=== PATIENT | female | born 1970 | race Caucasian/White ===

== ENCOUNTER → 2021-03-25 07:07 | Outpatient (CLI) | payer OTHER, SELFPAY ==
--- NOTE | ~2021-03-25 | MM_ITS ---
EXAMINATION: MM screening anabel BI w richard HISTORY: Screening mammogram TECHNIQUE: Craniocaudal and mediolateral oblique 3-D tomosynthesis images were obtained and synthetic 2-D images were generated. CAD analysis was submitted and interpreted. COMPARISON: 12/24/2018, 09/13/2017, 05/20/2016 bilateral digital screening mammogram examinations BREAST PARENCHYMAL COMPOSITION: The breasts are heterogeneously dense, which may obscure small masses . FINDINGS: There is stable asymmetry in the upper outer right breast secondary to partial mastectomy f or breast cancer. There is no evidence of interval suspicious mass, calcification, or architectural d istortion to suggest malignancy in either breast. There has been no suspicious interval change. IMPRESSION: 1. No mammographic evidence of malignancy. 2. Recommend routine screening mammography in one year. BI-RADS Category 2: Benign finding(s). Reviewed, dictated and finalized at location A.
== END ==
PROVIDERS: PCP Family Medicine; Visit Provider Student in an Organized Health Care Education/Training Program
DX: Z12.31 Encounter for screening mammogram for malignant neoplasm of breast (principal)
CPT/HCPCS: 77063; 77067

== ENCOUNTER → 2022-06-11 10:02 | Outpatient (CLI) | payer OTHER, SELFPAY ==
--- NOTE | ~2022-06-11 | MM_ITS ---
EXAMINATION: MM screening anabel BI w richard HISTORY: Screening mammogram TECHNIQUE: Craniocaudal and mediolateral oblique 3-D tomosynthesis images were obtained and synthetic 2-D images were generated. CAD analysis was submitted and interpreted. COMPARISON: 03/21/2021, 12/24/2018, 09/13/2017 bilateral screening mammogram examinations BREAST PARENCHYMAL COMPOSITION: The breasts are heterogeneously dense, which may obscure small masses . FINDINGS: Status post right partial mastectomy for breast cancer. There is no evidence of suspicious mass, calcification, or architectural distortion to suggest malignancy in either breast. There has be en no suspicious interval change. IMPRESSION: 1. No mammographic evidence of malignancy. 2. Recommend routine screening mammography in one year. BI-RADS Category 2: Benign finding(s). Reviewed, dictated and finalized at location A.
== END ==
PROVIDERS: PCP Family Medicine; Visit Provider Student in an Organized Health Care Education/Training Program
DX: Z12.31 Encounter for screening mammogram for malignant neoplasm of breast (principal)
CPT/HCPCS: 77063; 77067

== ENCOUNTER 2022-12-01 08:35 | Outpatient (CLI) | payer OTHER, SELFPAY ==
[2022-12-01 10:42] LABS: Free T4 Free Thyroxine 1.21 ng/mL (0.78-2.19)
== END 2022-12-01 08:36 | disposition home or self-care (01) ==
PROVIDERS: PCP Family Medicine; Visit Provider Family Medicine
DX: E03.9 Hypothyroidism, unspecified (principal)
CPT/HCPCS: 36415; 84439; 84443

== ENCOUNTER → 2023-08-01 15:22 | Outpatient (CLI) | payer OTHER, SELFPAY ==
--- NOTE | ~2023-08-01 | MM_ITS ---
EXAMINATION: MM screening anabel BI w richard HISTORY: Screening mammogram, history of right breast TECHNIQUE: Craniocaudal and mediolateral oblique 3-D tomosynthesis images were obtained and synthetic 2-D images were generated. CAD analysis was submitted and interpreted. COMPARISON: 06/11/2022, 03/25/2021, 12/24/2018 BREAST PARENCHYMAL COMPOSITION: The breasts are heterogeneously dense, which may obscure small masses . FINDINGS: Lumpectomy changes are noted in the upper right breast. No suspicious mass, calcification, or architectural distortion are identified in either breast to suggest malignancy. There has been no suspicious interval change. IMPRESSION: 1. No mammographic evidence of malignancy. 2. Recommend routine screening mammography in one year. BI-RADS Category 2: Benign finding(s). Reviewed, dictated and finalized at location A.
== END ==
PROVIDERS: PCP Family Medicine; Visit Provider Family Medicine
DX: Z12.31 Encounter for screening mammogram for malignant neoplasm of breast (principal)
CPT/HCPCS: 77063; 77067

== ENCOUNTER 2024-06-10 07:52 | Outpatient (CLI) | payer OTHER, SELFPAY ==
--- NOTE | ~2024-06-10 | MMUS_ITS ---
EXAMINATION: MM diagnostic anabel LT w richard, US breast LT limited HISTORY: Left breast mass, pain, swelling TECHNIQUE: 3-D tomosynthesis images of the left breast were performed and synthetic 2-D images were g enerated. CAD analysis was submitted and interpreted. High resolution limited left breast ultrasound was performed. COMPARISON: 08/01/2023, 06/11/2022, 03/25/2021 BREAST PARENCHYMAL COMPOSITION:Dense: The breasts are heterogeneously dense, which may obscure small masses. FINDINGS: MAMMOGRAPHIC FINDINGS: There is diffuse skin thickening of the left breast, which is new from prior exam. There is relative diffuse increased density of the left breast parenchyma is compared to prior exam, especially at the upper outer quadrant and lower left breast on MLO view. There is also left axillary lymphadenopathy p resent on MLO view, new from prior exam. No suspicious microcalcifications. ULTRASOUND: At the 1:00-2:00 left breast, an area of palpable concern, there is a 4.3 x 2.5 x 5.0 cm irregular hy poechoic mass versus possibly fluid collection. There are enlarged markedly hypoechoic lymph nodes in the left axilla, largest measuring 2.1 x 1.9 x 2.2 cm. Additional lymph node measures 2.1 x 1.5 x 1. 6 cm. There is an additional probable markedly hypoechoic mass at the 2:00 left breast 13 cm from the nipple, measuring 1.6 cm in diameter. There is extensive subcutaneous edema of the left breast in th e regions scanned. 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 Stable 5 cm mass in the upper, outer left breast with additional smaller left breast m asses as well as left axillary lymphadenopathy. Severe mastitis and possible abscess would be a poten tial alternative consideration, though inflammatory breast cancer is the favored diagnosis. Breast nieves rgical/oncologic consultation is advised. Ultrasound guided biopsy recommended at this time to establ anca a histologic diagnosis. Case discussed with Dr. Zavala at the time of this reading. BI-RADS category 5, highly suggestive of malignancy. Reviewed, dictated and finalized at location M. IMPRESSION: Findings as detailed above are highly suspicious for inflammatory breast cance r extensively involving left breast. Stable 5 cm mass in the upper, outer left breast with additional smaller left breast masses as well as left axillary lymp hadenopathy. Severe mastitis and possible abscess would be a potential alternat cira consideration, though inflammatory breast cancer is the favored diagnosis. Breast surgical/oncologic consultation is advised. Ultrasound guided biopsy rec ommended at this time to establish a histologic diagnosis. Case discussed with Dr. Zavala at the time of this reading. BI-RADS category 5, highly suggestive of malignancy.
== END 2024-06-10 07:53 | disposition home or self-care (01) ==
PROVIDERS: PCP Family Medicine; Visit Provider Obstetrics & Gynecology
DX: N63.21 Unspecified lump in the left breast, upper outer quadrant (principal); R59.0 Localized enlarged lymph nodes; N61.0 Mastitis without abscess
CPT/HCPCS: 76642; 77061; 77065; G0279

== ENCOUNTER 2024-06-13 07:45 | Outpatient (NON) | payer OTHER, SELFPAY | END 2024-06-13 07:46 | disposition home or self-care (01) | LOC: ANHLAB 07:51 | PROVIDERS: PCP Family Medicine; Visit Provider Surgery | DX: R59.0 Localized enlarged lymph nodes (principal); N63.20 Unspecified lump in the left breast, unspecified quadrant; Z85.3 Personal history of malignant neoplasm of breast | CPT/HCPCS: 88305; 88342 ==

== ENCOUNTER 2024-06-13 09:33 | Outpatient (CLI) | payer OTHER, SELFPAY ==
--- NOTE | ~2024-06-13 | US_ITS ---
EXAMINATION: US_BXSTAXLIMG_US DATE: 06/13/2024 10:41 INDICATION: Left axillary lymphadenopathy. TECHNIQUE: The procedure including the risks, benefits, and alternatives was discussed with the patie nt. Risks discussed included bleeding and infection. The patient understood the risks and agreed to p roceed. The skin overlying the left axilla was prepped and draped in usual sterile fashion. Anesthet ic was administered with 1% lidocaine subcutaneously. An 18 gauge core biopsy needle was then used t o obtain 3 core biopsy specimens under continuous sonographic guidance. The entry site was cleaned an d dressed. There were no immediate complications. FINDINGS: Ultrasound images demonstrate the needle in an enlarged left axillary lymph node. IMPRESSION: 1. Ultrasound-guided core needle biopsy of an enlarged left axillary lymph node. Reviewed, dictated and finalized at location A. IMPRESSION: 1. Ultrasound-guided core needle biopsy of an enlarged left axillary lymph node .
== END 2024-06-13 09:34 | disposition home or self-care (01) ==
PROVIDERS: PCP Family Medicine; Visit Provider Surgery
DX: R59.0 Localized enlarged lymph nodes (principal); N63.20 Unspecified lump in the left breast, unspecified quadrant; Z85.3 Personal history of malignant neoplasm of breast
CPT/HCPCS: 20999; 76942; 88305; 88342; 88360

== ENCOUNTER 2024-06-20 07:34 | Outpatient (CLI) | payer OTHER, SELFPAY ==
--- NOTE | 2024-06-20 | ECHO_ITS ---
Patient Info Name: Janae Solis Age: 54 years : 1970 Gender: Female Ht: 70 in Wt: 214 lbs BSA: 2.22 m2 HR: 72 bpm BP: 148 / 88 mmHg Heart Rhythm: Sinus Rhythm Technical Quality: Good Exam Date: 06/20/2024 1:16 PM Exam Location: Echo Lab Patient Status: Outpatient Admit Date: 06/20/2024 Staff Ordering Physician: Trisha Richard MD Payroll Administrative Assistant: Vaibhav Larose RDCS Attending Provider: Trisha Richard MD Referring Physician: Jose Manuel ROOT; Exam Type: CA echo doppler color flow Study Info Indications C50.912 - Malignant neoplasm of unspecified site of left female breast Complete two-dimensional, color flow and Doppler transthoracic echocardiogram is performed. Strain analysis performed. Summary 1. Left ventricular chamber dimension is normal. 2. Left ventricular systolic function is normal, estimated at 55-60%. 3. The left ventricular diastolic function is grade I diastolic dysfunction. 4. Global longitudinal strain is abnormal at -16 %. 5. Right ventricular systolic function is normal. 6. Left atrial chamber dimension is mildly enlarged. 7. There is mild mitral valve regurgitation. 8. There is mild tricuspid valve regurgitation. Left Ventricle Left ventricular chamber dimension is normal. Left ventricular systolic function is normal, estimated at 55-60%. There is no increased left ventricular wall thickness. The left ventricular diastolic function is grade I diastolic dysfunction. Global longitudinal strain is abnormal at -16 %. Right Ventricle Right ventricular chamber dimension is normal. Right ventricular systolic function is normal. Left Atria Left atrial chamber dimension is mildly enlarged. Right Atria Right atrial chamber dimension is normal. Atrial Septum Intact interatrial septum visualized by color flow imaging. Aortic Valve The aortic valve is trileaflet. There is mild aortic valve sclerosis. There is no aortic valve stenosis. Pulmonic Valve The pulmonic valve is not well visualized. There is trace pulmonic regurgitation. Mitral Valve There is mild mitral valve regurgitation. Tricuspid Valve There is mild tricuspid valve regurgitation. Pericardium/Pleural The pericardium appears epicardial fat pad. There is no pericardial effusion. Inferior Vena Cava Normal inferior vena cava with >50% collapse upon inspiration consistent with normal right atrial pressure, 3 mmHg. Aorta The aortic root size at the sinus of Valsalva is normal. Left Ventricular Outflow Tract Name Value Normal LVOT 2D LVOT Diameter 2.0 cm LVOT Doppler LVOT Peak Gradient 6 mmHg LVOT Mean Gradient 3 mmHg LVOT VTI 22 cm LVOT VTI/AV VTI Ratio 0.7 LVOT Stroke Volume 68 ml LVOT CO 5.2 l/min LVOT CI 2.4 l/min/m2 Pulmonic Valve Name Value Normal PV Doppler
--- NOTE | ~2024-06-20 | MM_ITS ---
MM post biopsy diagnostic LT 06/20/2024 08:59 INDICATION: Status post recent ultrasound-guided left breast biopsy. TECHNIQUE: Digital diagnostic left breast mammogram. COMPARISON: 06/10/2024 BREAST PARENCHYMAL COMPOSITION: The breasts are heterogeneously dense, which may obscure small masses . FINDINGS: Postbiopsy changes are noted in the [ breast, consistent with recent ultrasound guided biop sy. Interval placement of tissue marker in the upper, outer quadrant of the left breast. Biopsy marke r appears somewhat posterior to the areas of most increased density on the MLO view, but does overlie the area of density on the cc view. Please refer to Dr. Trisha Ashley's procedural report for deta ils.] IMPRESSION: 1: Status post recent ultrasound-guided left breast biopsy with post procedure mammogram for marker p lacement. Please see details above. Reviewed, dictated and finalized at [facility]. IMPRESSION: 1: Status post recent ultrasound-guided left breast biopsy with post procedure mammogram for marker placement. Please see details above.
--- NOTE | 2024-06-20 08:57 | WPDBIOPSY ---
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 Benefits and alternatives to procedure were discussed as well. Consent was obtained and a time out was performed. The large left breast mass was identified using the US in the upper outer quadrant area, and lidocaine with epinephrine was used to anesthetize the skin and tissue surrounding the mass under US guidance. A 10g vacuum assisted device was used to obtain 4 core biopsy specimens under US guidance. An Inrad tissue marker clip was then placed at the biopsy site under US guidance. Pressure was held over the area for 10 minutes with excellent hemostasis. Core needle specimens were sent to pathology in formalin. Patient tolerated the procedure well with no immediate complications. A post-procedure left mammogram was obtained to confirm the tissue marker clip placement.
== END 2024-06-20 07:35 | disposition home or self-care (01) ==
PROVIDERS: Visit Provider Surgery
DX: C50.412 Malignant neoplasm of upper-outer quadrant of left female breast (principal); R59.0 Localized enlarged lymph nodes; I50.30 Unspecified diastolic (congestive) heart failure; I08.1 Rheumatic disorders of both mitral and tricuspid valves; Z85.3 Personal history of malignant neoplasm of breast; N63.21 Unspecified lump in the left breast, upper outer quadrant
CPT/HCPCS: 19083; 77065; 88305; 88360; 93306; A4648

== ENCOUNTER 2024-06-21 12:54 | Outpatient (CLI) | payer OTHER, SELFPAY ==
[2024-06-21 13:47] LABS: Prothrombin Time 13.5 Seconds (11.1-14.7)
[2024-06-21 13:48] LABS: Partial Thromboplastin Time 30.3 Seconds (22.3-36.8)
== END 2024-06-21 12:55 | disposition home or self-care (01) ==
LOC: ANHSURGERY 13:03
PROVIDERS: PCP Family Medicine; Visit Provider Surgery
DX: C50.919 Malignant neoplasm of unspecified site of unspecified female breast (principal); Z01.818 Encounter for other preprocedural examination
CPT/HCPCS: 36415; 85610; 85730

== ENCOUNTER 2024-06-24 01:31 | Day surgery (SDC) | payer OTHER, SELFPAY ==
[2024-06-21 08:16] VITALS: BMI 31.1
--- NOTE | 2024-06-21 08:17 | PC.NURSE ---
Report to the Outpatient Waiting Room, entrance under the green pavilion located off [facility], at time _1115_ on date _[id number]_. Planned Procedure Time: _115pm_.? Time changes happen often and if your time is changed the preop area will call you the afternoon before. - You and your visitor will be asked to self-screen and do not enter if you have any COVID symptoms. Please call surgeon if you need to reschedule. - A mask is optional within the hospital at this time. Patients may have clear liquids (water, carbonated beverages, clear teas, apple juice) until 3 hours prior to surgery with a maximum of 20 ounces. - No food from midnight until time of surgery and no smoking Take only the following medications with a SIP of water on the morning of surgery: ___Tylenol if needed for pain. DO NOT STOP ANY OF YOUR OTHER PRESCRIPTION MEDICATIONS PRIOR TO SURGERY EXCEPT THE FOLLOWING Medications to discontinue per physician All vitamins Date to take last dose____Stop now. Gail says she will take Tylenol instead of Ibuprofen until after surgery. Please no make-up, nail japanese, hairspray, perfume, deodorant, or body powder the day of surgery.? No jewelry (including any body piercings) or valuables the day of surgery, leave them at home.? Please take a shower or bath the night before, or the morning of, surgery with an antibacterial soap.? Wear comfortable, loose fitting clothing.? - Jewelry must be removed prior to entering the operating room.? Rings and piercings that are not removed may be cut off. - The hospital will not accept responsibility for valuables.? - Please leave all valuables, including medications, at home the day of surgery. If you are going home after surgery, a licensed school boat driver must drive you home.? - NO public transportation without another adult if you receive anesthesia. - We recommend that an adult stay with you for 24 hours following discharge. - We also recommend that you do not drive, make important decision, drink alcoholic beverages, or take any drugs that were not prescribed by your health care provider for at least 24 hours after your discharge time. Follow any additional instructions given to you from your surgeon. Telephone instructions given to __Stacey__and asked if any additional questions and then verbalized understanding. Patient advised to call surgeon office or pre surgery nurse liaison [phone] if any additional questions.
--- NOTE | ~2024-06-24 | XR_ITS ---
EXAMINATION: XR fl guide central line place DATE: 06/24/2024 14:31 INDICATION: Port placement. TECHNIQUE: A single intraoperative fluoroscopic view of the chest was obtained. I was not present. Th e fluoroscopy exposure time was 53 seconds. COMPARISON: Chest single view 02/22/2024 FINDINGS: There is a right internal jugular port with tip at superior cavoatrial junction. IMPRESSION: 1. Poor tip at superior cavoatrial junction. Reviewed, dictated and finalized at location A.
--- NOTE | ~2024-06-24 | XR_ITS ---
XR chest port-a-cath/central Ordering provider: Doris Miranda MD History: 54 years Female with . POST-OP, INSERTION JOSE CATH . Comparison: July 05, 2010 FINDINGS: MEDIASTINUM: The cardiac silhouette is not enlarged. Right Port-A-Cath with the tip overlying superio r vena cava. LUNGS: No infiltrates, effusions or pneumothorax. OTHER: No free air under the diaphragm. IMPRESSION: No acute cardiopulmonary pathology. Reviewed, dictated and finalized at location A.
[2024-06-24] MEDS: KETOROLAC 15 MG/ML VIAL (*BKC) IV PUSH (11:30)
[2024-06-24] MEDS: LACTATED RINGERS 1,000 ML 30 ML IV CONT (11:30)
--- NOTE | 2024-06-24 11:48 | PM.IMHP ---
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 The patient is going to undergo neoadjuvant treatment. Of note, the patient previously had right breast cancer in 2009. The patient reports she had a Port-A-Cath placed at that time that was subsequently removed after completion of chemotherapy. The patient reports in the interim she has not had any further central venous catheterization. Review of Systems Review of Systems: All systems reviewed & are unremarkable except as noted in HPI and below PMFSH Past Medical History Medical History Abnormal uterine bleeding Acute bronchitis due to other specified organisms Anemia Breast cancer Breast cancer screening Bronchospasm Cervical polyp Dysfunctional uterine bleeding Endometrial polyp MIRIAM (generalized anxiety disorder) History of vaginal delivery Influenza and pneumonia Lipid screening Nicotine dependence, unspecified, uncomplicated Psychophysiological insomnia Vitamin B12 deficiency Vitamin D deficiency Weight gain finding Surgical History Surgical History History of lumpectomy History of lymph node dissection of axilla Hx of LASIK [place] teeth removed Social History Social History Social History: Smoking packs per day: 1 Smoking cigarettes per day: 20.0 Years smoked: 20 Smoking pack-years: 20.00 Smoking status: Former smoker Tobacco type: cigarettes Second hand tobacco smoke exposure: No Smoking end date: 06/21/18 Alcohol intake: current Drinks per week: 1 Alcohol use details: daily Substance use: never Substance use type: does not use Do You Feel Safe in your Home?: Yes Lack of Transportation: No Lack of Food: Never True Current Housing: I Have Housing Concerned About Future Housing: No Difficulty Paying Gas/Electric Bills: No Difficulty Paying for Meds: No Currently Unemployed: No Difficulty w/ Childcare or Family Care: No Living arrangements: with family Occupation/Education: occupation Gender identity (if verbalized by the patient): Female Sexual Orientation (if Verbalized by the Patient): Straight or Heterosexual Spiritual care concerns: No Agree to blood products: Yes Meds Home Medications and Allergies Home Medications Medication Instructions Recorded Confirmed Type ascorbic acid (vitamin C) 500 mg 250 mg PO DAILY 06/21/24 06/21/24 History tablet (Vitamin C) ferrous sulfate 325 mg (65 mg 325 mg PO DAILY 06/21/24 06/21/24 History iron) tablet,delayed release ibuprofen 200 mg tablet 400 mg PO Q6H PRN Pain 06/21/24 06/21/24 History multivitamin 1 tablet PO DAILY 06/21/24 06/21/24 History pyridoxine (vitamin B6) 500 mg 500 mg PO DAILY 06/21/24 06/21/24 History tablet Allergies Allergy/AdvReac Type Severity Reaction Status Date / Time No Known Allergies Allergy Verified 06/21/24 08:06 Exam Const: General: cooperative, comfortable and no acute distress HENMT: Head: normal to inspection and normocephalic Eyes: General: appearance normal, both eyes and all related structures Neck: Neck: normal visual inspection, full ROM and no lymphadenopathy Chest: Other: L breast inflammatory breast cancer L chest healed incision from previous port Resp: Auscultation: clear to auscultation bilaterally Cardio: Rate: regular rate Rhythm: regular rhythm GI: Inspection: normal to inspection and non-distended GI Palp: No abdominal tenderness and Yes Soft to palpation Skin: General skin exam: normal color and no rashes or lesions noted Neuro: General: patient oriented x3 and C
--- NOTE | 2024-06-24 11:54 | WPDHPUPDATE1 ---
History and Physical Update Update Date/Time: 06/24/24 11:54 History and Physical has been reviewed, including an updated exam of the patient. There are NO changes in the patient's condition. Risks, benefits, and alternatives have been discussed and questions answered. Patient agrees to proceed with procedure.
[2024-06-24 12:00] VITALS: BP 144/76; PULSE 85; RESP 16; TEMP 36.9; O2SAT 98
--- NOTE | 2024-06-24 12:22 | WPDANESEPPF ---
Anes - Initial Pre Proc Eval Procedure: Operation Date: 06/24/24 13:15 Proposed Procedures p Insertion Tigre Cath - Doris Miranda MD Date/Time: 06/24/24 12:22 Surgeon: Doris Miranda MD Pre Op Diagnosis: inflammatory CA left breast Patient Data Age: 54 Gender: F Height: 1.78 m Weight: 98.6 kg Allergies Allergy/AdvReac Type Severity Reaction Status Date / Time No Known Allergies Allergy Verified 06/21/24 08:06 Home Medications Medication Instructions Recorded Confirmed Type ascorbic acid (vitamin C) 500 mg 250 mg PO DAILY 06/21/24 06/21/24 History tablet (Vitamin C) ferrous sulfate 325 mg (65 mg 325 mg PO DAILY 06/21/24 06/21/24 History iron) tablet,delayed release ibuprofen 200 mg tablet 400 mg PO Q6H PRN Pain 06/21/24 06/21/24 History multivitamin 1 tablet PO DAILY 06/21/24 06/21/24 History pyridoxine (vitamin B6) 500 mg 500 mg PO DAILY 06/21/24 06/21/24 History tablet Patient hx anesthesia problems: none Family hx anesthesia problems: none Results Review: All pre-operative results and documents have been reviewed as part of the pre-operative evaluation. [facility] Past Medical History Medical History Abnormal uterine bleeding Acute bronchitis due to other specified organisms Anemia Breast cancer Breast cancer screening Bronchospasm Cervical polyp Dysfunctional uterine bleeding Endometrial polyp MIRIAM (generalized anxiety disorder) History of vaginal delivery Influenza and pneumonia Lipid screening Nicotine dependence, unspecified, uncomplicated Psychophysiological insomnia Vitamin B12 deficiency Vitamin D deficiency Weight gain finding Surgical History Surgical History History of lumpectomy History of lymph node dissection of axilla Hx of LASIK [place] teeth removed Social History Social History Social History: Smoking packs per day: 1 Smoking cigarettes per day: 20.0 Years smoked: 20 Smoking pack-years: 20.00 Smoking status: Former smoker Tobacco type: cigarettes Second hand tobacco smoke exposure: No Smoking end date: 06/21/18 Alcohol intake: current Drinks per week: 1 Alcohol use details: daily Substance use: never Substance use type: does not use Do You Feel Safe in your Home?: Yes Lack of Transportation: No Lack of Food: Never True Current Housing: I Have Housing Concerned About Future Housing: No Difficulty Paying Gas/Electric Bills: No Difficulty Paying for Meds: No Currently Unemployed: No Difficulty w/ Childcare or Family Care: No Living arrangements: with family Occupation/Education: occupation Gender identity (if verbalized by the patient): Female Sexual Orientation (if Verbalized by the Patient): Straight or Heterosexual Spiritual care concerns: No Agree to blood products: Yes Anes - Eval Final PreProcedure Day of Procedure 06/24/24 12:22 Patient weight: overweight Heart: regular rate and rhythm Lungs: clear to auscultation Airway: Mallampati scale class II Neurological: alert and oriented Last oral intake: >/= 8 hours ASA classification: III Emergent: no Anesthetic plan: proceed Anesthesia type and monitoring: general GIVS and standard monitoring Results Review: All pre-operative results and documents have been reviewed as part of the pre-operative evaluation. Informed Consent: The patient's anesthetic plan and its attendant risks and benefits were discussed with the patient/family/POA. Questions were solicited and answers provided to the satisfaction of the patient/family/POA.
[2024-06-24] MEDS: ceFAZolin 2 GM/D5W 50 ML 2 GM/50 ML BAG IVPB (13:26)
[2024-06-24] MEDS: BUPIVACAINE/EPINEPHRINE 0.5% 10 ML VIAL 30 ML INFILTRATE (13:28)
[2024-06-24] MEDS: HEPARIN SODIUM, PORCINE 10,000 UNITS/10 ML VIAL 3000 UNITS IRRIGATION (13:30)
[2024-06-24] MEDS: HEPARIN SODIUM 5,000 UNITS/ML VIAL 5000 UNITS IRRIGATION (13:35)
--- NOTE | 2024-06-24 14:25 | W.PM.PROC2 ---
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 After adequate induction of mac anesthesia, the patient was prepped and draped in normal sterile fashion. Time-out was then done to verify the patient's identity, as well as the procedure being performed. I used the ultrasound to gain access into the right internal jugular vein. Once access was gained, I placed the guidewire in the vein and confirmed proper positioning using fluoroscopy. At this point, the wire was noted to go lateral. I then removed the wire and regained access once again using the ultrasound device. Again fluoroscopy showed the wire going laterally. Under fluoroscopic guidance, I was able to slowly redirect the wire into the vena cava. I then locally anesthetized an area in the right chest. I then made an incision including making a subcutaneous pocket inferiorly to allow placement of the port itself. I proceeded to tunnel the catheter from the chest to the right neck insertion site. This was difficult given the patient's body habitus. I then placed a dilating sheath over the guidewire into the right internal jugular vein via sterile Seldinger technique. This was once again done and confirmed via fluoroscopic guidance. I then removed the dilator and the guidewire, now just leaving the sheath in the vein. I then fed the previously flushed catheter into the right internal jugular vein under fluoroscopic guidance. At approximately 26 cm, the catheter was noted to be near the atrial caval junction. I then peeled away the sheath, now just leaving the catheter in the vein. I then was able to easily draw and flush from the catheter. Unfortunately, there was noted to be a small hole in the catheter near the neck insertion site. Given these findings, the catheter was cut and the wire was placed through the catheter into the right IJ. This was again confirmed by fluoroscopy. The catheter was then removed. A new catheter was tunneled from the right chest to the lower right neck insertion site. Again the dilating sheath placed over the guidewire into the right internal jugular vein via fluoroscopic guidance. Once in good position the dilator and the guidewire removed. The catheter was then placed into the sheath and subsequently the right IJ. Once properly positioned, the sheath was peeled away. I was able to easily drawn flush from the catheter. The catheter was cut to fit and attached to the port itself. The port was placed into the previously made subcutaneous pocket and sutured in with 0 Ethibond suture. Final fluoroscopic view showed the termination of the catheter at the atrial caval junction with a nice smooth curvature back to the port itself. I was able to gain access to the port with a Guzman needle and was able to easily draw and flush from the port. I then flushed 4 cc of a final heparin flush into the port. The incision was closed with 3 0 Vicryl suture in the subcutaneous tissue and the skin was closed with 4 O Monocryl subcuticular suture. Dermabond was then placed on wound. The patient tolerated the procedure well and will be sent to the recovery room in stable condition. Implants RIJ VAD Estimated Blood Loss 20 Pathology None sent Complications No immediate complications Condition Stable Disposition PACU [facility] Billing Surgery - Charge Forward: Surgery Billing
[2024-06-24 14:31] VITALS: BP 125/75; PULSE 84; RESP 14; O2SAT 100
[2024-06-24 15:00] VITALS: BP 137/86; PULSE 82; RESP 20
[2024-06-24 15:30] VITALS: BP 166/90; PULSE 75; RESP 20
[2024-06-24 15:45] VITALS: BP 164/91; PULSE 75; RESP 20
== END 2024-06-24 16:00 | disposition home or self-care (01) ==
PROVIDERS: PCP Family Medicine; Visit Provider Surgery
PROC: (CPT 36561; principal; 2024-06-24 13:15)
DX: C50.912 Malignant neoplasm of unspecified site of left female breast (principal); D64.9 Anemia, unspecified; F41.9 Anxiety disorder, unspecified; E53.8 Deficiency of other specified B group vitamins; E55.9 Vitamin D deficiency, unspecified; Z79.1 Long term (current) use of non-steroidal anti-inflammatories (NSAID); Z98.890 Other specified postprocedural states; Z87.891 Personal history of nicotine dependence; Z85.3 Personal history of malignant neoplasm of breast
CPT/HCPCS: 36561; 36415; 77001; 85610; 85730; C1788; J0690; J1644; J1885; J2704; J3010; J7030; J7120

== ENCOUNTER 2024-06-25 14:17 | Outpatient (CLI) | payer OTHER, SELFPAY ==
--- NOTE | ~2024-06-25 | MR_ITS ---
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 TECHNIQUE: MRI of the breasts perform using standard protocol pre-and post IV contrast with the follo wing sequences: Axial T2 STIR, axial T1, axial vibrant T1 with fat suppression precontrast and multip hasic postcontrast. 20 cc MultiHance administered intravenously. COMPARISON: Comparison to multiple prior studies sequentially, with oldest reviewed study dated 03/25. FINDINGS: There are no abnormalities on the precontrast sequences. There is mild background parenchym al enhancement. No enhancing lesions following contrast administration. No areas of enhancement cortez ting threshold criteria on CAD analysis. No evidence of signal abnormalities in the axillary or inte rnal mammary node distributions. LEFT BREAST: There is moderate background parenchymal enhancement. There is diffuse asymmetric enlar gement of the left breast with abnormal skin thickening. There is a conglomerate infiltrative mass ce ntered in the upper outer quadrant primarily involving the mid and posterior third measuring up to 10 .8 x 6.4 x 9.2 cm. There is an infiltrative nodular enhancing parenchyma in the remainder of the yamil st. There is abnormal lymphadenopathy of the axillary and internal mammary lymph nodes. There is asym metric enlargement of the pectoralis muscle with heterogeneous enhancement. There is significant skin thickening in the periareolar location with intense enhancement. These findings are suspicious for a n inflammatory breast cancer. IMPRESSION: 1: Right breast: Negative. No evidence of malignancy. BI-RADS category 1. Recommend annual mammo graphy follow-up. 2: Left breast: Large infiltrative left breast mass measuring up to 10.8 cm centered in the upper ou ter quadrant with rapid washout kinetics, compatible with known malignancy. There is abnormal skin th ickening, diffuse the increased trabeculation, axillary and internal mammary lymphadenopathy and abno rmal thickened appearance to the associated pectoralis muscle, all compatible with metastatic disease . BI-RADS category 6- Known biopsy proven malignancy: Appropriate action should be taken. Reviewed, dictated and finalized at location B. IMPRESSION: 1: Right breast: Negative. No evidence of malignancy. BI-RADS category 1. Recommend annual mammography follow-up. 2: Left breast: Large infiltrative left breast mass measuring up to 10.8 cm ce ntered in the upper outer quadrant with rapid washout kinetics, compatible with known malignancy. There is abnormal skin thickening, diffuse the increased tra beculation, axillary and internal mammary lymphadenopathy and abnormal thickene d appearance to the associated pectoralis muscle, all compatible with metastati c disease. BI-RADS category 6- Known biopsy proven malignancy: Appropriate acti on should be taken.
== END 2024-06-25 14:18 | disposition home or self-care (01) ==
PROVIDERS: PCP Family Medicine; Visit Provider Surgery
DX: N63.21 Unspecified lump in the left breast, upper outer quadrant (principal); R59.0 Localized enlarged lymph nodes
CPT/HCPCS: 77049; A9577; C8908

== ENCOUNTER 2024-11-08 09:19 | Outpatient (CLI) | payer OTHER, SELFPAY ==
--- NOTE | ~2024-11-08 | MR_ITS ---
MR breast BI wo/w con 11/11/2024 16:39 SITE SAFETY COORDINATOR INDICATION: Malignant neoplasm of the left breast. Postchemotherapy. TECHNIQUE: MRI of the breasts perform using standard protocol pre-and post IV contrast with the follo wing sequences: Axial T2 STIR, axial T1, axial vibrant T1 with fat suppression precontrast and multip hasic postcontrast. 20 cc MultiHance administered intravenously. COMPARISON: Comparison to multiple prior studies sequentially, with oldest reviewed study dated 12/24. FINDINGS: Right breast: There is heterogeneous fibroglandular tissue. There are no abnormalities on the precont rast sequences. There is mild background parenchymal enhancement. No enhancing lesions following con trast administration. No areas of enhancement meeting threshold criteria on CAD analysis. No eviden ce of signal abnormalities in the axillary or internal mammary node distributions.. LEFT BREAST: No signal abnormalities on precontrast sequences. There is marked background parenchyma l enhancement. There is diffusely heterogeneous dense fibroglandular tissue throughout the left breas t. There is diffuse skin thickening. There is significantly decreased bulk of penetrated of left yamil st mass centered in the upper outer quadrant of the breast, although the abnormal enhancing soft tiss ue extends to other quadrants throughout the breast. The dominant area of abnormal enhancement measur es approximately 6.1 x 5.8 x 3.7 cm with rapid washout enhancement which is diffusely heterogeneous. This soft tissue extends posteriorly to involve the pectoralis muscle. The left pectoralis muscle kayla ears enlarged and heterogeneous compared with the right, consistent with tumor invasion, although imp roved compared with prior study. There are persistent abnormal appearing lymph nodes in the left axil la. There is a mass in the upper outer quadrants of the left breast at approximately 12:00, middle th ird measuring 1.3 x 0.9 x 1.3 cm with rapid washout enhancement, likely local extension of tumor. The overall appearance of the left breast has a less masslike and more infiltrative appearance with sign ificantly decreased size of conglomerate mass and enhancement compared with prior MRI dated 06/25/2024 . IMPRESSION: 1: Right breast: Negative. No evidence of malignancy. BI-RADS category 1. Recommend annual mammo graphy follow-up. 2: Left breast: Decreased bulky masslike appearance to the left breast compared with prior MRI exami nation with more infiltrative appearance on the current study. There is significantly decreased enhan cement compared with prior examination. Skin thickening and enhancement are also improved. Decreased bulkiness and enhancement of the pectoralis muscle. Significantly improved left axillary lymph nodes compared with prior study. These findings are all compatible with interval response to therapy. Consi rhys correlation with diagnostic bilateral mammogram and possible additional ultrasound. BI-RADS category 6- Known biopsy proven malignancy: Appropriate action should be taken. Reviewed, dictated and finalized at location B. SAFETY COORDINATOR IMPRESSION: 1: Right breast: Negative. No evidence of malignancy. BI-RADS category 1. Recommend annual mammography follow-up. 2: Left breast: Decreased bulky masslike appearance to the left breast compare d with prior MRI examination with more infiltrative appearance on the current s tudy. There is significantly decreased enhancement compared with prior examinat ion. Skin thickening and enhancement are also improved. Decreased bulkiness and enhancement of the pectoralis muscle. Significantly improved left axillary lym ph nodes compared with prior study. These findings are all compatible with inte rval response to therapy. Consider correlation with diagnostic bilateral mammog rox and possible additional ultrasound. BI-RADS category 6- Known biopsy proven malignancy: Appropriate action should b e taken.
--- OUTSIDE RECORDS SUMMARY | 2024-11-08 09:48 | XMS_ITS | Encounter Summary ---
Author Organization [facility] [employer] [facility] Address [address] [place] [address] Phone Care Team Providers Care Recharger Name Role Phone Evi Avila MD Primary Care Provider Randall Pierce MD Unavailable Encounter Details Date Type Department Care Team (Latest Contact Info) Description 06/09/2010 Orders Only [facility] Scanning, Provider Social History Tobacco Use Types Packs/Day Years Used Date Smoking Tobacco: Never Assessed Comments Unknown Sex and Gender Information Value Date Recorded Sex Assigned at Not on file Legal Sex Female 2:38 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 Gender Identity Not on file Sexual Orientation Not on file documented as of this encounter Plan of Treatment Not on file documented as of this encounter Procedures Procedure Name Priority Date/Time Associated Diagnosis Comments SCAN - RADIOLOGY/IMAGING 06/09/2010 documented in this encounter Results * SCAN - RADIOLOGY/IMAGING (06/09/2010) Anatomical Region Laterality Modality Other us Provider Scanning Final Result documented in this encounter Visit Diagnoses Not on filedocumented in this encounter Care Teams Recharger Relationship Specialty Start Date End Date Evi Avila MD [address] [facility] [address] [place] [address] PCP - General Family Medicine 06/15/24 Randall Pierce MD [address] [facility] [address] [place] [address] Consulting Physician Medical Oncology 06/18/24 documented as of this encounter
--- OUTSIDE RECORDS SUMMARY | 2024-11-08 09:48 | XMS_ITS | Encounter Summary ---
Author Organization [facility] [employer] [facility] Address [address] [place] [address] Phone Care Team Providers Care Panelboard Assembler Name Role Phone Evi Avila MD Primary Care Provider Randall Pierce MD Unavailable Encounter Details Date Type Department Care Team (Latest Contact Info) Description 06/03/2011 Orders Only [facility] Scanning, Provider Social History Tobacco Use Types Packs/Day Years Used Date Smoking Tobacco: Never Assessed Comments Unknown Sex and Gender Information Value Date Recorded Sex Assigned at Not on file Legal Sex Female 2:38 PM GLOBAL RECRUITER Gender Identity Not on file Sexual Orientation Not on file documented as of this encounter Plan of Treatment Not on file documented as of this encounter Procedures Procedure Name Priority Date/Time Associated Diagnosis Comments SCAN - RADIOLOGY/IMAGING 06/03/2011 documented in this encounter Results * SCAN - RADIOLOGY/IMAGING (06/03/2011) Anatomical Region Laterality Modality Other us Provider Scanning Edited Result - Final documented in this encounter Visit Diagnoses Not on filedocumented in this encounter Care Teams Panelboard Assembler Relationship Specialty Start Date End Date Evi Avila MD [address] [place] [address] PCP - General Family Medicine 06/15/24 Randall Pierce MD [address] [facility] [address] [place] [address] Consulting Physician Medical Oncology 06/18/24 documented as of this encounter
--- OUTSIDE RECORDS SUMMARY | 2024-11-08 09:48 | XMS_ITS | Encounter Summary ---
Author Organization [facility] [employer] [facility] Address [address] [place] [address] Phone Care Team Providers Care Global Climate Change Researcher Name Role Phone Evi Avila MD Primary Care Provider Randall Pierce MD Unavailable Encounter Details Date Type Department Care Team (Latest Contact Info) Description 07/05/2010 Orders Only [facility] Scanning, Provider Social History Tobacco Use Types Packs/Day Years Used Date Smoking Tobacco: Never Assessed Comments Unknown Sex and Gender Information Value Date Recorded Sex Assigned at Not on file Legal 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 Female 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 Gender Identity Not on file Sexual Orientation Not on file documented as of this encounter Plan of Treatment Not on file documented as of this encounter Procedures Procedure Name Priority Date/Time Associated Diagnosis Comments SCAN - RADIOLOGY/IMAGING 07/05/2010 documented in this encounter Results * SCAN - RADIOLOGY/IMAGING (07/05/2010) Anatomical Region Laterality Modality Other us Provider Scanning Final Result documented in this encounter Visit Diagnoses Not on filedocumented in this encounter Care Teams Global Climate Change Researcher Relationship Specialty Start Date End Date Evi Avila MD [address] [place] [address] PCP - General Family Medicine 06/15/24 Randall Pierce MD [address] [facility] [address] [place] [address] Consulting Physician Medical Oncology 06/18/24 documented as of this encounter
--- OUTSIDE RECORDS SUMMARY | 2024-11-08 09:48 | XMS_ITS | Encounter Summary ---
Author Organization [facility] [employer] [facility] Address [address] [place] [address] Phone Care Team Providers Care Security Engineer Name Role Phone Evi Avila MD Primary Care Provider Randall Pierce MD Unavailable Encounter Details Date Type Department Care Team (Latest Contact Info) Description 06/28/2010 Orders Only [facility] Scanning, Provider Social History Tobacco Use Types Packs/Day Years Used Date Smoking Tobacco: Never Assessed Comments Unknown Sex and Gender Information Value Date Recorded Sex Assigned at Not on file Legal Sex Female 2:38 PM COTTON 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 Gender Identity Not on file Sexual Orientation Not on file documented as of this encounter Plan of Treatment Not on file documented as of this encounter Procedures Procedure Name Priority Date/Time Associated Diagnosis Comments SCAN - LABS 06/28/2010 documented in this encounter Results * SCAN - LABS (06/28/2010) Provider Scanning Final Result documented in this encounter Visit Diagnoses Not on filedocumented in this encounter Care Teams Security Engineer Relationship Specialty Start Date End Date Evi Avila MD [address] [place] [address] PCP - General Family Medicine 06/15/24 Randall Pierce MD [address] [facility] [address] [place] [address] Consulting Physician Medical Oncology 06/18/24 documented as of this encounter
--- OUTSIDE RECORDS SUMMARY | 2024-11-08 09:48 | XMS_ITS | Encounter Summary ---
Author Organization [facility] [employer] [facility] Address [address] [place] [address] Phone Care Team Providers Care Glass Etcher Helper Name Role Phone Evi Avila MD Primary Care Provider Randall Pierce MD Unavailable Encounter Details Date Type Department Care Team (Latest Contact Info) Description 05/20/2016 Orders Only [facility] Scanning, Provider Social History Tobacco Use Types Packs/Day Years Used Date Smoking Tobacco: Never Assessed Comments Unknown Sex and Gender Information Value Date Recorded Sex Assigned at Not on file Legal Sex Female 2:38 PM ALARM SIGNAL OPERATOR Gender Identity Not on file Sexual Orientation Not on file documented as of this encounter Plan of Treatment Not on file documented as of this encounter Procedures Procedure Name Priority Date/Time Associated Diagnosis Comments SCAN - RADIOLOGY/IMAGING 05/20/2016 documented in this encounter Results * SCAN - RADIOLOGY/IMAGING (05/20/2016) Anatomical Region Laterality Modality Other us Provider Scanning Edited Result - Final documented in this encounter Visit Diagnoses Not on filedocumented in this encounter Care Teams Glass Etcher Helper Relationship Specialty Start Date End Date Evi Avila MD [address] [place] [address] PCP - General Family Medicine 06/15/24 Randall Pierce MD [address] [facility] [address] [place] [address] Consulting Physician Medical Oncology 06/18/24 documented as of this encounter
--- OUTSIDE RECORDS SUMMARY | 2024-11-08 09:48 | XMS_ITS | Encounter Summary ---
Author Organization [facility] [employer] [facility] Address [address] [place] [address] Phone Care Team Providers Care Top Cutter Name Role Phone Evi Avila MD Primary Care Provider Randall Pierce MD Unavailable Encounter Details Date Type Department Care Team (Latest Contact Info) Description 12/02/2010 Orders Only [facility] Scanning, Provider Social History Tobacco Use Types Packs/Day Years Used Date Smoking Tobacco: Never Assessed Comments Unknown Sex and Gender Information Value Date Recorded Sex Assigned at Not on file Legal Sex Female 2:38 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 SOFTWARE 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 Gender Identity Not on file Sexual Orientation Not on file documented as of this encounter Plan of Treatment Not on file documented as of this encounter Procedures Procedure Name Priority Date/Time Associated Diagnosis Comments SCAN - RADIOLOGY/IMAGING 12/02/2010 documented in this encounter Results * SCAN - RADIOLOGY/IMAGING (12/02/2010) Anatomical Region Laterality Modality Other us Provider Scanning Final Result documented in this encounter Visit Diagnoses Not on filedocumented in this encounter Care Teams Top Cutter Relationship Specialty Start Date End Date Evi Avila MD [address] [place] [address] PCP - General Family Medicine 06/15/24 Randall Pierce MD [address] [facility] [address] [place] [address] Consulting Physician Medical Oncology 06/18/24 documented as of this encounter
--- OUTSIDE RECORDS SUMMARY | 2024-11-08 09:48 | XMS_ITS | Encounter Summary ---
Author Organization [facility] [employer] [facility] Address [address] [place] [address] Phone Care Team Providers Care Licensed Club Manager Name Role Phone Evi Avila MD Primary Care Provider Randall Pierce MD Unavailable Encounter Details Date Type Department Care Team (Latest Contact Info) Description 07/01/2010 Orders Only [facility] Scanning, Provider Social History Tobacco Use Types Packs/Day Years Used Date Smoking Tobacco: Never Assessed Comments Unknown Sex and Gender Information Value Date Recorded Sex Assigned at Not on file Legal Sex Female 2:38 PM WAX MACHINE OPERATOR Gender Identity Not on file Sexual Orientation Not on file documented as of this encounter Plan of Treatment Not on file documented as of this encounter Procedures Procedure Name Priority Date/Time Associated Diagnosis Comments SCAN - RADIOLOGY/IMAGING 07/01/2010 documented in this encounter Results * SCAN - RADIOLOGY/IMAGING (07/01/2010) Anatomical Region Laterality Modality Other us Provider Scanning Final Result documented in this encounter Visit Diagnoses Not on filedocumented in this encounter Care Teams Licensed Club Manager Relationship Specialty Start Date End Date Evi Avila MD [address] [facility] [address] [place] [address] PCP - General Family Medicine 06/15/24 Randall Pierce MD [address] [facility] [address] DIV [place] [address] Consulting Physician Medical Oncology 06/18/24 documented as of this encounter
--- OUTSIDE RECORDS SUMMARY | 2024-11-08 09:48 | XMS_ITS | Encounter Summary ---
Author Organization [facility] [employer] [facility] Address [address] [place] [address] Care Team Providers Care Race Relations Professor Name Role Phone Paul Delarosa MD Primary Care Provider [phone] Encounter Details Date Type Department Care Team (Late st Contact Info) Description 11/04/[address] [facility] Oncology and Hematology [facility] [address] [place] [address] Chalino Kraus MD [address] [place] [address] Inflammatory carcinoma of left breast (CMS/HCC) Social History Tobacco Use Types Packs/Day Years Used Date Smoking Tobacco: Former Cigarettes 1 20 Q uit: 06/17/2018 Alcohol Use Standard Drinks/Week Comments Yes 4 (1 standard drink = 0.6 oz pur e alcohol) Comments Unknown Sex and Gender Information Value Date Recorded Sex Assigned at Not on file Legal Sex Female 10:17 AM CDT Gender Identity Not on file Sexual Orientation Not on file documented as of this encounter Plan of Treatment Upcoming Encounters Date Type Department Care Team (Late st Contact Info) Description 11/08/2024 12:15 PM LOAD TALLIER Office Visit [facility] Oncology and Hematology [facility] [address] [place] [address] Chalino Kraus MD [address] [place] [address] documented as of this encounter Visit Diagnoses Diagnosis Inflammatory carcinoma of left breast (CMS/HCC) documented in this encounter Care Teams Race Relations Professor Relationship Specialty Start Date End Date Paul Delarosa MD [address] [facility] [address] [facility] [address] [place] [address] PCP - General Family Practice 10/16/24 documented as of this encounter
--- OUTSIDE RECORDS SUMMARY | 2024-11-08 09:48 | XMS_ITS | Encounter Summary ---
Author Organization [facility] [employer] [facility] Address [address] [place] [address] Phone Care Team Providers Care Education Program Specialist Name Role Phone Evi Avila MD Primary Care Provider Randall Pierce MD Unavailable Encounter Details Date Type Department Care Team (Latest Contact Info) Description 05/14/2018 Orders Only [facility] Scanning, Provider Social History Tobacco Use Types Packs/Day Years Used Date Smoking Tobacco: Never Assessed Comments Unknown Sex and Gender Information Value Date Recorded Sex Assigned at Not on file Legal Sex Female 2:38 PM MANAGER EQUIPMENT Gender Identity Not on file Sexual Orientation Not on file documented as of this encounter Plan of Treatment Not on file documented as of this encounter Procedures Procedure Name Priority Date/Time Associated Diagnosis Comments CARDIOLOGY DOCUMENT SCAN 05/14/2018 documented in this encounter Results * Cardiology Document Scan (05/14/2018) Anatomical Region Laterality Modality Other us Provider Scanning CV CARDIAC SERVICES PROCEDURES Final Result documented in this encounter Visit Diagnoses Not on filedocumented in this encounter Care Teams Education Program Specialist Relationship Specialty Start Date End Date Evi Avila MD [address] [facility] [address] [place] [address] PCP - General Family Medicine 06/15/24 Randall Pierce MD [address] [facility] [address] [place] [address] Consulting Physician Medical Oncology 06/18/24 documented as of this encounter
--- OUTSIDE RECORDS SUMMARY | 2024-11-08 09:48 | XMS_ITS | Clinical Summary ---
Author Organization [facility] Kaylee Vinson Address [address] [place] [address] Care Team Providers Care Office Machine Installer Name Role Phone Paul Delarosa MD Primary Care Provider [phone] Allergies No known active allergies Medications lidocaine-prilo cornel (EMLA) 2.5-2.5 % Cream Apply a quarter size amount to port site 30 minutes before access. 30 Gram 1 4 Active ondansetron (ZOFRAN ODT) 8 mg Tablet, Rapid Dissolve Dissolve 1 tablet on top of tongue then swallow with saliva every 8 hours as needed for nausea or vomiting 30 Tablet 1 4 Active multivitamin,tx -iron-ca-min (THERA-M) 27-0.4 mg Tablet Take 1 Tablet by mouth daily. Iron 65mg Vitamin C 100mg Active dexAMETHasone (DECADRON) 4 mg tablet Take 1 tablet by mouth BID day before treatment, day of treatment, and day after treatment with each cycle. 6 Tablet 3 4 Active TRYPTOPHAN ORAL Take 500 mg by mouth one time as needed for Other (See Comment) (Sleep). Active melatonin 1 mg Tablet Take 10 mg by mouth nightly as needed (Sleep). Active Active Problems No known active problems Encounters Date Type Department Care Team Description 11/04/2024 Orders Only [facility] Oncology and Hematology - Edu [address] [place] [address] Chalino Kraus MD Inflammatory carcinoma of left breast (CMS/HCC) 10/24/2024 External Device Data STL ABSTRACTION Provider, Abstract 10/21/2024 Orders Only [facility] Oncology and Hematology - Edu [address] [place] [address] Chalino Kraus MD Inflammatory carcinoma of left breast (CMS/HCC) 10/16/2024 8:30 AM HELICOPTER ENGINEER Office Visit [facility] Oncology and Hematology - [facility] [address] [place] [address] Chalino Kraus MD 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) 10/16/2024 Orders Only [facility] Oncology and Hematology - Edu [address] [place] [id number] Chalino Kraus MD 10/14/2024 Orders Only [facility] Oncology and Hematology - Edu [address] [place] [address] Chalino Kraus MD 10/11/2024 Orders Only [facility] Oncology and Hematology - Edu [address] [place] [address] Chalino Kraus MD 10/10/2024 Telephone [facility] Oncology and Hematology - Edu [address] [place] [id number] Chalino Kraus MD Imaging Results 10/09/2024 Orders Only [facility] Oncology and Hematology - Edu [address] [place] [address] Chalino Kraus MD 10/07/2024 Orders Only [facility] Oncology and Hematology - [facility] [address] [place] [address] Chalino Kraus MD Inflammatory carcinoma of left breast (CMS/HCC) 10/03/2024 8:30 AM HELICOPTER ENGINEER Office Visit [facility] Oncology and Hematology - [address] [place] [phone] Justen Amor MD 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) 09/27/2024 Orders Only [facility] Oncology and Hematology - Edu [address] Chalino Kraus MD 09/23/2024 Orders Only [facility] Oncology and Hematology - Edu [address] [place] [phone] Chalino Kraus MD Inflammatory carcinoma of left breast (CMS/HCC) 09/12/2024 Orders Only [facility] Oncology and Hematology - Edu [address] [place] [phone] Chalino Kraus MD 09/09/2024 Orders Only [facility] and [facility]ology - [facility] [address] Chalino Kraus MD Inflammatory carcinoma of left breast (CMS/HCC) 09/06/2024 Orders Only [facility] On[facility] and Hematology - Edu [address] [place] [phone] Chalino Kraus MD 09/05/2024 Orders Only [facility] On[facility] - Edu [address] [place] [address] Chalino Kraus MD 08/26/2024 Orders Only [facility] Oncology and Hematology - [address] [place] [address] Chalino Kraus MD Inflammatory carcinoma of left breast (CMS/HCC) 08/23/2024 Orders Only [facility] Oncology and Hematology - Edu [address] [place] [address] Chalino Kraus MD 08/22/2024 Refill [facility] Oncology [facility]ematology - Edu [address] [place] [address] Chalino Kraus MD 08/19/2024 Orders Only [facility] Oncology and Hematology - Edu [address] [place] [address] Chalino Kraus MD 08/12/2024 Orders Only [facility] Oncology and Hematology [facility] [address] [place] [address] Chalino Kraus MD Inflammatory carcinoma of left breast (CMS/HCC) from Last 3 Months Family History * Patient is adopted Medical History Relation Name Comments No Known Problems Son Relation Name Status Comments Brother Unknown Father Unknown Mother Unknown Sister Unknown Son Alive Social History Tobacco Use Types Packs/Day Years Used Date Smoking Tobacco: Former Cigarettes 1 20 Q uit: 06/17/2018 Tobacco Cessation:Counseling Given: Not Answered Alcohol Use Standard Drinks/Week Comments Yes 4 (1 standard drink = 0.6 oz pur e alcohol) Comments Unknown Sex and Gender Information Value Date Recorded Sex Assigned at Not on file Legal Sex Female 10:17 AM CDT Gender Identity Not on file Sexual Orientation Not on file Last Filed Vital Signs Vital Sign Reading Time Taken Comments Blood Pressure 161/104 10/16/2024 8:48 AM HELICOPTER ENGINEER Pulse 96 10/16/2024 8:40 AM HELICOPTER ENGINEER Temperature 36.9 C (98.4 F) 10/16/2024 8:40 AM HELICOPTER ENGINEER Respiratory Rate 14 10/16/2024 8:40 AM HELICOPTER ENGINEER Oxygen Saturation 98% 10/16/2024 8:40 AM HELICOPTER ENGINEER Inhaled Oxygen Concentration - - Weight 98.4 kg (217 lb) 10/16/2024 8:40 AM HELICOPTER ENGINEER Height 177.8 cm (5' 10 ) 06/17/2024 11:58 AM CDT Body Mass Index 31.14 06/17/2024 11:58 AM CDT Plan of Treatment Upcoming Encounters Date Type Department Care Team (Late st Contact Info) Description 11/08/2024 12:15 PM HELICOPTER ENGINEER Office Visit [facility] Oncology and Hematology [facility] [address] [place] [address] Chalino Kraus MD [address] [facility] [address] [place] [address] Health Maintenance Due Date Last Done Comments Pre-Diabetes and Diabetes Screening 1972 DTAP/TDAP/TD VACCINES (1 - Tdap) 1991 HEPATITIS B VACCINES (1 of 3 - 19+ 3-dose series) 05/1991 CERVICAL CANCER SCREENING 04/21/2007 04/21/2004 BREAST CANCER SCREENING 2012 COLORECTAL SCREENING 2017 Colorectal Cancer Screening 2017 FIT-DNA Q 3 years 2017 FIT/FOBT Q 1 year 2017 Flex Sig/CT Colonography Q 5 years 2017 ZOSTER VACCINE (1 of 2) 2022 INFLUENZA VACCINE (#1) 2024 Preventative Visit- Commercial 10/02/2024 Procedures Procedure Name Priority Date/Time Associated Diagnosis Comments COMPREHENSIVE METABOLIC PANEL Routine 10/16/2024 12:52 PM HELICOPTER ENGINEER CBC WITH DIFFERENTIAL Routine 10/11/2024 1:10 PM HELICOPTER ENGINEER CBC WITH AUTODIFFERENTIAL Routine 2024 12:42 PM HELICOPTER ENGINEER CBC WITH DIFFERENTIAL Routine 10/07/2024 12:25 PM HELICOPTER ENGINEER BASIC METABOLIC PANEL Routine 10/03/2024 4:37 PM HELICOPTER ENGINEER COMPREHENSIVE METABOLIC PANEL Routine 10/03/2024 4:26 PM HELICOPTER ENGINEER CBC WITH DIFFERENTIAL Routine 09/23/2024 11:21 AM HELICOPTER ENGINEER BASIC METABOLIC PANEL Routine 09/20/2024 12:26 PM HELICOPTER ENGINEER COMPREHENSIVE METABOLIC PANEL Routine 09/20/2024 12:24 PM HELICOPTER ENGINEER CBC WITH DIFFERENTIAL Routine 09/09/2024 1:14 PM HELICOPTER ENGINEER COMPREHENSIVE METABOLIC PANEL Routine 09/04/2024 12:40 PM HELICOPTER ENGINEER BASIC METABOLIC PANEL Routine 09/04/2024 10:01 AM HELICOPTER ENGINEER CBC WITH DIFFERENTIAL Routine 09/04/2024 9:38 AM HELICOPTER ENGINEER COMPREHENSIVE METABOLIC PANEL Routine 08/21/2024 2:00 PM HELICOPTER ENGINEER BASIC METABOLIC PANEL Routine 08/21/2024 1:02 PM HELICOPTER ENGINEER CBC WITH DIFFERENTIAL Routine 08/21/2024 12:59 PM HELICOPTER ENGINEER CBC WITH DIFFERENTIAL Routine 08/16/2024 10:57 AM HELICOPTER ENGINEER from Last 3 Months Results * COMPREHENSIVE METABOLIC PANEL (10/16/2024 12:52 PM HELICOPTER ENGINEER) Only the most recent of5 resultswithin the time period is included. Blood us Chalino M Efra MD CHEMISTRY ORDERABLES Final Resu lt * CBC WITH DIFFERENTIAL (10/11/2024 1:10 PM HELICOPTER ENGINEER) Only the most recent of7 resultswithin the time period is included. Blood Chalino Kraus MD HEMATOLOGY ORDERABLES Final Res ult * CBC WITH AUTODIFFERENTIAL (10/09/2024 12:42 PM HELICOPTER ENGINEER) Blood Chalino Kraus MD HEMATOLOGY ORDERABLES Final Res ult * BASIC METABOLIC PANEL (10/03/2024 4:37 PM HELICOPTER ENGINEER) Only the most recent of4 resultswithin the time period is included. Blood Result [facility] Chalino Kraus MD CHEMISTRY ORDERABLES Final Resu lt from Last 3 Months Insurance [facility] Address: [facility] [id number] [place] [address] Care Teams Office Machine Installer Relationship Specialty Start Date End Date Paul Delarosa MD [address] [facility] [address] [place] [address] PCP - General Family Practice 10/16/24
--- OUTSIDE RECORDS SUMMARY | 2024-11-08 09:48 | XMS_ITS | Encounter Summary ---
Author Organization [facility] Address [address] [place] [address] Phone Care Team Providers Care Floor Sweeper Name Role Phone Evi Avila MD Primary Care Provider Randall Pierce MD Unavailable Encounter Details Date Type Department Care Team (Latest Contact Info) Description 06/13/2024 Orders Only [facility] Scanning, Provider Social History Tobacco Use Types Packs/Day Years Used Date Smoking Tobacco: Never Assessed Personal Safety Answer Date Recorded Have you ever been in or are you currently in a harmful physical or emotional relationship or is someone making you feel afraid or unsafe? Denies 06/15/2024 Comments Unknown Sex and Gender Information Value Date Recorded Sex Assigned at Not on file Legal Sex Female 2:38 PM AIR FORCE PILOT Gender Identity Not on file Sexual Orientation Not on file documented as of this encounter Plan of Treatment Not on file documented as of this encounter Procedures Procedure Name Priority Date/Time Associated Diagnosis Comments SCAN - RADIOLOGY/IMAGING 06/13/2024 SCAN - PATHOLOGY 06/13/2024 documented in this encounter Results * SCAN - PATHOLOGY (06/13/2024) us Provider Scanning Final Result * SCAN - RADIOLOGY/IMAGING (06/13/2024) Anatomical Region Laterality Modality Other us Provider Scanning Final Result documented in this encounter Visit Diagnoses Not on filedocumented in this encounter Care Teams Floor Sweeper Relationship Specialty Start Date End Date Evi Avila MD [address] [place] [address] PCP - General Family Medicine 06/15/24 FaRandall valerio MD [address] [facility] [address] [place] [address] Consulting Physician Medical Oncology 06/18/24 documented as of this encounter
--- OUTSIDE RECORDS SUMMARY | 2024-11-08 09:48 | XMS_ITS | Referral Summary ---
Author Organization [facility] Address [address] [place] [address] Care Team Providers Care Bilingual Sales Consultant Name Role Phone Evi Avila MD Primary Care Provider Randall Pierce MD Unavailable Allergies No known active allergies Social History Tobacco Use Types Packs/Day Years Used Date Smoking Tobacco: Never Assessed Personal Safety Answer Date Recorded Have you ever been in or are you currently in a harmful physical or emotional relationship or is someone making you feel afraid or unsafe? Denies 06/15/2024 Comments No Sex and Gender Information Value Date Recorded Sex Assigned at Not on file Legal Sex Female 2:38 PM LABORER TREE TAPPING Gender Identity Not on file Sexual Orientation Not on file Last Filed Vital Signs Vital Sign Reading Time Taken Comments Blood Pressure 140/78 06/16/2024 1:30 AM CDT Pulse 80 06/16/2024 1:30 AM CDT Temperature 36.9 C (98.4 F) 06/15/2024 6:13 PM CDT Respiratory Rate 16 06/16/2024 1:30 AM CDT Oxygen Saturation 99% 06/16/2024 1:30 AM CDT Inhaled Oxygen Concentration - - Weight 98.4 kg (217 lb) 06/15/2024 6:13 PM CDT Height 177.8 cm (5' 10 ) 06/15/2024 6:13 PM CDT Body Mass Index 31.14 06/15/2024 6:13 PM CDT Plan of Treatment Not on file Insurance [facility] H[facility] Address: [address] [address] [place] [address] [facility]/PPO Address: [address] [address] [place] [address] Care Teams Bilingual Sales Consultant Relationship Specialty Start Date End Date Evi Avila MD [address] [facility] [address] [place] [address] PCP - General Family Medicine 06/15/24 Randall Pierce MD [address] [facility] [address] DIV [place] [address] Consulting Physician Medical Oncology 06/18/24
--- OUTSIDE RECORDS SUMMARY | 2024-11-08 09:48 | XMS_ITS | Encounter Summary ---
Author Organization [facility] [place] [facility] Address [address] [place] [address] Phone Care Team Providers Care Systems Project Manager Name Role Phone Evi Avila MD Primary Care Provider Randall Pierce MD Unavailable Encounter Details Date Type Department Care Team (Latest Contact Info) Description 02/23/2011 Orders Only [facility] Scanning, Provider Social History Tobacco Use Types Packs/Day Years Used Date Smoking Tobacco: Never Assessed Comments Unknown Sex and Gender Information Value Date Recorded Sex Assigned at Not on file Legal Sex Female 2:38 PM INDUSTRIAL RELATIONS OFFICER Gender Identity Not on file Sexual Orientation Not on file documented as of this encounter Plan of Treatment Not on file documented as of this encounter Procedures Procedure Name Priority Date/Time Associated Diagnosis Comments SCAN - LABS 02/23/2011 documented in this encounter Results * SCAN - LABS (02/23/2011) us Provider Scanning Edited Result - Final documented in this encounter Visit Diagnoses Not on filedocumented in this encounter Care Teams Systems Project Manager Relationship Specialty Start Date End Date Evi Avila MD [address] [place] [address] PCP - General Family Medicine 06/15/24 Randall Pierce MD [address] [facility] [address] [place] [address] Consulting Physician Medical Oncology 06/18/24 documented as of this encounter
--- OUTSIDE RECORDS SUMMARY | 2024-11-08 09:48 | XMS_ITS | Encounter Summary ---
Author Organization [facility] [email or web address] [facility] Address [address] [place] [address] Phone Care Team Providers Care C.O.D. Biller Name Role Phone Evi Avila MD Primary Care Provider Randall Pierce MD Unavailable Encounter Details Date Type Department Care Team (Latest Contact Info) Description 05/14/2010 Orders Only [facility] Scanning, Provider Social History Tobacco Use Types Packs/Day Years Used Date Smoking Tobacco: Never Assessed Comments Unknown Sex and Gender Information Value Date Recorded Sex Assigned at Not on file Legal Sex Female 2:38 PM GLUING MACHINE OPERATOR AUTOMATIC Gender Identity Not on file Sexual Orientation Not on file documented as of this encounter Plan of Treatment Not on file documented as of this encounter Procedures Procedure Name Priority Date/Time Associated Diagnosis Comments SCAN - LABS 05/14/2010 documented in this encounter Results * SCAN - LABS (05/14/2010) Provider Scanning Final Result documented in this encounter Visit Diagnoses Not on filedocumented in this encounter Care Teams C.O.D. Biller Relationship Specialty Start Date End Date Evi Avila MD [address] [place] [address] PCP - General Family Medicine 06/15/24 Randall Pierce MD [address] [facility] [address] [place] [address] Consulting Physician Medical Oncology 06/18/24 documented as of this encounter
--- OUTSIDE RECORDS SUMMARY | 2024-11-08 09:48 | XMS_ITS | Encounter Summary ---
Author Organization [facility] [employer] [facility] Address [address] [place] [address] Phone Care Team Providers Care Sewer Pipe Press Operator Name Role Phone Evi Avila MD Primary Care Provider Randall Pierce MD Unavailable Encounter Details Date Type Department Care Team (Latest Contact Info) Description 12/01/2022 Orders Only [facility] Scanning, Provider Social History Tobacco Use Types Packs/Day Years Used Date Smoking Tobacco: Never Assessed Comments Unknown Sex and Gender Information Value Date Recorded Sex Assigned at Not on file Legal Sex Female 2:38 PM MONITOR TECH Gender Identity Not on file Sexual Orientation Not on file documented as of this encounter Plan of Treatment Not on file documented as of this encounter Procedures Procedure Name Priority Date/Time Associated Diagnosis Comments SCAN - LABS 12/01/2022 documented in this encounter Results * SCAN - LABS (12/01/2022) us Provider Scanning Final Result documented in this encounter Visit Diagnoses Not on filedocumented in this encounter Care Teams Sewer Pipe Press Operator Relationship Specialty Start Date End Date Evi Avila MD [address] [place] [address] PCP - General Family Medicine 06/15/24 Randall Pierce MD [address] [facility] [address] DIV [place] [address] Consulting Physician Medical Oncology 06/18/24 documented as of this encounter
--- OUTSIDE RECORDS SUMMARY | 2024-11-08 09:48 | XMS_ITS | Encounter Summary ---
Author Organization [facility] [place] of [facility] Address [address] [place] [address] Phone Care Team Providers Care Coater Smoking Pipe Name Role Phone Evi Avila MD Primary Care Provider Randall Pierce MD Unavailable Encounter Details Date Type Department Care Team (Latest Contact Info) Description 06/18/2024 Orders Only [facility] Scanning, Provider [...] on file Legal Sex Female 2:38 PM HEALTH SAFETY AND ENVIRONMENT MANAGER Gender Identity Not on file Sexual Orientation Not on file documented as of this encounter Plan of Treatment Not on file documented as of this encounter Procedures Procedure Name Priority Date/Time Associated Diagnosis Comments SCAN - LABS 06/18/2024 documented in this encounter Results * SCAN - LABS (06/18/2024) us Provider Scanning Final Result documented in this encounter Visit Diagnoses Not on filedocumented in this encounter Care Teams Coater Smoking Pipe Relationship Specialty Start Date End Date Evi Avila MD [address] [place] [address] PCP - General Family Medicine 06/15/24 Fa'Randall walters MD [address] [facility] [address] [place] [address] Consulting Physician Medical Oncology 06/18/24 documented as of this encounter
--- OUTSIDE RECORDS SUMMARY | 2024-11-08 09:48 | XMS_ITS | Clinical Summary ---
Author Organization [facility] Address [address] [place] [address] Care Team Providers Care Substation Design Draftsperson Name Role Phone Evi Avila MD Primary [...] on file Legal Sex Female 2:38 PM SEAT MAKER Gender Identity Not on file Sexual Orientation Not on file Obstetrics History Last Filed Vital Signs Vital Sign Reading [...] 06/15/2024 6:13 PM CDT Plan of Treatment Health Maintenance Due Date Last Done Comments Breast Cancer Screening-Mammogram 1972 Cervical Cancer Screening 1972 Colon Cancer Screening-Colonoscopy 1972 Depression Screening 1972 Hepatitis C Screening 1972 Hepatitis B Screening 1990 Regular Well Visit/Exam 18-64 1990 Zoster Vaccine (1 of 2) 2022 Influenza Vaccine (#1) 2024 DTaP/Tdap/Td Vaccine (2 - Td or Tdap) 02/18/2031 02/18/2021 Pneumococcal vaccine <65 Aged Out No longer eligible based on patient's age to complete this topic Insurance [facility] CHOICE PLUS [place] [id number] Care Teams Substation Design Draftsperson Relationship Specialty Start Date End Date Evi Avila MD [address] [facility] [address] [place] [address] PCP - General Family Medicine 06/15/24 Fa'Randall walters MD [address] [facility] [address] [place] [address] Consulting Physician Medical Oncology 06/18/24
--- OUTSIDE RECORDS SUMMARY | 2024-11-08 09:48 | XMS_ITS | Encounter Summary ---
Author Organization [facility] [place] [facility] Address [address] [place] [address] Phone Care Team Providers Care Curriculum Development Specialist Name Role Phone Evi Avila MD Primary Care Provider Randall Pierce MD Unavailable Encounter Details Date Type Department Care Team (Latest Contact Info) Description 11/17/2010 Orders Only [facility] Scanning, Provider Social History Tobacco Use Types Packs/Day Years Used Date Smoking Tobacco: Never Assessed Comments Unknown Sex and Gender Information Value Date Recorded Sex Assigned at Not on file Legal Sex Female 2:38 PM DAY GUARD Gender Identity Not on file Sexual Orientation Not on file documented as of this encounter Plan of Treatment Not on file documented as of this encounter Procedures Procedure Name Priority Date/Time Associated Diagnosis Comments SCAN - RADIOLOGY/IMAGING 11/17/2010 documented in this encounter Results * SCAN - RADIOLOGY/IMAGING (11/17/2010) Anatomical Region Laterality Modality Other us Provider Scanning Final Result documented in this encounter Visit Diagnoses Not on filedocumented in this encounter Care Teams Curriculum Development Specialist Relationship Specialty Start Date End Date Evi Avila MD [address] [facility] [address] [place] [address] PCP - General Family Medicine 06/15/24 Randall Pierce MD [address] [facility] [address] [place] [address] Consulting Physician Medical Oncology 06/18/24 documented as of this encounter
--- OUTSIDE RECORDS SUMMARY | 2024-11-08 09:48 | XMS_ITS | Encounter Summary ---
Author Organization [facility] [employer] of [facility] Address [address] [place] [address] Phone Care Team Providers Care Agriculture Professor Name Role Phone Evi Avila MD Primary Care Provider Randall Pierce MD Unavailable Encounter Details Date Type Department Care Team (Latest Contact Info) Description 04/30/2010 Orders Only [facility] Scanning, Provider Social History Tobacco Use Types Packs/Day Years Used Date Smoking Tobacco: Never Assessed Comments Unknown Sex and Gender Information Value Date Recorded Sex Assigned at Not on file Legal Sex Female 2:38 PM HAND TAPPER Gender Identity Not on file Sexual Orientation Not on file documented as of this encounter Plan of Treatment Not on file documented as of this encounter Procedures Procedure Name Priority Date/Time Associated Diagnosis Comments SCAN - RADIOLOGY/IMAGING 04/30/2010 documented in this encounter Results * SCAN - RADIOLOGY/IMAGING (04/30/2010) Anatomical Region Laterality Modality Other us Provider Scanning Edited Result - Final documented in this encounter Visit Diagnoses Not on filedocumented in this encounter Care Teams Agriculture Professor Relationship Specialty Start Date End Date Evi Avila MD [address] [place] [address] PCP - General Family Medicine 06/15/24 Randall Pierce MD [address] [facility] [address] [place] [address] Consulting Physician Medical Oncology 06/18/24 documented as of this encounter
== END 2024-11-08 09:20 | disposition home or self-care (01) ==
PROVIDERS: PCP Family Medicine; Visit Provider Surgery
DX: C50.412 Malignant neoplasm of upper-outer quadrant of left female breast (principal); Z17.421 Hormone receptor negative with human epidermal growth factor receptor 2 negative status
CPT/HCPCS: 77049; A9577; C8908

== ENCOUNTER 2024-12-31 07:02 | Outpatient (CLI) | payer OTHER, SELFPAY ==
--- NOTE | ~2024-12-31 | MR_ITS ---
EXAMINATION: MR brain/brain stem wo/w con DATE: 12/31/2024 08:35 INDICATION: Recent diagnosis of breast cancer TECHNIQUE: Magnetic resonance imaging (MRI) of the brain and brainstem was performed without and with 20 mL ProHance intravenous contrast. Sequences included sagittal and axial T1-weighted SE, axial dif fusion-weighted FS SE, axial 3D SWAN, axial T2-weighted FLAIR, and axial T2-weighted FSE. Postcontras t axial and coronal T1-weighted SE was obtained. Apparent diffusion coefficient (ADC) maps were creat ed. COMPARISON: None. FINDINGS: There are no areas of restricted diffusion to suggest acute infarction. No intracranial hemorrhage or abnormal intracranial mass lesion. There are no intraparenchymal signal abnormalities seen on the ot her pulse sequences. The ventricles are symmetric and normal in size. There are no abnormal extra-axi al fluid collections. Flow voids are seen in the cerebral arteries on the T2-weighted sequences consi stent with their expected patency. Mild mucosal thickening in the left maxillary and bilateral ethmoi d sinuses. Visualized orbits and soft tissues are unremarkable. There are no areas of abnormal enhanc ement on the post contrast images. IMPRESSION: 1. Normal brain. No enhancing lesions suspicious for metastatic disease. Reviewed, dictated and finalized at location A.
--- OUTSIDE RECORDS SUMMARY | 2024-12-31 07:05 | XMS_ITS | Encounter Summary ---
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
--- OUTSIDE RECORDS SUMMARY | 2024-12-31 07:05 | XMS_ITS | Encounter Summary ---
Author Organization [facility] Address [address] [place] [address] Care Team Providers Care Grades 1 Thru 6 Visiting Teacher Name Role Phone Paul Delarosa MD Primary Care Provider [phone] Reason for Referral * PET Scan (Routine) - Authorized Specialty Diagnoses / Procedures Referred By Contac t Referred To Contact Radiology Diagnoses Inflammatory breast cancer, left (CMS/HCC) Procedures PET TUMOR OR INFECTION IMG W CT SKB Domonique Lucas MD [address] [facility] [address] [address] Phone: tel: fax: [facility] Services [facility] [address] [place] [address] Phone: tel: Referral ID Status Reason Start Date Expiration Date V isits Requested Visits Authorized [id number] Authorized 12/27/2024 02/10/2025 1 1 Encounter Details Date Type Department Care Team (Late st Contact Info) Description 12/25/2024 Orders Only [facility] Radiation Therapy [address] [place] [address] Mukesh Leon MD [address] [facility] Mehul [address] [address] Inflammatory breast cancer, left (CMS/HCC) (Primary Dx) Social History Tobacco Use Types Packs/Day Years Used Date Smoking Tobacco: Former Cigarettes 1 20 Q uit: 06/17/2018 Alcohol Use Standard Drinks/Week Comments Yes 4 (1 standard drink = 0.6 oz pur e alcohol) Feeling Safe Answer Date Recorded Do you worry about feeling s afe and happy with the people in your life? No 12/18/2024 Feeling Safe Answer Date Recorded Are you in a relationship wi th someone who hurts you emotionally and/or physically? No 12/30/2024 Food Insecurity Answer Date Recorded Social/Environmental Concerns No concerns Transportation Needs Answer Date Record ed Social/Environmental Concerns No concerns Housing Stability Answer Date Recorded Social/Environmental Concerns No concerns Utility Needs Answer Date Recorded Social/Environmental Concerns No concerns Comments No Sex and Gender Information Value Date Recorded Sex Assigned at Not on file Legal Sex Female 10:17 AM CDT Gender Identity Not on file Sexual Orientation Not on file documented as of this encounter Plan of Treatment Upcoming Encounters Date Type Department Care Team (Late st Contact Info) Description 12/31/2024 1:30 PM CDT Hospital Encounter [facility] [address] [place] [address] Domonique Banks MD [address] [facility] [address] [address] 01/08/2025 8:30 AM CDT Office Visit [facility] Oncology and Hematology - Edu [address] [address] Chalino Kraus MD [address] [facility] [address] [place] [address] 01/13/2025 8:30 AM CDT Appointment [facility] Radiation Therapy [address] [place] [address] Domonique Banks MD [address] [facility] [address] [address] 01/14/2025 8:30 AM CDT Appointment [facility] Radiation Therapy [address] [place] [phone] Domonique Banks MD [address] [facility] [address] [phone] 01/15/2025 8:30 AM CDT Appointment [facility] Radiation Therapy [address] [place] [phone] Domonique Banks MD [address] [facility] [address] [address] 01/16/2025 8:30 AM CDT Appointment [facility] Radiation Therapy [address] [place] [address] Domonique Banks MD [address] [facility] [address] [address] 01/20/2025 8:30 AM CDT Appointment [facility] Radiation Therapy [address] [place] [address] Domonique Banks MD [address] [facility] [address] [address] 01/21/2025 8:30 AM CDT Appointment [facility] Radiation Therapy [address] [place] [address] Domonique Banks MD [address] [facility] [address] [address] 01/22/2025 8:30 AM CDT Appointment [facility] Radiation Therapy [address] [place] [address] Domonique Banks MD [address] [facility] [address] [place] [phone] 01/23/2025 8:30 AM CDT Appointment [facility] Radiation Therapy [address] [place] [address] Domonique Banks MD [address] [facility] [address] [phone] 01/24/2025 8:30 AM CDT Appointment [facility] Radiation Therapy [address] [place] [address] Domonique Banks MD [address] [facility] [address] [phone] 01/27/2025 8:30 AM CDT Appointment [facility] Radiation Therapy [address] [place] [address] Domonique Banks MD [address] [facility] [address] [phone] 01/28/2025 8:30 AM CDT Appointment [facility] Radiation Therapy [address] [place] [address] Domonique Banks MD [address] [facility] [address] [phone] 01/29/2025 8:30 AM CDT Appointment [facility] Radiation Therapy [address] [place] [address] Domonique Banks MD [address] [facility] [address] [phone] 01/30/2025 8:30 AM CDT Appointment [facility] Radiation Therapy [address] [place] [address] Domonique Banks MD [address] [address] 01/31/2025 8:30 AM CDT Appointment [facility] Radiation Therapy [address] [place] [address] Domonique Banks MD [address] [address] 02/03/2025 8:30 AM CDT Appointment [facility] Radiation Therapy [address] [place] [address] Domonique Banks MD [address] [address] Scheduled Orders Name Type Priority Associated Diagnoses Orde r Schedule PET TUMOR OR INFECTION IMG W CT SKB [facility] Imaging Routine Inflammatory breast cancer, left (CMS/HCC) Expected: 01/01/2025, Expires: 12/25/2025 documented as of this encounter Visit Diagnoses Diagnosis Inflammatory breast cancer, left (CMS/HCC)- Primary documented in this encounter Care Teams Grades 1 Thru 6 Visiting Teacher Relationship Specialty Start Date End Date Paul Delarosa MD [address] [facility] [address] [address] PCP - General Family Practice 10/16/24 documented as of this encounter
--- OUTSIDE RECORDS SUMMARY | 2024-12-31 07:05 | XMS_ITS | Encounter Summary ---
Author Organization [facility] Address [address] [place] [address] Care Team Providers Care Cement Sack Breaker Name Role Phone Paul Delarosa MD Primary Care Provider [phone] Encounter Details Date Type Department Care Team (Latest Contact Info) Description 12/30/2024 7:54 AM CDT - 12/30/2024 11:59 PM CDT Hospital Encounter [facility] Radiation Therapy [address] [place] [address] Discharge Disposition: Home or Self Care Social History Tobacco Use Types Packs/Day Years [...] on file documented as of this encounter Medications at Time of Discharge capecitabine (Xeloda) 500 mg tablet Take 5 Tablets (2,500 mg) by mouth 2 times daily with meals for 14 days on, 7 days off. Repeat every 21 days. 140 Tablet 6 12/24/2024 ascorbic acid, vitamin C, (VITAMIN C) 500 mg tablet Take 1,000 mg by mouth daily. lidocaine-priloca ine (EMLA) 2.5-2.5 % CreamIndications: Inflammatory carcinoma of left breast (CMS/HCC) Apply a quarter size amount to port site 30 minutes prior to access. 30 Gram 1 12/13/2024 ferrous sulfate 325 mg (65 mg iron) tablet Take 325 mg by mouth daily. cyanocobalamin 1,000 mcg Tablet Take 1,000 mcg by mouth daily. pyridoxine (VITAMIN B6) 100 mg Tablet Take 50 mg by mouth daily. ascorbic acid, vitamin C, (VITAMIN C) 500 mg tablet Take 500 mg by mouth daily. pyridoxine HCl, vitamin B6, (PYRIDOXINE, VITAMIN B6, ORAL) Take by mouth. multivitamin,tx-i hossein-ca-min (THERA-M) 27-0.4 mg Tablet Take 1 Tablet by mouth daily. Iron 65mg Vitamin C 100mg documented as of this encounter Procedure Notes * Domonique Banks MD - 12/30/2024 8:00 AM CDT CLINICAL TREATMENT PLANNING NOTE/ (77048) MEDICAL NECESSITY FORM DIAGNOSIS: Inflammatory breast cancerTriple negative T4 N3 MX inflammatory breast cancer stage IIICstatus post left x-ray lymph node biopsy showed metastatic poorly differentiated adenocarcinoma consistent with breast primary. ER/PA negative HER2/mook negative with Ki-67 of more than 90%. TREATMENT SITE: Left chest wall, supraclavicular nodes, axillary boost, internal mammary nodes INTENT: [x] Curative [] Palliative CHEMOTHERAPY: [x] Yes [x] No Comment: SURGERY: Planned prescription: 5100cGy in 34 fractions BID to the chest wall and regional nodes ( Axilla, Supraclavicular nodes, axillary boost and internal mammary chain 1500 cGy in 10 fractions twice daily sequential boost to the chest wall flaps and unrestricted clinically inguinal lymph nodes The following items are requested by the signing Physician. They will be performed by the appropriate Radiation Oncology staff, Tests and supporting medical records are reviewed in EHR and recorded in H& P note. Further imaging/ planning is a medical necessity in evaluation and management of patient's clinical condition based on location, stage and her intent to treat. The final prescription reflecting the treatment parameters, i.e. fractionation, energy, beam arrangement and total dose will be provided on the electronic prescription within [facility] upon completion and my evaluation of the requested dosimetry. PHYSICIAN ORDERS : SIMULATION In order to accomplish this plan, I am ordering/prescribing the following services/procedures: [x] Simulation(s)(70662/75934) will be necessary to accomplish a reproducible treatment position, to determine optimal treatment portals/beam arrangements, to design beam modifying devices and to verify treatment portals on patient prior to commencement of XRT. Patient Position: []Supine []Prone [] Obliqued Left [] Obliqued Right [] Other Clinical Set-up 70935 [x] CT images necessary for field placement. . [] Boost [] Contrast Requested: [] IV [] Oral Scan parameters: Site Marked: Upper Border : Lower Border : Request for Markers: Special Request: IMMOBILIZATION NECESSARY/ (94644) [x] VAC-LOC / ALPHA CRADLE [] BREAST BOARD (WITH WINGBOARD) [] BREAST BOARD (WITH ARM/WRIST REST) [] WINGBOARD [] CLOSED FACEMASK [] OPEN FACEMASK [] HEAD AND SHOULDER MASK [x] KNEESPONGE [] ANGLE SPONGE Other (specify): WIRE AROUND THE SCAR ADDITIONAL DEVICES (necessary to shape field or protect critical structures) [] Custom Bolus/Wax [] Bite Block [] Eye Shield [] Testicular Shield [] Zepeda Catheter and Viscus Lidocaine DOSIMETRY: INITIAL COURSE: [x] IMRT/VMAT MLC/10815/77814( left breast) [] 2D on Machine 22684/70575 [x] 3D Conformal/24075 [x] MLC/91142 [] Multiple Sites Quantity: <Select> [] Mixed Beam, Photons/Electrons [] Electrons Only Clinical or [] SIM -12819 [] Electron Beam Plan 97656 [] SRS 1 FX. 37858 26260-80 [] Cone (3D planning) [] SBRT 2-5 FX 25420/63569-82 [] Other: BOOST: RE - CT Simulation : [] IMRT/VMAT MLC/11806/25451 [] 2D on Machine 68572/11291 [] 3D Conformal/98966 [] MLC/83594 [] Multiple Sites Quantity: <Select> [] Mixed Beam, Photons/Electrons [x] Electrons Only Clinical or []SIM -12891 [x] Electron Beam Plan 64058 [] SRS 1 FX. 53723 63445-59 [] Cone (3D planning) [] SBRT 2-5 FX 57856/93604-50 [] Other: Imaging will be necessary during the course of therapy to monitor accuracy of treatments and patient set up. For the proposed treatment plan, the following is requested [x] Verification Simulation Requested for All Ports or Port Changes/26638 [x] Port Film (frequency)03690: Weekly [] KV or MV Match daily (TC:74543),(PA:G6002) FILL OUT CRITICAL STRUCTURES IN NOTE BELOW [] KV or MV Match weekly [] KV or MV Match as needed [] CBCT Daily (TC:11329),(PA:G6002) FILL OUT CRITICAL STRUCTURES IN NOTE BELOW [] CBCT Weekly [] CBCT as needed [] SBRT imaging as needed [x] IGRT MEDICAL NECESSITY NOTE FOR PLANNED COURSE:#41843/40622 [] For Target volume localization and treatment including intra fraction delivery# 70551 [x] CT for treatment field placement. To keep the doses of critical structures within tolerance doses and minimize toxicity as per RTOG and LINH guidelines. Goals and Dose constraint to the target and critical structures are discussed during planning and established in ARIA/ PLANNING documents. Techniques used for tracking intrafractional motion: [] Respiratory Gating (91032) [] Optical 3D Surface Monitoring [x] Deep Inspiration Breath Hold (99211) PHYSICS [] Please coordinate additional ordered imaging. (01743) [] PET CT [] MRI [] Angiogram [] Bone Scan [] Other [] Please use the [] MRI [] PET CT [] CT with Contrast , specified for fusion and treatment planning. [x] Special Physics Consult (22816) [] SPECIAL DOSIMETRY:TLD/ DIODES (please refer to report in ARIA) (43197) [x] TLD placement and recording [x] Electron Output Measurement [x] Map check to verify dose fluency [] Previous treatment filed overlap []Pacemaker/ defibrillator [x]Calculations [x] Weekly Physics [x] DVH(Critical Structures) BREAST IMRT DOSIMETRY CONSTRAINTS Target(s) Dose Constraints Target Description __% Vol > Rx (__Gy) __% Vol > 95% Rx (__Gy) < 1% Vol = 107% Rx (__Gy) PTV chest wall Left Chest wall, SCF, Axilla, and IM nodes 95% > 95 Organs at Risk Dose Constraints OAR Description Dose Constraint Vol > Dose Ipsilateral Lung V20 <33% Gy V10 <68% 50% V5 5 Gy 75% Mean Lung Dose <20Gy Contralateral Lung V20 <8%Gy/<15% 5% Heart V20 Gy/10Gy <4%/<15% 10% Ventricle 5Gy < 25% 0.1 cc Mean 5 Gy Spinal Cord + 5mm Dmax <20 0.1 cc Brachial Plexus Dmax 58 Gy 0.1 cc Thyroid Dmax 50 Gy 0.1 cc Contralateral Breast Dmax 5 Gy Thyroid Mean <20Gy Esophagus max <30Gy Acc<45Gy Brachial plexus Max< 52Gy [x] SPECIAL TREATMENT PROCEDURE IS A MEDICAL NECESSITY (56768) (specify rationale): Other: [x] Special Treatment Procedure applicable to this patient due to prior or concurrent chemo therapyduring external beam radiation. [] Patient has completed chemotherapy [] Patient is planned to receive chemotherapy every week during treatment with curative intent. [] Prior Radiation (78976) [x] More than 2 sites [] Overlapping sites This patient is at increased risk of acute toxicities and fdc side effects secondary to the combined modality approach. This patient will require additional monitoring during their planned course of treatment. Therefore, a special treatment procedure charge is warranted based on the added complexity of the patient's planning and delivery. * Domonique aBnks MD - 12/30/2024 8:00 AM CDT Procedure Date: 12/30/2024 DATE OF SERVICE: 12/30/2024 PATIENT NAME: Janae Solis DATE OF : 1970 DIAGNOSIS: Breast cancer of the left breast status post neoadjuvant chemotherapy followed by mastectomy PLAN: Concurrent chemo with Xeloda INITIAL CT SIMULATION PROCEDURE PURPOSE: The patient is undergoing a virtual CT simulation for external beam radiation treatment planning. TREATMENT SITE(S):left chest wall and regional nodes NUMBER OF AREAS OR ROSENBERG: One treatment area was simulated today NUMBER OF PORTS: TBD during planning process EQUIPMENT USED: Simulation was performed on the department???s dedicated CT simulator. IMMOBILIZATION: An alpha cradle device was fabricated to immobilize the patient???s body in treatment position. CONTRAST MEDIA: The use of contrast was not required for this simulation. EXTERNAL MARKERS: No external markers were used. TATTOOS: Positioning tattoos were applied to the patient???s skin. BLOCKING: Custom blocks of complex design will be drawn to cover the target volume within the treatment field(s). FIELD MODIFIERS: A wedge, compensating filter, multiple MLC control points, and/or DMLC may be required to improve dose homogeneity. The decision whether to use these devices will occur during the treatment planning process. ISODOSE PLAN: A IMRT treatment plan will be performed SCHEDULING Prior to delivering the first radiation fraction, a simulation will be performed to verify the isocenter location and block design. IMAGING QA: Weekly electronic portal images will be obtained. Domonique Banks MD documented in this encounter Miscellaneous Notes * Care Plan - Estrella Stevenson RN - 12/30/2024 8:00 AM CDT Janae is Here today for external treatment planning to the breast Oral instructions was provided on what to expect today during treatments and medications that will be prescribed. Patient were given permit for review and once all questions were addressed by Dr. Banks consent was signed and Patient proceeded with simulation Pain 0/10 Fatigue 0/10 documented in this encounter Plan of Treatment Upcoming Encounters Date Type Department Care Team (Late st Contact Info) Description 12/31/2024 1:30 PM CDT Hospital Encounter [facility] Imaging Services [facility] [address] [place] [address] Domonique Banks MD 607 [facility] [address] [place] [address] 01/08/2025 8:30 AM CDT Office Visit [facility] Oncology and Hematology [facility] 2[address] [facility] [address] [address] Chalion Kraus MD 2[address] [facility] [address] [place] [address] 01/13/2025 8:30 AM CDT [facility]ointment [facility] Radiation Therapy [address] [place] [address] Domonique Banks MD 607 [facility] [address] [address] 01/14/2025 8:30 AM CDT Appointment [facility] Radiation Therapy [address] [place] [address] Domonique Banks MD 607 [facility] [address] [address] 01/15/2025 8:30 AM CDT App[facility]ment [facility] Radiation Therapy [address] [place] [address] Domonique Banks MD 607 [facility] [address] [address] 01/16/2025 8:30 AM CDT App[facility]ment [facility] Radiation Therapy [address] [place] [address] Domonique Banks MD [address] [address] 01/20/2025 8:30 AM CDT Appointment [facility] Rad[facility] Therapy [address] [place] [address] Domonique Banks MD 607 [facility] [address] [address] 01/21/2025 8:30 AM CDT Appointment [facility] Radiation Therapy [address] [place] [address] Domonique Banks MD 607 [facility] [address] [address] 01/22/2025 8:30 AM CDT App[facility]ment [facility] Radiation Therapy [address] [place] [address] Domonique Banks MD 607 [facility] [address] [address] 01/23/2025 8:30 AM CDT App[facility]ment [facility] Radiation Therapy [address] [place] [address] Domonique Banks MD 607 [facility] [address] [address] 01/24/2025 8:30 AM CDT App[facility]ment [facility] Radiation Therapy [address] [place] [address] Domonique Banks MD 607 [facility] [address] [address] 01/27/2025 8:30 AM CDT App[facility]ment [facility] Radiation Therapy [address] [place] [address] Domonique Banks MD 607 [facility] [address] [address] 01/28/2025 8:30 AM CDT Appointment [facility] Radiation Therapy [address] [place] [address] Domonique Banks MD 607 [facility] [address] [address] 01/29/2025 8:30 AM CDT App[facility]ment [facility] Radiation Therapy [address] [place] [address] Domonique Banks MD 607 [facility] [address] [address] 01/30/2025 8:30 AM CDT Appointment [facility] Radiation Therapy [address] [place] [address] Domonique Banks MD 607 [facility] [address] [address] 01/31/2025 8:30 AM CDT App[facility]ment [facility] Radiation Therapy [address] [place] [address] Domonique Banks MD 607 [facility] [address] [address] 02/03/2025 8:30 AM CDT App[facility]ment [facility] Radiation Therapy [address] [place] [address] Domonique Banks MD 607 [facility] [address] [address] documented as of this encounter Visit Diagnoses Not on filedocumented in this encounter Care Teams Cement Sack Breaker Relationship Specialty Start Date End Date Paul Delarosa MD [address] [place] [address] [address] [address] PCP - General Family Practice 10/16/24 documented as of this encounter
--- OUTSIDE RECORDS SUMMARY | 2024-12-31 07:05 | XMS_ITS | Encounter Summary ---
Author Organization [facility] Address [address] [place] [address] Phone Care Team Providers Care Combination Machine Tool Operator Name Role Phone Evi Avila MD [...] on file Legal Sex Female 2:38 PM DIRECTOR OF ADMISSIONS Gender Identity Not on file Sexual Orientation [...] on filedocumented in this encounter Care Teams Combination Machine Tool Operator Relationship Specialty Start Date End Date Evi Avila MD [address] [place] [address] PCP - General Family Medicine 06/15/24 Randall Pierce MD [address] [facility] [address] [place] [address] Consulting Physician Medical Oncology 06/18/24 documented as of this encounter
--- OUTSIDE RECORDS SUMMARY | 2024-12-31 07:05 | XMS_ITS | Encounter Summary ---
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
--- OUTSIDE RECORDS SUMMARY | 2024-12-31 07:05 | XMS_ITS | Encounter Summary ---
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
--- OUTSIDE RECORDS SUMMARY | 2024-12-31 07:05 | XMS_ITS | Encounter Summary ---
Author Organization [facility] [employer] [facility] Address [address] [place] [address] Care Team Providers Care Hospital Receptionist Name Role Phone Paul Delarosa MD Primary Care Provider [phone] Encounter Details Date Type Department Care Team (Late st Contact Info) Description 12/30/2024 Orders Only [facility] Oncology and Hematology - [place] [address] [facility] [address] [place] [address] Chalino Kraus MD 2[address] [facility] [address] [place] [address] Inflammatory carcinoma of left breast (CMS/HCC) [...] Description 12/31/2024 1:30 PM CDT Hospital Encounter [facility] Imaging Services [facility] [address] [place] [address] Domonique Banks MD 607 [facility] [address] [address] 01/08/2025 8:30 AM CDT Office Visit [facility] Oncology and Hematology - [place] [address] [facility] [address] [place] [address] Chalino Kraus MD [address] [facility] [address] [place] [address] 01/13/2025 8:30 AM CDT Appointment [facility] Radiation Therapy [address] [place] [address] Domonique Banks MD 607 [facility] [address] [address] 01/14/2025 8:30 AM CDT Appointment [facility] Radiation Therapy [address] [place] [address] Domonique Banks MD 607 [facility] [address] [address] 01/15/2025 8:30 AM CDT Appointment [facility] Radiation Therapy [address] [place] [address] Domonique Banks MD 607 [facility] [address] [address] 01/16/2025 8:30 AM CDT App[facility]ment [facility] [address] [place] [address] Domonique Banks MD 607 [facility] [address] [address] 01/20/2025 8:30 AM CDT Appointment [facility] Radiation Therapy [address] [place] [address] Domonique Banks MD 607 [facility] [address] [address] 01/21/2025 8:30 AM CDT Appointment [facility] Radiation Therapy [address] [place] [address] Domonique Banks MD 607 [facility] [address] [address] 01/22/2025 8:30 AM CDT Appointment [facility] Radiation Therapy [address] [place] [address] Domonique Banks MD 607 [facility] [address] [address] 01/23/2025 8:30 AM CDT Appointment [facility] Radiation Therapy [address] [place] [address] Domonique Banks MD 607 [facility] [address] [address] 01/24/2025 8:30 AM CDT Appointment [facility] Radiation Therapy [address] [place] [address] Domonique Banks MD 607 [facility] [address] [address] 01/27/2025 8:30 AM CDT Appointment [facility] Radiation Therapy [address] [place] [address] Domonique Banks MD 607 [facility] [address] [address] 01/28/2025 8:30 AM CDT Appointment [facility] Radiation Therapy [address] [place] [address] Domonique Banks MD 607 [facility] [address] [address] 01/29/2025 8:30 AM CDT Appointment [facility] Radiation Therapy [address] [place] [address] Domonique Banks MD 607 [facility] [address] [address] 01/30/2025 8:30 AM CDT Appointment [facility] Radiation Therapy [address] [place] [address] Domonique Banks MD 607 [facility] [address] [address] 01/31/2025 8:30 AM CDT Appointment [facility] Radiation Therapy [address] [place] [address] Domonique Banks MD 607 [facility] [address] [address] 02/03/2025 8:30 AM CDT Appointment [facility] Rad[facility] Therapy [address] [place] [address] Domonique Banks MD 607 [facility] [address] [place] [address] documented as of this encounter Visit Diagnoses Diagnosis Inflammatory carcinoma of left breast (CMS/HCC) documented in this encounter Care Teams Hospital Receptionist Relationship Specialty Start Date End Date Paul Delarosa MD [address] [facility] [address] [place] [address] PCP - General Family Practice 10/16/24 documented as of this encounter
--- OUTSIDE RECORDS SUMMARY | 2024-12-31 07:05 | XMS_ITS | Encounter Summary ---
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
--- OUTSIDE RECORDS SUMMARY | 2024-12-31 07:05 | XMS_ITS | Encounter Summary ---
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
--- OUTSIDE RECORDS SUMMARY | 2024-12-31 07:05 | XMS_ITS | Encounter Summary ---
Author Organization [facility] [employer] [facility] Address [address] [place] [address] Care Team Providers Care Care Manager Name Role Phone Paul Delarosa MD Primary Care Provider [phone] Encounter Details Date Type Department Care Team (Late st Contact Info) Description 12/30/2024 Abstract [facility] Oncology and Hematology - [place] [address] [facility] [address] [place] [address] Chalino Kraus MD [address] [facility] [address] [place] [address] Social History Tobacco Use Types Packs/Day Years [...] Description 12/31/2024 1:30 PM CDT Hospital Encounter [facility] [address] [place] [address] Domonique Banks MD 607 [facility] [address] [address] 01/08/2025 8:30 AM CDT Office Visit [facility] Oncology and Hematology - [place] [address] [address] Chalino Kraus MD [address] [facility] [address] [place] [address] 01/13/2025 8:30 AM CDT Appointment [facility] Radiation Therapy [address] [place] [address] Domonique Banks MD 607 [facility] [address] [address] 01/14/2025 8:30 AM CDT Appointment [facility] Radiation Therapy [address] [place] [address] Domonique Banks MD 607 [facility] [address] [address] 01/15/2025 8:30 AM CDT Appointment [facility] Radiation Therapy [address] [place] [address] Domonique Banks MD 607 [facility] [address] [address] 01/16/2025 8:30 AM CDT Appointment [facility] [address] [place] [address] Domonique Banks MD 607 [facility] [address] [address] 01/20/2025 8:30 AM CDT Appointment [facility] Radiation Therapy [address] [place] [address] Domonique Banks MD 607 [facility] [address] [address] 01/21/2025 8:30 AM CDT Appointment Stephen [facility] Radiation Therapy [address] [place] [address] Domonique Banks MD 607 [facility] [address] [address] 01/22/2025 8:30 AM CDT Appointment [facility] Radiation Therapy [address] [place] [address] Domonique Banks MD 607 [facility] [address] [address] 01/23/2025 8:30 AM CDT Appointment Stephen Maynard [facility] Radiation Therapy [address] [place] [address] Domonique Banks MD 607 [facility] [address] [address] 01/24/2025 8:30 AM CDT Appointment Stephen Maynard [facility] Radiation Therapy [address] [place] [address] Domonique Banks MD 607 [facility] [address] [address] 01/27/2025 8:30 AM CDT Appointment [facility] [address] [place] [address] Domonique Banks MD 607 [facility] [address] [address] 01/28/2025 8:30 AM CDT Appointment [facility] [address] [place] [address] Domonique Banks MD [address] [address] 01/29/2025 8:30 AM CDT Appointment [facility] [address] [place] [address] Domonique Banks MD [address] [address] 01/30/2025 8:30 AM CDT Appointment [facility] [address] [place] [address] Domonique Banks MD 607 [facility] [address] [address] 01/31/2025 8:30 AM CDT Appointment [facility] [address] [place] [address] Domonique Banks MD [address] [address] 02/03/2025 8:30 AM CDT Appointment [facility] [address] [place] [address] Domonique Banks MD [address] [facility] [address] [place] [address] documented as of this encounter Visit Diagnoses Not on filedocumented in this encounter Care Teams Care Manager Relationship Specialty Start Date End Date Paul Delarosa MD [address] [facility] [address] [place] [address] PCP - General Family Practice 10/16/24 documented as of this encounter
--- OUTSIDE RECORDS SUMMARY | 2024-12-31 07:05 | XMS_ITS | Encounter Summary ---
Author Organization [facility] Address [address] [place] [address] Care Team Providers Care Rehabilitation Technician Name Role Phone Paul Delarosa MD Primary Care Provider [phone] Reason for Visit * Reason Onset Date Comments Results 12/03/2024 Encounter Details Date Type Department Care Team (Late st Contact Info) Description 12/03/2024 Results Follow-Up [facility] Breast Surgery Yeison Dailey [address] [facility] [address] [place] [address] [place] [address] [facility] [address] [place] [address] PATHOLOGY Social History Tobacco Use Types Packs/Day Years Used Date Smoking Tobacco: Former Cigarettes 1 20 Q uit: 06/17/2018 Alcohol Use Standard Drinks/Week Comments Yes 4 (1 standard drink = 0.6 oz pur e alcohol) Feeling Safe Answer Date Recorded Are you in a relationship wi th someone who hurts you emotionally and/or physically? No 11/27/2024 Food Insecurity Answer Date Recorded Social/Environmental Concerns [...] on file documented as of this encounter Miscellaneous Notes * Result Encounter Note - Anjali Hsu RN - 12/03/2024 4:10 PM VETERINARY TECHNOLOGIST Pathology results faxed to Dr. Kraus's office at [phone]. RINARY TECHNOLOGIST * Telephone Encounter - Migdalia Solorzano MD - 12/03/2024 3:54 PM VETERINARY TECHNOLOGIST Called to discuss pathology results RINARY TECHNOLOGIST documented in this encounter Plan of Treatment Upcoming Encounters Date Type Department Care Team (Late st Contact Info) Description 12/31/2024 1:30 PM CDT Hospital Encounter [facility] Imaging Services [facility] [address] [place] [address] Domonique Banks MD 607 [facility] [address] [address] 01/08/2025 8:30 AM CDT Office Visit [facility] Oncology and Hematology [address] [address] Chalino Kraus MD 2[address] [facility] [address] [place] [address] 01/13/2025 8:30 AM CDT Appointment [facility] Radiation Therapy [address] [place] [address] Domonique Banks MD 607 [facility] [address] [address] 01/14/2025 8:30 AM CDT Appointment Stephen Maynard [facility] Radiation Therapy [address] [place] [address] Domonique Banks MD 607 [facility] [address] [place] [phone] 01/15/2025 8:30 AM CDT Appointment Stephen [facility]nard [facility] Radiation Therapy [address] [place] [address] Domonique Banks MD 607 [facility] [address] [phone] 01/16/2025 8:30 AM CDT Appointment Stephen [facility]nard [facility] Radiation Therapy [address] [place] [address] Domonique Banks MD 607 [facility] [address] [phone] 01/20/2025 8:30 AM CDT Appointment [facility] Radiation Therapy [address] [place] [address] Domonique Banks MD 607 [facility] [address] [address] 01/21/2025 8:30 AM CDT Appointment Stephen Maynard [facility] Radiation Therapy [address] [place] [address] Domonique Banks MD 607 [facility] [address] [address] 01/22/2025 8:30 AM CDT Appointment Stephen Mayn[facility] Radiation Therapy [address] [place] [address] Domonique Banks MD 607 [facility] [address] [phone] 01/23/2025 8:30 AM CDT Appointment [facility] [address] [place] [address] Domonique Banks MD 607 [facility] [address] [address] 01/24/2025 8:30 AM CDT Appointment [facility] [address] [place] [address] Domonique Banks MD 607 [facility] [address] [address] 01/27/2025 8:30 AM CDT Appointment [facility] [address] [place] [address] Domonique Banks MD 607 [facility] [address] [phone] 01/28/2025 8:30 AM CDT Appointment [facility] [address] [place] [address] Domonique Banks MD 607 [facility] [address] [address] 01/29/2025 8:30 AM CDT Appointment [facility] [address] [place] [address] Domonique Banks MD 607 [facility] [address] [address] 01/30/2025 8:30 AM CDT Appointment [facility] [address] [place] [address] Domonique Banks MD 607 [facility] [address] [place] [address] 01/31/2025 8:30 AM CDT Appointment Stephen Maynard [facility] Radiation Therapy [address] [place] [address] Domonique Banks MD [address] [address] 02/03/2025 8:30 AM CDT Appointment Stephen Maynard [facility] Radiation Therapy [address] [place] [address] Domonique Banks MD [address] [address] documented as of this encounter Visit Diagnoses Not on filedocumented in this encounter Care Teams Rehabilitation Technician Relationship Specialty Start Date End Date Paul Delarosa MD [address] [address] PCP - General Family Practice 10/16/24 documented as of this encounter
--- OUTSIDE RECORDS SUMMARY | 2024-12-31 07:05 | XMS_ITS | Clinical Summary ---
Author Organization [facility] Kaylee Vinson Address [address] [place] [address] Care Team Providers Care Consulting Business Developer Name Role Phone Paul Delarosa MD Primary Care Provider [phone] Allergies No known active allergies Medications multivitamin,t g-mvpj-gj-min (THERA-M) 27-0.4 mg Tablet Take 1 Tablet by mouth daily. Iron 65mg Vitamin C 100mg Active pyridoxine HCl, vitamin B6, (PYRIDOXINE, VITAMIN B6, ORAL) Take by mouth. Active ascorbic acid, vitamin C, (VITAMIN C) 500 mg tablet Take 1,000 mg by mouth daily. Active lidocaine-pril ocaine (EMLA) 2.5-2.5 % CreamIndicatio ns:Inflammator y carcinoma of left breast (CMS/HCC) Apply a quarter size amount to port site 30 minutes prior to access. 30 Gram 1 12/14/19 25 Active ferrous sulfate 325 mg (65 mg iron) tablet Take 325 mg by mouth daily. Active cyanocobalamin 1,000 mcg Tablet Take 1,000 mcg by mouth daily. Active pyridoxine (VITAMIN B6) 100 mg Tablet Take 50 mg by mouth daily. Active ascorbic acid, vitamin C, (VITAMIN C) 500 mg tablet Take 500 mg by mouth daily. Active capecitabine (Xeloda) 500 mg tablet Take 5 Tablets (2,500 mg) by mouth 2 times daily with meals for 14 days on, 7 days off. Repeat every 21 days. 140 Tablet 6 12/25/19 25 Active HYDROcodone-ac etaminophen (NORCO) 5-325 mg tabletIndicati ons:Inflammato ry carcinoma of left breast (CMS/HCC) Take 1 Tablet by mouth every 4 hours as needed for Pain, Severe. Max Daily Amount: 6 Tablets 20 Tablet 11/28/19 25 025 Discontinued naproxen (NAPROSYN) 500 mg tablet Take 1 Tablet (500 mg) by mouth 2 times daily as needed for Pain, Moderate. 20 Tablet 1 11/28/19 25 025 Discontinued capecitabine (Xeloda) 500 mg tablet Take 5 Tablets (2,500 mg) by mouth 2 times daily with meals for 14 days on, 7 days off. Repeat every 21 days. 140 Tablet 6 12/24/19 25 025 Discontinued(Re order) Active Problems No known active problems Encounters Date Type Department Care Team Description 12/31/2024 1:30 PM CDT Hospital Encounter [facility] Imaging Services [facility] [address] [place] [address] Domonique Banks MD 12/30/2024 7:54 AM CDT - 12/30/2024 11:59 PM CDT Hospital Encounter [facility] Rad[facility] [address] [place] [address] Discharge Disposition: Home or Self Care 12/30/2024 Abstract [facility] Oncology and Hematology - [facility] [address] [place] [address] Chalino Kraus MD 12/30/2024 Orders Only [facility] Oncology and Hematology - [facility] [address] [place] [address] Chalino Kraus MD Inflammatory carcinoma of left breast (CMS/HCC) 12/27/2024 Orders Only [facility] Oncology and Hematology - [facility] [address] [place] [address] Chalino Kraus MD 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) 12/26/2024 Specialty Pharmacy [facility] [address] [place] [phone] Charmaine Ignacio, PHARMACIST Specialty Pharmacy Refill Coordination 12/25/2024 Chart Note [facility] Breast Surgery [place] [address] [facility] [address] [place] [address] Isabella Avila RN 12/25/2024 Orders Only [facility] Rad[facility] [address] [place] [address] Domonique Banks MD 12/25/2024 Orders Only [facility] Radiation Therapy [address] [place] [address] Mukesh Leon MD Inflammatory breast cancer, left (CMS/HCC) (Primary Dx) 12/24/2024 Refill [facility] Oncology and Hematology [facility] [address] [place] [address] Chalino Kraus MD 12/24/2024 Specialty Pharmacy [facility] [facility] [place] [address] Charmaine Ignacio, PHARMACIST Specialty Pharmacy Prior Auth Coordination 12/23/2024 3:45 PM CDT Telephone Check Up [facility] Oncology [facility] [address] [place] [address] Chalino Kraus MD 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) 12/19/2024 Telephone [facility] Plastic Surgery at the [facility] [address] [facility] [address] [place] [address] Provider, Abstract Referral 12/18/2024 1:00 PM CDT Office Visit [facility] Breast Surgery Yesica Dailey [address] [facility] [address] [place] [address] Migdalia Solorzano MD 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); Breast cancer metastasized to axillary lymph node, left (CMS/HCC); S/P mastectomy, bilateral; History of lymph node dissection of left axilla 12/18/2024 External Device Data [facility] ABSTRACTION Provider, Abstract 12/17/2024 Orders Only [facility] Oncology and Hematology - [facility] [address] [place] [address] Chalino Kraus MD 12/17/2024 Chart Note [facility] Breast Surgery [place] [address] [place] [address] Isabella Avila RN 12/16/2024 Chart Note [facility] Breast Surgery [address] [address] [address] [address] [facility] [address] [place] [address] Isabella Avila RN 12/16/2024 Orders Only [facility] Breast Surgery [address] [address] [address] [facility] [address] [place] [address] Migdalia Solorzano MD Breast cancer metastasized to axillary lymph node, left (CMS/HCC) (Primary Dx); S/P mastectomy, bilateral 12/16/2024 Results Follow-Up [facility] Breast Surgery [address] [address] [address] [address] [facility] [address] [facility] [address] Migdalia Solorzano MD PATHOLOGY 12/16/2024 Orders Only [facility] Oncology [facility] Hematology [facility] [address] [place] [address] Chalino Kraus MD Inflammatory carcinoma of left breast (CMS/HCC) 12/13/2024 8:45 AM CDT Office Visit [facility] Oncology and Hematology [facility] [address] [place] [address] Chalino Kraus MD 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) 12/13/2024 Refill [facility] Oncology and Hematology [facility] [address] [place] [address] Chalino Kraus MD 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) 12/11/2024 External Device Data [employer] ABSTRACTION Provider, Abstract 12/10/2024 1:45 PM CDT Anesthesia Event [facility] [address] [place] [address] Ayana Mata MD 12/10/2024 1:16 PM CDT - 12/10/2024 2:40 PM CDT Surgery [facility] [place] [place] [place] [address] Migdalia Solorzano MD BREAST REEXCISION MASTECTOMY 12/10/2024 12:39 PM CDT - 12/10/2024 4:00 PM CDT Hospital Encounter [facility] [address] [place] [place] [address] Migdalia Solorzano MD Inflammatory carcinoma of left breast (CMS/HCC) Discharge Disposition: Home or Self Care 12/10/2024 External Device Data [employer] ABSTRACTION Provider, Abstract 12/09/2024 Chart Note [facility] Breast [facility] [place] Dailey [address] [place] [address] Isabella Avila RN 12/07/2024 External Device Data [facility]STRACTION Provider, Abstract 12/07/2024 External Device Data [employer]STRACTION Provider, Abstract 12/06/2024 Chart Note [facility] Breast 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 [place] Da[place] [address] [place] [address] Isabella Avila RN 12/04/2024 External Device Data [employer]STRACTION Provider, Abstract 12/04/2024 Chart Note [facility] Breast Surgery [place] [address] [address] Anjali Hsu, RN 12/04/2024 Orders Only [facility] Breast Surgery [place] [address] Migdalia Solorzano MD Breast cancer metastasized to axillary lymph node, left (CMS/HCC) (Primary Dx); Inflammatory carcinoma of left breast (CMS/HCC); S/P mastectomy, bilateral; History of lymph node dissection of left axilla 12/03/2024 Results Follow-Up [facility] Breast Surgery [place] [address] [address] Migdalia Solorzano MD PATHOLOGY 12/03/2024 Telephone [facility] Breast Surgery [place] Da[place] [address] [address] Giselle Mendoza RN Question 12/02/2024 Orders Only [facility] Oncology and Hematology [facility] [address] [facility] [address] [place] [address] Chalino Kraus MD Inflammatory carcinoma of left breast ([facility]/HCC) 11/27/2024 1:16 PM CONTRACTS DIRECTOR Anesthesia Event [facility] [address] [place] [address] Bret Lyn MD Green, Adam C, AA-C 11/27/2024 12:54 PM CONTRACTS DIRECTOR - 11/27/2024 4:09 PM CONTRACTS DIRECTOR Surgery [facility] [address] [place] [address] Migdalia Solorzano MD BREAST MASTECTOMY SIMPLE BILATERAL 11/27/2024 10:51 AM CONTRACTS DIRECTOR - 11/28/2024 2:27 PM CONTRACTS DIRECTOR Hospital Encounter [facility] [address] [place] [address] Migdalia Solorzano MD Inflammatory carcinoma of left breast (CMS/HCC) Discharge Disposition: Home or Self Care 11/27/2024 Prep for Surgery [facility] Breast Surgery [place] [address] [facility] [address] [address] Yoli Kaufman MD 11/26/2024 Chart Note [facility] Breast Surgery [address] [address] Isabella Avila RN 11/25/2024 Chart Note [facility] Breast Surgery [place] [address] [address] [address] Anjali Hsu RN 11/22/2024 1:00 PM CONTRACTS DIRECTOR - 11/22/2024 4:15 PM CONTRACTS DIRECTOR Surgery [facility] [address] [place] [address] Migdalia Solorzano MD Not Performed CASE CANCELLED 11/22/2024 8:15 AM CONTRACTS DIRECTOR - 11/22/2024 9:07 AM CONTRACTS DIRECTOR Hospital Encounter [facility] Surgery Ctr S [facility] [address] [place] [address] Migdalia Solorzano MD Inflammatory carcinoma of left breast ([facility]/HCC) Discharge Disposition: Home or Self Care 11/22/2024 Chart Note [facility] Breast Surgery [address] [address] Isabella Avila RN 11/22/2024 Orders Only [facility] Breast Surgery [place] [address] [address] [address] [facility] [address] Provider, Abstract 11/22/2024 Prep for Surgery [facility] Breast Surgery [address] [address] [address] [place] [address] Migdalia Solorzano MD 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) 11/21/2024 1:34 PM CONTRACTS DIRECTOR - 11/21/2024 11:59 PM CONTRACTS DIRECTOR Hospital Encounter [facility] General [facility] [place] [address] [place] [address] Discharge Disposition: Home or Self Care 11/20/2024 External Device Data [employer] ABSTRACTION Provider, Abstract 11/20/2024 Chart Note [facility] Breast Surgery [place] [address] [facility] [address] [address] Isabella Avila RN 11/20/2024 Chart Note [facility] Breast Surgery [place] [address] Isabella Avila RN 11/19/2024 Chart Note [facility] Breast Surgery [place] [address] [address] Isabella Avila RN 11/19/2024 Results Follow-Up [facility] Breast Surgery [place] [address] [facility] [address] [place] [address] Migdalia Solorzano MD CBC WITH DIFFERENTIAL, COMPREHENSIVE METABOLIC PANEL 11/18/2024 2:30 PM CONTRACTS DIRECTOR Office Visit [facility] Breast 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) 11/18/2024 Orders Only [facility] Oncology and Hematology [facility] [address] [place] [address] Chalino Kraus MD Inflammatory carcinoma of left breast (CMS/HCC) 11/15/2024 Abstract [facility] Oncology and Hematology [facility] [address] [place] [address] Chalino Karus MD 11/13/2024 Chart Note [facility] Breast Surgery [address] [address] [place] [address] Isabella Avila RN 11/12/2024 External Device Data [facility] ABSTRACTION Provider, Abstract 11/08/2024 1:25 PM CONTRACTS DIRECTOR - 11/08/2024 11:59 PM CONTRACTS DIRECTOR Hospital Encounter [facility] [address] [place] [address] [facility], External Provider Discharge Disposition: Home or Self Care 11/08/2024 12:15 PM CONTRACTS DIRECTOR Office Visit [facility] Oncology and Hematology - [place] [address] [place] [phone] Chalino Kraus MD 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) 11/04/2024 Orders Only [facility] Oncology and Hematology - Edu [address] [place] [address] Chalino Kraus MD Inflammatory carcinoma of left breast (CMS/HCC) 10/24/2024 External Device Data [facility] ABSTRACTION Provider, Abstract 10/21/2024 Orders Only [facility] Oncology and Hematology [facility] [address] [place] [address] Chalino Kraus MD Inflammatory carcinoma of left breast (CMS/HCC) 10/16/2024 8:30 AM CONTRACTS DIRECTOR Office Visit [facility] Oncology and Hematology - Edu [address] [place] [address] Chalino Kraus MD 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) 10/16/2024 Orders Only [facility] Oncology and Hematology - Edu [address] [place] [address] Chalino Kraus MD 10/14/2024 Orders Only [facility] Oncology and Hematology - Edu [address] [place] [address] Chalino Kraus MD 10/11/2024 Orders Only [facility] Oncology and Hematology - Edu [address] [place] [phone] Chalino Kraus MD 10/10/2024 Telephone [facility] Oncology and Hematology - Edu [address] [place] [address] Chalino Kraus MD Imaging Results 10/09/2024 Orders Only [facility] Oncology and Hematology - Edu [address] [place] [phone] Chalino Kraus MD 10/07/2024 Orders Only [facility] Oncology and Hematology - Edu [address] [place] [phone] Chalino Kraus MD Inflammatory carcinoma of left breast (CMS/HCC) 10/03/2024 8:30 AM CONTRACTS DIRECTOR Office Visit [facility] Oncology and Hematology [facility] [address] [place] [address] Justen Amor MD 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) from Last 3 Months Family History * [...] Sign Reading Time Taken Comments Blood Pressure 134/80 12/18/2024 1:11 PM CDT Pulse 95 12/18/2024 1:11 PM CDT Temperature 36 C (96.8 F) 12/13/2024 8:50 AM CDT Respiratory Rate 17 12/13/2024 8:50 AM CDT Oxygen Saturation 98% 12/13/2024 8:50 AM CDT Inhaled Oxygen Concentration - - Weight 97.5 kg (215 lb) 12/18/2024 1:11 PM CDT Height 177.8 cm (5' 10 ) 12/18/2024 1:11 PM CDT Body Mass Index 30.85 12/18/2024 1:11 PM CDT Plan of Treatment Upcoming Encounters Date Type Department Care Team (Late st Contact Info) Description 12/31/2024 1:30 PM CDT Hospital Encounter [facility] Imaging Services [facility] [address] [place] [address] Domonique Banks MD [address] [facility] [address] [address] 01/08/2025 8:30 AM CDT Office Visit [facility] Oncology and Hematology - Edu [address] [address] Chalino Kraus MD [address] [facility] [address] [place] [address] 01/13/2025 8:30 AM CDT Appointment [facility] Radiation Therapy [address] [place] [address] Domonique Banks MD 607 [facility] [address] [address] 01/14/2025 8:30 AM CDT Appointment [facility] Radiation Therapy [address] [place] [address] Domonique Banks MD 607 [facility] [address] [address] 01/15/2025 8:30 AM CDT Appointment [facility] Radiation Therapy [address] [place] [address] Domonique Banks MD [address] [facility] [address] [address] 01/16/2025 8:30 AM CDT Appointment [facility] Radiation Therapy [address] [place] [address] Domonique Banks MD [address] [facility] [address] [address] 01/20/2025 8:30 AM CDT Appointment [facility] Radiation Therapy [address] [place] [address] Domonique Banks MD [address] [facility] [address] [address] 01/21/2025 8:30 AM CDT Appointment [facility] Radiation Therapy [address] [place] [address] Domonique Banks MD [address] [facility] [address] [address] 01/22/2025 8:30 AM CDT Appointment [facility] Radiation Therapy [address] [place] [address] Domonique Banks MD [address] [facility] [address] [place] [address] 01/23/2025 8:30 AM CDT Appointment [facility] Radiation Therapy [address] [place] [address] Domonique Banks MD [address] [facility] [address] [address] 01/24/2025 8:30 AM CDT Appointment [facility] Radiation Therapy [address] [place] [address] Domonique Banks MD [address] [facility] [address] [address] 01/27/2025 8:30 AM CDT Appointment [facility] Radiation Therapy [address] [place] [address] Domonique Banks MD [address] [facility] [address] [address] 01/28/2025 8:30 AM CDT Appointment [facility] Radiation Therapy [address] [place] [address] Domonique Banks MD [address] [facility] [address] [address] 01/29/2025 8:30 AM CDT Appointment [facility] Radiation Therapy [address] [place] [address] Domonique Banks MD [address] [facility] [address] [address] 01/30/2025 8:30 AM CDT Appointment [facility] Radiation Therapy [address] [place] [address] Domonique Banks MD [address] [address] 01/31/2025 8:30 AM CDT Appointment [facility] Radiation Therapy [address] [place] [address] Domonique Banks MD [address] [address] 02/03/2025 8:30 AM CDT Appointment [facility] Radiation Therapy [address] [place] [address] Domonique Banks MD [address] [address] Health Maintenance Due Date Last Done Comments Pre-Diabetes and Diabetes Screening 1972 DTAP/TDAP/TD VACCINES (1 - Tdap) 1991 HEPATITIS B VACCINES (1 of 3 - 19+ 3-dose series) 05/1991 ZOSTER VACCINE (1 of 2) 1991 HPV/Cotest (21-29) 1993 CERVICAL CANCER SCREENING 2002 HPV/Cotest (30-65) 2002 PAP SMEAR 2002 COLORECTAL SCREENING 2017 Colorectal Cancer Screening 2017 FIT-DNA Q 3 years 2017 FIT/FOBT Q 1 year 2017 Flex Sig/CT Colonography Q 5 years 2017 Lung Cancer Screening 2022 INFLUENZA VACCINE (#1) 2024 Medical Devices Implanted Type Area Cashier Checker Device Identifier Shelf Expiration Date Model / Serial / Lot Clip Ligating Horizon Ti [id number] - Csc - [id number] Implanted:Qty: 1 on 12/10/2024 by Migdalia Solorzano MD at [facility] Yesica Dailey Clip Left: Breast [employer] 04/28/2029 [id number] / / [id number] Procedures Procedure Name Priority Date/Time Associated Diagnosis Comments BASIC METABOLIC PANEL Routine 12/13/2024 4:21 PM CDT CBC WITH DIFFERENTIAL Routine 12/13/2024 4:16 PM CDT PATHOLOGY Pathology 12/10/2024 2:18 PM CDT Inflammatory carcinoma of left breast (CMS/HCC) Breast cancer metastasized to axillary lymph node, left (CMS/HCC) S/P bilateral mastectomy History of lymph node dissection of left axilla AR EXC BREAST LES PREOP PLMT RAD MARKER OPEN 1 LES 12/10/2024 1:16 PM CDT Inflammatory carcinoma of left breast (CMS/HCC) Breast cancer metastasized to axillary lymph node, left (CMS/HCC) S/P bilateral mastectomy History of lymph node dissection of left axilla AR MASTECTOMY PARTIAL 12/10/2024 1:16 PM CDT Inflammatory carcinoma of left breast (CMS/HCC) Breast cancer metastasized to axillary lymph node, left (CMS/HCC) S/P bilateral mastectomy History of lymph node dissection of left axilla AR EXC BRST LES PREOP PLMT RAD MARKER OPN EA ADDL 12/10/2024 1:16 PM CDT Inflammatory carcinoma of left breast (CMS/HCC) Breast cancer metastasized to axillary lymph node, left (CMS/HCC) S/P bilateral mastectomy History of lymph node dissection of left axilla AR EXC CYST/ABERRANT BREAST TISSUE OPEN 1/> LESION 12/10/2024 1:16 PM CDT Inflammatory carcinoma of left breast (CMS/HCC) Breast cancer metastasized to axillary lymph node, left (CMS/HCC) S/P bilateral mastectomy History of lymph node dissection of left axilla PATHOLOGY Pathology 11/27/2024 1:58 PM CONTRACTS DIRECTOR Inflammatory carcinoma of left breast (CMS/HCC) AR ANES INSERT ENDOTRACHEAL AIRWAY Routine 11/27/2024 1:25 PM CONTRACTS DIRECTOR AR BX/EXC LYMPH NODE OPEN SUPERFICIAL 11/27/2024 12:54 PM CONTRACTS DIRECTOR Inflammatory carcinoma of left breast (CMS/HCC) AR AXILLARY LYMPHADENECTOMY SUPERFICIAL 11/27/2024 12:54 PM CONTRACTS DIRECTOR Inflammatory carcinoma of left breast (CMS/HCC) AR BX/EXC LYMPH NODE OPEN DEEP AXILLARY NODE 11/27/2024 12:54 PM CONTRACTS DIRECTOR Inflammatory carcinoma of left breast (CMS/HCC) AR AXILLARY LYMPHADENECTOMY COMPLETE 11/27/2024 12:54 PM CONTRACTS DIRECTOR Inflammatory carcinoma of left breast (CMS/HCC) AR MASTECTOMY SIMPLE COMPLETE 11/27/2024 12:54 PM CONTRACTS DIRECTOR Inflammatory carcinoma of left breast (CMS/HCC) PATHOLOGY Pathology 11/21/2024 1:39 PM CONTRACTS DIRECTOR Encounter for consultation COMPREHENSIVE METABOLIC PANEL Routine 11/18/2024 4:12 PM CONTRACTS DIRECTOR Inflammatory carcinoma of left breast (CMS/HCC) CBC WITH DIFFERENTIAL Routine 11/18/2024 4:12 PM CONTRACTS DIRECTOR Inflammatory carcinoma of left breast (CMS/HCC) MRI BREAST W CONTRAST BILAT Routine 11/08/2024 3:18 PM CONTRACTS DIRECTOR MRI PRIOR STUDY Routine 11/08/2024 1:25 PM CONTRACTS DIRECTOR Follow-up exam COMPREHENSIVE METABOLIC PANEL Routine 10/16/2024 12:52 PM CONTRACTS DIRECTOR CBC WITH DIFFERENTIAL Routine 10/11/2024 1:10 PM CONTRACTS DIRECTOR CBC WITH AUTODIFFERENTIAL Routine 10/09/2024 12:42 PM CONTRACTS DIRECTOR CBC WITH DIFFERENTIAL Routine 10/07/2024 12:25 PM CONTRACTS DIRECTOR BASIC METABOLIC PANEL Routine 10/03/2024 4:37 PM CONTRACTS DIRECTOR COMPREHENSIVE METABOLIC PANEL Routine 10/03/2024 4:26 PM CONTRACTS DIRECTOR from Last 3 Months Results * BASIC METABOLIC PANEL (12/13/2024 4:21 PM CDT) Only the most recent of2 resultswithin the time period is included. Blood us Chalino Kraus MD CHEMISTRY ORDERABLES Final Resu lt * CBC WITH DIFFERENTIAL (12/13/2024 4:16 PM CDT) Only the most recent of4 resultswithin the time period is included. Blood us Chalino Kraus MD HEMATOLOGY ORDERABLES Final Res ult * PATHOLOGY (12/10/2024 2:18 PM CDT) Only the most recent of3 resultswithin the time period is included. CASE REPORT Surgical Pathology Report Case: [id number] Authorizing Provider: Migdalia Solorzano, Collected: 12/10/2024 02:18 PM Ordering Location: [facility] OUTPATIENT SURGERY Received: 12/10/2024 02:26 PM [facility] Pathologist: Tram Miranda MD Specimens: A) - Breast, left, left mastectomy scar; SS/LL B) - Breast, left, pectoralis muscle; DD; SS/LL C) - Breast, left, lateral closure tissue 5:30 PM CDT [facility] [employer] [facility] FINAL DIAGNOSIS Skin and subcutaneous tissue, left mastectomy scar, excision: - Multiple foci of residual invasive ductal carcinoma 1. Size: Less than 1 mm up to 6 mm 2. Lymphovascular space invasion: Extensive; including dermal lymphovascular space invasion 3. Margins of resection: - Less than 1 mm posterior margin at the superior-medial aspect - 1 mm inferior lateral margin - 2 mm medial posterior margin - 5 mm medial anterior margin - Dermal lymphovascular space invasion less than 1 mm inferior lateral margin 4. Perineural invasion: Present - Surgical site changes - See microscopic description Skeletal muscle, left breast pectoralis muscle, excision: - Multiple minute foci of residual invasive ductal carcinoma 1. Size: Less than 1 mm up to 1 mm 2. Lymphovascular space invasion: Extensive 3. Margins of resection: - Less than 1 mm/abutting medial margin - 1 mm lateral posterior margin - 1.5 mm anterior margin - Lymphovascular space invasion less than 1 mm posterior margin and 2 mm anterior margin - Surgical site changes Breast, left, lateral closure tissue, excision: - Patchy fat necrosis - No evidence of malignancy 5:30 PM CDT [facility] [employer] [facility] at 1730 CDT GROSS DESCRIPTION The specimens are received in 3 containers, each labeled Janae Mccordelle Will. The first container is labeled left mastectomy scar; SS/LL. It holds a 247 g portion of skin and underlying adipose tissue measuring 25 cm medial-lateral, 9.5 cm superior-inferior, and up to 2.5 cm anterior-posterior. A 23.8 x 5.5 cm portion of skin with a central 22 cm sutured linear scar occupies most of the anterior surface. There is a long suture indicating the lateral aspect and a short suture indicating superior aspect. The tissue is inked as follows: Superior-blue, inferior-green, anterior-yellow, posterior-black. The specimen is serially sectioned from medial to lateral to show abundant subcutaneous fibrosis. No discrete masses are appreciated within the subcutaneous tissue nor in the underlying fat. Beta Tester sections are submitted follows: G3-N8-xjigkc skin tip, perpendicularly sectioned; F2-H8-ssskkwi skin tip, perpendicularly sectioned; J2-H92-wsclalfh lateral skin margin, perpendicularly sectioned; A12 and W51-vowojbqn medial skin margin, perpendicularly sectioned; K65-Q75-avcatejt lateral skin margin, perpendicularly sectioned; F80-D18-qgftthhe-wdurh l skin margin, perpendicularly sectioned. Time in formalin: 3:05 PM on 12/10/2024. The second container is labeled left breast pectoralis muscle; DD; SS/LL and holds a 6 g portion of skeletal muscle and minimal adipose tissue with sutures placed as indicated. The specimen measures 4.1 cm superior-inferior, 3.5 cm medial-lateral, and 1.8 cm anterior-posterior. The specimen is inked as follows: Anterior-yellow, posterior-black, medial-green, lateral-blue. The specimen is serially sectioned into 8 levels to show unremarkable skeletal muscle with little admixed adipose tissue. No distinct lesions are appreciated. The specimen is entirely submitted as follows: B1- level 1, superior margin, perpendicularly sectioned; B2-levels 2 and 3; B3-levels 4 and 5; D4-levels 6 and 7; B5-level 8, inferior margin, perpendicularly sectioned. Time in formalin: 3:16 PM on 12/10/2024. The third container is labeled left breast lateral closure tissue and holds an 11 g portion of unoriented fibrofatty tissue that measures 5.5 x 3.5 x 1.7 cm. The specimen is entirely inked blue and serially sectioned. It is entirely submitted as C1-C8. Time in formalin: 3:21 PM on 12/10/2024. AF 5:30 PM [facility] MICROSCOPIC DESCRIPTION The slides are labeled [id number] and Janae Solis. Sections of the left mastectomy scar show multiple foci of residual invasive ductal carcinoma, extensive lymphovascular space invasion, and extensive dermal lymphovascular space invasion. Cytokeratin stains performed on multiple blocks to help characterize the extent of the residual carcinoma. Tumor cells are present within the dermis and subcutaneous tissue on entry level sales representative sections submitted of the medial skin tip, superior medial aspect, inferior lateral aspect, and inferior-medial aspect. Moreover, lymphovascular space invasion is identified within the superior lateral aspect. The margins of resection are negative but close as stated in the final diagnoses. CD31 and D2-40 stains highlight lymphovascular space invasion less than 1 mm of the inferior margin in the lateral aspect of the tissue. Sections of the left breast pectoralis muscle show multiple microscopic foci of residual invasive ductal carcinoma and extensive lymphovascular space invasion. The margins of resection are negative but close as stated in the final diagnoses. Tumor cells abut the medial margin but are not touching ink (a cells width away from the margin). Sections of the left breast lateral closure tissue show patchy fat necrosis with no evidence of residual invasive carcinoma. 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 Note on use of immunohistochemistry reagents and in situ hybridization probes: These tests were developed and their performance characteristics determined by [facility], Department of Laboratory Medicine. It has not been cleared or approved by the U.S. Food and Drug Administration. The FDA has determined that such clearance or approval is not necessary. The test is used for clinical purposes. It should not be regarded as investigational or for research. This laboratory is certified to perform high complexity testing. Frozen section/operating room consultation, gross examination and dissection, and case sign out may have been performed in part or completely in the following laboratories: [facility], [place] #[id number] [address] [place] [address] [facility], [place] #[id number] [address] [place] [address] [facility], [place] #[id number] [address] [place] [address] This report was created with the [employer] voice-activated dictation system. Inherent to this system is the possibility of syntax, grammar, punctuation and other errors that could impact the interpretation of the report. If there are interpretative questions about aspects of this report, please contact the performing pathologist. 5:30 PM CDT [facility] Tissue LEFT BREAST STRUCTURE / Unknown Collection / Unknown 12/10/2024 2:18 PM CDT 12/10/2024 2:26 PM CDT Tissue specimen (specimen) LEFT BREAST STRUCTURE / Unknown 12/10/2024 2:30 PM CDT 12/10/2024 3:02 PM CDT Tissue specimen (specimen) LEFT BREAST STRUCTURE / Unknown 12/10/2024 2:40 PM CDT 12/10/2024 3:02 PM CDT Migdalia Solorzano MD PATHOLOGY/CYTOLOGY O RDERABLES Final Result [id number] [address] [facility] [place] [address] * AR ANES INSERT ENDOTRACHEAL AIRWAY (11/27/2024 1:25 PM CONTRACTS DIRECTOR) Narrative Aba Roach AA-C - 11/27/2024 1:25 PM CONTRACTS DIRECTOR Aba Roach AA-C 11/27/2024 1:37 PM Airway Date/Time: 11/27/2024 1:25 PM Location: OR Plan: routine intubation Patient Identity Confirmed by: Verbally with patient and armband Staffing Performed: CATHOLIC PRIEST/CAA Authorized by: Bret Lyn MD Performed by: Aba Roach AA-C Indications and Patient Condition: Indications for Airway Management: Anesthesia Sedation Level: general anesthesia Preoxygenated: yes Patient Position: Sniffing Mask Difficulty Assessment: 0 - not attempted Plan to extubate at end of case: Yes Final Airway Details: Final Airway Type: Endotracheal airway ETT Cuffed: Yes Cuff Volume (mL): 7 Technique Used for Successful ETT Placement: Direct laryngoscopy Devices/Methods Used in Placement: Intubating stylet Blade Type: curved blade Blade Size: 3 Insertion Site: Oral ETT Size (mm): 7.0 Measured from: Lips ETT to Lips (cm): 21 Tube secured with: Tape Placement Verified by: auscultation, end tidal CO2 and chest rise Cormack-Lehane Classification: Grade I - full view of glottis Number of Attempts at Approach: 1 Additional Procedure Information: atraumatic and dentition unchanged Bret Lyn MD PROCEDURE/MINOR SURGICAL ORDERAB LES Final Result * COMPREHENSIVE METABOLIC PANEL (11/18/2024 4:12 PM CONTRACTS DIRECTOR) Only the most recent of3 resultswithin the time period is included. [facility] GLUCOSE 90 65 - 139 mg/dL [facility] Comment: Non-fasting reference interval BUN 14 7 - 25 mg/dL [facility] CREATININE 0.67 0.50 - 1.03 mg/dL [facility] GFR 105 > OR = 60 mL/min/1. 73m2 [facility] BUN/CREAT RATIO SEE NOTE: 6 - 22 (calc) [facility] Comment: Not Reported: BUN and Creatinine are within reference range. SODIUM 141 135 - 146 mmol/L [facility] POTASSIUM 4.2 3.5 - 5.3 mmol/L [facility] CHLORIDE 105 98 - 110 mmol/L [facility] CO2 29 20 - 32 mmol/L [facility] CALCIUM 9.3 8.6 - 10.4 mg/dL [facility] TOTAL PROTEIN 6.6 6.1 - 8.1 g/dL [facility] ALBUMIN 4.2 3.6 - 5.1 g/dL [facility] GLOBULIN 2.4 1.9 - 3.7 g/dL (calc) [facility] [employer] [facility] ALBUMIN/GLOBULIN RATIO 1.8 1.0 - 2.5 (calc) [facility] BILIRUBIN TOTAL 0.3 0.2 - 1.2 mg/dL [facility] [employer] [facility] ALKALINE PHOSPHATASE 93 37 - 153 U/L [facility] AST 20 10 - 35 U/L [facility] ALT 9 6 - 29 U/L [facility] [employer] Comment: FASTING:NO FASTING: NO Test Performed at: [place] [address] [place] [address] AzebCheryl Isaac Vo Blood 11/18/2024 4:12 PM CONTRACTS DIRECTOR 11/18/2024 4:12 PM CONTRACTS DIRECTOR Migdalia Solorzano MD CHEMISTRY ORDERABLES Final Result [facility] [phone] [place] [address] [place] [address] * MRI BREAST W CONTRAST BILAT (11/08/2024 3:18 PM CONTRACTS DIRECTOR) Anatomical Region Laterality Modality Breast Bilateral Magnetic Resonan ce Abstract Provider MR ORDERABLES Final Result * MRI PRIOR STUDY (11/08/2024 1:25 PM CONTRACTS DIRECTOR) Narrative 11/15/2024 1:24 PM CONTRACTS DIRECTOR This exam was auto finalized to allow images to be scanned to PACS. External Provider [facility] MR ORDERABLES Final Re sult * CBC WITH AUTODIFFERENTIAL (10/09/2024 12:42 PM CONTRACTS DIRECTOR) Blood us Chalino Kraus MD HEMATOLOGY ORDERABLES Final Res ult from Last 3 Months Insurance RX [employer] RX Member Subscriber Plan / Payer (Ef fective 2024-Present) Name:Sigifredo Solistres Lubin Relation to Subscriber:Self Name:Janae Soils Payer ID:Not on file Group ID:[id number] Type:RX Commercial Address: [address] Advance Directives For more information, please contact: [phone] * Full Code (Latest Code Status on File) Date Activated Date Inactivated Comments 11/27/2024 6:24 PM 11/28/2024 4:27 PM Care Teams Consulting Business Developer Relationship Specialty Start Date End Date Paul Delarosa MD [address] [phone] PCP - General Family Practice 10/16/24
--- OUTSIDE RECORDS SUMMARY | 2024-12-31 07:05 | XMS_ITS | Clinical Summary ---
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
--- OUTSIDE RECORDS SUMMARY | 2024-12-31 07:05 | XMS_ITS | Referral Summary ---
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
--- OUTSIDE RECORDS SUMMARY | 2024-12-31 07:05 | XMS_ITS | Encounter Summary ---
Author Organization [facility] [email or web address] of 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
--- OUTSIDE RECORDS SUMMARY | 2024-12-31 07:05 | XMS_ITS | Encounter Summary ---
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
--- OUTSIDE RECORDS SUMMARY | 2024-12-31 07:05 | XMS_ITS | Encounter Summary ---
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
--- OUTSIDE RECORDS SUMMARY | 2024-12-31 07:05 | XMS_ITS | Encounter Summary ---
Author Organization [facility] Address [address] [place] [address] Care Team Providers Care Physiotherapy Practice Manager Name Role Phone Paul Delarosa MD Primary Care Provider [phone] Reason for Visit * Reason Onset Date Comments Results 12/16/2024 Encounter Details Date Type Department Care Team (Late st Contact Info) Description 12/16/2024 Results Follow-Up [facility] Breast Surgery Yeison Dailey [address] [facility] [address] [place] [address] [place] [address] [facility] [address] [place] [address] PATHOLOGY Social History Tobacco Use [...] who hurts you emotionally and/or physically? No 12/10/2024 Food Insecurity Answer Date Recorded Social/Environmental Concerns [...] as of this encounter Miscellaneous Notes * Telephone Encounter - Migdalia Solorzano MD - 12/16/2024 12:35 PM CDT Discussed pathology results. documented in this encounter Plan of Treatment Upcoming Encounters Date Type Department Care Team (Late st Contact Info) Description 12/31/2024 1:30 PM CDT Hospital Encounter [facility] Imaging Services [facility] [address] [facility] [place] [address] Domonique Banks MD [address] [facility] [address] [address] 01/08/2025 8:30 AM CDT Office Visit [facility] Oncology and Hematology [facility] [address] [place] [phone] Chalino Kraus MD [address] [facility] [address] [place] [address] 01/13/2025 8:30 AM CDT Appointment [facility] Radiation Therapy [address] [place] [address] Domonique Banks MD [address] [facility] [address] [address] 01/14/2025 8:30 AM CDT Appointment [facility] Radiation Therapy [address] [place] [address] Domonique Banks MD [address] [facility] [address] [address] 01/15/2025 8:30 AM CDT Appointment [facility] Radiation Therapy [address] [place] [phone] Domonique Banks MD [address] [facility] [address] [address] 01/16/2025 8:30 AM CDT Appointment [facility] Radiation Therapy [address] [place] [address] Domonique Banks MD [address] [facility] [address] [phone] 01/20/2025 8:30 AM CDT Appointment [facility] Radiation Therapy [address] [place] [address] Domonique Banks MD [address] [facility] [address] [address] 01/21/2025 8:30 AM CDT Appointment [facility] Radiation Therapy [address] [place] [address] Domonique Banks MD [address] [address] 01/22/2025 8:30 AM CDT Appointment [facility] Radiation Therapy [address] [place] [address] Domonique Banks MD [address] [facility] [address] [address] 01/23/2025 8:30 AM CDT Appointment [facility] Radiation Therapy [address] [place] [address] Domonique Banks MD [address] [facility] [address] [phone] 01/24/2025 8:30 AM CDT Appointment [facility] Radiation Therapy [address] [place] [phone] Domonique Banks MD [address] [facility] [address] [address] 01/27/2025 8:30 AM CDT Appointment [facility] Radiation Therapy [address] [place] [address] Domonique Banks MD [address] [address] 01/28/2025 8:30 AM CDT Appointment [facility] Radiation Therapy [address] [place] [phone] Domonique Banks MD [address] [facility] [address] [address] 01/29/2025 8:30 AM CDT Appointment [facility] Radiation Therapy [address] [place] [address] Domonique Banks MD [address] [facility] [address] [phone] 01/30/2025 8:30 AM CDT Appointment [facility] Radiation Therapy [address] [place] [address] Domonique Banks MD 7 [facility] [address] [phone] 01/31/2025 8:30 AM CDT Appointment [facility] Radiation Therapy [address] [place] [address] Domonique Banks MD [address] [facility] [address] [address] 02/03/2025 8:30 AM CDT Appointment [facility] Radiation Therapy [address] [place] [address] Domonique Banks MD [address] [facility] [address] [address] documented as of this encounter Visit Diagnoses Not on filedocumented in this encounter Care Teams Physiotherapy Practice Manager Relationship Specialty Start Date End Date Paul Delarosa MD [address] [facility] [address] [place] [address] PCP - General Family Practice 10/16/24 documented as of this encounter
--- OUTSIDE RECORDS SUMMARY | 2024-12-31 07:05 | XMS_ITS | Encounter Summary ---
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
--- OUTSIDE RECORDS SUMMARY | 2024-12-31 07:05 | XMS_ITS | Encounter Summary ---
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
--- OUTSIDE RECORDS SUMMARY | 2024-12-31 07:05 | XMS_ITS | Encounter Summary ---
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
--- OUTSIDE RECORDS SUMMARY | 2024-12-31 07:05 | XMS_ITS | Encounter Summary ---
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
--- OUTSIDE RECORDS SUMMARY | 2024-12-31 07:05 | XMS_ITS | Encounter Summary ---
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 [address] [place] [address] Consulting Physician Medical Oncology 06/18/24 documented as of this encounter
--- OUTSIDE RECORDS SUMMARY | 2024-12-31 07:05 | XMS_ITS | Encounter Summary ---
Author Organization [facility] Address [address] [place] [address] Care Team Providers Care Vessel Slagman Name Role Phone Paul Delarosa MD Primary Care Provider [phone] Reason for Visit * PET Scan (Routine) - Authorized Specialty Diagnoses / Procedures Referred By Contac t Referred To Contact Radiology Diagnoses Inflammatory breast cancer, left (CMS/HCC) Procedures PET TUMOR OR INFECTION IMG W CT SKB Domonique Lucas MD [address] [place] [address] [address] Phone: tel: fax: [facility] [address] [place] [address] Phone: tel: Referral ID Status Reason Start Date Expiration Date V isits Requested Visits Authorized [id number] Authorized 12/27/2024 02/10/2025 1 1 Encounter Details Date Type Department Care Team (Late st Contact Info) Description 12/31/2024 1:30 PM CDT Hospital Encounter [facility] [address] [place] [address] Domonique Banks MD [address] [place] [address] Social History Tobacco Use Types Packs/Day Years [...] Care Team (Late st Contact Info) Description 01/08/2025 8:30 AM CDT Office Visit [facility] Oncology and Hematology - [place] [address] [phone] Chalino Kraus MD 2227 [facility] [address] [place] [address] 01/13/2025 8:30 AM CDT Appointment [facility] Radiation Therapy [address] [place] [address] Domonique Banks MD 607 [facility] [address] [address] 01/14/2025 8:30 AM CDT Appointment [facility] Radiation Therapy [address] [place] [address] Domonique Banks MD 607 [facility] [address] [address] 01/15/2025 8:30 AM CDT Appointment [facility] Radiation Therapy [address] [place] [phone] Domonique Banks MD 607 [facility] [address] [phone] 01/16/2025 8:30 AM CDT Appointment [facility] Radiation Therapy [address] [place] [address] Domonique Banks MD 607 [facility] [address] [address] 01/20/2025 8:30 AM CDT Appointment [facility] Radiation Therapy [address] [place] [address] Domonique Banks MD 607 [facility] [address] [address] 01/21/2025 8:30 AM CDT Appointment [facility] Radiation Therapy [address] [place] [address] Domonique Banks MD 607 [facility] [address] [address] 01/22/2025 8:30 AM CDT Appointment [facility] Radiation Therapy [address] [place] [address] Domonique Banks MD 607 [facility] [address] [address] 01/23/2025 8:30 AM CDT Appointment [facility] [address] [place] [address] Domonique Banks MD 607 [facility] [address] [address] 01/24/2025 8:30 AM CDT Appointment [facility] Radiation Therapy [address] [place] [phone] Domonique Banks MD 607 [facility] [address] [address] 01/27/2025 8:30 AM CDT Appointment [facility] [address] [place] [address] Domonique Banks MD 607 [facility] [address] [address] 01/28/2025 8:30 AM CDT Appointment Stephen [facility] Radiation Therapy [address] [place] [address] Domonique Banks MD 607 [facility] [address] [address] 01/29/2025 8:30 AM CDT Appointment [facility] Radiation Therapy [address] [place] [address] Domonique Banks MD 607 [facility] [address] [address] 01/30/2025 8:30 AM CDT Appointment [facility] [address] [place] [address] Domonique Banks MD [address] [address] 01/31/2025 8:30 AM CDT Appointment [facility] Radiation Therapy [address] [place] [address] Domonique Banks MD [address] [address] 02/03/2025 8:30 AM CDT Appointment [facility] Rad[facility] [address] [place] [phone] Domonique Banks MD [address] [address] Scheduled Orders Name Type Priority Associated Diagnoses Orde r Schedule PET TUMOR OR INFECTION IMG W CT SKB MDTH Imaging Routine Inflammatory breast cancer, left (CMS/HCC) Expected: 01/01/2025, Expires: 12/25/2025 documented as of this encounter Visit Diagnoses Not on filedocumented in this encounter Care Teams Vessel Slagman Relationship Specialty Start Date End Date Paul Delarosa MD [address] [address] PCP - General Family Practice 10/16/24 documented as of this encounter
--- OUTSIDE RECORDS SUMMARY | 2024-12-31 07:05 | XMS_ITS | Encounter Summary ---
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
--- OUTSIDE RECORDS SUMMARY | 2024-12-31 07:05 | XMS_ITS | Encounter Summary ---
Author Organization [facility] Address [address] [place] [address] Care Team Providers Care Washing Machine Loader Name Role Phone Paul Delarosa MD Primary Care Provider [phone] Encounter Details Date Type Department Care Team (Latest Contact Info) Description 11/19/2024 Results Follow-Up [facility] Breast Surgery [place] [address] [facility] [address] [place] [address] [place] [address] [facility] [address], [place] [address] CBC WITH DIFFERENTIAL, COMPREHENSIVE METABOLIC PANEL Social History Tobacco Use Types Packs/Day Years Used Date Smoking Tobacco: Former Cigarettes 1 20 Q uit: 06/17/2018 Alcohol Use Standard Drinks/Week Comments Yes 4 (1 standard drink = 0.6 oz pur e alcohol) Food Insecurity Answer Date Recorded Social/Environmental Concerns No concerns Transportation Needs Answer Date Record ed Social/Environmental Concerns No concerns Housing Stability Answer Date Recorded Social/Environmental Concerns No concerns Utility Needs Answer Date Recorded Social/Environmental Concerns No concerns Comments Unknown Sex and Gender Information Value Date Recorded Sex Assigned at Not on file Legal Sex Female 10:17 AM CDT Gender Identity Not on file Sexual Orientation Not on file documented as of this encounter Plan of Treatment Upcoming Encounters Date Type Department Care Team (Late st Contact Info) Description 12/31/2024 1:30 PM CDT Hospital Encounter [facility] Imaging Services [facility] [address] [place] [phone] Domonique Banks MD 607 [facility] [address] [address] 01/08/2025 8:30 AM CDT Office Visit [facility] Oncology and Hematology [facility] 2[address] [facility] [address] [place] [address] Chalino Kraus MD 2227 [facility] [address] [place] [address] 01/13/2025 8:30 AM CDT Appointment [facility] Radiation Therapy [address] [place] [address] Dmoonique Banks MD 607 [facility] [address] [address] 01/14/2025 8:30 AM CDT Appointment [facility] Radiation Therapy [address] [place] [address] Domonique Banks MD 607 [facility] [address] [address] 01/15/2025 8:30 AM CDT Appointment [facility] Radiation Therapy [address] [place] [address] Domonique Banks MD 607 [facility] [address] [address] 01/16/2025 8:30 AM CDT Appointment [facility] Radiation Therapy [address] [place] [address] Domonique Banks MD 607 [facility] [address] [address] 01/20/2025 8:30 AM CDT Appointment [facility] [address] [place] [address] Domonique Banks MD 607 [facility] [address] [address] 01/21/2025 8:30 AM CDT Appointment [facility] [address] [place] [address] Domonique Banks MD 607 [facility] [address] [address] 01/22/2025 8:30 AM CDT Appointment [facility] Radiation Therapy [address] [place] [address] Domonique Banks MD [address] [address] 01/23/2025 8:30 AM CDT Appointment [facility] [address] [place] [address] Domonique Banks MD 607 [facility] [address] [address] 01/24/2025 8:30 AM CDT Appointment [facility] [address] [place] [address] Domonique Banks MD [address] [address] 01/27/2025 8:30 AM CDT Appointment [facility] Rad[facility] [address] [place] [address] Domonique Banks MD 607 [facility] [address] [address] 01/28/2025 8:30 AM CDT Appointment [facility] Radiation Therapy [address] [place] [phone] Domonique Banks MD 607 [facility] [address] [address] 01/29/2025 8:30 AM CDT Appointment Stephen [facility]nard [facility] Radiation Therapy [address] [place] [address] Domonique Banks MD 607 [facility] [address] [address] 01/30/2025 8:30 AM CDT Appointment Stephen Maynard [facility] Radiation Therapy [address] [place] [address] Domonique Banks MD 607 [facility] [address] [address] 01/31/2025 8:30 AM CDT Appointment [facility] Radiation Therapy [address] [place] [address] Domonique Banks MD 607 [facility] [address] [address] 02/03/2025 8:30 AM CDT Appointment [facility] Radiation Therapy [address] [place] [address] Domonique Banks MD 607 [facility] [address] [address] documented as of this encounter Visit Diagnoses Not on filedocumented in this encounter Care Teams Washing Machine Loader Relationship Specialty Start Date End Date Paul Delarosa MD [address] [facility] [address] [place] [address] PCP - General Family Practice 10/16/24 documented as of this encounter
== END 2024-12-31 07:03 | disposition home or self-care (01) ==
PROVIDERS: PCP Family Medicine; Visit Provider Radiology Radiation Oncology
DX: C50.919 Malignant neoplasm of unspecified site of unspecified female breast (principal); Z17.421 Hormone receptor negative with human epidermal growth factor receptor 2 negative status
CPT/HCPCS: 70553; A9579

== ENCOUNTER 2025-03-16 21:06 | Observation (INO) | payer OTHER, SELFPAY ==
--- NOTE | ~2025-03-16 | CT_ITS ---
CLINICAL INDICATION: Personal history of inflammatory breast cancer following bilateral mastectomy no w with erythema and. Drainage from her mastectomy incision COMPARISON: None TECHNIQUE: An enhanced CT of the abdomen and pelvis was performed utilizing multislice spiral AbraResto ue reconstructed at 5 mm slice thickness. Coronal and sagittal reconstructions were performed. This CT examination was performed utilizing dose reduction techniques. DLP: 1661 mGy-cm FINDINGS/OBSERVATIONS: Lung: The lungs are clear. The heart is of normal size, without pericardial effusion. Right internal jugular central venous port catheter identified with its tip at the level of the proxi mal right atrium. Mediastinum: Multiple left-sided supraclavicular lymph nodes are identified. The largest measures 11.5 cm in short axis dimension. Morphologically abnormal lymph nodes are also detected within the left axilla. The largest measuring 15 mm in short axis dimension. Left-sided retropectoral lymph nodes are also noted. The largest measuring 12 mm in short axis dimension. Soft tissues of the chest: A rim-enhancing fluid collection is present within the soft tissues of the left anterior chest wall m easuring 3 x 11 x 7 cm (anterior to posterior x medial to lateral x cranial to caudal dimension). A smaller rim-enhancing fluid collection is identified along the right anterior chest wall measuring 1.4 x 6 x 5 cm (anterior to posterior x medial to lateral x cranial to caudal dimension). Attenuation values of the right-sided collection are consistent with simple fluid, likely representing a benign seroma. Attenuation values of the left-sided collection are somewhat denser than simple fluid. Bones of the chest: No acute fracture. Scattered lucent lesions are identified within the thoracic spine for which metastatic disease is juliane pected. Lytic and blastic lesions are noted within the right scapula right second rib, the posterior margin o f the right third, sixth, eighth, ninth and 12th ribs. Expansile lytic lesion within the anterolateral margin of the right fourth rib with a possible subacu te fracture. The left scapula is free of disease. Lytic and blastic lesions are identified within the left second, third, fourth, fifth, eighth, ninth, and 10th ribs. A lytic expansile lesion with a subacute fracture is identified within the left posterior seventh rib . Additional lucent lesions are identified within the manubrium and the sternum. Liver: The liver enhances homogeneously and is not enlarged. Trace periportal edema is present. Gallbladder and biliary system: The gallbladder is decompressed, limiting its evaluation.. Pancreas: The pancreas enhances homogeneously, without ductal dilatation. Spleen: The spleen enhances homogeneously without enlargement. Kidneys: The bilateral kidneys enhance symmetrically without hydronephrosis or renal calculi. Adrenal glands: Unremarkable. Gastrointestinal tract: Within the root of the mesentery in the mid to lower abdomen there is infiltration of the mesenteric fat with multiple enlarged nodules, presumably lymph nodes versus metastatic deposits. The largest measures 18 x 18 x 19 mm (anterior to posterior x medial to lateral x cranial to caudal d imension). Vasculature: No calcified atherosclerotic disease is present. No aneurysmal dilatation. Lymph nodes: Retroperitoneal lymphadenopathy is also present. The largest lymph node is within the para-aortic position at the level of the splenic/superior mesent juan vein confluence measuring 20 mm in short axis dimension. Lymphadenopathy is present within the bilateral iliac chains as well. The largest lymph node measures 18 mm in short axis dimension. Bilateral inguinal lymphadenopathy is also noted. The largest lymph node is within the left groin measuring 17 mm in short axis dimension. Pelvic structures: The bladder is minimally distended and otherwise unremarkable. The uterus is anteverted and anteflexed and markedly nodular in contour. Body wall and musculoskeletal: Small fat-containing umbilical hernia is present. Lytic and blastic lesions are identified within the lower thoracic and lumbosacral spine. The Largest lesion is at the level of T12. An additional enlarged lesion is present within the vertebral body of L4. 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 A large lucent lesion is identified within the right iliac bone. An additional lucency is detected wi thin the anterior margin of the right femoral neck. IMPRESSION: Rim-enhancing fluid collections along the anterior chest wall, consistent with recent surgery. These may represent benign seromas (on the right) with denser fluid contained in the larger collectio n on the left, as detailed above. No metastatic disease is identified within the lungs, liver, pancreas or spleen. Diffuse bony lytic and sclerotic lesions detected within multiple ribs, the right scapula the manubri um, sternum, multiple vertebral bodies within both the thoracic and lumbar spines as well as the long bones of the pelvis. Acute/subacute pathologic fractures of the right fourth rib and left posterior seventh rib is also pr esent. Mesenteric disease is also present, for which metastatic deposits versus enlarged lymph nodes are juliane pected, as well as retroperitoneal, iliac, and inguinal lymphadenopathy. Additional lymphadenopathy is present within the left supraclavicular, left axillary and left retrope ctoral basins. In addition, the uterus is significantly nodular and somewhat enlarged, possibly representing fibroid disease. No prior imaging is available for direct comparison. If prior imaging does become available, comparison will be performed. Reviewed, dictated and finalized at location A. IMPRESSION: Rim-enhancing fluid collections along the anterior chest wall, consistent with recent surgery. These may represent benign seromas (on the right) with denser fluid contained i n the larger collection on the left, as detailed above. No metastatic disease is identified within the lungs, liver, pancreas or spleen . Diffuse bony lytic and sclerotic lesions detected within multiple ribs, the rig ht scapula the manubrium, sternum, multiple vertebral bodies within both the th oracic and lumbar spines as well as the long bones of the pelvis. Acute/subacute pathologic fractures of the right fourth rib and left posterior seventh rib is also present. Mesenteric disease is also present, for which metastatic deposits versus enlarg ed lymph nodes are suspected, as well as retroperitoneal, iliac, and inguinal l ymphadenopathy. Additional lymphadenopathy is present within the left supraclavicular, left axi llary and left retropectoral basins. In addition, the uterus is significantly nodular and somewhat enlarged, possibl y representing fibroid disease. No prior imaging is available for direct comparison. If prior imaging does become available, comparison will be performed.
[2025-03-16 21:09] VITALS: BP 150/84; PULSE 97; RESP 18; TEMP 36.8; O2SAT 99
--- OUTSIDE RECORDS SUMMARY | 2025-03-16 21:09 | XMS_ITS | Encounter Summary ---
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
--- OUTSIDE RECORDS SUMMARY | 2025-03-16 21:09 | XMS_ITS | Clinical Summary ---
Author Organization [facility] Kaylee Vinson Address [address] [place] [address] Care Team Providers Care Project Crew Worker Name Role Phone Paul Delarosa MD Primary Care Provider [phone] Allergies No known active allergies Medications multivitamin,tx -iron-ca-min (THERA-M) 27-0.4 mg Tablet Take 1 Tablet by mouth daily. Iron 65mg Vitamin C 100mg Active pyridoxine HCl, vitamin B6, (PYRIDOXINE, VITAMIN B6, ORAL) Take by mouth. Active ascorbic acid, vitamin C, (VITAMIN C) 500 mg tablet Take 1,000 mg by mouth daily. Active ferrous sulfate 325 mg (65 mg [...] every 21 days. 140 Tablet 6 12/24/2024 Active lidocaine-prilo cornel (EMLA) 2.5-2.5 % CreamIndication s:Inflammatory carcinoma of left breast (CMS/HCC) Apply a quarter size amount to port site 30 minutes prior to access. 30 Gram 1 01/21/2025 Active ondansetron (ZOFRAN ODT) 8 mg Tablet, Rapid Dissolve Dissolve 1 tablet on top of tongue then swallow with saliva every 8 hours as needed for nausea or vomiting 30 Tablet 1 01/21/2025 Active Active Problems No known active problems Encounters Date Type Department Care Team Description 03/14/2025 Orders Only [facility] Oncology and Hematology - Edu Dereck Carver [address] Chalino Kraus MD 03/10/2025 Orders Only [facility] Oncology and Hematology - Edu Dereck Carver [address] Chalino Kraus MD Inflammatory carcinoma of left breast (CMS/HCC) 03/06/2025 Orders Only [facility] Oncology and Hematology - Edu Dereck Carver [address] Chalino Kraus MD 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) 03/04/2025 External Device Data STL ABSTRACTION Provider, Abstract 03/03/2025 Orders Only [facility] Oncology and Hematology - Edu Dereck Carver [address] Chalino Kraus MD Chronic anemia; Inflammatory carcinoma of left breast (CMS/HCC) 02/28/2025 Orders Only [facility] Oncology and Hematology - Edu Ammy Carver [address] Chalino Kraus MD 02/25/2025 Orders Only [facility] Oncology and Hematology - Edu Dereck Carver [address] Chalino Kraus MD 02/24/2025 Orders Only [facility] Oncology and Hematology - Edu Dereck Carver [address] [place] [id number] Chalino Kraus MD Inflammatory carcinoma of left breast (CMS/HCC) 02/21/2025 10:30 AM CDT Office Visit [facility] Oncology and Hematology - Edu Dereck Carver [address] [place] [phone] Chalino Kraus MD Cancer, metastatic to bone (CMS/HCC) (Primary Dx) 02/20/2025 External Device Data STL ABSTRACTION Provider, Abstract 02/19/2025 External Device Data STL ABSTRACTION Provider, Abstract 02/18/2025 External Device Data STL ABSTRACTION Provider, Abstract 02/17/2025 Orders Only [facility] Oncology and Hematology - Edu [address] [place] [phone] Chalino Kraus MD Chronic anemia; Inflammatory carcinoma of left breast (CMS/HCC) 02/11/2025 Orders Only [facility] Oncology and Hematology - Edu [address] [place] [id number] Chalino Kraus MD 02/10/2025 Orders Only [facility] Oncology and Hematology - Edu [address] [place] [address] Chalino Kraus MD Inflammatory carcinoma of left breast ([facility]/HCC) 02/07/2025 9:00 AM CDT Office Visit [facility] Oncology and Hematology - Edu [address] [place] [phone] Chalino Kraus MD Chronic anemia (Primary Dx) 02/07/2025 Orders Only [facility] Oncology and Hematology - Edu [address] [place] [address] Chalino Kraus MD 02/03/2025 Orders Only [facility] Oncology and Hematology - Edu [address] [place] [address] Chalino Kraus MD Chronic anemia; Inflammatory carcinoma of left breast ([facility]/HCC) 01/31/2025 Orders Only [facility] Oncology and Hematology - Edu [address] [place] [address] Chalino Kraus MD 01/29/2025 Abstract [facility] Oncology and Hematology - Edu [address] [place] [address] Chalino Kraus MD 01/27/2025 Orders Only [facility] Oncology and Hematology - Edu [address] [place] [phone] Chalino rKaus MD Inflammatory carcinoma of left breast (CMS/HCC) 01/24/2025 Orders Only [facility] Oncology and Hematology - Edu [address] [place] [address] Chalino Kraus MD Chronic anemia (Primary Dx); Inflammatory carcinoma of left breast (CMS/HCC) 01/21/2025 Refill [facility] Oncology and Hematology - Edu Ammy [address] [place] [address] Chalino Kraus MD Inflammatory carcinoma of left breast (CMS/HCC) 01/17/2025 Orders Only [facility] Oncology and Hematology - Edu [address] [place] [address] Chalino Kraus MD 01/16/2025 Orders Only [facility] Oncology and Hematology - Edu [address] Chalino Kraus MD 01/15/2025 Orders Only [facility] Oncology and Hematology - Edu Ammy [address] [place] [address] Chalino Kraus MD 01/14/2025 External Device Data STL ABSTRACTION Provider, Abstract 01/13/2025 Orders Only [facility] Oncology and Hematology - Edu [address] [place] [address] Chalino Kraus MD Inflammatory carcinoma of left breast (CMS/HCC) 01/10/2025 Orders Only [facility] Oncology and Hematology - Edu [address] [place] [address] Chalino Kraus MD Need for hepatitis B screening test (Primary Dx) 01/09/2025 3:30 PM CDT Office Visit [facility] Oncology and Hematology - Edu Dereck [address] [place] [address] Chalino Kraus MD 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); Chronic anemia; Cancer, metastatic to bone (CMS/HCC) 01/02/2025 9:04 AM CDT - 01/02/2025 11:59 PM CDT Hospital Encounter [facility] Laboratory Services [facility] [address] [place] [address] Chalino Kraus MD Discharge Disposition: Home or Self Care 01/02/2025 Abstract [facility] Oncology [facility] [address] [place] [address] Chalino Kraus MD 01/01/2025 Telephone [facility] Oncology [facility] [address] [place] [address] Chalino Kraus MD Add on PDL-1 12/31/2024 12:41 PM CDT - 12/31/2024 11:59 PM CDT Hospital Encounter [facility] Services [facility] [address] [place] [address] Domonique Banks MD Discharge Disposition: Home or Self Care 12/31/2024 Chart Note [facility] Breast Surgery Yeison Ashlie [address] [facility] [address] [place] [address] Isabella Avila RN 12/30/2024 7:54 AM CDT - 12/30/2024 11:59 PM CDT Hospital Encounter [facility] Radiation Therapy [address] [place] [address] Domonique Banks MD Discharge Disposition: Home or Self Care 12/30/2024 Abstract [facility] Oncology and Hematology [facility] [address] [place] [address] Chalino Kraus MD 12/30/2024 Orders Only [facility] Oncology and Hematology [facility] [address] [place] [address] Chalino Kraus MD Inflammatory carcinoma of left breast (CMS/HCC) 12/27/2024 Orders Only [facility] Oncology and Hematology [facility] [address] [place] [address] Chalino Kraus MD 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) 12/26/2024 Specialty Pharmacy [facility] [address] [place] [address] [place] [address] Charmaine Ignacio, PHARMACIST Specialty Pharmacy Refill Coordination 12/25/2024 Chart Note [facility] Breast Surgery Yeison Ash[address] [place] [address] Isabella Avila RN 12/25/2024 Orders Only [facility] [address] [place] [address] Domonique Banks MD 12/25/2024 Orders Only [facility] Rad[facility] [address] [place] [address] Mukesh Leon MD Inflammatory breast cancer, left (CMS/HCC) (Primary Dx) 12/24/2024 Refill [facility] Oncology and Hematology [facility] [address] [place] [address] Chalino Kraus MD 12/24/2024 Specialty Pharmacy [facility] [address] [place] [address] [place] [address] Charmaine Ignacio, PHARMACIST Specialty Pharmacy Prior Auth Coordination 12/23/2024 3:45 PM CDT Telephone Check Up [facility] Oncology and Hematology [facility] [address] [place] [address] Chalino Kraus MD 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) 12/19/2024 Telephone [facility] Plastic Surgery at the [facility] [address] [facility] [address] [place] [address] Provider, Abstract Referral 12/18/2024 1:00 PM CDT Office Visit [facility] Breast Surgery Yeison Da[address] [address] [place] [address] Migdalia Solorzano MD 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); Breast cancer metastasized to axillary lymph node, left (CMS/HCC); S/P mastectomy, bilateral; History of lymph node dissection of left axilla 12/18/2024 External Device Data STL ABSTRACTION Provider, Abstract 12/17/2024 Orders Only [facility] Oncology and Hematology [facility] [address] [place] [address] Chalino Kraus MD 12/17/2024 Chart Note [facility] Breast Surgery Yeison Da[place] [address] [address] Isabella Avila RN 12/16/2024 Chart Note [facility] Breast Surgery Yeison Dailey [address] [address] Isabella Avila RN 12/16/2024 Orders Only [facility] Breast Surgery Ye[address] [address] [facility] [address] [place] [address] Migdalia Solorzano MD Breast cancer metastasized to axillary lymph node, left (CMS/HCC) (Primary Dx); S/P mastectomy, bilateral 12/16/2024 Results Follow-Up [facility] Breast Surgery Yeison Da[address] [address] [facility] [address] [address] Migdalia Solorzano MD PATHOLOGY 12/16/2024 Orders Only [facility] Oncology and Hematology [facility] [address] [place] [address] Chalino Kraus MD Inflammatory carcinoma [...] No 12/30/2024 Food Insecurity Answer Date Recorded Patient needs follow up regardin 01/22/2025 Transportation Needs Answer Date Record ed Patient needs follow up regardin 01/22/2025 Housing Stability Answer Date Recorded Social/Environmental Concerns No concerns Utility Needs Answer Date Recorded Patient needs follow up regardin 01/22/2025 Comments No Sex and Gender Information Value Date Recorded Sex Assigned at Not on file Legal Sex Female 10:17 AM CDT Gender Identity Not on file Sexual Orientation Not on file Last Filed Vital Signs Vital Sign Reading Time Taken Comments Blood Pressure 135/85 02/21/2025 11:51 AM CDT Pulse 85 02/21/2025 11:51 AM CDT Temperature 35.9 C (96.6 F) 02/21/2025 11:51 AM CDT Respiratory Rate 15 02/21/2025 11:5 1 AM CDT Oxygen Saturation 98% 02/21/2025 11: 51 AM CDT Inhaled Oxygen Concentration - - Weight 95.6 kg (210 lb 12.8 oz) 025 11:51 AM CDT Height 177.8 cm (5' 10) 12/18/2024 1:11 PM CDT Body Mass Index 30.25 12/18/2024 1:11 PM CDT Plan of Treatment Upcoming Encounters Date Type Department Care Team (Late st Contact Info) Description 03/17/2025 Orders Only [facility] Oncology and Hematology - Edu [address] [facility] [address] [place] [address] Chalino Kraus MD [address] [facility] [address] [place] [address] Chronic anemia; Inflammatory carcinoma of left breast (CMS/HCC) 03/21/2025 9:00 AM CDT Office Visit [facility] Oncology and Hematology [facility] [address] [facility] [address] [place] [address] Chalino Kraus MD [address] [facility] [address] [place] [address] Health Maintenance Due Date Last Done Comments Pre-Diabetes and Diabetes Screening 1972 DTAP/TDAP/TD VACCINES (1 - Tdap) 1991 HEPATITIS B VACCINES (1 of 3 - 19+ 3-dose series) 05/1991 ZOSTER VACCINE (1 of 2) 1991 HPV/Cotest (21-29) 1993 HPV/Cotest (30-65) 2002 CERVICAL CANCER SCREENING 04/21/2007 PAP SMEAR 04/21/2007 04/21/2004 COLORECTAL SCREENING 2017 Colorectal Cancer Screening 2017 FIT-DNA Q 3 years 2017 FIT/FOBT Q 1 year 2017 Flex Sig/CT Colonography Q 5 years 2017 Lung Cancer Screening 2022 INFLUENZA VACCINE (#1) 2024 Medical Devices Implanted Type Area Press Operator Device Identifier Shelf Expiration Date Model / Serial / Lot Clip Ligating [place] [id number] - Csc - [id number] Implanted:Qty: 1 on 12/10/2024 by Migdalia Solorzano MD at [facility] Clip Left: Breast [employer] 04/28/2029 [id number] / / [id number] Procedures Procedure Name Priority Date/Time Associated Diagnosis Comments COMPREHENSIVE METABOLIC PANEL Routine 03/07/2025 1:48 PM CDT BASIC METABOLIC PANEL Routine 03/07/2025 1:19 PM CDT CBC WITH DIFFERENTIAL Routine 02/21/2025 4:27 PM CDT BASIC METABOLIC PANEL Routine 02/21/2025 4:25 PM CDT COMPREHENSIVE METABOLIC PANEL Routine 02/21/2025 10:34 AM CDT BASIC METABOLIC PANEL Routine 02/14/2025 3:11 PM CDT BASIC METABOLIC PANEL Routine 02/14/2025 2:30 PM CDT COMPREHENSIVE METABOLIC PANEL Routine 02/14/2025 2:25 PM CDT BASIC METABOLIC PANEL Routine 02/07/2025 1:33 PM CDT CBC WITH AUTODIFFERENTIAL Routine 02/07/2025 1:25 PM CDT COMPREHENSIVE METABOLIC PANEL Routine 02/07/2025 9:26 AM CDT COMPREHENSIVE METABOLIC PANEL Routine 01/31/2025 2:39 PM CDT CHG CA 15 3 Routine 01/31/2025 2:16 PM CDT BASIC METABOLIC PANEL Routine 01/31/2025 1:32 PM CDT COMPREHENSIVE METABOLIC PANEL Routine 01/24/2025 10:16 AM CDT BASIC METABOLIC PANEL Routine 01/24/2025 10:07 AM CDT CANCER ANTIGEN 15-3 Routine 01/14/2025 1 :45 PM CDT QUANTIFERON TB CONFIRMATION Routine 01/14/2025 12:13 PM CDT COMPREHENSIVE METABOLIC PANEL Routine 01/14/2025 9:10 AM CDT BASIC METABOLIC PANEL Routine 01/09/2025 3:10 PM CDT CBC MIXED CELL DIFFERENTIAL Routine 01/09/2025 3:09 PM CDT PATHOLOGY REPORT Routine 01/09/2025 11:4 2 AM CDT PATHOLOGY Pathology 01/02/2025 9:06 AM CDT Encounter for laboratory test PET TUMOR OR INFECTION IMG W CT SKB MDTH Routine 12/31/2024 2:46 PM CDT Inflammatory breast cancer, left (CMS/HCC) POC GLUCOSE Routine 12/31/2024 1:27 PM CDT from Last 3 Months Results * COMPREHENSIVE METABOLIC PANEL (03/07/2025 1:48 PM CDT) Only the most recent of7 resultswithin the time period is included. Blood us Chalino Kraus MD CHEMISTRY ORDERABLES Final Resu lt * BASIC METABOLIC PANEL (03/07/2025 1:19 PM CDT) Only the most recent of8 resultswithin the time period is included. Blood Result Miryam Kraus MD CHEMISTRY ORDERABLES Final Resu lt * CBC WITH DIFFERENTIAL (02/21/2025 4:27 PM CDT) Blood Result Miryam Kraus MD HEMATOLOGY ORDERABLES Final Res ult * CBC WITH AUTODIFFERENTIAL (02/07/2025 1:25 PM CDT) Blood Result Miryam Kraus MD HEMATOLOGY ORDERABLES Final Res ult * CHG CA 15 3 (01/31/2025 2:16 PM CDT) Result Miryam Kraus MD CHG - LABORATORY Final Result * CANCER ANTIGEN 15-3 (01/14/2025 1:45 PM CDT) Blood Result Miryam Kraus MD CHEMISTRY ORDERABLES Final Resu lt * QUANTIFERON TB CONFIRMATION (01/14/2025 12:13 PM CDT) Blood Result Miryam Kraus MD CHEMISTRY ORDERABLES Final Resu lt * CBC MIXED CELL DIFFERENTIAL (01/09/2025 3:09 PM CDT) Blood Result Miryam Kraus MD HEMATOLOGY ORDERABLES Final Res ult * PATHOLOGY REPORT (01/09/2025 11:42 AM CDT) Result Miryam Kraus MD PATHOLOGY/CYTOLOGY ORDERABLES F inal Result * PATHOLOGY (01/02/2025 9:06 AM CDT) CASE REPORT Surgical Pathology Report Case: [id number] Authorizing Provider: Chalino Kraus MD Collected: 01/02/2025 09:06 AM Ordering Location: [facility] Received: 01/02/2025 09:06 AM [facility] Pathologist: Tram Miranda MD Specimen: Other, specify 1:18 PM CDT [facility] FINAL DIAGNOSIS A request for PD-L1 22C3 FDA (Keytruda) for TNBC (Breast) was received 01/01/[address] Chalino Kraus. This test was performed on tissue from case [id number]. The case report, slides, and blocks for this case were retrieved from archives. The pathologist reviewed the original pathology report, examined candidate slides, and selected the most appropriate block(B1). This selected material was forwarded to [employer] where the test was performed. Please see hyperlink below for scan of outside report. The PD-L1 results are as follows: - Combined positive score: 10 5 1:18 PM CDT [facility] at 1318 CDT CLINICAL INFORMATION Z01.89 - Encounter for laboratory test [ICD-10-CM] 1:18 PM CDT [facility] COMMENT Special stain, immunohistochemical, and/or in situ hybridization results are interpreted with controls that demonstrate appropriate staining reactions. Note on use of immunohistochemistry reagents and in situ hybridization probes: These tests were developed and their performance characteristics determined by [facility], Department of Laboratory Medicine. It has not [...] part or completely in the following laboratories: [facility], [facility] #[id number] [address] [place] [address] [place] [address] [facility] #[id number] [address] [place] [address] [facility]/[place], [place] #[id number] [address] [facility], [place] [address] This report was created with the hopTo voice-activated dictation system. Inherent to this system is the possibility of syntax, grammar, punctuation and other errors that could impact the interpretation of the report. If there are interpretative questions about aspects of this report, please contact the performing pathologist. 1:18 PM CDT [facility] Tissue (Other, specify) 01/02/2025 9:06 AM CDT 01/02/2025 9:06 AM CDT Chalino Kraus MD PATHOLOGY/CYTOLOGY ORDERABLES F inal Result [facility]# [id number] [address] [place] [address] * PET TUMOR OR INFECTION IMG W CT SKB MDTH (12/31/2024 2:46 PM CDT) Anatomical Region Laterality Modality Positron Emissio n Tomography (PET) 12/31/2024 2:52 PM CDT Impressions 12/31/2024 3:38 PM CDT IMPRESSION: New mastectomies. Left neck base, supraclavicular chest wall, retrosternal and axillary FDG avid lymphadenopathy remains present but the lymph nodes are smaller. Large FDG avid left breast mass is no longer identified. New metastases are suspected and aorticopulmonary window and paraesophageal mediastinal lymph nodes. New extensive FDG avid lymphadenopathy in the retroperitoneum, mesentery and pelvic lymph nodes Bone metastasis to the left femur, sacrum, ilium, thoracic spine and cervical spine. 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 COMPARISON: Previous PET/CT from June 27, 2024. RADIOISOTOPE: 10.4 mCi fluorine 18 labeled FDG with an injection to scan time of 63 minutes. HEIGHT: 5 foot 10 inches. WEIGHT: 206 pounds. BASELINE PARAMETERS: Liver parenchymal tissue SUV/max is 2.5. Mediastinal parenchymal tissue SUV/max is 2.9. Blood glucose level is 101 mg/dL. TECHNIQUE: After intravenous administration of radioisotope, the patient rested quietly for approximately one hour. Skull base to mid thigh PET/computed tomography fusion imaging was then performed. The examination was performed with the adjustment of mA according to the patient size and/or the use of Iterative Reconstruction Technique. FINDINGS: There is no nasopharyngeal or parapharyngeal mass. No hypopharyngeal mass is identified. Tonsillar uptake is symmetric. There is FDG avidity with lytic change involving the right lamina of C5. Left supraclavicular and left level IV FDG avid lymph nodes are improved. There is a port placed in the right chest wall. There is a metastasis to the left transverse process of T1. Surgical clips are present in the left axilla. The retropectoral and left axillary FDG avid lymph nodes have improved. Left mastectomy has been performed. Right mastectomy has been performed. The upper chest shows mildly FDG avid lymphadenopathy. Aorticopulmonary window lymph nodes show increased FDG avidity since the previous study with an SUV of 5.1. There is an FDG avid paraesophageal lymph node in the mid mediastinum. The large FDG avid left breast mass has been removed. The tip of the Port-A-Cath is in the right atrium. Lung windows show clear peripheral lung carpenter. The upper abdomen shows no mass in the liver, spleen, adrenal glands or pancreas. The gallbladder is unremarkable. FDG avid retroperitoneal lymph nodes are present and increased. There is aortoiliac vascular calcification. Mesenteric lymphadenopathy is increased. An FDG avid mesenteric lymph node measures 3.3 cm. The pelvis shows bilateral pelvic FDG avid lymph nodes. The uterus is enlarged with a fibroid. Small free pelvic fluid is seen. Bone images suggest a metastasis in the left femur on the last slice. There is definite metastasis to the sacrum and ilium. Multiple metastasis are present. There is a metastasis to T11 and T9. INCIDENTAL FINDINGS: None. 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 COMPARISON: Previous PET/CT from June 27, 2024. RADIOISOTOPE: 10.4 mCi fluorine 18 labeled FDG with an injection to scan time of 63 minutes. HEIGHT: 5 foot 10 inches. WEIGHT: 206 pounds. BASELINE PARAMETERS: Liver parenchymal tissue SUV/max is 2.5. Mediastinal parenchymal tissue SUV/max is 2.9. Blood glucose level is 101 mg/dL. TECHNIQUE: After intravenous administration of radioisotope, the patient rested quietly for approximately one hour. Skull base to mid thigh PET/computed tomography fusion imaging was then performed. The examination was performed with the adjustment of mA according to the patient size and/or the use of Iterative Reconstruction Technique. FINDINGS: There is no nasopharyngeal or parapharyngeal mass. No hypopharyngeal mass is identified. Tonsillar uptake is symmetric. There is FDG avidity with lytic change involving the right lamina of C5. Left supraclavicular and left level IV FDG avid lymph nodes are improved. There is a port placed in the right chest wall. There is a metastasis to the left transverse process of T1. Surgical clips are present in the left axilla. The retropectoral and left axillary FDG avid lymph nodes have improved. Left mastectomy has been performed. Right mastectomy has been performed. The upper chest shows mildly FDG avid lymphadenopathy. Aorticopulmonary window lymph nodes show increased FDG avidity since the previous study with an SUV of 5.1. There is an FDG avid paraesophageal lymph node in the mid mediastinum. The large FDG avid left breast mass has been removed. The tip of the Port-A-Cath is in the right atrium. Lung windows show clear peripheral lung carpenter. The upper abdomen shows no mass in the liver, spleen, adrenal glands or pancreas. The gallbladder is unremarkable. FDG avid retroperitoneal lymph nodes are present and increased. There is aortoiliac vascular calcification. Mesenteric lymphadenopathy is increased. An FDG avid mesenteric lymph node measures 3.3 cm. The pelvis shows bilateral pelvic FDG avid lymph nodes. The uterus is enlarged with a fibroid. Small free pelvic fluid is seen. Bone images suggest a metastasis in the left femur on the last slice. There is definite metastasis to the sacrum and ilium. Multiple metastasis are present. There is a metastasis to T11 and T9. INCIDENTAL FINDINGS: None. IMPRESSION: New mastectomies. Left neck base, supraclavicular chest wall, retrosternal and axillary FDG avid lymphadenopathy remains present but the lymph nodes are smaller. Large FDG avid left breast mass is no longer identified. New metastases are suspected and aorticopulmonary window and paraesophageal mediastinal lymph nodes. New extensive FDG avid lymphadenopathy in the retroperitoneum, mesentery and pelvic lymph nodes Bone metastasis to the left femur, sacrum, ilium, thoracic spine and cervical spine. DICTATION LOCATION: [address] us Domonique Banks MD PE ORDERABLES Final Result * (ABNORMAL) POC GLUCOSE (12/31/2024 1:27 PM CDT) GLUCOSE POC 101(H) 74 - 99 mg/dL 12/31/2024 1:27 PM CDT [facility] SPECIMEN SOURCE, GLUCOSE POC Whole Blood 12/31/2024 1:27 PM CDT [facility] Blood, whole 12/31/2024 1:27 PM CDT 12/31/2024 1:34 PM CDT us Domonique Banks MD POINT OF CARE TESTING Final Res ult [facility] CLIA#[id number] [address] [place] [address] from Last 3 Months Insurance [facility] [id number] [employer] [id number] RX [employer] RX Member Subscriber Plan / Payer (Ef fective 2024-Present) Name:Sigifredo Solistres Lubin Relation to Subscriber:Self Name:Janae Solis Payer ID:Not on file Group ID:[id number] Type:RX Commercial Address: [address] Advance Directives For more information, please contact: [phone] * Full Code (Latest Code Status on File) Date Activated Date Inactivated Comments 11/27/2024 6:24 PM 11/28/2024 4:27 PM Care Teams Project Crew Worker Relationship Specialty Start Date End Date Paul Delarosa MD [address] [facility] [address] [place] [address] PCP - General Family Practice 10/16/24
--- OUTSIDE RECORDS SUMMARY | 2025-03-16 21:09 | XMS_ITS | Encounter Summary ---
Author Organization [facility] [employer] of [facility] Address [address] [place] [address] Phone Care Team Providers Care Flower Shop Laborer/Designer Name Role Phone Evi Avila MD Primary [...] on file Legal Sex Female 2:38 PM TURKEY ROLL MAKER Gender Identity Not on file Sexual [...] on filedocumented in this encounter Care Teams Flower Shop Laborer/Designer Relationship Specialty Start Date End Date Evi Avila MD [address] [place] [address] PCP - General Family Medicine 06/15/24 Randall Pierce MD 1 [facility] [address] [place] [address] Consulting Physician Medical Oncology 06/18/24 documented as of this encounter
--- OUTSIDE RECORDS SUMMARY | 2025-03-16 21:09 | XMS_ITS | Encounter Summary ---
Author Organization [facility] [employer] of [facility] Address [address] [place] [address] Phone Care Team Providers Care Split Leather Department Supervisor Name Role Phone Evi Avila MD Primary [...] on file Legal Sex Female 2:38 PM PHYSICAL EDUCATION SPECIALIST Gender Identity Not on file Sexual Orientation [...] on filedocumented in this encounter Care Teams Split Leather Department Supervisor Relationship Specialty Start Date End Date Evi Avila MD [address] [place] [address] PCP - General Family Medicine 06/15/24 Randall Pierce MD 1 [facility] [address] [place] [address] Consulting Physician Medical Oncology 06/18/24 documented as of this encounter
--- OUTSIDE RECORDS SUMMARY | 2025-03-16 21:09 | XMS_ITS | Encounter Summary ---
Author Organization [facility] Address [address] [place] [address] Phone Care Team Providers Care Instructor Bus Trolley And Taxi Name Role Phone Evi Avila MD Primary [...] on file Legal Sex Female 2:38 PM TEXTILE SCIENCE TECHNICIAN Gender Identity Not on file Sexual [...] on filedocumented in this encounter Care Teams Instructor Bus Trolley And Taxi Relationship Specialty Start Date End Date Evi Avila MD [address] [place] [address] PCP - General Family Medicine 06/15/24 FaRandall valerio MD [address] [facility] [address] [place] [address] Consulting Physician Medical Oncology 06/18/24 documented as of this encounter
--- OUTSIDE RECORDS SUMMARY | 2025-03-16 21:09 | XMS_ITS | Encounter Summary ---
Author Organization [facility] [employer] of [facility] Address [address] [place] [address] Phone Care Team Providers Care Aircraft Metalsmith Name Role Phone Evi Avila MD Primary [...] on file Legal Sex Female 2:38 PM SECURITY POLICE Gender Identity Not on file Sexual Orientation [...] on filedocumented in this encounter Care Teams Aircraft Metalsmith Relationship Specialty Start Date End Date Evi Avila MD [address] [place] [address] PCP - General Family Medicine 06/15/24 Randall Pierce MD 1 [facility] [address] [place] [address] Consulting Physician Medical Oncology 06/18/24 documented as of this encounter
--- OUTSIDE RECORDS SUMMARY | 2025-03-16 21:09 | XMS_ITS | Encounter Summary ---
Author Organization [facility] [employer] of [facility] Address [address] [place] [address] Phone Care Team Providers Care Department Store Door Greeter Name Role Phone Evi Avila MD Primary [...] on file Legal Sex Female 2:38 PM AIRCRAFT FUELER Gender Identity Not on file Sexual Orientation [...] on filedocumented in this encounter Care Teams Department Store Door Greeter Relationship Specialty Start Date End Date Evi Avila MD [address] [place] [address] PCP - General Family Medicine 06/15/24 Randall Pierce MD 1 [facility] [address] [place] [address] Consulting Physician Medical Oncology 06/18/24 documented as of this encounter
--- OUTSIDE RECORDS SUMMARY | 2025-03-16 21:09 | XMS_ITS | Clinical Summary ---
Author Organization [facility] al Address 1 [place] [address] Care Team Providers Care Global Consumer Sector Vice President Name Role Phone Evi Avila MD Primary [...] on file Legal Sex Female 2:38 PM INSULATION TECHNICIAN Gender Identity Not on file Sexual [...] 6:13 PM CDT Height 177.8 cm (5' 10) 06/15/2024 6:13 PM CDT Body Mass Index 31.14 06/15/2024 6:13 PM CDT Plan of Treatment Health Maintenance Due Date Last Done Comments Breast Cancer Screening-Mammogram 1972 Cervical Cancer Screening 1972 Colon Cancer Screening-Colonoscopy 1972 Depression Screening 1972 Hepatitis C Screening 1972 Hepatitis B Screening 1990 Regular Well Visit/Exam 18-64 1990 Zoster Vaccine (1 of 2) 2022 Influenza Vaccine (Season Ended) 2025 DTaP/Tdap/Td Vaccine (2 - Td or Tdap) 02/18/2031 02/18/2021 Pneumococcal vaccine <65 Aged Out No longer eligible based on patient's age to complete this topic Insurance [facility] H[facility]/PPO Address: [address] [address] [place] [address] [facility] CHOICE PLUS [facility] HMO/PPO Address: [address] [address] [place] [phone] Care Teams Global Consumer Sector Vice President Relationship Specialty Start Date End Date Evi Avila MD [address] [facility] 120 [place] [address] PCP - General Family Medicine 06/15/24 Fa'Randall walters MD 1 [facility] [address] [place] [address] Consulting Physician Medical Oncology 06/18/24
--- OUTSIDE RECORDS SUMMARY | 2025-03-16 21:09 | XMS_ITS | Encounter Summary ---
Author Organization [facility] [employer] of [facility] Address [address] [place] [address] Phone Care Team Providers Care Cruise Coordinator Name Role Phone Evi Avila MD Primary [...] on file Legal Sex Female 2:38 PM DIGITAL CONTENT COORDINATOR Gender Identity Not on file Sexual Orientation [...] on filedocumented in this encounter Care Teams Cruise Coordinator Relationship Specialty Start Date End Date Evi Avila MD [address] [place] [address] PCP - General Family Medicine 06/15/24 Randall Pierce MD [address] [facility] [address] [place] [address] Consulting Physician Medical Oncology 06/18/24 documented as of this encounter
--- OUTSIDE RECORDS SUMMARY | 2025-03-16 21:09 | XMS_ITS | Encounter Summary ---
Author Organization [facility] [employer] of [facility] Address [address] [place] [address] Phone Care Team Providers Care Coiled Tubing Supervisor Name Role Phone Evi Avila MD [...] on file Legal Sex Female 2:38 PM SENIOR SECURITY ENGINEER Gender Identity Not on file Sexual Orientation [...] on filedocumented in this encounter Care Teams Coiled Tubing Supervisor Relationship Specialty Start Date End Date Evi Avila MD [address] [place] [address] PCP - General Family Medicine 06/15/24 Randall Pierce MD 1 [facility] [address] [place] [address] Consulting Physician Medical Oncology 06/18/24 documented as of this encounter
--- OUTSIDE RECORDS SUMMARY | 2025-03-16 21:09 | XMS_ITS | Encounter Summary ---
Author Organization [facility] [employer] of [facility] Address [address] [place] [address] Phone Care Team Providers Care Service Center Representative Name Role Phone Evi Avila MD [...] on file Legal Sex Female 2:38 PM CASING TESTER Gender Identity Not on file Sexual Orientation [...] on filedocumented in this encounter Care Teams Service Center Representative Relationship Specialty Start Date End Date Evi Avila MD [address] [place] [address] PCP - General Family Medicine 06/15/24 Fa'Randall walters MD 1 [facility] [address] [place] [address] Consulting Physician Medical Oncology 06/18/24 documented as of this encounter
--- OUTSIDE RECORDS SUMMARY | 2025-03-16 21:09 | XMS_ITS | Encounter Summary ---
Author Organization [facility] [employer] of [facility] Address [address] [place] [address] Phone Care Team Providers Care Seismographer Name Role Phone Evi Avila MD Primary [...] on file Legal Sex Female 2:38 PM DEPARTMENT CHAIRPERSON Gender Identity Not on file Sexual Orientation [...] on filedocumented in this encounter Care Teams Seismographer Relationship Specialty Start Date End Date Evi Avila MD [address] [place] [address] PCP - General Family Medicine 06/15/24 Randall Pierce MD 1 [facility] [address] DIV [place] [address] Consulting Physician Medical Oncology 06/18/24 documented as of this encounter
--- OUTSIDE RECORDS SUMMARY | 2025-03-16 21:09 | XMS_ITS | Encounter Summary ---
Author Organization [facility] [email or web address] of [facility] Address [address] [place] [address] Phone Care Team Providers Care City Controller Name Role Phone Evi Avila MD Primary [...] file Legal Sex Female 2:38 PM MANAGER CAREER Gender Identity Not on file Sexual Orientation [...] on filedocumented in this encounter Care Teams City Controller Relationship Specialty Start Date End Date Evi Avila MD [address] [facility] [address] [place] [address] PCP - General Family Medicine 06/15/24 Randall Pierce MD 1 [facility] [address] [place] [address] Consulting Physician Medical Oncology 06/18/24 documented as of this encounter
--- OUTSIDE RECORDS SUMMARY | 2025-03-16 21:09 | XMS_ITS | Encounter Summary ---
Author Organization [facility] [employer] [facility] Address [address] [place] [address] Care Team Providers Care Laser Systems Engineer Name Role Phone Paul Delarosa MD Primary Care Provider [phone] Encounter Details Date Type Department Care Team (Late st Contact Info) Description 03/14/2025 Orders Only [facility] Oncology and Hematology - Edu [address] [facility] [address] [place] [address] Chalino Kraus MD [address] [facility] [address] [place] [address] Social History Tobacco Use Types [...] st Contact Info) Description 03/17/2025 Orders Only [facility] Oncology and Hematology Edu [address] [place] [address] Chalino Kraus MD [address] [facility] [address] [place] [address] Chronic anemia; Inflammatory carcinoma of left breast (CMS/HCC) 03/21/2025 9:00 AM CDT Office Visit [facility] Oncology and Hematology [facility] [address] [place] [address] Chalino Kraus MD [address] [facility] [address] [place] [address] documented as of this encounter Procedures Procedure Name Priority Date/Time Associated Diagnosis Comments COMPREHENSIVE METABOLIC PANEL Routine 03/07/2025 1:48 PM CDT BASIC METABOLIC PANEL Routine 03/07/2025 1:19 PM CDT documented in this encounter Results * COMPREHENSIVE METABOLIC PANEL (03/07/2025 1:48 PM CDT) Blood us Chalino Kraus MD CHEMISTRY ORDERABLES Final Resu lt * BASIC METABOLIC PANEL (03/07/2025 1:19 PM CDT) Blood us Chalino Kraus MD CHEMISTRY ORDERABLES Final Resu lt documented in this encounter Visit Diagnoses Not on filedocumented in this encounter Care Teams Laser Systems Engineer Relationship Specialty Start Date End Date Paul Delarosa MD [address] [place] [address] PCP - General Family Practice 10/16/24 documented as of this encounter
--- OUTSIDE RECORDS SUMMARY | 2025-03-16 21:09 | XMS_ITS | Encounter Summary ---
Author Organization [facility] [employer] of [facility] Address [address] [place] [address] Phone Care Team Providers Care Call Center Dispatcher Name Role Phone Evi Avila MD Primary [...] on file Legal Sex Female 2:38 PM WINDOW DISPLAY DESIGNER Gender Identity Not on file Sexual Orientation [...] on filedocumented in this encounter Care Teams Call Center Dispatcher Relationship Specialty Start Date End Date Evi Avila MD [address] [place] [address] PCP - General Family Medicine 06/15/24 Randall Pierce MD 1 [facility] [address] DIV [place] [address] Consulting Physician Medical Oncology 06/18/24 documented as of this encounter
--- OUTSIDE RECORDS SUMMARY | 2025-03-16 21:09 | XMS_ITS | Encounter Summary ---
Author Organization [facility] [employer] of [facility] Address [address] [place] [address] Phone Care Team Providers Care Corporate Investigator Name Role Phone Evi Avila MD Primary [...] on file Legal Sex Female 2:38 PM RECEIVING DISTRIBUTION STATION OPERATOR Gender Identity Not on file Sexual [...] on filedocumented in this encounter Care Teams Corporate Investigator Relationship Specialty Start Date End Date Evi Avila MD [address] [place] [address] PCP - General Family Medicine 06/15/24 Randall Pierce MD [address] [facility] [address] [place] [address] Consulting Physician Medical Oncology 06/18/24 documented as of this encounter
--- OUTSIDE RECORDS SUMMARY | 2025-03-16 21:09 | XMS_ITS | Referral Summary ---
Author Organization [facility] al Address 1 [place] [address] Care Team Providers Care Paddock Judge Name Role Phone Evi Avila MD Primary [...] file Legal Sex Female 2:38 PM MANAGER INSURANCE Gender Identity Not on file Sexual Orientation [...] Plan of Treatment Not on file Insurance [facility] CHOICE PLUS [facility] HMO/PPO Address: [address] [address] [place] [address] [facility] CHOICE PLUS [facility] HMO/PPO Address: [address] [address] [place] [address] Care Teams Paddock Judge Relationship Specialty Start Date End Date Evi Avila MD [address] [facility] [address] [place] [address] PCP - General Family Medicine 06/15/24 Randall Pierce MD 1 [facility] [address] DIV [place] [address] Consulting Physician Medical Oncology 06/18/24
--- OUTSIDE RECORDS SUMMARY | 2025-03-16 21:09 | XMS_ITS | Encounter Summary ---
Author Organization [facility] [employer] of [facility] Address [address] [place] [address] Phone Care Team Providers Care Field Ironworker Name Role Phone Evi Avila MD Primary [...] on file Legal Sex Female 2:38 PM METALLURGICAL TECHNICIAN Gender Identity Not on file Sexual [...] on filedocumented in this encounter Care Teams Field Ironworker Relationship Specialty Start Date End Date Evi Avila MD [address] [place] [address] PCP - General Family Medicine 06/15/24 Randall Pierce MD 1 [facility] [address] [place] [address] Consulting Physician Medical Oncology 06/18/24 documented as of this encounter
--- OUTSIDE RECORDS SUMMARY | 2025-03-16 21:09 | XMS_ITS | Encounter Summary ---
Author Organization [facility] [employer] of [facility] Address [address] [place] [address] Phone Care Team Providers Care Campus Coordinator Name Role Phone Evi Avila MD Primary Care Provider Randall Pierce MD Unavailable Encounter Details Date Type Department Care Team (Latest Contact Info) Description 06/28/2010 Orders Only [facility] Scanning, Provider Social History Tobacco Use Types Packs/Day Years Used Date Smoking Tobacco: Never Assessed Comments Unknown Sex and Gender Information Value Date Recorded Sex Assigned at Not on file Legal Sex Female 2:38 PM DENTAL SCHEDULING COORDINATOR Gender Identity Not on file Sexual [...] on filedocumented in this encounter Care Teams Campus Coordinator Relationship Specialty Start Date End Date Evi Avila MD [address] [place] [address] PCP - General Family Medicine 06/15/24 Randall Pierce MD [address] [facility] [address] [place] [address] Consulting Physician Medical Oncology 06/18/24 documented as of this encounter
--- OUTSIDE RECORDS SUMMARY | 2025-03-16 22:52 | XMS_ITS | Encounter Summary ---
Author Organization [facility] [employer] of [facility] Address [address] [place] [address] Phone Care Team Providers Care Preschool Substitute Teacher Name Role Phone Evi Avila MD [...] on file Legal Sex Female 2:38 PM DIMPLING MACHINE OPERATOR Gender Identity Not on file [...] on filedocumented in this encounter Care Teams Preschool Substitute Teacher Relationship Specialty Start Date End Date Evi Avila MD [address] [place] [address] PCP - General Family Medicine 06/15/24 Randall Pierce MD 1 [facility] [address] DIV [place] [address] Consulting Physician Medical Oncology 06/18/24 documented as of this encounter
--- OUTSIDE RECORDS SUMMARY | 2025-03-16 22:52 | XMS_ITS | Encounter Summary ---
Author Organization [facility] Address [address] [place] [address] Phone Care Team Providers Care Associate Professor Of English Name Role Phone Evi Avila MD Primary [...] Legal Sex Female 2:38 PM DIRECTOR OF INSTITUTIONAL RESEARCH Gender Identity Not on file Sexual Orientation [...] filedocumented in this encounter Care Teams Associate Professor Of English Relationship Specialty Start Date End Date Evi Avila MD [address] [place] [address] PCP - General Family Medicine 06/15/24 FaRandall valerio MD [address] [facility] [address] [place] [address] Consulting Physician Medical Oncology 06/18/24 documented as of this encounter
--- OUTSIDE RECORDS SUMMARY | 2025-03-16 22:52 | XMS_ITS | Encounter Summary ---
Author Organization [facility] [employer] of [facility] Address [address] [place] [address] Phone Care Team Providers Care Field Scout Name Role Phone Evi Avila MD Primary [...] on file Legal Sex Female 2:38 PM ANNEALING FURNACE OPERATOR Gender Identity Not on file Sexual [...] filedocumented in this encounter Care Teams Field Scout Relationship Specialty Start Date End Date Evi Avila MD [address] [place] [address] PCP - General Family Medicine 06/15/24 Randall Pierce MD [address] [facility] [address] DIV [place] [address] Consulting Physician Medical Oncology 06/18/24 documented as of this encounter
--- OUTSIDE RECORDS SUMMARY | 2025-03-16 22:52 | XMS_ITS | Encounter Summary ---
Author Organization [facility] [employer] of [facility] Address [address] [place] [address] Phone Care Team Providers Care Waiter/Waitress Informal Name Role Phone Evi Avila MD Primary [...] on file Legal Sex Female 2:38 PM CORPORATE QUALITY ENGINEER Gender Identity Not on file Sexual [...] on filedocumented in this encounter Care Teams Waiter/Waitress Informal Relationship Specialty Start Date End Date Evi Avila MD [address] [place] [address] PCP - General Family Medicine 06/15/24 Randall Pierce MD [address] [facility] [place] [address] Consulting Physician Medical Oncology 06/18/24 documented as of this encounter
--- OUTSIDE RECORDS SUMMARY | 2025-03-16 22:52 | XMS_ITS | Clinical Summary ---
Author Organization [facility] al Address [address] [place] [address] Care Team Providers Care Pca Name Role Phone Evi Avila MD Primary [...] on file Legal Sex Female 2:38 PM PHARMACIST AIDE Gender Identity Not on file Sexual Orientation [...] patient's age to complete this topic Insurance [facility] CHOICE PLUS [place] [id number] Care Teams Pca Relationship Specialty Start Date End Date Evi Avila MD [address] [place] [address] PCP - General Family Medicine 06/15/24 Fa'Randall walters MD 1 [facility] [address] [place] [address] Consulting Physician Medical Oncology 06/18/24
--- OUTSIDE RECORDS SUMMARY | 2025-03-16 22:52 | XMS_ITS | Encounter Summary ---
Author Organization [facility] [employer] of [facility] Address [address] [place] [address] Phone Care Team Providers Care Restorer Paper And Prints Name Role Phone Evi Avila MD Primary Care Provider Randall Pierec MD Unavailable Encounter Details Date Type Department Care Team (Latest Contact Info) Description 06/09/2010 Orders Only [facility] Scanning, Provider Social History Tobacco Use Types Packs/Day Years Used Date Smoking Tobacco: Never Assessed Comments Unknown Sex and Gender Information Value Date Recorded Sex Assigned at Not on file Legal Sex Female 2:38 PM BUS INFO CONSULTANT Gender Identity Not on file Sexual [...] on filedocumented in this encounter Care Teams Restorer Paper And Prints Relationship Specialty Start Date End Date Evi Avila MD [address] [place] [address] PCP - General Family Medicine 06/15/24 Randall Pierce MD 1 [facility] [address] [place] [address] Consulting Physician Medical Oncology 06/18/24 documented as of this encounter
--- OUTSIDE RECORDS SUMMARY | 2025-03-16 22:52 | XMS_ITS | Encounter Summary ---
Author Organization [facility] [employer] of [facility] Address [address] [place] [address] Phone Care Team Providers Care Carpet Inspector Name Role Phone Evi Avila MD Primary [...] on file Legal Sex Female 2:38 PM DIVIDING MACHINE OPERATOR HELPER Gender Identity Not on file Sexual Orientation [...] on filedocumented in this encounter Care Teams Carpet Inspector Relationship Specialty Start Date End Date Evi Avila MD [address] [place] [address] PCP - General Family Medicine 06/15/24 Randall Pierce MD 1 [facility] [address] [place] [address] Consulting Physician Medical Oncology 06/18/24 documented as of this encounter
--- OUTSIDE RECORDS SUMMARY | 2025-03-16 22:52 | XMS_ITS | Encounter Summary ---
Author Organization [facility] [employer] of [facility] Address [address] [place] [address] Phone Care Team Providers Care Respite Provider Name Role Phone Evi Avila MD Primary [...] on file Legal Sex Female 2:38 PM EXPERIENCE SPECIALIST Gender Identity Not on file Sexual [...] on filedocumented in this encounter Care Teams Respite Provider Relationship Specialty Start Date End Date Evi Avila MD [address] [place] [address] PCP - General Family Medicine 06/15/24 Fa'Randall walters MD 1 [facility] [address] DIV [place] [address] Consulting Physician Medical Oncology 06/18/24 documented as of this encounter
--- OUTSIDE RECORDS SUMMARY | 2025-03-16 22:52 | XMS_ITS | Encounter Summary ---
Author Organization [facility] [employer] of [facility] Address [address] [place] [address] Phone Care Team Providers Care Toy Assembler Name Role Phone Evi Avila MD [...] on file Legal Sex Female 2:38 PM LAMP CLEANER Gender Identity Not on file Sexual Orientation [...] on filedocumented in this encounter Care Teams Toy Assembler Relationship Specialty Start Date End Date Evi Avila MD [address] [place] [address] PCP - General Family Medicine 06/15/24 Randall Pierce MD 1 [facility] [address] [place] [address] Consulting Physician Medical Oncology 06/18/24 documented as of this encounter
--- OUTSIDE RECORDS SUMMARY | 2025-03-16 22:52 | XMS_ITS | Encounter Summary ---
Author Organization [facility] [employer] [facility] Address [address] [place] [address] Care Team Providers Care Real Estate Intern Name Role Phone Paul Delarosa MD Primary Care Provider [phone] Encounter Details Date Type Department Care Team (Late st Contact Info) Description 03/14/2025 Orders Only [facility] Oncology and Hematology - Edu [address] [facility] [address] [place] [address] Chalino Kraus MD [address] [facility] [address] [place] [address] Social History Tobacco Use Types [...] st Contact Info) Description 03/17/2025 Orders Only [facility] Oncology and Hematology Edu [address] [place] [address] Chalino Kraus MD [address] [facility] [address] [place] [address] Chronic anemia; Inflammatory carcinoma of left breast (CMS/HCC) 03/21/2025 9:00 AM CDT Office Visit [facility] Oncology and Hematology [facility] [address] [place] [address] Chalino Kraus MD [address] [facility] [address] [place] [address] documented as of this encounter [...] on filedocumented in this encounter Care Teams Real Estate Intern Relationship Specialty Start Date End Date Paul Delarosa MD [address] [place] [address] PCP - General Family Practice 10/16/24 documented as of this encounter
--- OUTSIDE RECORDS SUMMARY | 2025-03-16 22:52 | XMS_ITS | Encounter Summary ---
Author Organization [facility] [employer] of [facility] Address [address] [place] [address] Phone Care Team Providers Care Mobile Designer Name Role Phone Evi Avila MD Primary [...] on file Legal Sex Female 2:38 PM CORSET MAKER Gender Identity Not on file Sexual [...] on filedocumented in this encounter Care Teams Mobile Designer Relationship Specialty Start Date End Date Evi Avila MD [address] [place] [address] PCP - General Family Medicine 06/15/24 Randall Pierce MD 1 [facility] [address] [place] [address] Consulting Physician Medical Oncology 06/18/24 documented as of this encounter
--- OUTSIDE RECORDS SUMMARY | 2025-03-16 22:52 | XMS_ITS | Referral Summary ---
Author Organization [facility] al Address 1 [place] [address] Care Team Providers Care Magician/Illusionist Name Role Phone Evi Avila MD Primary [...] on file Legal Sex Female 2:38 PM OIL EXPERT Gender Identity Not on file Sexual [...] Plan of Treatment Not on file Insurance [facility] CHO[facility] PLUS [facility] HMO/PPO Address: [address] [address] [place] [address] [facility] CHOICE PLUS [facility] HMO/PPO Address: [address] [address] [place] [address] Care Teams Magician/Illusionist Relationship Specialty Start Date End Date Evi Avila MD [address] [facility] [address] [place] [address] PCP - General Family Medicine 06/15/24 Randall Pierce MD 1 [facility] [address] [place] [address] Consulting Physician Medical Oncology 06/18/24
--- OUTSIDE RECORDS SUMMARY | 2025-03-16 22:52 | XMS_ITS | Clinical Summary ---
Author Organization [facility] Kaylee Vinson Address [address] [place] [address] Care Team Providers Care Substitute Teacher Name Role Phone Paul Delarosa MD Primary Care Provider [phone] Allergies No known active allergies Medications multivitamin,tx [...] Department Care Team Description 03/14/2025 Orders Only [facility] Oncology and Hematology - Edu [address] Chalino Kraus MD 03/10/2025 Orders Only [facility] Oncology and Hematology - Edu [address] Chalino Kraus MD Inflammatory carcinoma of left breast (CMS/HCC) 03/06/2025 Orders Only [facility] Oncology and Hematology - Edu [address] Chalino Kraus MD 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) 03/04/2025 External Device Data STL ABSTRACTION Provider, Abstract 03/03/2025 Orders Only [facility] Oncology and Hematology - Edu [address] Chalino Kraus MD Chronic anemia; Inflammatory carcinoma of left breast (CMS/HCC) 02/28/2025 Orders Only [facility] Oncology and Hematology - Eud [address] Chalino Kraus MD 02/25/2025 Orders Only [facility] Oncology and Hematology - Edu [address] Chalino Kraus MD 02/24/2025 Orders Only [facility] Oncology and Hematology - Edu [address] [place] [address] Chalino Kraus MD Inflammatory carcinoma of left breast (CMS/HCC) 02/21/2025 10:30 AM CDT Office Visit [facility] Oncology and Hematology - Edu [address]k [address] [place] [address] Chalino Kraus MD Cancer, metastatic to bone (CMS/HCC) (Primary Dx) 02/20/2025 External Device Data STL ABSTRACTION Provider, Abstract 02/19/2025 External Device Data STL ABSTRACTION Provider, Abstract 02/18/2025 External Device Data STL ABSTRACTION Provider, Abstract 02/17/2025 Orders Only [facility] Oncology and Hematology - Edu [address] [place] [address] Chalino Kraus MD Chronic anemia; Inflammatory carcinoma of left breast (CMS/HCC) 02/11/2025 Orders Only [facility] Oncology and Hematology - Edu [address] [place] [address] Chalino Kraus MD 02/10/2025 Orders Only [facility] Oncology and Hematology - Edu [address] [place] [address] Chalino Kraus MD Inflammatory carcinoma of left breast ([facility]/HCC) 02/07/2025 9:00 AM CDT Office Visit [facility] Oncology and Hematology - Edu [address] [place] [address] Chalino Kraus MD Chronic anemia (Primary Dx) 02/07/2025 Orders Only [facility] Oncology and Hematology - Edu [address] [place] [address] Chalino Kraus MD 02/03/2025 Orders Only [facility] Oncology and Hematology - Edu [address] [place] [address] Chalino Kraus MD Chronic anemia; Inflammatory carcinoma of left breast ([facility]/HCC) 01/31/2025 Orders Only [facility] Oncology and Hematology - Edu [address] [place] [address] Chalino Kraus MD 01/29/2025 Abstract [facility] Oncology and Hematology - Edu [address] [place] [address] Chalino Kraus MD 01/27/2025 Orders Only [facility] Oncology and Hematology - Edu [address] [place] [phone] Chalino Kraus MD Inflammatory carcinoma of left breast (CMS/HCC) 01/24/2025 Orders Only [facility] Oncology and Hematology - Edu [address] [place] [address] Chalino Kraus MD Chronic anemia (Primary Dx); Inflammatory carcinoma of left breast (CMS/HCC) 01/21/2025 Refill [facility] Oncology and Hematology - Edu [address] [place] [address] Chalino Kraus MD Inflammatory carcinoma of left breast (CMS/HCC) 01/17/2025 Orders Only [facility] Oncology and Hematology - Edu [address] [place] [address] Chalino Kraus MD 01/16/2025 Orders Only [facility] Oncology and Hematology - Edu [address] Chalino Kraus MD 01/15/2025 Orders Only [facility] Oncology and Hematology - Edu [address] [place] [address] Chalino Kraus MD 01/14/2025 External Device Data STL ABSTRACTION Provider, Abstract 01/13/2025 Orders Only [facility] Oncology and Hematology - Edu [address] [place] [address] Chalino Kraus MD Inflammatory carcinoma of left breast (CMS/HCC) 01/10/2025 Orders Only [facility] Oncology and Hematology - Edu [address] [place] [address] Chalino Kraus MD Need for hepatitis B screening test (Primary Dx) 01/09/2025 3:30 PM CDT Office Visit [facility] Oncology and Hematology - Edu [address] [place] [address] Chalino Kraus MD 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); Chronic anemia; Cancer, metastatic to bone (CMS/HCC) 01/02/2025 9:04 AM CDT - 01/02/2025 11:59 PM CDT Hospital Encounter [facility] Services [facility] [address] [place] [address] Chalino Kraus MD Discharge Disposition: Home or Self Care 01/02/2025 Abstract [facility] Oncology [facility] [address] [place] [address] Chalino Kraus MD 01/01/2025 Telephone [facility] Oncology [facility] [address] [place] [address] Chalino Kraus MD Add on PDL-1 12/31/2024 12:41 PM CDT - 12/31/2024 11:59 PM CDT Hospital Encounter [facility] Services [facility] [address] [place] [address] Domonique Banks MD Discharge Disposition: Home or Self Care 12/31/2024 Chart Note [facility] Breast Surgery Yeison Ashlie [address] [facility] [address] [place] [address] Isabella Avila RN 12/30/2024 7:54 AM CDT - 12/30/2024 11:59 PM CDT Hospital Encounter [facility] Radiation Therapy [address] [place] [address] Domonique Banks MD Discharge Disposition: Home or Self Care 12/30/2024 Abstract [facility] Oncology and Hematology [facility] [address] [place] [address] Chalino Kraus MD 12/30/2024 Orders Only [facility] Oncology and Hematology [facility] [address] [place] [address] Chalino Kraus MD Inflammatory carcinoma of left breast (CMS/HCC) 12/27/2024 Orders Only [facility] Oncology and Hematology [facility] [address] [place] [address] Chalino Kraus MD 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) 12/26/2024 Specialty Pharmacy [facility] [address] [place] [address] [place] [address] Charmaine Ignacio, PHARMACIST Specialty Pharmacy Refill Coordination 12/25/2024 Chart Note [facility] Breast Surgery [address] [place] [address] Isabella Avila RN 12/25/2024 Orders Only [facility] [address] [place] [address] Domonique Banks MD 12/25/2024 Orders Only [facility] [address] [place] [address] Mukesh Leon MD Inflammatory breast cancer, left (CMS/HCC) (Primary Dx) 12/24/2024 Refill [facility] Oncology and Hematology [facility] [address] [place] [address] Chalino Kraus MD 12/24/2024 Specialty Pharmacy [facility] [address] [place] [address] [place] [address] Charmaine Ignacio, PHARMACIST Specialty Pharmacy Prior Auth Coordination 12/23/2024 3:45 PM CDT Telephone Check Up [facility] Oncology and Hematology [facility] [address] [place] [address] Chalino Kraus MD 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) 12/19/2024 Telephone [facility] Plastic Surgery at the [facility] [address] [facility] [address] [place] [address] Provider, Abstract Referral 12/18/2024 1:00 PM CDT Office Visit [facility] Breast Surgery Yeison Dailey [address] [address] [address] Migdalia Solorzano MD 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); Breast cancer metastasized to axillary lymph node, left (CMS/HCC); S/P mastectomy, bilateral; History of lymph node dissection of left axilla 12/18/2024 External Device Data STL ABSTRACTION Provider, Abstract 12/17/2024 Orders Only [facility] Oncology and Hematology [facility] [address] [place] [address] Chalino Kraus MD 12/17/2024 Chart Note [facility] Breast Surgery [place] [address] [address] Isabella Avila RN 12/16/2024 Chart Note [facility] Breast Surgery [place] [address] [address] Isabella Avila RN 12/16/2024 Orders Only [facility] Breast Surgery Ye[address] [address] [facility] [address] [place] [address] Migdalia Solorzano MD Breast cancer metastasized to axillary lymph node, left (CMS/HCC) (Primary Dx); S/P mastectomy, bilateral 12/16/2024 Results Follow-Up [facility] Breast Surgery Yeison Da[address] [address] [facility] [address], [place] [address] Migdalia Solorzano MD PATHOLOGY 12/16/2024 Orders Only [facility] Oncology and Hematology [facility] [address] [place] [address] Chalino Kraus MD Inflammatory carcinoma [...] st Contact Info) Description 03/17/2025 Orders Only [facility] Oncology and Hematology - Edu [address] [facility] [address] [place] [address] Chalino Kraus MD [address] [facility] [address] [place] [address] Chronic anemia; Inflammatory carcinoma of left breast (CMS/HCC) 03/21/2025 9:00 AM CDT Office Visit [facility] Oncology and Hematology [facility] [address] [facility] [address] [place] [address] Chalino Kraus MD [address] [facility] [address] [place] [address] Health Maintenance Due Date Last [...] (#1) 2024 Medical Devices Implanted Type Area Public Records Officer Device Identifier Shelf Expiration Date Model / Serial / Lot Clip Ligating Horizon Sm Ti [id number] - Csc - [id number] Implanted:Qty: 1 on 12/10/2024 by Migdalia Solorzano MD at [facility] Clip Left: Breast [employer] 04/28/2029 [id number] / / [id number] Procedures Procedure Name Priority Date/Time Associated Diagnosis [...] CDT) CASE REPORT Surgical Pathology Report Case: [id number] Authorizing Provider: Chalino Kraus MD Collected: 01/02/2025 09:06 AM Ordering Location: [facility] Received: 01/02/2025 09:06 AM [facility] Pathologist: Tram Miranda MD Specimen: Other, specify 1:18 PM CDT [facility] FINAL DIAGNOSIS A request for PD-L1 22C3 FDA (Keytruda) for TNBC (Breast) was received 01/01/[address] Chalino Kraus. This test was performed on tissue from case [id number]. The case report, slides, and blocks for this case were retrieved from archives. The pathologist reviewed the original pathology report, examined candidate slides, and selected the most appropriate block(B1). This selected material was forwarded to blabfeed where the test was performed. Please see hyperlink below for scan of outside report. The PD-L1 results are as follows: - Combined positive score: 10 5 1:18 PM CDT [facility] at 1318 CDT CLINICAL INFORMATION Z01.89 - Encounter for laboratory test [ICD-10-CM] 1:18 PM CDT [facility] COMMENT Special stain, immunohistochemical, and/or in situ hybridization results are interpreted with controls that demonstrate appropriate staining reactions. Note on use of immunohistochemistry reagents and in situ hybridization probes: These tests were developed and their performance characteristics determined by [facility], Department of Laboratory Medicine. It has [...] part or completely in the following laboratories: [facility], [facility] #[id number] [address] [place] [address] [place] [address] [facility] #[id number] [address] [place] [address] [facility], [place] #[id number] [address] [facility], [place] [address] This report was created with the [employer] voice-activated dictation system. Inherent to this system is the possibility of syntax, grammar, punctuation and other errors that could impact the interpretation of the report. If there are interpretative questions about aspects of this report, please contact the performing pathologist. 1:18 PM CDT [facility] Tissue (Other, specify) 01/02/2025 9:06 AM CDT 01/02/2025 9:06 AM CDT Chalino Kraus MD PATHOLOGY/CYTOLOGY ORDERABLES F inal Result [facility]# [id number] [address] [place] [address] * PET TUMOR OR INFECTION IMG W [...] and cervical spine. DICTATION LOCATION: Location - [facility] Narrative 12/31/2024 3:38 PM CDT PET/COMPUTED TOMOGRAPHY [...] thoracic spine and cervical spine. DICTATION LOCATION: [address] [place] Domonique Banks MD PE ORDERABLES Final Result * (ABNORMAL) POC GLUCOSE (12/31/2024 1:27 PM CDT) GLUCOSE POC 101(H) 74 - 99 mg/dL 12/31/2024 1:27 PM CDT [facility] ONCOLOGY SERVICES - [facility] SPECIMEN SOURCE, GLUCOSE POC Whole Blood 12/31/2024 1:27 PM CDT [facility] ONCOLOGY SERVICES - [facility] Blood, whole 12/31/2024 1:27 PM CDT 12/31/2024 1:34 PM CDT us Domonique Banks MD POINT OF CARE TESTING Final Res ult [facility]OR[facility] ONCOLOGY SERVICES - [facility] CLIA#[id number] [address] [place] [address] from Last 3 Months Insurance [facility] [id number] [employer] [id number] RX [employer] RX Member Subscriber Plan / Payer (Ef fective 2024-Present) Name:Sigifredo Solistres Lubin Relation to Subscriber:Self Name:Janae Solis Payer ID:Not on file Group ID:[id number] Type:RX Commercial Address: [address] Advance Directives For more information, please contact: [phone] * Full Code (Latest Code Status on File) Date Activated Date Inactivated Comments 11/27/2024 6:24 PM 11/28/2024 4:27 PM Care Teams Substitute Teacher Relationship Specialty Start Date End Date Paul Delarosa MD [address] [facility] [address] [place] [address] PCP - General Family Practice 10/16/24
--- OUTSIDE RECORDS SUMMARY | 2025-03-16 22:52 | XMS_ITS | Encounter Summary ---
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
--- OUTSIDE RECORDS SUMMARY | 2025-03-16 22:52 | XMS_ITS | Encounter Summary ---
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
--- OUTSIDE RECORDS SUMMARY | 2025-03-16 22:52 | XMS_ITS | Encounter Summary ---
Author Organization 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
--- OUTSIDE RECORDS SUMMARY | 2025-03-16 22:52 | XMS_ITS | Encounter Summary ---
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
--- OUTSIDE RECORDS SUMMARY | 2025-03-16 22:52 | XMS_ITS | Encounter Summary ---
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
--- OUTSIDE RECORDS SUMMARY | 2025-03-16 22:52 | XMS_ITS | Encounter Summary ---
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
--- NOTE | 2025-03-16 23:13 | ECG_ITS ---
Test Date: 2025-03-16 23:49:33 Measurements Intervals [place] Rate: 76 P: 52 LA: 156 QRS: -3 QRSD: 85 T: 41 QT: 414 QTc: 467 Interpretive Statements SINUS RHYTHM LOW QRS VOLTAGE IN PRECORDIAL LEADS BASELINE ARTIFACT- I, III, AVL BORDERLINE ECG No previous ECG available for comparison Electronically Signed On 03-17-2025 06:16:27 CDT by Remi Boone D.O.
--- NOTE | 2025-03-16 23:14 | ED.GENADULT ---
HPI - General Adult General Chief complaint: Unspecified <Aye Hadley APRN - Last Filed: 03/17/25 02:46> Stated complaint: L breast incision site complications, s/p surgery <Aye Hadley APRN - Last Filed: 03/17/25 02:46> Time Seen by Provider: 03/16/25 22:35 <Aye Hadley APRN - Last Filed: 03/17/25 02:46> History of Present Illness HPI narrative: Patient is a 54-year-old female who presents to the ER with concerns regarding her right breast incision. She reports she had a double mastectomy and November with a revision in November. Patient reports she started chemo for stage IV breast cancer in December. She reports for the last couple of weeks her left breast has become red and swollen. Patient reports her oncologist, Dr. Kraus, has seen the site and advised her to monitor it closely. This evening patient was reaching for something when she felt a gush of fluid come out of the incision site. Patient reports the site feels tight but it does not itch, burn, or hurt. She denies any recent fevers, chest pain, back pain, or abdominal pain. <Aye Hadley APRN - Last Filed: 03/17/25 02:46> Related Data Home medications: Home Medications ?Medication ?Instructions ?Recorded ?Confirmed ?Last Taken ?Type ascorbic acid (vitamin C) 500 mg 250 mg PO DAILY 06/21/24 09/04/24 Unknown History tablet (Vitamin C) ferrous sulfate 325 mg (65 mg 325 mg PO DAILY 06/21/24 09/04/24 Unknown History iron) tablet,delayed release multivitamin 1 tablet PO DAILY 06/21/24 09/04/24 Unknown History pyridoxine (vitamin B6) 500 mg 500 mg PO DAILY 06/21/24 09/04/24 Unknown History tablet vitamin B complex (Balanced B-50 1 tablet PO DAILY 02/21/25 02/21/25 Unknown History tablet) <Aye Hadley APRN - Last Filed: 03/17/25 02:46> Allergies/adverse reactions: Allergies Allergy/AdvReac Type Severity Reaction Status Date / Time No Known Allergies Allergy Verified 03/16/25 21:14 <Aye Hadley APRN - Last Filed: 03/17/25 02:46> Review of Systems Review of Systems: All systems reviewed & are unremarkable except as noted in HPI and below <Aye Hadley APRN - Last Filed: 03/17/25 02:46> [facility] Past Medical History Medical History: Medical History (Updated 03/17/25 @ 02:47 by Ewelina Hinojosa PA-C) Generalized anxiety disorder Vitamin D deficiency Vitamin B12 deficiency Psychophysiological insomnia Cervical polyp History of vaginal delivery Endometrial polyp Anemia Breast cancer <Aye Hadley APRN - Last Filed: 03/17/25 02:46> Surgical History Surgical History: Surgical History (Updated 03/17/25 @ 02:47 by Ewelina Hinojosa PA-C) History of wisdom tooth extraction History of bilateral mastectomy History of laser assisted in situ keratomileusis History of lymph node dissection of axilla History of lumpectomy <Aye Hadley APRN - Last Filed: 03/17/25 02:46> Social History Social History: Social History (Updated 03/17/25 @ 02:49 by Ewelina Hinojosa PA-C) Social History: Surrogate medical decision maker: Paul Solis, spouse. Code status: Full code. Smoking packs per day: 1 Smoking cigarettes per day: 20.0 Years smoked: 20 Smoking pack-years: 20.00 Smoking status: Former smoker Tobacco type: cigarettes Second hand tobacco smoke exposure: No Smoking end date: 04/19/18 Alcohol intake: current Drinks per week: 1 Alcohol use details: daily Substance use: never Substance use type: does not use Do You Feel Safe in your Home?: Yes Lack of Transportation: No Lack of Food: Never True Current Housing: I Have Housing Concerned About Future Housing: No Difficulty Paying Gas/Electric Bills: No Difficulty Paying for Meds: No Currently Unemployed: No Difficulty w/ Childcare or Family Care: No Living arrangements: with family Additional living arrangements comments: Lives with Paul and their 2 mathias hounds in [place]. They have a grown child. Occupation/Education: occupation Spiritual care concerns: No Agree to blood products: Yes <Aye Hadley APRN - Last Filed: 03/17/25 02:46> Exam Narrative: GENERAL: Well appearing, well-nourished, non-toxic, in no acute distress. HEAD: Normocephalic, atraumatic. NECK: Supple. No adenopathy, no masses. RESPIRATORY: Airway patent, respirations nonlabored. Clear to auscultation bilaterally, no rales, rhonchi, wheezing. CARDIOVASCULAR: Regular rate and rhythm without murmurs, rubs, or gallops. Peripheral pulses 2+ and equal bilaterally. ABDOMINAL: Soft, nontender, nondistended, no hepatosplenomegaly. Normoactive BS. MUSCULOSKELETAL: Moves all extremities. Strength/ROM intact without gross deformities. SKIN: Warm, dry, normal color. No rashes. Left breast has leaked joellen colored blood from the incision site on to an ABD pad, no current drainage coming from site, skin around the site is red, swollen and feels tight NEURO: A&O X3. Speech clear. Cranial nerves II-XII intact. No ataxic movements. PSYCHIATRIC: Appropriate mood and affect. Normal interaction. <Aye Hadley APRN - Last Filed: 03/17/25 02:46> Course MECHANICAL UNIT REPAIRER/PA Physician Supervision I agree with midlevel documentation; I performed the medical decision making component of this evaluation. <Katarina Lanier MD - Last Filed: 03/17/25 03:33> Vital Signs Vital signs: Vital Signs Temperature 98.3 F 03/16/25 21:09 Pulse Rate 97 03/16/25 21:09 Respiratory Rate 18 03/16/25 21:09 Blood Pressure 150/84 H 03/16/25 21:09 Pulse Oximetry 99 03/16/25 21:09 Oxygen Delivery Room Air 03/16/25 21:09 Temperature 98.3 F 03/16/25 21:09 Pulse Rate 80 03/17/25 01:45 Respiratory Rate 15 03/17/25 01:45 Blood Pressure 137/71 03/17/25 01:45 Pulse Oximetry 100 03/17/25 01:45 Oxygen Delivery Room Air 03/16/25 21:09 <Aye Hadley APRN - Last Filed: 03/17/25 02:46> Vital Signs Temperature 98.3 F 03/16/25 21:09 Pulse Rate 97 03/16/25 21:09 Respiratory Rate 18 03/16/25 21:09 Blood Pressure 150/84 H 03/16/25 21:09 Pulse Oximetry 99 03/16/25 21:09 Oxygen Delivery Room Air 03/16/25 21:09 Temperature 98.3 F 03/16/25 21:09 Pulse Rate 80 03/17/25 01:45 Respiratory Rate 15 03/17/25 01:45 Blood Pressure 137/71 03/17/25 01:45 Pulse Oximetry 100 03/17/25 01:45 Oxygen Delivery Room Air 03/16/25 21:09 <Katarina Lanier MD - Last Filed: 03/17/25 03:33> Medical Decision Making MDM Narrative Medical decision making narrative: Patient is a 54-year-old female who presents to the ER with concerns regarding her right breast incision. She reports she had a double mastectomy and November with a revision in November. Patient reports she started chemo for stage IV breast cancer in December. She reports for the last couple of weeks her left breast has become red and swollen. Patient reports her oncologist, Dr. Kraus, has seen the site and advised her to monitor it closely. This evening patient was reaching for something when she felt a gush of fluid come out of the incision site. Patient reports the site feels tight but it does not itch, burn, or hurt. She denies any recent fevers, chest pain, back pain, or abdominal pain. Labs Ordered: CBC, CMP, PTT, INR, lactic acid, CRP, blood cultures Imaging Ordered: None necessary Medications Ordered: 3 L normal saline IV bolus, Ancef IV Results: Patient's CBC indicates a hemoglobin of 10.8, crit of 36.5%. Her coags are within normal limits. Patient's chemistry indicates a creatinine of 0.56, AST of 60, alk-phos of 136, and C-reactive protein of 1.8. Diagnosis: Left breast cellulitis, left breast inflammatory cancer Consults: Call placed to Dr Kraus for consult x 2 [phone]-Spoke with breast surgeon, Dr. Richard, who reports pt isn't a surgical candidate. She reports patient is on palliative care. Dr. Richard reports she would recommend pt receive a dose of IV antibiotics here in the ER, but she has no further recommendations at this time. Patient Education/Shared MDM: Results of lab work shared with patient and her . It was advised patient be admitted to the hospital for further evaluation and treatment. Pt and her verbalize understanding and are in agreement with plan. <Aye Hadley APRN - Last Filed: 03/17/25 02:46> Differential Diagnosis Differential Diagnosis: Cellulitis, advanced breast cancer, left breast seroma, L breast abscess <Aye Hadley APRN - Last Filed: 03/17/25 02:46> Vital Signs Vital Signs: Vital Signs Temperature 98.3 F 03/16/25 21:09 Pulse Rate 97 03/16/25 21:09 Respiratory Rate 18 03/16/25 21:09 Blood Pressure 150/84 H 03/16/25 21:09 Pulse Oximetry 99 03/16/25 21:09 Oxygen Delivery Room Air 03/16/25 21:09 Temperature 98.3 F 03/16/25 21:09 Pulse Rate 80 03/17/25 01:45 Respiratory Rate 15 03/17/25 01:45 Blood Pressure 137/71 03/17/25 01:45 Pulse Oximetry 100 03/17/25 01:45 Oxygen Delivery Room Air 03/16/25 21:09 <Aye Hadley APRN - Last Filed: 03/17/25 02:46> Vital Signs Temperature 98.3 F 03/16/25 21:09 Pulse Rate 97 03/16/25 21:09 Respiratory Rate 18 03/16/25 21:09 Blood Pressure 150/84 H 03/16/25 21:09 Pulse Oximetry 99 03/16/25 21:09 Oxygen Delivery Room Air 03/16/25 21:09 Temperature 98.3 F 03/16/25 21:09 Pulse Rate 80 03/17/25 01:45 Respiratory Rate 15 03/17/25 01:45 Blood Pressure 137/71 03/17/25 01:45 Pulse Oximetry 100 03/17/25 01:45 Oxygen Delivery Room Air 03/16/25 21:09 <Katarina Lanier MD - Last Filed: 03/17/25 03:33> Lab Data Lab results reviewed: Yes I reviewed the patient's lab results. <Aye Hadley APRN - Last Filed: 03/17/25 02:46> Result diagrams: 03/16/25 23:36 03/16/25 23:36 <Ayemichael Hadley, ABSORPTION AND ADSORPTION ENGINEER - Last Filed: 03/17/25 02:46> Labs: Lab Results 03/16/25 Range/Units 23:36 WBC 4.7 (4.5-10.0) K/mm3 RBC 5.09 (4.2-5.4) M/mm3 Hgb 10.8 L (12.0-15.0) g/dL Hct 36.5 L (37.0-47.0) % MCV 71.7 L (80-100) fl MCH 21.2 L (26-34) pg MCHC 29.6 L (32-36) g/dl RDW 22.5 H (11.5-14.5) % Plt Count 307 (150-375) k/mm3 MPV 9.4 (7.4-10.4) fl Immature Gran % (Auto) 0.4 (0-0.5) % Neut % (Auto) 64.4 (45.5-73.1) % Lymph % (Auto) 15.7 L (18.3-44.2) % Harding % (Auto) 16.1 H (2.6-8.5) % Eos % (Auto) 1.9 (0-4.4) % Baso % (Auto) 1.5 H (0.2-1.2) % Lymph # (Auto) 0.74 L (0.9-3.2) K/mm3 Harding # (Auto) 0.8 H (0.1-0.6) K/mm3 Eos # (Auto) 0.1 (0-0.3) K/mm3 Baso # (Auto) 0.1 (0.0-0.1) K/mm3 Abs Immat Gran (auto) 0.02 (0.00-0.031) K/mm3 Absolute Neuts (auto) 3.0 (1.3-6.7) K/mm3 Absolute Nucleated RBC 0.000 (0.0-0.012) K/mm3 Band Neutrophils % Not Reportable Nucleated RBC % 0.0 (0.0-0.2) % Platelet Estimate Adequate (Adequate) Clumped Platelets Present Anisocytosis 1+ Ovalocytes 1+ Schistocytes Rare PT 13.1 (11.1-14.7) Seconds INR 1.0 APTT 27.5 (22.3-36.8) Seconds Sodium 137 (137-145) mmol/L Potassium 4.3 (3.4-5.0) mmol/L Chloride 104 (98-107) mmol/L Carbon Dioxide 27 (22-30) mmol/L Anion Gap 6 (4-12) mmol/L BUN 12 (7-17) mg/dL Creatinine 0.56 L (0.7-1.0) mg/dL Estim Creat Clear Calc 124 ml/min Estimated GFR > 60 (59 - ) Glucose 98 (65-110) mg/dL Lactic Acid 0.7 (0.7-2.0) mmol/L Calcium 9.1 (8.4-10.2) mg/dL Total Bilirubin 0.3 (0.2-1.3) mg/dL AST 60 H (14-36) U/L ALT 33 (6-35) U/L Alkaline Phosphatase 136 H (38-126) U/L C-Reactive Protein 1.8 H (<1.0) mg/dL Total Protein 7.2 (6.3-8.2) g/dL Albumin 4.1 (3.5-5.1) g/dL <Aye Hadley, ABSORPTION AND ADSORPTION ENGINEER - Last Filed: 03/17/25 02:46> Lab Results 03/16/25 Range/Units 23:36 WBC 4.7 (4.5-10.0) K/mm3 RBC 5.09 (4.2-5.4) M/mm3 Hgb 10.8 L (12.0-15.0) g/dL Hct 36.5 L (37.0-47.0) % MCV 71.7 L (80-100) fl MCH 21.2 L (26-34) pg MCHC 29.6 L (32-36) g/dl RDW 22.5 H (11.5-14.5) % Plt Count 307 (150-375) k/mm3 MPV 9.4 (7.4-10.4) fl Immature Gran % (Auto) 0.4 (0-0.5) % Neut % (Auto) 64.4 (45.5-73.1) % Lymph % (Auto) 15.7 L (18.3-44.2) % [place] % (Auto) 16.1 H (2.6-8.5) % Eos % (Auto) 1.9 (0-4.4) % Baso % (Auto) 1.5 H (0.2-1.2) % Lymph # (Auto) 0.74 L (0.9-3.2) K/mm3 [place] # (Auto) 0.8 H (0.1-0.6) K/mm3 Eos # (Auto) 0.1 (0-0.3) K/mm3 Baso # (Auto) 0.1 (0.0-0.1) K/mm3 Abs Immat Gran (auto) 0.02 (0.00-0.031) K/mm3 Absolute Neuts (auto) 3.0 (1.3-6.7) K/mm3 Absolute Nucleated RBC 0.000 (0.0-0.012) K/mm3 Band Neutrophils % Not Reportable Nucleated RBC % 0.0 (0.0-0.2) % Platelet Estimate Adequate (Adequate) Clumped Platelets Present Anisocytosis 1+ Ovalocytes 1+ Schistocytes Rare PT 13.1 (11.1-14.7) Seconds INR 1.0 APTT 27.5 (22.3-36.8) Seconds Sodium 137 (137-145) mmol/L Potassium 4.3 (3.4-5.0) mmol/L Chloride 104 (98-107) mmol/L Carbon Dioxide 27 (22-30) mmol/L Anion Gap 6 (4-12) mmol/L BUN 12 (7-17) mg/dL Creatinine 0.56 L (0.7-1.0) mg/dL Estim Creat Clear Calc 124 ml/min Estimated GFR > 60 (59 - ) Glucose 98 (65-110) mg/dL Lactic Acid 0.7 (0.7-2.0) mmol/L Calcium 9.1 (8.4-10.2) mg/dL Total Bilirubin 0.3 (0.2-1.3) mg/dL AST 60 H (14-36) U/L ALT 33 (6-35) U/L Alkaline Phosphatase 136 H (38-126) U/L C-Reactive Protein 1.8 H (<1.0) mg/dL Total Protein 7.2 (6.3-8.2) g/dL Albumin 4.1 (3.5-5.1) g/dL <Katarina Lanier MD - Last Filed: 03/17/25 03:33> Discharge Plan Discharge Clinical Impression: Cellulitis of left breast Breast mass, left Qualifiers: Breast mass location: overlapping quadrants Qualified Code(s): N63.25 - Unspecified lump in the left breast, overlapping quadrants <Aye Hadley APRN - Last Filed: 03/17/25 02:46> Patient Disposition: Still a Patient <Aye Hadley APRN - Last Filed: 03/17/25 02:46> Condition: Stable <Aye Hadley APRN - Last Filed: 03/17/25 02:46>
--- NOTE | 2025-03-16 23:22 | PC.NURSE ---
Report received from ALLA Saldana. Assumed care of patient at this time.
[2025-03-16] MEDS: SODIUM CHLORIDE 0.9% IV 1,000 ML 999 ML IV CONT ×2 (23:42)
[2025-03-16 23:47] LABS: Basophils Absolute Auto 0.1 K/mm3 (0.0-0.1); Basophils Percent Auto 1.5 % (0.2-1.2); Eosinophils Absolute Auto 0.1 K/mm3 (0-0.3); Eosinophils Percent Auto 1.9 % (0-4.4); Hematocrit 36.5 % (37.0-47.0); Hemoglobin 10.8 g/dL (12.0-15.0); Immature Granulocyte Absolute 0.02 K/mm3 (0.00-0.031); Immature Granulocyte Percent A 0.4 % (0-0.5); Lymphocytes Absolute Auto 0.74 K/mm3 (0.9-3.2); Lymphocytes Percent Auto 15.7 % (18.3-44.2); Mean Corpuscular HGB Conc 29.6 g/dl (32-36); Mean Corpuscular Hemoglobin 21.2 pg (26-34); Mean Corpuscular Volume 71.7 fl (80-100); Mean Platelet Volume 9.4 fl (7.4-10.4); Monocytes Absolute Auto 0.8 K/mm3 (0.1-0.6); Monocytes Percent Auto 16.1 % (2.6-8.5); Neutrophils Percent Auto 64.4 % (45.5-73.1); Platelet Count Result 307 k/mm3 (150-375); Red Blood Count 5.09 M/mm3 (4.2-5.4); Red Cell Distribution Width 22.5 % (11.5-14.5); White Blood Count 4.7 K/mm3 (4.5-10.0)
[2025-03-16 23:54] LABS: Lactic Acid Reflex 0.7 mmol/L (0.7-2.0)
[2025-03-16 23:55] VITALS: RESP 18; O2SAT 97
[2025-03-16 23:57] LABS: Alanine Aminotransferase 33 U/L (6-35); Albumin Level 4.1 g/dL (3.5-5.1); Alkaline Phosphatase 136 U/L (38-126); Anion Gap 6 mmol/L (4-12); Aspartate Amino Transferase 60 U/L (14-36); Bilirubin,Total 0.3 mg/dL (0.2-1.3); Blood Urea Nitrogen 12 mg/dL (7-17); CRP 1.8 mg/dL (<1.0); Calcium 9.1 mg/dL (8.4-10.2); Carbon Dioxide 27 mmol/L (22-30); Chloride 104 mmol/L (98-107); Estimated CRCL calculation 124 ml/min; Estimated Glomerular Filt Rate > 60; Glucose 98 mg/dL (65-110); Potassium 4.3 mmol/L (3.4-5.0); Sodium 137 mmol/L (137-145); Total Protein 7.2 g/dL (6.3-8.2)
[2025-03-17 00:06] LABS: Partial Thromboplastin Time 27.5 Seconds (22.3-36.8); Prothrombin Time 13.1 Seconds (11.1-14.7)
[2025-03-17] MEDS: ceFAZolin 1 GM/NS 50 ML 1 GM/50 ML BAG IVPB ×4 (00:08→23:55)
[2025-03-17 00:13] LABS: Platelet Clumps Present; Platelet Estimate Adequate (Adequate)
[2025-03-17 00:14] LABS: Anisocytosis 1+; Ovalocytes 1+; Schistocytes Rare
[2025-03-17] MEDS: SODIUM CHLORIDE 0.9% IV 900 ML 999 ML IV CONT (00:34)
--- NOTE | 2025-03-17 00:49 | PC.NURSE ---
Patient ambulated to the bathroom and back to her room with steady unassisted gait. patient now back in room, reconnected to the monitor. Call light within reach.
--- NOTE | 2025-03-17 01:42 | PC.NURSE ---
Patients wound dressing changed. Patients dressing was 80% saturated with joellen colored drainage. New abd pain placed per ERECTING CRANE OPERATOR orders. ERP notified.
[2025-03-17 01:45] VITALS: BP 137/71; PULSE 80; RESP 15; O2SAT 100
--- NOTE | 2025-03-17 02:45 | PM.IMHP ---
H&P: HPI History of Present Illness Date/Time: 03/17/25 03:00 Chief Complaint: Draining wounds from mastectomy site. 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 Over the last several weeks she has noticed a rash developing over her chest with thickening of the skin on her left chest as well as several small growths on the mastectomy scars and a few other satellite lesions which are now crusting over. Last evening she reached for something when she felt a gush of fluid coming from the surgical incision on the left lateral chest. The fluid is myke colored and is draining and significant amounts. The chest wall feels tight but she denies overt pain. She also denies fever, chills, sweats, nausea, and vomiting. She has not had any trauma to the area. In the ED: She was afebrile on arrival with stable vital signs. Labs were significant for a hemoglobin of 10.8, AST 60, alkaline phosphatase 136, CRP 1.8. She was given a dose of cefazolin for suspected infection and she is being admitted in this setting for further treatment and consult with her breast surgeon and oncologist. Review of Systems Review of Systems: 12 systems were reviewed and are negative except for as per HPI. 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 status post neoadjuvant chemotherapy and bilateral mastectomy; has scan 01/20/2025 showed metastatic disease to lymph nodes and bone 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) segmental mastectomy with axillary lymph node dissection and chemoradiation Generalized anxiety disorder Vitamin D deficiency Vitamin B12 deficiency Psychophysiological insomnia Cervical polyp History of vaginal delivery Endometrial polyp Anemia on ferrous sulfate and cyanocobalamin daily Surgical History Surgical History History of lumpectomy of right breast (05/26/10) poorly differentiated invasive ductal carcinoma History of segmental mastectomy (06/09/10) segmental mastectomy of the right upper outer quadrant History of wisdom tooth extraction History of bilateral mastectomy (11/27/24) multifocal invasive ductal carcinoma with lymphovascular invasion and skeletal muscle involvement with positive margins status post re-excision History of laser assisted in situ keratomileusis History of lymph node dissection of axilla Family History Family History (Updated 03/17/25 @ 05:41 by Ewelina Hinojosa PA-C) Other Adopted Social History Social History Social History: Surrogate medical decision maker: Paul Solis, spouse. Code status: Full code. Smoking packs per day: 1 Smoking cigarettes per day: 20.0 Years smoked: 20 Smoking pack-years: 20.00 Smoking status: Former smoker Tobacco type: cigarettes Second hand tobacco smoke exposure: No Smoking end date: 01/18/18 Alcohol intake: current Drinks per week: 4 Alcohol use details: daily Substance use: never Substance use type: does not use Do You Feel Safe in your Home?: Yes Lack of Transportation: No Lack of Food: Never True Current Housing: I Have Housing Concerned About Future Housing: No Difficulty Paying Gas/Electric Bills: No Difficulty Paying for Meds: No Currently Unemployed: No Education: Master's Degree or Higher Difficulty w/ Childcare or Family Care: No Living arrangements: with family Additional living arrangements comments: Lives with Paul and their 2 mathias hounds in [place]. They have a grown child. Occupation/Education: occupation Spiritual care concerns: No Agree to blood products: Yes Meds Home Medications and Allergies Home Medications ?Medication ?Instructions ?Recorded ?Confirmed ?Type ascorbic acid (vitamin C) 500 mg 250 mg PO DAILY 06/21/24 09/04/24 History tablet (Vitamin C) ferrous sulfate 325 mg (65 mg 325 mg PO DAILY 06/21/24 09/04/24 History iron) tablet,delayed release multivitamin 1 tablet PO DAILY 06/21/24 09/04/24 History pyridoxine (vitamin B6) 500 mg 500 mg PO DAILY 06/21/24 09/04/24 History tablet Panax 150 mg-25 mg-Lebanese ginsg 1 cap PO DAILY 03/17/25 03/17/25 History 25 mg-B12 15 mcg-royal jelly capsule (Ginseng Complex) cyanocobalamin (vitamin B-12) 1,000 mcg PO DAILY 03/17/25 03/17/25 History 1,000 mcg tablet Allergies Allergy/AdvReac Type Severity Reaction Status Date / Time No Known Allergies Allergy Verified 03/16/25 21:14 Vital Signs Vital Signs - 24 hr 03/16/25 21:09 03/16/25 23:55 03/17/25 01:45 Temperature 98.3 F Pulse Rate 97 80 Respiratory Rate 18 18 15 Blood Pressure 150/84 H 137/71 Pulse Oximetry 99 97 100 Oxygen Delivery Room Air Exam Narrative: General: Well-developed, nontoxic-appearing female sitting up in bed. Weight: 95.9 kg. BMI: 30.3. HEENT: PERRL, EOMI. Sclera anicteric. Oral mucosa moist. Neck: Supple. Respiratory: Lungs are clear to auscultation bilaterally. Chest: Diffuse erythema over the chest wall, worse on the left, with some satellite lesions on the periphery. There are several areas along the mastectomy scars bilaterally with crusting and a small amount purulent drainage. A small open area on the left lateral incision wound has drained pretty significant amounts of myke colored fluid. The chest wall is warm and firm to touch, mostly on the left side. Cardiovascular: Regular rate and rhythm with S1-S2. Gastrointestinal: Abdomen is soft, nontender, and nondistended with positive bowel sounds. Skin: Warm and dry. No rash or lesions on limited exam. Extremities: No cyanosis, clubbing, or edema. Radial and pedal pulses intact. Neurological: Alert. Cranial nerves 2-12 are grossly intact. No gross focal deficits to casual conversation. Psychiatric: Pleasant and cooperative with normal mood and affect. Judgment and insight intact. H&P: Results Labs Labs: Short CBC 03/16/25 Range/Units 23:36 WBC 4.7 (4.5-10.0) K/mm3 Hgb 10.8 L (12.0-15.0) g/dL Hct 36.5 L (37.0-47.0) % Plt Count 307 (150-375) k/mm3 BMP 03/16/25 23:36 Sodium 137 Potassium 4.3 Chloride 104 Carbon Dioxide 27 BUN 12 Creatinine 0.56 L Glucose 98 Calcium 9.1 Liver Function 03/16/25 Range/Units 23:36 Total Bilirubin 0.3 (0.2-1.3) mg/dL AST 60 H (14-36) U/L ALT 33 (6-35) U/L Alkaline Phosphatase 136 H (38-126) U/L Albumin 4.1 (3.5-5.1) g/dL Assessment and Plan Assessment and plan (1) Drainage from surgical wound: Status: Acute (2) Inflammatory breast cancer: Onset Date: 06/2024 Code(s): C50.919 - Malignant neoplasm of unspecified site of unspecified female breast Status: Acute (3) Chronic anemia: Code(s): D64.9 - Anemia, unspecified Status: Acute Plan The patient presented to the emergency department for evaluation after mastectomy incision wound began draining pretty significant amounts myke colored fluid as detailed in HPI. Labs, imaging, EKG, and all reports were personally reviewed. She is currently receiving palliative chemotherapy for invasive inflammatory breast cancer with metastatic disease to the lymph nodes and bone. Exam findings are consistent with inflammatory breast cancer and likely new areas of skin involvement. Some of these areas are ulcerated and draining. She has been started on cefazolin for possible concomitant cellulitis of the chest wall. Her breast surgeon and oncologist were consulted by the ED provider and their input is appreciated. Anemia stable on review of previous labs. Her home medications will be reviewed and resumed as appropriate. Findings and treatment plan were discussed with the patient and her . Questions were solicited and answered to satisfaction. The patient's medical management will be taken over by the hospitalist team in a.m. Quality VTE Prophylaxis VTE prophylaxis: pharmacologic ordered The patient has been admitted under observation status. Hospitalist MIPS Advance Care Plan I have confirmed that the patient's Advanced Care Plan is present, code status is documented, or surrogate decision maker is listed in patient medical record.: Yes Medication Reconciliation I have utilized all available resources to obtain, update and review the patients current medications (includes all prescriptions, OTC, herbals, cannabis, and nutritional supplements).: Yes
--- NOTE | 2025-03-17 03:02 | PC.NURSE ---
Patients wound dressing changed. Dressing was 90% saturated with joellen colored drainage. ERP notified.
[2025-03-17 03:42] VITALS: BP 130/68; PULSE 80; RESP 17; O2SAT 100
[2025-03-17 04:29] VITALS: BMI 30.3
--- NOTE | 2025-03-17 04:35 | ADMGEN ---
This patient, Janae Solis, was admitted to [facility] S[facility] Room 313-01. Patient/family oriented to hospital policies and general routines including ID bracelet, bed and alarms, visiting hours, pain management, procedures, bathroom and other care routines, personal items, smoking policy, room service/diet, and visiting hours. Information on how to activate the Rapid Response Team has been discussed. Patient/Family are encouraged to report perceived risks to care and to ask questions if they do not understand what they are told or what they should do.
[2025-03-17 05:37] VITALS: BP 131/73; PULSE 88; RESP 16; TEMP 36.3; O2SAT 100
[2025-03-17 08:00] VITALS: O2SAT 100
[2025-03-17] MEDS: FERROUS SULFATE 325 MG TABLET DR PO (08:41)
[2025-03-17] MEDS: CYANOCOBALAMIN 1,000 MCG TABLET 1000 MCG PO (08:41)
[2025-03-17] MEDS: MULTIVITAMINS THERAPEUTIC TAB (*BKC) 1 TABLET PO (08:41)
[2025-03-17] MEDS: ASCORBIC ACID 250 MG TABLET PO (08:42)
[2025-03-17] MEDS: PYRIDOXINE HCL 50 MG TABLET PO (09:11)
--- NOTE | 2025-03-17 12:00 | PCWOUND ---
WOCN NOTE received consult for left breast mastectomy incision, suspicion for infection. Patient has consult for Dr. Ashley, breast surgeon who has been notified. Informed Irish recovery collector that wound care will not follow this patient unless Dr. Ashley puts in a referral herself. RN verbalized understanding.
--- NOTE | 2025-03-17 12:31 | PM.CNGS ---
Assessment and Plan Assessment and plan (1) Inflammatory breast cancer: Onset Date: 06/2024 Code(s): C50.919 - Malignant neoplasm of unspecified site of unspecified female breast Status: Acute (2) Triple negative breast cancer: Onset Date: Unknown Code(s): C50.919 - Malignant neoplasm of unspecified site of unspecified female breast; Z17.421 - Hormone receptor negative with human epidermal growth factor receptor 2 negative status Status: Acute (3) Malignant neoplasm of left breast, stage 4: Code(s): C50.912 - Malignant neoplasm of unspecified site of left female breast Status: Acute Assessment and Plan: 54-year-old female with a previous history of left breast inflammatory breast cancer, triple negative, who is now status post bilateral total mastectomy with left axillary dissection at [facility] on November 27, after receiving neoadjuvant chemotherapy. Plan - Inflammatory breast cancer, stage IV disease: Patient now presents for ongoing drainage from the left mastectomy incision. Patient is 1 week out from her last chemotherapy does and her white count is actually normal today. On exam, she does have some cellulitis along the chest wall and significant swelling of the soft tissue, which is likely related to her underlying inflammatory breast cancer acutely worsened due to the cellulitis. Noted on her pathology report was the extensive lymphovascular invasion, which is a typical presentation of inflammatory breast cancer. Given patient's exam today, I think her swelling might have been exacerbated by a mild case of cellulitis which hopefully should improve with the IV antibiotics but I do not believe she has an abscess at this time due to the color of the drainage noted on exam. I also think a lot of the swelling has also to do with likely progression of her inflammatory breast cancer, which again involves the lymphatic drainage from the breast and the lymph edema and fluid accumulation in the left chest we will likely worsen over time. Patient may benefit from a CT chest, in addition to abdomen pelvis to see if there is any drainable fluid collection under the mastectomy flap and she may benefit from IR placed drain if that is the case. I discussed the case with Oncology as well, and patient may be a candidate for palliative radiation, after imaging to rule out drainable fluid collections. While not curative, palliative radiation can sometimes help local disease control such as bleeding, pain and possibly even some of the swelling. I recommended consultation with Radiation Oncology, which Dr. Kraus said he will talk to them about this patient's case. Otherwise, at this time patient is a very poor surgical candidate for any additional surgical procedures given the fact that she is currently on palliative chemotherapy and would have significant impairment in healing ability, in addition to the rapid progression of her disease despite chemotherapy. Please call back with any questions or concerns, I will be available as needed. Thank you for allowing me to participate in the care of Ms. Solis. Approximately 60 minutes total time was spent on the patient's consultation today including reviewing her medical records from [facility], and imaging studies in preparation for the consultation, time spent with patient including counseling on treatment options, documentation and coordination of care with Oncology.? More than half of the time was spent discussing diagnosis and treatment options with patient. History of Present Illness Consult details Consult date: 03/17/25 Reason for consult: other (inflammatory breast cancer, left breast wound and cellulitis) Narrative: 54-year-old female with a history of metastatic left breast inflammatory breast cancer who was admitted overnight for acute onset of drainage from previous mastectomy incision. Patient had a bilateral total mastectomy on November 27 at [facility], and she was taking back a few weeks later for margins. Patient never did receive adjuvant radiation because she was found to have extensive metastatic disease shortly after recovering from surgery with extensive lymph node metastasis along the retroperitoneum, mesentery, pelvic area neck, supraclavicular chest wall as well as extensive bone Mets. She has been receiving palliative chemotherapy, and her last dose was a week ago. She reports that yesterday she noticed a large gush of fluid arising from her previous mastectomy incision on the left chest after she reached over foreign object at home. She states the fluid was dark brown, reddish at a times but denies ever noticing any purulent fluid. She notes that the swelling and redness has been progressively worsening in the few couple weeks, but denies any fevers or chills. 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 status post neoadjuvant chemotherapy and bilateral mastectomy; has scan 01/20/2025 showed metastatic disease to lymph nodes and bone 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) segmental mastectomy with axillary lymph node dissection and chemoradiation Generalized anxiety disorder Vitamin D deficiency Vitamin B12 deficiency Psychophysiological insomnia Cervical polyp History of vaginal delivery Endometrial polyp Anemia on ferrous sulfate and cyanocobalamin daily Surgical History Surgical History History of lumpectomy of right breast (05/26/10) poorly differentiated invasive ductal carcinoma History of segmental mastectomy (06/09/10) segmental mastectomy of the right upper outer quadrant History of wisdom tooth extraction History of bilateral mastectomy (11/27/24) multifocal invasive ductal carcinoma with lymphovascular invasion and skeletal muscle involvement with positive margins status post re-excision History of laser assisted in situ keratomileusis History of lymph node dissection of axilla Family History Family History (Updated 03/17/25 @ 05:41 by Ewelina Hinojosa PA-C) Other Adopted Social History Social History Social History: Surrogate medical decision maker: Paul Solis, spouse. Code status: Full code. Smoking packs per day: 1 Smoking cigarettes per day: 20.0 Years smoked: 20 Smoking pack-years: 20.00 Smoking status: Former smoker Tobacco type: cigarettes Second hand tobacco smoke exposure: No Smoking end date: 01/18/18 Alcohol intake: current Drinks per week: 4 Alcohol use details: daily Substance use: never Substance use type: does not use Do You Feel Safe in your Home?: Yes Lack of Transportation: No Lack of Food: Never True Current Housing: I Have Housing Concerned About Future Housing: No Difficulty Paying Gas/Electric Bills: No Difficulty Paying for Meds: No Currently Unemployed: No Education: Master's Degree or Higher Difficulty w/ Childcare or Family Care: No Living arrangements: with family Additional living arrangements comments: Lives with Paul and their 2 mathias hounds in [place]. They have a grown child. Occupation/Education: occupation Spiritual care concerns: No Agree to blood products: Yes Meds Home Medications and Allergies Home Medications ?Medication ?Instructions ?Recorded ?Confirmed ?Type ascorbic acid (vitamin C) 500 mg 250 mg PO DAILY 06/21/24 03/17/25 History tablet (Vitamin C) ferrous sulfate 325 mg (65 mg 325 mg PO DAILY 06/21/24 03/17/25 History iron) tablet,delayed release multivitamin 1 tablet PO DAILY 06/21/24 03/17/25 History pyridoxine (vitamin B6) 500 mg 500 mg PO DAILY 06/21/24 03/17/25 History tablet Panax 150 mg-25 mg-[place] ginsg 1 cap PO DAILY 03/17/25 03/17/25 History 25 mg-B12 15 mcg-royal jelly capsule (Ginseng Complex) cyanocobalamin (vitamin B-12) 1,000 mcg PO DAILY 03/17/25 03/17/25 History 1,000 mcg tablet Allergies Allergy/AdvReac Type Severity Reaction Status Date / Time No Known Allergies Allergy Verified 03/16/25 21:14 Vital Signs Vital Signs - 24 hr 03/16/25 21:09 03/16/25 23:55 03/17/25 01:45 Temperature 36.8 C Pulse Rate 97 80 Respiratory Rate 18 18 15 Blood Pressure 150/84 H 137/71 Pulse Oximetry 99 97 100 Oxygen Delivery Room Air 03/17/25 03:42 03/17/25 04:53 03/17/25 05:37 Temperature 36.3 C L Pulse Rate 80 88 Respiratory Rate 17 16 Blood Pressure 130/68 131/73 Pulse Oximetry 100 100 Oxygen Delivery Room Air Exam Const: General: comfortable and no acute distress Resp: Effort & Inspection: normal respiratory effort Cardio: Rate: regular rate Skin: Other: Left mastectomy incision with moderate swelling and erythema through the chest, and a couple open areas that are actively draining on exam. Drainage appears dark/old blood, serous brown drainage with no odor. Extrem: General: normal to inspection Results Labs 03/16/25 23:36 03/16/25 23:36 Labs: Abnormal lab results 03/16/25 Range/Units 23:36 Hgb 10.8 L (12.0-15.0) g/dL Hct 36.5 L (37.0-47.0) % MCV 71.7 L (80-100) fl MCH 21.2 L (26-34) pg MCHC 29.6 L (32-36) g/dl RDW 22.5 H (11.5-14.5) % Lymph % (Auto) 15.7 L (18.3-44.2) % [place] % (Auto) 16.1 H (2.6-8.5) % Baso % (Auto) 1.5 H (0.2-1.2) % Lymph # (Auto) 0.74 L (0.9-3.2) K/mm3 [place] # (Auto) 0.8 H (0.1-0.6) K/mm3 Creatinine 0.56 L (0.7-1.0) mg/dL AST 60 H (14-36) U/L Alkaline Phosphatase 136 H (38-126) U/L C-Reactive Protein 1.8 H (<1.0) mg/dL Diabetes panel 03/16/25 Range/Units 23:36 Sodium 137 (137-145) mmol/L Potassium 4.3 (3.4-5.0) mmol/L Chloride 104 (98-107) mmol/L Carbon Dioxide 27 (22-30) mmol/L BUN 12 (7-17) mg/dL Creatinine 0.56 L (0.7-1.0) mg/dL Glucose 98 (65-110) mg/dL Calcium 9.1 (8.4-10.2) mg/dL AST 60 H (14-36) U/L ALT 33 (6-35) U/L Alkaline Phosphatase 136 H (38-126) U/L Total Protein 7.2 (6.3-8.2) g/dL Albumin 4.1 (3.5-5.1) g/dL Calcium panel 03/16/25 Range/Units 23:36 Calcium 9.1 (8.4-10.2) mg/dL Albumin 4.1 (3.5-5.1) g/dL Pituitary panel 03/16/25 Range/Units 23:36 Sodium 137 (137-145) mmol/L Potassium 4.3 (3.4-5.0) mmol/L Chloride 104 (98-107) mmol/L Carbon Dioxide 27 (22-30) mmol/L BUN 12 (7-17) mg/dL Creatinine 0.56 L (0.7-1.0) mg/dL Glucose 98 (65-110) mg/dL Calcium 9.1 (8.4-10.2) mg/dL Adrenal panel 03/16/25 Range/Units 23:36 Sodium 137 (137-145) mmol/L Potassium 4.3 (3.4-5.0) mmol/L Chloride 104 (98-107) mmol/L Carbon Dioxide 27 (22-30) mmol/L BUN 12 (7-17) mg/dL Creatinine 0.56 L (0.7-1.0) mg/dL Glucose 98 (65-110) mg/dL Calcium 9.1 (8.4-10.2) mg/dL Total Bilirubin 0.3 (0.2-1.3) mg/dL AST 60 H (14-36) U/L ALT 33 (6-35) U/L Alkaline Phosphatase 136 H (38-126) U/L Total Protein 7.2 (6.3-8.2) g/dL Albumin 4.1 (3.5-5.1) g/dL All other labs normal.
--- NOTE | 2025-03-17 13:04 | PM.IMPN ---
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 Over the last several weeks she has noticed a rash developing over her chest with thickening of the skin on her left chest as well as several small growths on the mastectomy scars and a few other satellite lesions which are now crusting over. Last evening she reached for something when she felt a gush of fluid coming from the surgical incision on the left lateral chest. The fluid is myke colored and is draining and significant amounts. The chest wall feels tight but she denies overt pain. She also denies fever, chills, sweats, nausea, and vomiting. She has not had any trauma to the area. In the ED: She was afebrile on arrival with stable vital signs. Labs were significant for a hemoglobin of 10.8, AST 60, alkaline phosphatase 136, CRP 1.8. She was given a dose of cefazolin for suspected infection and she is being admitted in this setting for further treatment and consult with her breast surgeon and oncologist. Left mastectomy site draining wounds with cellulitis. On cefazolin. Will get wound culture from the swab from the drain. Breast surgeon to see. Consulted as well Inflammatory breast cancer metastatic on chemotherapy with possibility of worsening Generalized anxiety disorder Anemia DVT prophylaxis Lovenox Code status full code Subjective Date/time seen: 03/17/25 13:04 Interval history: Redness has improved some. Pain is improved as well. Ongoing drainage from left mastectomy site. Review of Systems Review of Systems: All systems reviewed & are unremarkable except as noted in HPI and below Exam Narrative: General: Well-developed, nontoxic-appearing female sitting up in bed. HEENT: PERRL, EOMI. Sclera anicteric. Oral mucosa moist. Neck: Supple. Respiratory: Lungs are clear to auscultation bilaterally. Chest: Diffuse erythema over the chest wall, worse on the left, with some satellite lesions on the periphery. There are several areas along the mastectomy scars bilaterally with crusting and a small amount serosanguineous drainage. A small open area on the left lateral incision wound has drained pretty significant amounts of myke colored fluid. The chest wall is warm and firm to touch, mostly on the left side. Cardiovascular: Regular rate and rhythm with S1-S2. Gastrointestinal: Abdomen is soft, nontender, and nondistended with positive bowel sounds. Skin: Warm and dry. No rash or lesions on limited exam. Extremities: No cyanosis, clubbing, or edema. Radial and pedal pulses intact. Neurological: Alert. Cranial nerves 2-12 are grossly intact. No gross focal deficits to casual conversation. Psychiatric: Pleasant and cooperative with normal mood and affect. Judgment and insight intact. Objective Data Vital Signs Vital Signs: Vital Signs - 24 hr 03/16/25 21:09 03/16/25 23:55 03/17/25 01:45 Temperature 98.3 F Pulse Rate 97 80 Respiratory Rate 18 18 15 Blood Pressure 150/84 H 137/71 Pulse Oximetry 99 97 100 Oxygen Delivery Room Air 03/17/25 03:42 03/17/25 04:53 03/17/25 05:37 Temperature 97.3 F L Pulse Rate 80 88 Respiratory Rate 17 16 Blood Pressure 130/68 131/73 Pulse Oximetry 100 100 Oxygen Delivery Room Air Intake/Output Intake/Output: Intake & Output 03/14/25 03/15/25 03/16/25 03/17/25 23:59 23:59 23:59 23:59 Intake Total 2950 Balance 2950 Meds/Results Medications: Active Medications Generic Name Dose Route Start Last Admin Trade Name Freq PRN Reason Stop Dose Admin Ascorbic Acid 250 mg 03/17/25 09:00 03/17/25 08:42 Ascorbic Acid 250 Mg Tablet PO 250 mg DAILY THU Administration Cyanocobalamin 1,000 mcg 03/17/25 09:00 03/17/25 08:41 Cyanocobalamin 1,000 Mcg Tablet PO 1,000 mcg DAILY THU Administration Enoxaparin Sodium 40 mg 03/17/25 09:00 03/17/25 08:42 Enoxaparin 40 Mg/0.4 Ml Syringe SUB-Q Not Given DAILY [facility] Ferrous Sulfate 325 mg 03/17/25 09:00 03/17/25 08:41 Ferrous Sulfate [address] PO 325 mg DAILY THU Administration Cefazolin Sodium 1 gm in 50 mls @ 100 mls/hr 03/17/25 08:00 03/17/25 08:40 Ancef 1 Gm/Ns 50 Ml IVPB 100 mls/hr Q8H THU Administration Multivitamins Therapeutic 1 tablet 03/17/25 09:00 03/17/25 08:41 Multivitamins Therapeutic Tab (*Bkc) PO 1 tablet DAILY THU Administration Pyridoxine HCl 50 mg 03/17/25 09:00 03/17/25 09:11 Pyridoxine Hcl 50 Mg Tablet PO 50 mg QAM THU Administration Labs Labs: Laboratory Results - last 24 hr 03/16/25 23:36 WBC 4.7 RBC 5.09 Hgb 10.8 L Hct 36.5 L MCV 71.7 L MCH 21.2 L MCHC 29.6 L RDW 22.5 H Plt Count 307 MPV 9.4 Immature Gran % (Auto) 0.4 Neut % (Auto) 64.4 Lymph % (Auto) 15.7 L [place] % (Auto) 16.1 H Eos % (Auto) 1.9 Baso % (Auto) 1.5 H Lymph # (Auto) 0.74 L [place] # (Auto) 0.8 H Eos # (Auto) 0.1 Baso # (Auto) 0.1 Abs Immat Gran (auto) 0.02 Absolute Neuts (auto) 3.0 Absolute Nucleated RBC 0.000 Band Neutrophils % Not Reportable Nucleated RBC % 0.0 Platelet Estimate Adequate Clumped Platelets Present Anisocytosis 1+ Ovalocytes 1+ Schistocytes Rare PT 13.1 INR 1.0 APTT 27.5 Sodium 137 Potassium 4.3 Chloride 104 Carbon Dioxide 27 Anion Gap 6 BUN 12 Creatinine 0.56 L Estim Creat Clear Calc 124 Estimated GFR > 60 Glucose 98 Lactic Acid 0.7 Calcium 9.1 Total Bilirubin 0.3 AST 60 H ALT 33 Alkaline Phosphatase 136 H C-Reactive Protein 1.8 H Total Protein 7.2 Albumin 4.1
[2025-03-17 14:00] VITALS: BP 142/70; PULSE 101; RESP 16; TEMP 37.2; O2SAT 98
--- NOTE | 2025-03-17 18:41 | WPDONCCN ---
Assessment and Plan Assessment and plan (1) Malignant neoplasm of left breast, stage 4: Code(s): C50.912 - Malignant neoplasm of unspecified site of left female breast Status: Acute Assessment and Plan: metastatic triple negative breast cancer. Patient was originally diagnosed with stage IIIC inflammatory breast cancer status post neoadjuvant chemotherapy with Adriamycin, Cytoxan and Taxol completed October 2024. Patient had bilateral mastectomy on November 27, 2024. She developed metastatic disease with bone involvement on December 31, 2024. Patient has aggressive and resistant breast cancer. She responded poorly to the neoadjuvant chemotherapy as well. No admitted to the hospital with mastectomy site nodules with oozing and drainage. I have discussed this with surgical oncologist at [facility] as well as radiation oncologist. Plan is to perform CT chest abdomen and pelvis. Patient may benefit from palliative radiation therapy to the chest wall. If the CT chest showed pockets of seroma then drain will be placed by intervention radiologist at [facility]. I have discussed this with patient and the in detail today as well. HPI Data of Consult Date/Time: 03/17/25 18:41 Requesting Physician: Tyson Dimas MD Primary Care Provider: Paul Delarosa MD Consult Narrative Narrative: Janae Solis is a 54 year old female With diagnosis of metastatic breast cancer triple negative. She was initially diagnosed with inflammatory breast cancer received neoadjuvant chemotherapy with Adriamycin, Cytoxan and Taxol completed October 2024 and then subsequent bilateral mastectomy was done in November 27, 2024. Unfortunately PET scan done in December 31, 2024 showed new extensive lymphadenopathy in the retroperitoneum and bone metastasis. Patient started palliative chemotherapy with Keytruda and Abraxane on January 24, 2025. She so far has received cycle 2 and day 6 of chemotherapy. Patient came into the hospital with losing and drainage from the left side mastectomy wound. She has been complaining of tiredness and fatigue. Denies any bone pain. Denies any other complaints. Review of Systems Review of Systems: Review of system as per HPI otherwise negative [facility] Past Medical History Medical History (Updated 03/17/25 @ 13:06 by Trisha Richard MD) 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) 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 status post neoadjuvant chemotherapy and bilateral mastectomy; has scan 01/20/2025 showed metastatic disease to lymph nodes and bone 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) segmental mastectomy with axillary lymph node dissection and chemoradiation Generalized anxiety disorder Vitamin D deficiency Vitamin B12 deficiency Psychophysiological insomnia Cervical polyp History of vaginal delivery Endometrial polyp Anemia on ferrous sulfate and cyanocobalamin daily Surgical History Surgical History History of lumpectomy of right breast (05/26/10) poorly differentiated invasive ductal carcinoma History of segmental mastectomy (06/09/10) segmental mastectomy of the right upper outer quadrant History of wisdom tooth extraction History of bilateral mastectomy (11/27/24) multifocal invasive ductal carcinoma with lymphovascular invasion and skeletal muscle involvement with positive margins status post re-excision History of laser assisted in situ keratomileusis History of lymph node dissection of axilla Family History Family History (Updated 03/17/25 @ 05:41 by Ewelina Hinojosa PA-C) Other Adopted Social History Social History Social History: Surrogate medical decision maker: Paul Solis, spouse. Code status: Full code. Smoking packs per day: 1 Smoking cigarettes per day: 20.0 Years smoked: 20 Smoking pack-years: 20.00 Smoking status: Former smoker Tobacco type: cigarettes Second hand tobacco smoke exposure: No Smoking end date: 01/18/18 Alcohol intake: current Drinks per week: 4 Alcohol use details: daily Substance use: never Substance use type: does not use Do You Feel Safe in your Home?: Yes Lack of Transportation: No Lack of Food: Never True Current Housing: I Have Housing Concerned About Future Housing: No Difficulty Paying Gas/Electric Bills: No Difficulty Paying for Meds: No Currently Unemployed: No Education: Master's Degree or Higher Difficulty w/ Childcare or Family Care: No Living arrangements: with family Additional living arrangements comments: Lives with Paul and their 2 mathias hounds in [place]. They have a grown child. Occupation/Education: occupation Spiritual care concerns: No Agree to blood products: Yes Meds Home Medications and Allergies Home Medications ?Medication ?Instructions ?Recorded ?Confirmed ?Type ascorbic acid (vitamin C) 500 mg 250 mg PO DAILY 06/21/24 03/17/25 History tablet (Vitamin C) ferrous sulfate 325 mg (65 mg 325 mg PO DAILY 06/21/24 03/17/25 History iron) tablet,delayed release multivitamin 1 tablet PO DAILY 06/21/24 03/17/25 History pyridoxine (vitamin B6) 500 mg 500 mg PO DAILY 06/21/24 03/17/25 History tablet Panax 150 mg-25 mg-[place] ginsg 1 cap PO DAILY 03/17/25 03/17/25 History 25 mg-B12 15 mcg-royal jelly capsule (Ginseng Complex) cyanocobalamin (vitamin B-12) 1,000 mcg PO DAILY 03/17/25 03/17/25 History 1,000 mcg tablet Allergies Allergy/AdvReac Type Severity Reaction Status Date / Time No Known Allergies Allergy Verified 03/16/25 21:14 Vital Signs Vital Signs - 24 hr 03/16/25 21:09 03/16/25 23:55 03/17/25 01:45 Temperature 36.8 C Pulse Rate 97 80 Respiratory Rate 18 18 15 Blood Pressure 150/84 H 137/71 Pulse Oximetry 99 97 100 Oxygen Delivery Room Air 03/17/25 03:42 03/17/25 04:53 03/17/25 05:37 Temperature 36.3 C L Pulse Rate 80 88 Respiratory Rate 17 16 Blood Pressure 130/68 131/73 Pulse Oximetry 100 100 Oxygen Delivery Room Air 03/17/25 08:00 03/17/25 14:00 Temperature 37.2 C Pulse Rate 101 H Respiratory Rate 16 Blood Pressure 142/70 H Pulse Oximetry 100 98 Oxygen Delivery Room Air Exam Narrative: lungs are clear to auscultation bilaterally cardiovascular regular rate rhythm no murmur abdomen soft nontender nondistended bowel sounds are positive left mastectomy site showed open wounds with bloody drainage and metastatic nodules extremities no edema Results Labs 03/16/25 23:36 03/16/25 23:36 Labs: Short CBC 03/16/25 Range/Units 23:36 WBC 4.7 (4.5-10.0) K/mm3 Hgb 10.8 L (12.0-15.0) g/dL Hct 36.5 L (37.0-47.0) % Plt Count 307 (150-375) k/mm3 BMP 03/16/25 23:36 Sodium 137 Potassium 4.3 Chloride 104 Carbon Dioxide 27 BUN 12 Creatinine 0.56 L Glucose 98 Calcium 9.1 Liver Function 06/15/25 Range/Units 23:36 Total Bilirubin 0.3 (0.2-1.3) mg/dL AST 60 H (14-36) U/L ALT 33 (6-35) U/L Alkaline Phosphatase 136 H (38-126) U/L Albumin 4.1 (3.5-5.1) g/dL
[2025-03-17 20:59] VITALS: BP 143/77; PULSE 97; RESP 15; TEMP 36.6; O2SAT 98
[2025-03-18 06:00] VITALS: BP 120/67; PULSE 86; RESP 16; TEMP 36.2; O2SAT 98
[2025-03-18] MEDS: ceFAZolin 1 GM/NS 50 ML 1 GM/50 ML BAG IVPB ×2 (08:55→16:57)
[2025-03-18 14:00] VITALS: BP 154/88; PULSE 84; RESP 18; TEMP 36.3; O2SAT 100
--- NOTE | 2025-03-18 14:13 | P.PNIM_ITS ---
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 Over the last several weeks she has noticed a rash developing over her chest with thickening of the skin on her left chest as well as several small growths on the mastectomy scars and a few other satellite lesions which are now crusting over. Last evening she reached for something when she felt a gush of fluid coming from the surgical incision on the left lateral chest. The fluid is myke colored and is draining and significant amounts. The chest wall feels tight but she denies overt pain. She also denies fever, chills, sweats, nausea, and vomiting. She has not had any trauma to the area. In the ED: She was afebrile on arrival with stable vital signs. Labs were significant for a hemoglobin of 10.8, AST 60, alkaline phosphatase 136, CRP 1.8. She was given a dose of cefazolin for suspected infection and she is being admitted in this setting for further treatment and consult with her breast surgeon and oncologist. Left mastectomy site draining wounds with cellulitis. On cefazolin. Wound culture from the drainage. Breast surgeon consulted. Oncology consulted as well. Obtain CT chest to see any fluid collection that needs drainage. This is pending. Also discussed with surgeon at [facility]. Radiation oncologist to see her here. Continue cefazolin for now Inflammatory breast cancer metastatic on chemotherapy with possibility of worsening Generalized anxiety disorder Anemia DVT prophylaxis Lovenox Code status full code Subjective Date/time seen: 03/18/25 14:13 Interval history: no new complaints. ddrainage lowered per patient. Remains afebrile. Review of Systems Review of Systems: All systems reviewed & are unremarkable except as noted in HPI and below Exam Narrative: General: Well-developed, nontoxic-appearing female sitting up in bed. HEENT: PERRL, EOMI. Sclera anicteric. Oral mucosa moist. Neck: Supple. Respiratory: Lungs are clear to auscultation bilaterally. Chest: Diffuse erythema over the chest wall, worse on the left, with some satellite lesions on the periphery. There are several areas along the mastectomy scars bilaterally with crusting and a small amount serosanguineous drainage. A small open area on the left lateral incision wound has drained pretty significant amounts of myke colored fluid. The chest wall is warm and firm to touch, mostly on the left side. Cardiovascular: Regular rate and rhythm with S1-S2. Gastrointestinal: Abdomen is soft, nontender, and nondistended with positive bowel sounds. Skin: Warm and dry. No rash or lesions on limited exam. Extremities: No cyanosis, clubbing, or edema. Radial and pedal pulses intact. Neurological: Alert. Cranial nerves 2-12 are grossly intact. No gross focal deficits to casual conversation. Psychiatric: Pleasant and cooperative with normal mood and affect. Judgment and insight intact. Objective Data Vital Signs Vital Signs: Vital Signs - 24 hr 03/17/25 20:00 03/17/25 20:59 03/18/25 06:00 Temperature 97.9 F 97.1 F L Pulse Rate 97 86 Respiratory Rate 15 16 Blood Pressure 143/77 H 120/67 Pulse Oximetry 98 98 Oxygen Delivery Room Air Intake/Output Intake/Output: Intake & Output 03/15/25 03/16/25 03/17/25 03/18/25 23:59 23:59 23:59 23:59 Intake Total 3440 418 Balance 3440 418 Meds/Results Medications: Active Medications Generic Name Dose Route Start Last Admin Trade Name Nickq PRN Reason Stop Dose Admin Ascorbic Acid 250 mg 03/17/25 09:00 03/18/25 09:24 Ascorbic Acid 250 Mg Tablet PO Not Given DAILY [facility] Cyanocobalamin 1,000 mcg 03/17/25 09:00 03/18/25 09:24 Cyanocobalamin 1,000 Mcg Tablet PO Not Given DAILY [facility] Enoxaparin Sodium 40 mg 03/17/25 09:03/18/25 09:28 Enoxaparin 40 Mg/0.4 Ml Syringe SUB-Q Not Given DAILY [facility] Ferrous Sulfate 325 mg 03/17/25 09:00 03/18/25 09:25 Ferrous Sulfate [address] PO Not Given DAILY [facility] Cefazolin Sodium 1 gm in 50 mls @ 100 mls/hr 03/17/25 08:00 03/18/25 09:25 Ancef 1 Gm/Ns 50 Ml IVPB Infused Q8H [facility] Infusion Multivitamins Therapeutic 1 tablet 03/17/25 09:00 03/18/25 09:25 Multivitamins Therapeutic Tab (*Bkc) PO Not Given DAILY [facility] Pyridoxine HCl 50 mg 03/17/25 09:00 03/18/25 09:25 Pyridoxine Hcl 50 Mg Tablet PO Not Given QAM THU
--- NOTE | 2025-03-18 20:11 | P.TS_ITS ---
Transfer Discharge Sum: Prov Provider Date of admission: 03/17/25 02:46 Primary care physician: Paul Dlearosa MD Admitting clinician: Tyson Dimas MD Consults: 03/17/25 02:48 Consult to Physician Routine Comment: Consulting Provider: Trisha Richard government services professional/MD group to consult: breast surgery Reason for consultation: L breast mass versus cellulitis Has provider been notified: Yes Consult to Physician Routine Comment: spoke to office @[phone] (,) Consulting Provider: Chalino Kraus government services professional/MD group to consult: oncology Reason for consultation: L breast mass versus cellulitis Has provider been notified: Yes 03/17/25 15:48 Consult to Physician Routine Comment: Consulting Provider: Domonique Banks government services professional/MD group to consult: rad onc Reason for consultation: breast cancer Has provider been notified: Yes DS: Admitting Diagnosis Discharge Date 03/18/25 Admitting Diagnosis Wound drainage DS: Discharge Diagnosis Discharge Diagnosis (1) Drainage from surgical wound: Status: Acute (2) Inflammatory breast cancer: Onset Date: 06/2024 Code(s): C50.919 - Malignant neoplasm of unspecified site of unspecified female breast Status: Acute (3) Chronic anemia: Code(s): D64.9 - Anemia, unspecified Status: Acute Transfer Discharge Sum: Med Medications Active and Home Medications: Home Medications ascorbic acid (vitamin C) 500 mg tablet (Vitamin C) 250 mg PO DAILY 06/21/24 [History Confirmed 03/17/25] ferrous sulfate 325 mg (65 mg iron) tablet,delayed release 325 mg PO DAILY 06/21/24 [History Confirmed 03/17/25] multivitamin 1 tablet PO DAILY 06/21/24 [History Confirmed 03/17/25] pyridoxine (vitamin B6) 500 mg tablet 500 mg PO DAILY 06/21/24 [History Confirmed 03/17/25] Panax 150 mg-25 mg-Namibian ginsg 25 mg-B12 15 mcg-royal jelly capsule (Ginseng Complex) 1 cap PO DAILY 03/17/25 [History Confirmed 03/17/25] cyanocobalamin (vitamin B-12) 1,000 mcg tablet 1,000 mcg PO DAILY 03/17/25 [History Confirmed 03/17/25] Transfer Discharge Sum: Hosp Hospital Course Hospital course: Janae M Will is a 54 year old female who is currently receiving palliative c hemotherapy following bilateral mastectomy in November for 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 Over the last several weeks she has noticed a rash developing over her chest with thickening of the skin on her left chest as well as several small growths on the mastectomy scars and a few other satellite lesions which are now crusting over. Last evening she reached for something when she felt a gush of fluid coming from the surgical incision on the left lateral chest. The fluid is myke colored and is draining and significant amounts. The chest wall feels tight but she denies overt pain. She also denies fever, chills, sweats, nausea, and vomiting. She has not had any trauma to the area. In the ED: She was afebrile on arrival with stable vital signs. Labs were significant for a hemoglobin of 10.8, AST 60, alkaline phosphatase 136, CRP 1.8. She was given a dose of cefazolin for suspected infection and she is being admitted in this setting for further treatment and consult with her breast surgeon and oncologist. Left mastectomy site draining wounds with cellulitis. On cefazolin. Wound culture from the drainage. Breast surgeon consulted. Oncology consulted as well. CT chest abdomen pelvis obtained the findings with localized fluid collection. Patient discussed with breast surgeon at [facility] and was transferred to [facility]. Radiation oncologist to see her here yet to be seen. Continue cefazolin for now Inflammatory breast cancer metastatic on chemotherapy with possibility of worsening Generalized anxiety disorder Anemia DVT prophylaxis Lovenox Code status full code Time Spent with Patient Time attestation: Total time spent providing and/or coordinating transfer services: 45 minutes Exam Narrative: General: Well-developed, nontoxic-appearing female sitting up in bed. HEENT: PERRL, EOMI. Sclera anicteric. Oral mucosa moist. Neck: Supple. Respiratory: Lungs are clear to auscultation bilaterally. Chest: Diffuse erythema over the chest wall, worse on the left, with some satellite lesions on the periphery. There are several areas along the mastectomy scars bilaterally with crusting and a small amount serosanguineous drainage. A small open area on the left lateral incision wound has drained pretty significant amounts of myke colored fluid. The chest wall is warm and firm to touch, mostly on the left side. Cardiovascular: Regular rate and rhythm with S1-S2. Gastrointestinal: Abdomen is soft, nontender, and nondistended with positive bowel sounds. Skin: Warm and dry. No rash or lesions on limited exam. Extremities: No cyanosis, clubbing, or edema. Radial and pedal pulses intact. Neurological: Alert. Cranial nerves 2-12 are grossly intact. No gross focal deficits to casual conversation. Psychiatric: Pleasant and cooperative with normal mood and affect. Judgment and insight intact. DS: Data Data Completed and Pending Labs on day of discharge: Preliminary micro results at discharge 03/17/25 11:44 Anaerobic Culture - Preliminary Breast Left 03/16/25 23:36 Blood Culture - Preliminary Blood 03/17/25 00:05 Blood Culture - Preliminary Blood Imaging Radiologist's impression: ITS Impressions Chest/Abdomen/Pelvis CT 03/18/25 15:45 IMPRESSION: Rim-enhancing fluid collections along the anterior chest wall, consistent with recent surgery. These may represent benign seromas (on the right) with denser fluid contained in the larger collection on the left, as detailed above. No metastatic disease is identified within the lungs, liver, pancreas or spleen. Diffuse bony lytic and sclerotic lesions detected within multiple ribs, the right scapula the manubrium, sternum, multiple vertebral bodies within both the thoracic and lumbar spines as well as the long bones of the pelvis. Acute/subacute pathologic fractures of the right fourth rib and left posterior seventh rib is also present. Mesenteric disease is also present, for which metastatic deposits versus enlarged lymph nodes are suspected, as well as retroperitoneal, iliac, and inguinal lymphadenopathy. Additional lymphadenopathy is present within the left supraclavicular, left axillary and left retropectoral basins. In addition, the uterus is significantly nodular and somewhat enlarged, possibly representing fibroid disease. No prior imaging is available for direct comparison. If prior imaging does become available, comparison will be performed.
[2025-03-18 22:00] VITALS: BP 139/74; PULSE 93; RESP 18; TEMP 36.4; O2SAT 99
== END 2025-03-18 21:50 | disposition short-term general hospital (02) ==
LOC: ANHED 03-17 02:46 → ANH3MEDSUR 03-17 16:08
PROVIDERS: Admitting Provider General Practice; Emergency Provider Registered Nurse; PCP Family Medicine; Visit Provider Internal Medicine
DX: T81.49XA Infection following a procedure, other surgical site, initial encounter (principal); L03.313 Cellulitis of chest wall; C50.911 Malignant neoplasm of unspecified site of right female breast; C50.912 Malignant neoplasm of unspecified site of left female breast; C77.8 Secondary and unspecified malignant neoplasm of lymph nodes of multiple regions; C79.51 Secondary malignant neoplasm of bone; Z17.421 Hormone receptor negative with human epidermal growth factor receptor 2 negative status; Z90.13 Acquired absence of bilateral breasts and nipples; D64.9 Anemia, unspecified; F41.8 Other specified anxiety disorders; E55.9 Vitamin D deficiency, unspecified; E53.8 Deficiency of other specified B group vitamins; F51.04 Psychophysiologic insomnia; Z87.891 Personal history of nicotine dependence
CPT/HCPCS: 36415; 71260; 74177; 80053; 83605; 85025; 85610; 85730; 86140; 87040; 87070; 87075; 87181; 87205; 93005; 96361; 96365; 99285; A9270; G0378; J0690; J1650; J7030; Q9967

== ENCOUNTER 2025-04-01 09:36 | Outpatient (CLI) | payer OTHER, SELFPAY ==
--- NOTE | ~2025-04-01 | PE_ITS ---
EXAMINATION: PET skull to mid thigh DATE: 04/01/2025 11:17 INDICATION: Inflammatory carcinoma of the left breast. TECHNIQUE: Blood glucose level was 99 mg/dL. 9.898 mCi of 18-fluorodeoxyglucose (18-FDG) was administ ered i.v. Low dose computed tomography (CT) images were acquired from the base of the brain to the pr oximal thighs for attenuation correction and anatomic localization. Positron emission tomography (PET ) images were acquired in the same distribution beginning 52 minutes after injection. Images includin g fused PET/CT images were reconstructed in axial, coronal, and sagittal planes. Automated exposure c ontrol technique was employed. The dose-length product was 1270.12mGy-cm. COMPARISON: CT dated 03/18/2025 FINDINGS: Head/neck: There is symmetric increased activity in the oral cavity and ocular muscles without CT correlate, lik bhavani physiologic. There are couple small FDG avid lymph nodes in the left posterior cervical triangle, the larger measuring 7 mm with maximal SUV of 9.6. There are couple slightly larger FDG avid left nieves praclavicular lymph nodes the largest measuring 12 mm in short axis diameter with maximal SUV of 8.4. Chest: Tiny left pleural effusion and mild atelectasis at the posterior basilar left lower lobe. No suspicio us pulmonary nodules, pulmonary edema, pneumonia or right-sided pleural effusion. Heart size is princess l. No pericardial effusion. Thoracic aorta is normal in caliber. Right internal jugular central venou s port catheter with distal tip in the high right atrium. Postoperative change of prior bilateral mas tectomies, both with residual small seromas. There is a small amount of gas within the left sided ser sharri. Surgical clips at the left axilla consistent with prior axillary lymph node dissection. There is also some stranding at the left axilla along with multiple enlarged and FDG avid left axillary and l eft subpectoral lymph nodes consistent with metastatic disease. For reference there is a 1.4 cm left axillary lymph node with maximal SUV of 30.5 and a more anterior 1.4 cm left subpectoral lymph node w ith maximal SUV of 29.2. Abdomen/pelvis/proximal thighs: Physiologic renal accumulation and excretion of FDG activity in the kidneys, bladder and along portio ns of ureters. Normal degree and heterogenous pattern of increased uptake throughout the liver withou t radiologic correlate or dominant FDG avid lesion. The gallbladder, pancreas, spleen and bilateral a drenal glands are normal. Mild uptake scattered throughout the bowels without radiologic correlate, a lso likely physiologic. Normal appendix. There are multiple normal-sized and enlarged FDG avid lymph nodes in the abdomen and pelvis including at the gastric hepatic ligament and tita hepatis, in the m esentery, retroperitoneum and most prominent at the bilateral external iliac chains and inguinal leandro ons. For reference one of the large left inguinal lymph nodes measures 1.3 cm short axis diameter wit h maximal SUV of 7.4. And a 1.3 cm left external iliac chain lymph node consistent maximal SUV of 9.0 . Musculoskeletal: There are numerous scattered lytic bone lesions. The axial and appendicular skeleton consistent with widespread osseous metastatic disease. For reference there is a lytic lesion in the right innominate bone in the pelvis which erodes through 1.6 x 1.4 similar region of the anterior cortex and which dem onstrates maximal SUV of 11.6. IMPRESSION: 1. Widespread FDG avid lymphadenopathy in the neck, chest, abdomen and pelvis and numerous FDG avid l ytic bone lesions throughout the axial and appendicular skeleton consistent with widespread metastati c disease. 2. Bilateral mastectomies with residual small seromas with small amount of internal gas on the left. Reviewed, dictated and finalized at location A. IMPRESSION: 1. Widespread FDG avid lymphadenopathy in the neck, chest, abdomen and pelvis a nd numerous FDG avid lytic bone lesions throughout the axial and appendicular s keleton consistent with widespread metastatic disease. 2. Bilateral mastectomies with residual small seromas with small amount of inte rnal gas on the left.
--- OUTSIDE RECORDS SUMMARY | 2025-04-01 09:50 | XMS_ITS ---
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 Past Treatment and Therapy Plans No past plan information found. Lifetime Dose Tracking * Chemical Lifetime Dose Automatic Entry Manual Entr y Effective Dose 8.74 mSv 8.74 mSv 0 mSv Total DLP 562.87 DLP 562.87 DLP 0 DLP CTDIvol Max 13.42 mGy 13.42 mGy 0 mGy
--- OUTSIDE RECORDS SUMMARY | 2025-04-01 09:50 | XMS_ITS | Encounter Summary ---
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
--- OUTSIDE RECORDS SUMMARY | 2025-04-01 09:50 | XMS_ITS | Encounter Summary ---
Author Organization [facility] [employer] [facility] Address [address] [place] [address] Care Team Providers Care Pipeline Systems Operator Name Role Phone Paul Delarosa MD Primary Care Provider [phone] Encounter Details Date Type Department Care Team (Late st Contact Info) Description 03/31/2025 Orders Only [facility] Oncology and Hematology - [place] [address] [facility] [address] [place] [address] Chalino Kraus MD [address] [facility] [address] [place] [address] Chronic anemia; Inflammatory carcinoma of left breast (CMS/HCC) Social [...] who hurts you emotionally and/or physically? No 03/18/2025 Food Insecurity Answer Date Recorded Patient needs [...] Care Team (Late st Contact Info) Description 04/03/2025 8:30 AM CDT Office Visit [facility] Oncology and Hematology - [place] [address] [facility] [address] [place] [address] Chalino Kraus MD [address] [facility] [address] [place] [address] documented as of this encounter Visit Diagnoses Diagnosis Chronic anemia Anemia, unspecified Inflammatory carcinoma of left breast (CMS/HCC) documented in this encounter Care Teams Pipeline Systems Operator Relationship Specialty Start Date End Date Paul Delarosa MD [address] [facility] [address] [place] [address] PCP - General Family Practice 10/16/24 documented as of this encounter
--- OUTSIDE RECORDS SUMMARY | 2025-04-01 09:50 | XMS_ITS | Encounter Summary ---
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
--- OUTSIDE RECORDS SUMMARY | 2025-04-01 09:50 | XMS_ITS | Encounter Summary ---
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
--- OUTSIDE RECORDS SUMMARY | 2025-04-01 09:50 | XMS_ITS | Encounter Summary ---
Author Organization 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
--- OUTSIDE RECORDS SUMMARY | 2025-04-01 09:50 | XMS_ITS | Encounter Summary ---
Author Organization [facility] [employer] of 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
--- OUTSIDE RECORDS SUMMARY | 2025-04-01 09:50 | XMS_ITS | Encounter Summary ---
Author Organization [facility] [employer] of 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
--- OUTSIDE RECORDS SUMMARY | 2025-04-01 09:50 | XMS_ITS | Encounter Summary ---
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
--- OUTSIDE RECORDS SUMMARY | 2025-04-01 09:50 | XMS_ITS | Encounter Summary ---
Author Organization [facility] [employer] 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
--- OUTSIDE RECORDS SUMMARY | 2025-04-01 09:50 | XMS_ITS | Encounter Summary ---
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
--- OUTSIDE RECORDS SUMMARY | 2025-04-01 09:50 | XMS_ITS | Encounter Summary ---
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
--- OUTSIDE RECORDS SUMMARY | 2025-04-01 09:50 | XMS_ITS | Encounter Summary ---
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
--- OUTSIDE RECORDS SUMMARY | 2025-04-01 09:50 | XMS_ITS | Clinical Summary ---
Author Organization 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 [address] [place] [address] Consulting Physician Medical Oncology 06/18/24
--- OUTSIDE RECORDS SUMMARY | 2025-04-01 09:50 | XMS_ITS | Encounter Summary ---
Author Organization 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
--- OUTSIDE RECORDS SUMMARY | 2025-04-01 09:50 | XMS_ITS | Clinical Summary ---
Author Organization [facility] Address [address] [facility] [place] [address] Care Team Providers Care Editor Map Name Role Phone Paul Delarosa MD Primary Care Provider [phone] Allergies No known active allergies Medications multivitamin,tx [...] or vomiting 30 Tablet 1 01/21/2025 Active metroNIDAZOLE (FLAGYL) 500 mg tablet Take 1 Tablet (500 mg) by mouth every 8 hours for 14 days. 42 Tablet 03/20/2025 12:14 PM CDT 03/20/2025 04/03/20 25 Active cephALEXin (KEFLEX) 500 mg capsule Take 1 Capsule (500 mg) by mouth 4 times daily for 14 days. 56 Capsule 03/20/2025 12:14 PM CDT 03/20/2025 04/03/20 25 Active Active Problems Problem Noted Date Diagnosed Date Chest wall abscess 03/19/2025 Anemia in neoplastic disease 03/19/2025 Malignant neoplasm of nipple and areola, right female breast 02/12/2025 Encounters Date Type Department Care Team Description 03/31/2025 Orders Only [facility] Oncology and Hematology [facility] [address] [place] [address] Chalino Kraus MD Chronic anemia; Inflammatory carcinoma of left breast (CMS/HCC) 03/26/2025 Abstract [facility] Oncology and Hematology [facility] [address] [place] [address] Chalino Kraus MD 03/26/2025 Abstract [facility] Oncology and Hematology [facility] [address] [place] [address] Chalino Kraus MD 03/25/2025 External Device Data STL ABSTRACTION Provider, Abstract 03/25/2025 External Device Data STL ABSTRACTION Provider, Abstract 03/25/2025 External Device Data STL ABSTRACTION Provider, Abstract 03/25/2025 Orders Only [facility] Oncology and Hematology 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) 03/18/2025 11:11 PM CDT - 03/20/2025 4:16 PM CDT Hospital Encounter [facility] Oncology [address] [place] [address] Aba Carter MD Weitzel, MD Christine Easley Tiago, MD Chest wall abscess Discharge Disposition: Home or Self Care 03/18/2025 External Device Data STL ABSTRACTION Provider, Abstract 03/18/2025 Travel 03/17/2025 Orders Only [facility] Oncology and Hematology - Edu [address] [place] [phone] Chalino Kraus MD Chronic anemia; Inflammatory carcinoma of left breast (CMS/HCC) 03/14/2025 Orders Only [facility] Oncology and Hematology - Edu [address] [place] [address] Chalino Kraus MD 03/10/2025 Orders Only [facility] Oncology and Hematology - Edu [address] [facility] [place] [address] Chalino Kraus MD Inflammatory carcinoma of left breast (CMS/HCC) 03/06/2025 Orders Only [facility] Oncology and Hematology - Edu [address] [place] [address] Chalino Kraus MD 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) 03/04/2025 External Device Data STL ABSTRACTION Provider, Abstract 03/03/2025 Orders Only [facility] Oncology and Hematology - Edu [address] [place] [address] Chalino Kraus MD Chronic anemia; Inflammatory carcinoma of left breast (CMS/HCC) 02/28/2025 Orders Only [facility] Oncology and Hematology - Edu [address] [place] [address] Chalino Kraus MD 02/25/2025 Orders Only [facility] Oncology and Hematology - Edu [address] [place] [phone] Chalino Kraus MD 02/24/2025 Orders Only [facility] Oncology and Hematology - Edu [address] [place] [address] Chalino Kraus MD Inflammatory carcinoma of left breast (CMS/HCC) 02/21/2025 10:30 AM CDT Office Visit [facility] Oncology and Hematology - Edu [address] [place] [address] Chalino Kraus MD Cancer, metastatic to bone (CMS/HCC) (Primary Dx) 02/20/2025 External Device Data STL ABSTRACTION Provider, Abstract 02/19/2025 External Device Data STL ABSTRACTION Provider, Abstract 02/18/2025 External Device Data STL ABSTRACTION Provider, Abstract 02/17/2025 Orders Only [facility] Oncology and Hematology - Edu [address] [place] [address] Chalino Kraus MD Chronic anemia; Inflammatory carcinoma of left breast (CMS/HCC) 02/11/2025 Orders Only [facility] Oncology and Hematology - Edu [address] [place] [address] Chalino Kraus MD 02/10/2025 Orders Only [facility] Oncology and Hematology - Edu [address] [place] [phone] Chalino Kraus MD Inflammatory carcinoma of left breast (CMS/HCC) 02/07/2025 9:00 AM CDT Office Visit [facility] Oncology and Hematology - Edu [address] [place] [phone] Chalino Kraus MD Chronic anemia (Primary Dx) 02/07/2025 Orders Only [facility] Oncology and Hematology - Edu [address] [place] [phone] Chalino Kraus MD 02/03/2025 Orders Only [facility] Oncology and Hematology - [address] Chalino Kraus MD Chronic anemia; Inflammatory carcinoma of left breast (CMS/HCC) 01/31/2025 Orders Only [facility] Oncology and Hematology - Edu [address] [place] [phone] Chalino Kraus MD 01/29/2025 Abstract [facility] Oncology and Hematology - Edu [address] [place] [phone] Chalino Kraus MD 01/27/2025 Orders Only [facility] Oncology and Hematology - Edu [address] [place] [address] Chalino Kraus MD Inflammatory carcinoma of left breast (CMS/HCC) 01/24/2025 Orders Only [facility] Oncology and Hematology - [address] [place] [address] Chalino Kraus MD Chronic anemia (Primary Dx); Inflammatory carcinoma of left breast (CMS/HCC) 01/21/2025 Refill [facility] Oncology and Hematology - Edu [address] [place] [address] Chalino Kraus MD Inflammatory carcinoma of left breast (CMS/HCC) 01/17/2025 Orders Only [facility] Oncology and Hematology - Edu [address] [place] [address] Chalino Kraus MD 01/16/2025 Orders Only [facility] Oncology and Hematology - Edu [address] [place] [phone] Chalino Kraus MD 01/15/2025 Orders Only [facility] Oncology and Hematology - Edu [address] [place] [phone] Chalino Kraus MD 01/14/2025 External Device Data STL ABSTRACTION Provider, Abstract 01/13/2025 Orders Only [facility] Oncology and Hematology [facility] [address] [place] [phone] Chalino Kraus MD Inflammatory carcinoma of left breast (CMS/HCC) 01/10/2025 Orders Only [facility] Oncology and Hematology [facility] [address] [place] [phone] Chalino Kraus MD Need for hepatitis B screening test (Primary Dx) 01/09/2025 3:30 PM CDT Office Visit [facility] Oncology and Hematology 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); Chronic anemia; Cancer, metastatic to bone (CMS/HCC) 01/02/2025 9:04 AM CDT - 01/02/2025 11:59 PM CDT Hospital Encounter [facility] General Laboratory Services S [facility] [address] [place] [address] Chalino Kraus MD Discharge Disposition: Home or Self Care 01/02/2025 Abstract [facility] Oncology [facility] [address] [place] [address] Chalino Kraus MD 01/01/2025 Telephone [facility] Oncology and Hematology - Edu [address] Young[address] [place] [address] Chalino Kraus MD Add on PDL-1 12/31/2024 12:41 PM CDT - 12/31/2024 11:59 PM CDT Hospital Encounter [facility] Imaging Services [facility] [address] [place] [address] Domonique Banks MD Discharge Disposition: Home or Self Care 12/31/2024 Chart Note [facility] Breast Surgery [address] [place] [address] Isabella Avila RN from Last 3 Months Family History * [...] Sign Reading Time Taken Comments Blood Pressure 126/74 03/24/2025 4:16 PM CDT Pulse 104 03/24/2025 4:16 PM CDT Temperature 36.3 C (97.4 F) 03/21/2025 8:46 AM CDT Respiratory Rate 15 03/21/2025 8:46 AM CDT Oxygen Saturation 97% 03/24/2025 4:16 PM CDT Inhaled Oxygen Concentration - - Weight 94.3 kg (208 lb) 03/24/2025 4:16 PM CDT Height 177.8 cm (5' 10) 03/24/2025 4:16 PM CDT Body Mass Index 29.84 03/24/2025 4:16 PM CDT Plan of Treatment Upcoming Encounters Date Type Department Care Team (Late st Contact Info) Description 04/03/2025 8:30 AM CDT Office Visit [facility] Oncology and Hematology - Edu [address] [facility] [address] [place] [address] Chalino Kraus MD [address] [facility] [address] [place] [address] Health Maintenance Due Date Last [...] (#1) 2024 Medical Devices Implanted Type Area Psychiatry Resident Device Identifier Shelf Expiration Date Model / Serial / Lot Clip [place] [id number] - Csc - [id number] Implanted:Qty: 1 on 12/10/2024 by Migdalia Solorzano MD at [facility] [place] Left: Breast [employer] 04/28/2029 [id number] / / [id number] Port-06/24/2024 Implanted:06/03 (Quantity not on file) Port Chest [employer] / [id number] / [id number] Description:implanted at [facility] Procedures Procedure Name Priority Date/Time Associated Diagnosis Comments DIFFERENTIAL, MANUAL Routine 03/20/2025 5:40 AM CDT C-REACTIVE PROTEIN Routine 03/20/2025 5: 40 AM CDT BASIC METABOLIC PANEL Routine 03/20/2025 5:40 AM CDT CBC WITH DIFFERENTIAL Routine 03/20/2025 5:40 AM CDT DIFFERENTIAL, MANUAL Routine 03/19/2025 11:10 PM CDT BASIC METABOLIC PANEL Routine 03/19/2025 11:10 PM CDT CBC WITH DIFFERENTIAL Routine 03/19/2025 11:[address] GUIDE PERCUT DRAIN W CATH Routine 03/19/2025 12:00 PM CDT ANAEROBIC/AEROBIC CULTURE W GRAM STAIN Routine 03/19/2025 11:36 AM CDT WOUND CULTURE WITH GRAM STAIN Routine 03/19/2025 12:54 AM CDT COMPREHENSIVE METABOLIC PANEL Routine 03/07/2025 1:48 PM [...] CDT from Last 3 Months Results * MANUAL DIFFERENTIAL (03/20/2025 5:40 AM CDT) Only the most recent of2 resultswithin the time period is included. PLATELET EST. Consistent w Count 03/20/2025 7:11 AM CDT [facility] ANISOCYTOSIS 2+ /hpf 03/20/2025 7:11 AM CDT [facility] POIKILOCYTES 2+ /hpf 03/20/2025 7:11 AM CDT [facility] MICROCYTES 1+ /hpf 03/20/2025 7:11 AM CDT [facility] TARGET CELLS 1+ /hpf 03/20/2025 7:11 AM CDT [facility] OVALOCYTES 1+ /hpf 03/20/2025 7:11 AM CDT [facility] Blood Venipuncture / Unknown 03/20/2025 5:40 AM CDT 03/20/2025 6:12 AM CDT Rita Arrieta MD HEMATOLOGY ORDERABLES COM Final Result [facility] [employer] [facility] CLIA# [id number] [address] [facility] [address] [address] * (ABNORMAL) CBC WITH DIFFERENTIAL (03/20/2025 5:40 AM CDT) Only the most recent of3 resultswithin the time period is included. WBC 5.5 4.0 - 9.8 K/uL 03/20/2025 6:34 AM [facility] RBC 4.97(H) 3.90 - 4.90 M/uL 03/20/2025 6:34 AM T [facility] HEMOGLOBIN 10.7(L) 11.8 - 14.8 g/dL 03/20/2025 6:34 AM T [facility] HEMATOCRIT 35.5 35.5 - 44.0 % 03/20/2025 6:34 AM CDT [facility] MCV 71.4(L) 82.0 - 99.0 fL 03/20/2025 6:34 AM T [facility] MCH 21.5(L) 27.2 - 32.6 pg 03/20/2025 6:34 AM CDT [facility] MCHC 30.1(L) 31.5 - 35.5 g/dL 03/20/2025 6:34 AM CDT [facility] RDW 22.4(H) 11.5 - 14.5 % 03/20/2025 6:34 AM CDT [facility] RDW-STDEV 55.3(H) 37.1 - 48.7 fL 03/20/2025 6:34 AM CDT [facility] PLATELETS 326 140 - 350 K/uL 03/20/2025 6:34 AM CDT [employer] - [facility] MPV 9.9 9.3 - 12.4 fL 03/20/2025 6:34 AM CDT [facility] - . [facility] NEUTROPHILS 65 % 03/20/2025 6:34 AM CDT [facility] - . [facility] LYMPHOCYTES 12 % 03/20/2025 6:34 AM CDT [facility] - . [facility] MONOCYTES 18 % 03/20/2025 6:34 AM CDT [facility] EOSINOPHILS 3 % 03/20/2025 6:34 AM CDT [facility] . [facility] BASOPHILS 1 % 03/20/2025 6:34 AM CDT [facility] - . [facility] IMMATURE GRANULOCYTES 1 % 03/20/2025 6:34 AM CDT [facility] - [facility] Comment:IG (Immature Granulo cyte) count includes Metamyelocytes, Myelocytes, and Promyelocytes NEUTROPHIL ABSOLUTE 3.59 1.90 - 7.00 K/uL 03/20/2025 6:34 AM CDT [facility] - . [facility] LYMPHOCYTE ABSOLUTE 0.68(L) 0.70 - 4.50 K/uL 03/20/2025 6:34 AM CDT [facility] - . [facility] MONOCYTE ABSOLUTE 0.98 0.10 - 1.30 K/uL 03/20/2025 6:34 AM CDT [facility] - . [facility] EOSINOPHIL ABSOLUTE 0.14 0.00 - 0.70 K/uL 03/20/2025 6:34 AM T [facility] - . [facility] BASOPHILS ABSOLUTE 0.07 0.00 - 0.20 K/uL 03/20/2025 6:34 AM T [facility] - . [facility] IMMATURE GRANULOCYTES ABSOLUTE 0.03 0.00 - 0.03 K/uL 03/20/2025 6:34 AM [facility] - [facility] Blood Venipuncture / Unknown 03/20/2025 5:40 AM CDT 03/20/2025 6:12 AM CDT us Rita Arrieta MD HEMATOLOGY ORDERABLES Silvana l Result Performing Organization Address City/[facility]/ZIP Co de Phone Number [facility] LABORATORY SERVICES [facility] CLIA# [id number] [address] [place] [address] * (ABNORMAL) C-REACTIVE PROTEIN (03/20/2025 5:40 AM CDT) CRP 20.6(H) <5.0 mg/L 03/20/2025 6:58 AM CDT [facility] Blood Venipuncture / Unknown 03/20/2025 5:40 AM CDT 03/20/2025 6:12 AM CDT Pina Giraldo NP CHEMISTRY ORDERABLES Rye lerma Result Performing Organization Address [facility]/ZIP Co de Phone Number [facility] [employer] [facility] CLIA# [id number] [address] [place] [address] * (ABNORMAL) BASIC METABOLIC PANEL (03/20/2025 5:40 AM CDT) Only the most recent of10 resultswithin the time period is included. SODIUM 138 136 - 145 mmol/L 03/20/2025 6:58 AM CDT [facility] POTASSIUM 4.2 3.5 - 5.0 mmol/L 03/20/2025 6:58 AM CDT [facility] - [facility] CHLORIDE 102 98 - 107 mmol/L 03/20/2025 6:58 AM CDT [facility] CO2 24 22 - 29 mmol/L 03/20/2025 6:58 AM CDT [facility] - . [facility] CALCIUM 8.8 8.6 - 10.2 mg/dL 03/20/2025 6:58 AM CDT [facility] - . [facility] BUN 10 6 - 20 mg/dL 03/20/2025 6:58 AM CDT [facility] - . [facility] CREATININE 0.52 0.51 - 0.95 mg/dL 03/20/2025 6:58 AM CDT [facility] - . [facility] GLUCOSE 102(H) 74 - 99 mg/dL 03/20/2025 6:58 AM CDT [facility] LABORATORY [facility] GFR >60 >=60 mL/min/1.7 3 sq meter 03/20/2025 6:58 AM T [facility] Comment:eGFR calculated with 2020 CKD-EPI equation. Vegetarian diet, extremely high or low muscle mass, and may affect results. Cystatin C with Glomerular Filtration Rate is a suitable alternative for these patients. ANION GAP 12 8 - 16 mmol/L 03/20/2025 6:58 AM CDT [facility] LABORATORY [facility] Blood Venipuncture / Unknown 03/20/2025 5:40 AM CDT 03/20/2025 6:12 AM CDT us Rita Arrieta MD CHEMISTRY ORDERABLES Final Result [facility]# [id number] [address] [place] [address] * CT GUIDE PERCUT DRAIN W CATH (03/19/2025 12:00 PM CDT) Anatomical Region Laterality Modality Computed Tomogra phy 03/19/2025 11:1 5 AM CDT Impressions 03/19/2025 2:04 PM CDT IMPRESSION: Successful percutaneous drainage catheter placement in the left chest wall fluid collection. 60 mL sanguinous fluid was aspirated with sample sent for laboratory evaluation. DICTATION LOCATION: Location 1 - [facility] The examination was performed with the adjustment of mA according to the patient size and/or the use of Iterative Reconstruction Technique. Narrative 03/19/2025 2:[address] GUIDED LEFT CHEST WALL SUBCUTANEOUS DRAINAGE CATHETER PLACEMENT TIME/DATE: 03/19/2025 12:00 PM. CLINICAL INFORMATION & INDICATION: Female of 54 years age presenting for percutaneous drainage of postmastectomy left chest wall fluid collection. IR: Cy Love M.D. CONSENT: The indications, procedures, benefits, and risks (including but not limited to infection and bleeding) were discussed with the patient/patient's proxy and informed consent was obtained per protocol. SEDATION: Local anesthetic with lidocaine 1%. TECHNIQUE: Patient identification and preprocedural timeout was performed per protocol. Maximum sterile technique was utilized for all aspects of the procedure. CT imaging of the chest was performed. The overlying subcutaneous tissues were infiltrated with local anesthetic and the collection was accessed percutaneously with a [address] guidance. The tract was dilated over a guidewire and a 10 Turkish drainage catheter was placed. CT imaging was performed to confirm catheter positioning. The catheter was secured to the skin with suture and connected to a gravity bag. At the end of the procedure, a sterile dressing was applied. The patient tolerated the procedure well. MEDICATIONS: Fentanyl [address] DOSE LENGTH PRODUCT: 562.9 mGy-cm ESTIMATED BLOOD LOSS: 3 mL COMPLICATIONS: None FINDINGS: Preprocedural CT imaging demonstrates a safe percutaneous path to the left chest wall fluid collection. Completion CT imaging demonstrates well-positioned drainage catheter within the collection. Procedure Note Abundio Love MD - 03/19/2025 CT GUIDED LEFT CHEST WALL SUBCUTANEOUS DRAINAGE CATHETER PLACEMENT TIME/DATE: 03/19/2025 12:00 PM. CLINICAL INFORMATION & INDICATION: Female of 54 years age presenting for percutaneous drainage of postmastectomy left chest wall fluid collection. IR: Cy Love M.D. CONSENT: The indications, procedures, benefits, and risks (including but not limited to infection and bleeding) were discussed with the patient/patient's proxy and informed consent was obtained per protocol. SEDATION: Local anesthetic with lidocaine 1%. TECHNIQUE: Patient identification and preprocedural timeout was performed per protocol. Maximum sterile technique was utilized for all aspects of the procedure. CT imaging of the chest was performed. The overlying subcutaneous tissues were infiltrated with local anesthetic and the collection was accessed percutaneously with a [address] guidance. The tract was dilated over a guidewire and a 10 Turkish drainage catheter was placed. CT imaging was performed to confirm catheter positioning. The catheter was secured to the skin with suture and connected to a gravity bag. At the end of the procedure, a sterile dressing was applied. The patient tolerated the procedure well. MEDICATIONS: Fentanyl [address] DOSE LENGTH PRODUCT: 562.9 mGy-cm ESTIMATED BLOOD LOSS: 3 mL COMPLICATIONS: None FINDINGS: Preprocedural CT imaging demonstrates a safe percutaneous path to the left chest wall fluid collection. Completion CT imaging demonstrates well-positioned drainage catheter within the collection. IMPRESSION: Successful percutaneous drainage catheter placement in the left chest wall fluid collection. 60 mL sanguinous fluid was aspirated with sample sent for laboratory evaluation. DICTATION LOCATION: Location 1 - [facility] The examination was performed with the adjustment of mA according to the patient size and/or the use of Iterative Reconstruction Technique. Abundio Love MD CT ORDERABLES Final R esult * ANAEROBIC/AEROBIC CULTURE W GRAM STAIN (03/19/2025 11:36 AM CDT) CULTURE No aerobic or anaerobic growth 03/24/2025 7:08 AM CDT [facility] [employer] [facility] GRAM STAIN No organisms observed 03/24/2025 7:08 AM CDT [facility] [employer] [facility] GRAM STAIN 3+ (Moderate) Polymorphonuclear WBC 03/24/2025 7:08 AM CDT [facility] [employer] [facility] Body fluid THORACIC STRUCTURE / Unknown Collection / Unknown 03/19/2025 11:36 AM CDT 03/19/2025 12:23 PM CDT Abundio Love MD MICROBIOLOGY - GENERAL ORDERABLES Final Result Performing Organization Address City/State/[facility] Co de Phone Number [facility]# [id number] [address] [place] [address] * (ABNORMAL) WOUND (AEROBIC) CULTURE WITH GRAM STAIN (03/19/2025 12:54 AM CDT) CULTURE STAPHYLOCOCCUS AUREUS(A) JAYSON MCG/ML 03/21/2025 9:43 AM CDT [facility] [employer] [facility] GRAM STAIN No organisms observed 03/21/2025 9:43 AM CDT [facility] [employer] [facility] GRAM STAIN 3+ (Moderate) Polymorphonuclear WBC 03/21/2025 9:43 AM CDT [facility] [employer] [facility] Wound THORACIC STRUCTURE / Unknown Collection / Unknown 03/19/2025 12:54 AM CDT 03/19/2025 12:59 AM CDT Narrative Organism Antibiotic Method Susceptibility Staphylococcus aureus OXACILLIN (Nafcillin) JAYSON MCG/ML 0.5 mcg/mL: Susceptible Comment:Oxacillin (N afcillin) susceptible Staphylococcus species are predictably susceptible to cefazolin, ceftriaxone, cephalexin, and amoxicillin-clavulanate Staphylococcus aureus VANCOMYCIN JAYSON MCG/ML <=0.5 mcg/mL: Susceptible Staphylococcus aureus CLINDAMYCIN JAYSON MCG/ML 0.25 mcg/mL: Susceptible Staphylococcus aureus DOXYCYCLINE JAYSON MCG/ML <=0.5 mcg/mL: Susceptible Staphylococcus aureus TRIMETHOPRIM/ SULFAMETHOXAZOLE JAYSON MCG/ML <=10 mcg/mL: Susceptible Staphylococcus aureus RIFAMPIN JAYSON MCG/ML <=0.5 mcg/mL: Susceptible Comment:Rifampin aubree uld NOT be used alone for antimicrobial therapy. Rita Arrieta MD MICROBIOLOGY - GENERAL ORD ERABLES Final Result [facility]# [id number] [address] [facility] [facility] [place] [address] * COMPREHENSIVE METABOLIC PANEL (03/07/2025 1:48 PM CDT) Only the most recent of7 resultswithin the time period is included. Blood Chalino Kraus MD CHEMISTRY ORDERABLES Final Resu lt * CBC WITH AUTODIFFERENTIAL (02/07/2025 1:25 PM CDT) Blood Chalino Kraus MD HEMATOLOGY ORDERABLES Final Res ult * CHG CA 15 3 (01/31/2025 2:16 PM CDT) Chalino Kraus MD CHG - LABORATORY Final Result * CANCER ANTIGEN 15-3 (01/14/2025 1:45 PM CDT) Blood us Chalino Kraus MD CHEMISTRY ORDERABLES Final Resu lt * QUANTIFERON TB CONFIRMATION (01/14/2025 12:13 PM CDT) Blood us Chalino Kraus MD CHEMISTRY ORDERABLES Final Resu lt * CBC MIXED CELL DIFFERENTIAL (01/09/2025 3:09 PM CDT) Blood us Chalino Kraus MD HEMATOLOGY ORDERABLES Final Res ult * PATHOLOGY REPORT (01/09/2025 11:42 AM CDT) Result Miryam Kraus MD PATHOLOGY/CYTOLOGY ORDERABLES F inal Result * PATHOLOGY (01/02/2025 9:06 AM CDT) CASE REPORT Surgical Pathology Report Case: [id number] Authorizing Provider: Chalino Kraus MD Collected: 01/02/2025 09:06 AM Ordering Location: [facility] Received: 01/02/2025 09:06 AM Services [facility] Pathologist: Tram Miranda MD Specimen: Other, specify 5 1:18 PM CDT [facility] FINAL DIAGNOSIS A request for PD-L1 22C3 FDA (Keytruda) for TNBC (Breast) was received 01/01/[address] Chalino Kraus. This test was performed on tissue from case [id number]. The case report, slides, and blocks for this case were retrieved from archives. The pathologist reviewed the original pathology report, examined candidate slides, and selected the most appropriate block(B1). This selected material was forwarded to [facility] where the test was performed. Please see hyperlink below for scan of outside report. The PD-L1 results are as follows: - Combined positive score: 10 5 1:18 PM CDT [facility] at 1318 CDT CLINICAL INFORMATION Z01.89 - Encounter for laboratory test [ICD-10-CM] 1:18 PM CDT [facility] COMMENT Special stain, immunohistochemical, and/or in situ hybridization results are interpreted with controls that demonstrate appropriate staining reactions. Note on use of immunohistochemistry reagents and in situ hybridization probes: These tests were developed and their performance characteristics determined by [facility], Department of Laboratory Medicine. It has not [...] part or completely in the following laboratories: [facility], CLIA #[id number] [address] [place] [address] [facility] #[id number] [address] [place] [id number] [place] [address], [place] #[id number] [address] [place] [address] This report was created with the [employer] voice-activated dictation system. Inherent to this system is the possibility of syntax, grammar, punctuation and other errors that could impact the interpretation of the report. If there are interpretative questions about aspects of this report, please contact the performing pathologist. 1:18 PM CDT [facility] Tissue (Other, specify) 01/02/2025 9:06 AM CDT 01/02/2025 9:06 AM CDT Chalino Kraus MD PATHOLOGY/CYTOLOGY ORDERABLES F inal Result [facility] CLIA# [id number] [address] [place] [address] * PET TUMOR OR INFECTION IMG W [...] thoracic spine and cervical spine. DICTATION LOCATION: [address] 12/31/2024 3:38 PM CDT PET/COMPUTED TOMOGRAPHY FUSION [...] atrium. Lung windows show clear peripheral lung crapenter. The upper abdomen shows no mass in [...] thoracic spine and cervical spine. DICTATION LOCATION: [address] us Domonique Banks MD PE ORDERABLES Final Result * (ABNORMAL) POC GLUCOSE (12/31/2024 1:27 PM CDT) GLUCOSE POC 101(H) 74 - 99 mg/dL 12/31/2024 1:27 PM CDT [facility] - [facility] [place] SPECIMEN SOURCE, GLUCOSE POC Whole Blood 12/31/2024 1:27 PM CDT [facility] [place] Blood, whole 12/31/2024 1:27 PM CDT 12/31/2024 1:34 PM CDT us Domonique Banks MD POINT OF CARE TESTING Final Res ult [facility] ON[facility] - [facility] [place] CLIA#[id number] [address] [place] [address] from Last 3 Months Insurance mii [facility] [employer] [facility] RX [employer] RX Member Subscriber Plan / Payer (Ef fective 2024-Present) Name:Janae Solis Relation to Subscriber:Self Name:Janae Solis Payer ID:Not on file Group ID:[id number] Type:RX Commercial Address: [address] Advance Directives For more information, please contact: [phone] * Full Code (Latest Code Status on File) Date Activated Date Inactivated Comments 03/19/2025 12:38 AM 03/20/2025 6:35 PM * Full Code Date Activated Date Inactivated Comments 11/27/2024 6:24 PM 11/28/2024 4:27 PM Care Teams Editor Map Relationship Specialty Start Date End Date Paul Delarosa MD [address] [facility] [address] [place] [address] PCP - General Family Practice 10/16/24
--- OUTSIDE RECORDS SUMMARY | 2025-04-01 09:50 | XMS_ITS | Encounter Summary ---
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
--- OUTSIDE RECORDS SUMMARY | 2025-04-01 09:50 | XMS_ITS | Encounter Summary ---
Author Organization 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
--- OUTSIDE RECORDS SUMMARY | 2025-04-01 09:50 | XMS_ITS | Encounter Summary ---
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
--- OUTSIDE RECORDS SUMMARY | 2025-04-01 09:50 | XMS_ITS | Referral Summary ---
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
== END 2025-04-01 09:37 | disposition home or self-care (01) ==
PROVIDERS: PCP Family Medicine; Visit Provider Internal Medicine Hematology & Oncology
DX: C50.912 Malignant neoplasm of unspecified site of left female breast (principal); R59.1 Generalized enlarged lymph nodes; L76.34 Postprocedural seroma of skin and subcutaneous tissue following other procedure; Z90.13 Acquired absence of bilateral breasts and nipples
CPT/HCPCS: 78815; A9552

== ENCOUNTER 2025-05-06 16:26 | Observation (INO) | payer OTHER, SELFPAY ==
--- NOTE | ~2025-05-06 | XR_ITS ---
Portable chest x-ray Comparison: 05/07/2025 Clinical History: Pleural effusion Findings: Right-sided Mediport is in place. Possible minimal haziness right lung base. Left lung phil ar. Cardiomediastinal silhouette is stable. Bones and soft tissues are unremarkable. Impression: Possible minimal haziness right lung base, nonspecific. Right-sided Mediport. Reviewed, dictated and finalized at location M. Impression: Possible minimal haziness right lung base, nonspecific. Right-sided Mediport.
--- NOTE | ~2025-05-06 | CT_ITS ---
EXAMINATION: CTA chest PE abdomen pel DATE: 05/06/2025 21:11 CDT INDICATION: Elevated d-dimer with shortness of breath and jaundice. Personal history of breast cancer , initially diagnosed in 2009 with aggressive recurrence in June 2024 with inflammatory breast c ancer post bilateral mastectomy with extensive lymphovascular invasion, and widespread metastatic dis ease on most recent head CT dated 04/01/2025. TECHNIQUE: Computed tomographic angiography (CTA) of the chest was performed, along with multiple con tiguous axial images of the abdomen and pelvis with 100 mL Omnipaque-350 intravenous contrast. The do se-length product was 1678.90 mGy-cm. Maximum intensity projection 3D-reconstructions of the aorta an d other arteries were constructed by the technologist on a separate workstation. FINDINGS/OBSERVATIONS: PULMONARY ARTERIES: No filling defect is identified within the main or proximal pulmonary artery. The main pulmonary artery is not enlarged. THORACIC AORTA: No aneurysmal dilatation or dissection is present. The great vessels are intact LUNGS: Large left and moderate right-sided pleural effusions with adjacent compressive atelectasis. Only a small portion of the left upper and the right upper and middle lobes are aerated. Post bilateral mastectomy with small anterior chest wall with (likely) seromas MEDIASTINUM: Multiple morphologically suspicious and pathologically enlarged lymph nodes within the m ediastinum, retropectoral left chest and bilateral axilla. BONES OF THE CHEST: Acute fracture of the lateral margin of the right fourth rib. No significant degenerative disease. Extensive lytic and blastic lesions within the visualized osseous structures consistent with patient' s history. Multiple prior fracture deformities within the posterior upper ribs with callus formation. No additional acute rib fractures HEART: The heart is of normal size, without pericardial effusion. Right internal jugular central veno us catheter identified extending into the proximal right atrium. LIVER: Multiple areas of decreased attenuation are identified within the liver, presumably diffuse me tastatic disease No intrahepatic biliary ductal dilatation is appreciated. GALLBLADDER AND BILIARY SYSTEM: The gallbladder is only minimally distended, contains a single calcification and otherwise unremarkab le. PANCREAS: The pancreas enhances homogeneously without ductal dilatation. SPLEEN: The spleen enhances homogeneously and is not enlarged measuring 8 cm in longitudinal dimension. KIDNEYS: Global enlargement of the bilateral kidneys with bilateral hydroureteronephrosis, right greater than left. ADRENAL GLANDS: Unremarkable. GASTROINTESTINAL TRACT: Fecal stasis within the cecum and rectum APPENDIX: The air-filled appendix is of normal caliber (axial series, images 89 through 112) VASCULATURE: Unremarkable. No aneurysmal dilatation or significant stenosis. LYMPH NODES: Diffuse pathologically enlarged and morphologically suspicious lymph nodes within the retroperitoneum and at the root of the mesentery. PELVIC STRUCTURES: The bladder is decompressed, and otherwise unremarkable. The uterus is bulky and irregular and demonstrates mass effect upon the bilateral distal ureters, lik bhavani the cause of patient's bilateral hydroureteronephrosis. BODY WALL AND MUSCULOSKELETAL: Moderate anasarca. Multiple lytic and blastic lesions within the visualized osseous structures, consistent with patient' s known diffuse metastatic disease. IMPRESSION: Findings consistent with significant progression of patient's known diffuse metastatic disease, now w ith bilateral hydroureteronephrosis secondary to mass effect from the patient's uterus as well as mul tiple lesions within the liver. Reviewed, dictated and finalized at location A. IMPRESSION: Findings consistent with significant progression of patient's known diffuse met astatic disease, now with bilateral hydroureteronephrosis secondary to mass eff ect from the patient's uterus as well as multiple lesions within the liver.
--- NOTE | ~2025-05-06 | XR_ITS ---
EXAMINATION: [id number] DATE: 05/07/2025 11:14 INDICATION: Status post left thoracentesis TECHNIQUE: frontal view of the chest was obtained. COMPARISON: Chest radiograph dated 05/06/2025 FINDINGS: Interval decrease in size of a small left pleural effusion post left thoracentesis. No interval polk e in a small right pleural effusion. Mild bibasilar opacities and favor atelectasis over pneumonia. N o pneumothorax. Heart size is normal. Right internal jugular central venous port catheter with distal tip at the superior cavoatrial junction. There is suggestion of a delayed left nephrogram and contra st filled hydronephrosis at the left kidney likely resulting from the contrast enhanced CT from one d ay prior and suggesting more distal obstruction, new since PET/CT dated 04/01/2025. IMPRESSION: 1. Small bilateral pleural effusions with likely mild bibasilar atelectasis, decreased in size in the left post left thoracentesis. No pneumothorax. 2. Suggestion of left delayed nephrogram and hydronephrosis of indeterminate etiology. Could consider either renal ultrasound for confirmation or noncontrast CT of the abdomen and pelvis for confirmatio n and to better assess for potential obstructing lesion. Reviewed, dictated and finalized at location A. IMPRESSION: 1. Small bilateral pleural effusions with likely mild bibasilar atelectasis, de creased in size in the left post left thoracentesis. No pneumothorax. 2. Suggestion of left delayed nephrogram and hydronephrosis of indeterminate et iology. Could consider either renal ultrasound for confirmation or noncontrast CT of the abdomen and pelvis for confirmation and to better assess for potentia l obstructing lesion.
--- NOTE | ~2025-05-06 | US_ITS ---
EXAMINATION:US venous doppler UE BI INDICATION:Pain and swelling TECHNIQUE: Multiple grayscale, color flow and Doppler images of the bilateral upper extremity deep ve nous systems were obtained and reviewed. COMPARISON:None FINDINGS: The right jugular, subclavian, axillary, brachial, basilic, cephalic, radial and ulnar vein s demonstrate normal respiratory variation, augmentation and compressibility. Color flow is also se en within the right jugular, subclavian, axillary, brachial, basilic, cephalic and radial veins. The left jugular, subclavian, cephalic, radial and ulnar veins demonstrate normal respiratory variat ion, augmentation and compressibility. Color flow is also seen within the left jugular, subclavian, cephalic and radial veins. Noncompressibility and absence of flow within the left axillary, brachial and basilic veins IMPRESSION: Upper extremity deep venous thrombosis within the left axillary, brachial and basilic vei ns. Reviewed, dictated and finalized at location A. IMPRESSION: Upper extremity deep venous thrombosis within the left axillary, br achial and basilic veins.
--- NOTE | ~2025-05-06 | US_ITS ---
EXAMINATION: US venous doppler [facility] DATE: 05/07/2025 17:04 INDICATION: Edema TECHNIQUE: Grayscale ultrasound images without and with compression and Doppler ultrasound images of the bilateral lower extremity veins were obtained. COMPARISON: None. FINDINGS: The visualized portions of right common femoral vein, profunda (deep) femoral vein, femoral vein, pop liteal vein, peroneal veins, posterior tibial veins, and greater saphenous vein outflow are patent. The visualized portions of left common femoral vein, profunda femoral vein, femoral vein, popliteal v ein, peroneal veins, posterior tibial veins, and greater saphenous vein outflow are patent. IMPRESSION: 1. No deep venous thrombosis. Reviewed, dictated and finalized at location A.
--- NOTE | ~2025-05-06 | US_ITS ---
EXAMINATION: US thoracentesis DATE: 05/07/2025 11:26 INDICATION: Left pleural effusion is fusion TECHNIQUE: The procedure and its risks and benefits were discussed with the patient. Potential risks discussed included bleeding, infection, and pneumothorax. The patient understood the risks and agreed to proceed. The skin was prepped and draped in sterile fashion. 1% lidocaine was used for local anes thesia. Under ultrasound guidance, a 5 Fr catheter with trochar was advanced into the left pleural ef fusion. Fluid was aspirated. The catheter was removed, and a dressing was applied. There were no imme diate complications. FINDINGS: Ultrasound images demonstrate a moderate-sized left pleural effusion and the catheter within the flui d. IMPRESSION: 1. Successful ultrasound-guided thoracentesis yielding 1100 mL of cloudy myke-colored fluid. Reviewed, dictated and finalized at location A. IMPRESSION: 1. Successful ultrasound-guided thoracentesis yielding 1100 mL of cloudy myke -colored fluid.
--- NOTE | ~2025-05-06 | XR_ITS ---
CHEST RADIOGRAPH, PA AND LATERAL CLINICAL HISTORY: cp, sob . COMPARISON: 06/24/2024 TECHNIQUE: PA and lateral views of the chest. FINDINGS Right internal jugular central venous catheter identified with its tip projecting over the proximal r ight atrium. The remainder of the cardiomediastinal silhouette is partially obscured and otherwise unremarkable. Large left-sided pleural effusion, an interval change from prior. Blunting of the right costophrenic sulcus suggesting a small right-sided pleural effusion. The remainder of the lungs are clear. IMPRESSION: Large left and small right-sided pleural effusion. Reviewed, dictated and finalized at location A.
[2025-05-06 16:27] VITALS: BP 147/95; PULSE 119; RESP 20; TEMP 36.7; O2SAT 98
--- OUTSIDE RECORDS SUMMARY | 2025-05-06 16:28 | XMS_ITS | Encounter Summary ---
Author Organization [facility] [employer] [facility] Address [address] [place] [address] Care Team Providers Care Break Off Worker Name Role Phone Paul Delarosa MD Primary Care Provider [phone] Reason for Visit * Reason Onset Date Comments Medication Refill 05/06/2025 Encounter Details Date Type Department Care Team (Late Contact Info) Description 05/06/2025 Refill [facility] Oncology and Hematology [address] [place] [address] Chalino Kraus MD [address] [place] [address] Inflammatory carcinoma of left breast (CMS/HCC) Social History Tobacco Use Types Packs/Day Years Used Date Smoking Tobacco: Former Cigarettes 1 20 Q uit: 06/17/2018 Alcohol Use Standard Drinks/Week Comments Yes 4 (1 standard drink = 0.6 oz pur e alcohol) Comments No Sex and Gender Information Value Date Recorded Sex Assigned at Not on file Legal Sex Female 10:17 AM CDT Gender Identity Not on file Sexual Orientation Not on file documented as of this encounter Plan of Treatment Upcoming Encounters Date Type Department Care Team (Late Contact Info) Description 2025 12:00 PM CDT Office Visit [facility] Oncology and Hematology [address] [place] [address] Chalino Kraus MD [address] [place] [address] documented as of this encounter Visit Diagnoses Diagnosis Inflammatory carcinoma of left breast (CMS/HCC) documented in this encounter Care Teams Break Off Worker Relationship Specialty Start Date End Date Paul Delarosa MD [address] [facility] [address] [place] [address] PCP - General Family Practice 10/16/24 documented as of this encounter
--- OUTSIDE RECORDS SUMMARY | 2025-05-06 16:28 | XMS_ITS | Encounter Summary ---
Author Organization [facility] [employer] [facility] Address [address] [place] [address] Care Team Providers Care X Ray Equipment Tester Name Role Phone Paul Delarosa MD Primary Care Provider Encounter Details Date Type Department Care Team (Late st Contact Info) Description 05/05/2025 Orders Only [facility] Oncology and Hematology [facility] [address] [place] [address] Chalino Kraus MD [address] [place] [address] Inflammatory carcinoma of left breast [...] Care Team (Late st Contact Info) Description 2025 12:00 PM CDT Office Visit [facility] Oncology and Hematology - [address] [place] [address] Chalino Kraus MD [address] [place] [address] documented as of this encounter Visit Diagnoses Diagnosis Inflammatory carcinoma of left breast (CMS/HCC) documented in this encounter Care Teams X Ray Equipment Tester Relationship Specialty Start Date End Date Paul Delarosa MD [address] [facility] [address] [facility] [address] [place] [address] PCP - General Family Practice 10/16/24 documented as of this encounter
--- OUTSIDE RECORDS SUMMARY | 2025-05-06 16:29 | XMS_ITS | Encounter Summary ---
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
--- OUTSIDE RECORDS SUMMARY | 2025-05-06 16:29 | XMS_ITS | Encounter Summary ---
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
--- OUTSIDE RECORDS SUMMARY | 2025-05-06 16:29 | XMS_ITS | Encounter Summary ---
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
--- OUTSIDE RECORDS SUMMARY | 2025-05-06 16:29 | XMS_ITS | Encounter Summary ---
Author Organization 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
--- OUTSIDE RECORDS SUMMARY | 2025-05-06 16:29 | XMS_ITS | Encounter Summary ---
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
--- OUTSIDE RECORDS SUMMARY | 2025-05-06 16:29 | XMS_ITS | Encounter Summary ---
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
--- OUTSIDE RECORDS SUMMARY | 2025-05-06 16:29 | XMS_ITS | Encounter Summary ---
Author Organization 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
--- OUTSIDE RECORDS SUMMARY | 2025-05-06 16:29 | XMS_ITS | Encounter Summary ---
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
--- OUTSIDE RECORDS SUMMARY | 2025-05-06 16:29 | XMS_ITS | Encounter Summary ---
Author Organization 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 [address] [place] [address] Consulting Physician Medical Oncology 06/18/24 documented as of this encounter
--- OUTSIDE RECORDS SUMMARY | 2025-05-06 16:29 | XMS_ITS | Encounter Summary ---
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
--- OUTSIDE RECORDS SUMMARY | 2025-05-06 16:29 | XMS_ITS | Encounter Summary ---
Author Organization 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
--- OUTSIDE RECORDS SUMMARY | 2025-05-06 16:29 | XMS_ITS | Encounter Summary ---
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
--- OUTSIDE RECORDS SUMMARY | 2025-05-06 16:29 | XMS_ITS | Clinical Summary ---
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 Gender Identity Not on file Sexual Orientation [...] (1 of 2) 2022 Influenza Vaccine (#1) 2025 DTaP/Tdap/Td Vaccine (2 - Td or Tdap) 02/18/2031 02/18/2021 Pneumococcal vaccine <65 Aged Out No longer eligible based on patient's age to complete this topic Insurance [facility] CHOICE PLUS [place] [id number] Care Teams Case Making Machine Operator Relationship Specialty Start Date End Date Evi Avila MD [address] [facility] [address] [place] [address] PCP - General Family Medicine 06/15/24 Fa'Randall walters MD [address] [facility] [address] [place] [address] Consulting Physician Medical Oncology 06/18/24
--- OUTSIDE RECORDS SUMMARY | 2025-05-06 16:29 | XMS_ITS | Encounter Summary ---
Author Organization 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
--- OUTSIDE RECORDS SUMMARY | 2025-05-06 16:29 | XMS_ITS ---
Author Organization [facility] Address [address] [place] [address] Care Team Providers Care Assistant Service Manager Name Role Phone Paul Delarosa MD Primary Care Provider [phone] Active Problems Problem Noted Date Diagnosed Date [...]
--- OUTSIDE RECORDS SUMMARY | 2025-05-06 16:29 | XMS_ITS | Continuity of Care Document ---
Author Name [facility] Organization [facility] Care Team Providers Care K 9 Handler/ Deputy Name Role Phone [facility] Unavailable Unavailable Problems Combined list of problems from Department of Defense and Veterans Affairs facilities. It does not include entries that were removed or entered in error. Problem Status Onset Date Problem Type Date of Resolution Comments Source Cervical Pap Smear Inactive Condition Do D MEDIASTINAL MASSES LYMPHADENOPATHY Active Condition NO [facility] visit for: screening exam for malignant neoplasm cervix Inactive Condition [facility] Cervix Sample Taken For Pap Smear Active Condition [facility] visit for: screening exam malignant neoplasm breast Inactive Condition [facility] VAGINITIS Active Condition [facility] VAGINITIS NONSPECIFIC Active Condition [facility] visit for: single system exam gynecological Inactive Condition [facility] Allergies, Adverse Reactions, Alerts Combined list of allergies from Department of Defense and Veterans Affairs facilities. It does not include entries that were removed or entered in error. Substance Category Reaction Severity Reaction type Status Date Reported Comments Source No Known Allergies Drug allergy (disorder) active 6 [facility] Encounters Combined list of: 1) Encounters from Department of Veterans Affairs facilities going backup to the last 18 months, not all [place] inpatient encounters are included; 2) Encounters from the Department of Defense facilities going backup to 280 months. Location Location Details Encounter Type Encounter Number Reason For Visit Attending Provider ADM Date DC Date Status Disposition Source [place]([facility] [place] OUTPATIENT [id number] FEMALE CONCERN -DID NOT DISCLOS E- RASHEL COLON 04/21 Released w/o Limitations [place] [place]) OUTPATIENT [id number] VAGINAL DISCOMF ORT RASHEL COLON 04/06 Released w/o Limitations [place]) OUTPATIENT [id number] PAP SMEAR RASHEL COLON 04/28 Released w/o Limitations [place] OUTPATIENT [id number] LUMP ON SIDE OF NECK KIMBERLI DAVIDSON 12/28 Released w/o Limitations [place] [place]) OUTPATIENT [id number] PAP SMEAR-B REAST EXAM PETTY DIANE 05/18 Released w/o Limitations [place] Procedures Combined list of: 1) Procedures from Department of Veterans Affairs facilities going back up to thelast 18 months, not all [place] non-surgical procedures are included; 2) All procedures from the Department of Defense facilities. Procedure Procedure Type Code Date Perfomer Comments Sourc e Vaginal HARMAN Prep Vaginal HARMAN Prep [id number] 04/06/2005 RENEE SHAW [facility] Vaginal Wet [place]ear Vaginal [place] Smear [id number] 04/06/2005 RENEE BRIGGS [facility] Cervical Pap Smear Cervical Pap Smear [id number] 04/21/2004 KATE CHENEY [facility] Vaginal HARMAN Prep Vaginal HARMAN Prep [id number] 04/21/2004 OTTO CHENEY [facility] SMEAR, PRIMARY SOURCE WITH INTERPRETATION; WET MOUNT FOR INFECTIOUS AGENTS (EG, SALINE, CATHERINE INK, HARMAN PREPS) 02/13/2001 [facility] INJECTION OF ANESTHETIC INTO SPINAL CANAL FOR ANALGESIA 05/26/1999 [facility] REPAIR OF OTHER CURRENT OBSTETRIC LACERATION 05/26/1999 [facility] EKG (SCALP) 05/26/1999 [facility] SMEAR, PRIMARY SOURCE WITH INTERPRETATION; WET MOUNT FOR INFECTIOUS AGENTS (EG, SALINE, CATHERINE INK, HARMAN PREPS) 04/06/2005 [facility] CYTOPATHOLOGY, SMEARS, CERVICAL OR VAGINAL, UP TO THREE SMEARS; SCREENING BY MACHINE MAINTENANCE REPAIRER UNDER PHYSICIAN SUPERVISION 04/21/2004 [facility] CYTOPATHOLOGY, SMEARS, CERVICAL OR VAGINAL, UP TO THREE SMEARS; SCREENING BY MACHINE MAINTENANCE REPAIRER UNDER PHYSICIAN SUPERVISION 08/27/2003 [facility] CYTOPATHOLOGY, SMEARS, CERVICAL OR VAGINAL, UP TO THREE SMEARS; SCREENING BY MACHINE MAINTENANCE REPAIRER UNDER PHYSICIAN SUPERVISION 08/22/2002 [facility] INTRAVENOUS INFUSION, THERAPY/DIAGNOSIS, ADMINISTERED PHYSICIAN/UNDER DIRECT SUPERVISION, PHYSICIAN; EA ADDITIONAL HOUR, UP TO EIGHT (8) HOURS (LIST SEPARATELY ADDITION TO CODE, PRIMARY PROCEDURE) 05/15/2002 [facility] PHYS/OTH QUALIFIED HEALTH NUTRITIONAL SERVICES DIRECTOR QUALIFIED,EDUCATION, TRAIN,LICENSURE/REGU LATION (WHEN APPLICABLE) EDUC SER RENDERED TO PATS IN A GRP SETTING (EG,,OBESITY ,OR DIABETIC INSTRUCT) 03/28/2002 [facility] Social History Combined list of available smoking, tobacco, and other social history from Department of Defense and Veterans Affairs facilities. Social History Type Response Date Comment Sour e This section is an empty social history section. [facility]D
--- OUTSIDE RECORDS SUMMARY | 2025-05-06 16:29 | XMS_ITS | Encounter Summary ---
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
--- OUTSIDE RECORDS SUMMARY | 2025-05-06 16:29 | XMS_ITS | Encounter Summary ---
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
--- OUTSIDE RECORDS SUMMARY | 2025-05-06 16:29 | XMS_ITS | Referral Summary ---
Author Organization 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
--- OUTSIDE RECORDS SUMMARY | 2025-05-06 16:29 | XMS_ITS | Clinical Summary ---
Author Organization [facility] Kaylee Vinson Address [address] [place] [address] Care Team Providers Care Batter Out Name Role Phone Paul Delarosa MD Primary Care Provider [phone] Allergies No known active allergies Medications multivitamin,tx [...] Repeat every 21 days. 140 Tablet 6 5 Active lidocaine-prilo cornel (EMLA) 2.5-2.5 % CreamIndication s:Inflammatory carcinoma of left breast (CMS/HCC) Apply a quarter size amount to port site 30 minutes prior to access. 30 Gram 1 5 Active ondansetron (ZOFRAN ODT) 8 mg Tablet, Rapid Dissolve Dissolve 1 tablet on top of tongue then swallow with saliva every 8 hours as needed for nausea or vomiting 30 Tablet 1 5 Active ibuprofen (AdviL) 200 mg tablet Take 200 mg by mouth every 6 hours as needed for Pain, Mild. Active HYDROcodone-siena taminophen (NORCO) 5-325 mg tabletIndicatio ns:Inflammatory carcinoma of left breast (CMS/HCC) Take 1 Tablet by mouth every 4 hours as needed for Pain, Moderate. Max Daily Amount: 6 Tablets 60 Tablet 5 Active HYDROcodone-siena taminophen (NORCO) 5-325 mg tabletIndicatio ns:Inflammatory carcinoma of left breast (CMS/HCC) Take 1 Tablet by mouth every 4 hours as needed for Pain, Moderate. Max Daily Amount: 6 Tablets 60 Tablet 5 05/06/20 25 Discontinue d(Reorder) cephALEXin (KEFLEX) 500 mg capsule Take 1 Capsule (500 mg) by mouth 4 times daily for 10 days. 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 Malignant neoplasm of nipple and areola, right female breast 02/12/2025 Encounters Date Type Department Care Team Description 05/06/2025 Refill [facility] Oncology and Hematology - [facility] [address] [place] [phone] Chalino Kraus MD Inflammatory carcinoma of left breast (CMS/HCC) 05/05/2025 Orders Only [facility] Oncology and Hematology - [facility] [address] [place] [address] Chalino Kraus MD Inflammatory carcinoma of left breast (CMS/HCC) 04/29/2025 External Device Data STL ABSTRACTION Provider, Abstract 04/29/2025 External Device Data STL ABSTRACTION Provider, Abstract 04/29/2025 Orders Only [facility] Oncology and Hematology - [facility] [address] [place] [address] Chalino Kraus MD 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) 04/28/2025 Orders Only [facility] Oncology and Hematology - [facility] [address] [place] [address] Chalino Kraus MD Chronic anemia; Inflammatory carcinoma of left breast (CMS/HCC) 04/24/2025 Orders Only [facility] Oncology and Hematology [facility] [address] [place] [address] Chalino Kraus MD 04/22/2025 External Device Data STL ABSTRACTION Provider, Abstract 04/22/2025 External Device Data STL ABSTRACTION Provider, Abstract 04/22/2025 External Device Data STL ABSTRACTION Provider, Abstract 04/21/2025 9:30 AM CDT Office Visit [facility] Oncology [facility] Hematology [facility] [address] [place] [address] Chalino Kraus MD Inflammatory carcinoma of left breast (CMS/HCC) 04/16/2025 External Device Data STL ABSTRACTION Provider, Abstract 04/16/2025 External Device Data STL ABSTRACTION Provider, Abstract 04/14/2025 Orders Only [facility] Oncology and Hematology [facility] [address] [place] [address] Chalino Karus MD Chronic anemia; Inflammatory carcinoma of left breast (CMS/HCC) 04/11/2025 8:45 AM CDT Office Visit [facility] Oncology [facility] Hematology [facility] [address] [place] [address] Chalino Kraus MD 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) 04/07/2025 Orders Only [facility] Oncology and Hematology [facility] [address] [place] [address] Chalino Kraus MD Inflammatory carcinoma of left breast (CMS/HCC) 04/03/2025 8:30 AM CDT Office Visit [facility] Oncology and Hematology [facility] [address] [place] [address] Chalino Kraus MD 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) 04/02/2025 Telephone [facility] Oncology and Hematology [facility] [address] [place] [phone] Chalino Kraus MD Pain 03/31/2025 Orders Only [facility] Oncology and Hematology [facility] [address] [place] [phone] Chalino Kraus MD Chronic anemia; Inflammatory carcinoma of left breast (CMS/HCC) 03/26/2025 Abstract [facility] Oncology and Hematology [facility] [address] [place] [address] Chalino Kraus MD 03/26/2025 Abstract [facility] Oncology and Hematology [facility] [address] [place] [address] Chalino Kraus MD 03/25/2025 External Device Data STL ABSTRACTION Provider, Abstract 03/25/2025 External Device Data STL ABSTRACTION Provider, Abstract 03/25/2025 External Device Data STL ABSTRACTION Provider, Abstract 03/25/2025 Orders Only [facility] Oncology and Hematology [facility] [address] [place] [phone] Chalino Kraus MD 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) 03/24/2025 4:00 PM CDT Office Visit [facility] Breast Surgery [address] [place] [address] Migdalia Solorzano MD Malignant neoplasm of nipple and areola, 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) (Primary Dx) 03/24/2025 Orders Only [facility] Oncology and Hematology [facility] [address] [place] [address] Chalino Kraus MD Inflammatory carcinoma of left breast (CMS/HCC) 03/21/2025 9:00 AM CDT Office Visit [facility] Oncology [facility] Hematology [facility] [address] [place] [address] Chalino Kraus MD 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) 03/18/2025 11:11 PM CDT - 03/20/2025 4:16 PM CDT Hospital Encounter [facility] Oncology [address] [place] [address] Aba Carter MD Weitzel, MD Christine Easley Tiago, MD Chest wall abscess Discharge Disposition: Home or Self Care 03/18/2025 External Device Data STL ABSTRACTION Provider, Abstract 03/18/2025 Travel 03/17/2025 Orders Only [facility] Oncology and Hematology - [facility] [address] [place] [address] Chalino Kraus MD Chronic anemia; Inflammatory carcinoma of left breast (CMS/HCC) 03/14/2025 Orders Only [facility] Oncology and Hematology - [facility] [address] [place] [address] Chalino Kraus MD 03/10/2025 Orders Only [facility] Oncology and Hematology - [facility] [address] [place] [address] Chalino Kraus MD Inflammatory carcinoma of left breast (CMS/HCC) 03/06/2025 Orders Only [facility] Oncology and Hematology - [facility] [address] [place] [address] Chalino Kraus MD 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) 03/04/2025 External Device Data STL ABSTRACTION Provider, Abstract 03/03/2025 Orders Only [facility] Oncology and Hematology - Edu [address] [place] [address] Chalino Kraus MD Chronic anemia; Inflammatory carcinoma of left breast (CMS/HCC) 02/28/2025 Orders Only [facility] Oncology and Hematology - [facility] [address] [place] [address] Chalino Kraus MD 02/25/2025 Orders Only [facility] Oncology and Hematology - [facility] [address] Chalino Kraus MD 02/24/2025 Orders Only [facility] Oncology and Hematology - [facility] [address] [place] [phone] Chalino Kraus MD Inflammatory carcinoma of left breast (CMS/HCC) 02/21/2025 10:30 AM CDT Office Visit [facility] Oncology and Hematology - Edu [address] [place] [phone] Chalino Kraus MD Cancer, metastatic to bone (CMS/HCC) (Primary Dx) 02/20/2025 External Device Data STL ABSTRACTION Provider, Abstract 02/19/2025 External Device Data STL ABSTRACTION Provider, Abstract 02/18/2025 External Device Data STL ABSTRACTION Provider, Abstract 02/17/2025 Orders Only [facility] Oncology and Hematology - [facility] [address] Chalino Kraus MD Chronic anemia; Inflammatory carcinoma of left breast (CMS/HCC) 02/11/2025 Orders Only [facility] Oncology and Hematology - Edu [address] [place] [phone] Chalino Kraus MD 02/10/2025 Orders Only [facility] Oncology and Hematology - Edu [address] [place] [phone] Chalino Kraus MD Inflammatory carcinoma of left breast ([facility]/HCC) 02/07/2025 9:00 AM CDT Office Visit [facility] Oncology and Hematology - Edu [address] [place] [address] Chalino Kraus MD Chronic anemia (Primary Dx) 02/07/2025 Orders Only [facility] Oncology and Hematology - [facility] [address] [place] [address] Chalino Kraus MD 02/03/2025 Orders Only [facility] Oncology and Hematology - [facility] [address] [place] [address] Chalino Kraus MD Chronic anemia; Inflammatory carcinoma of left breast (CMS/HCC) from [...] Sign Reading Time Taken Comments Blood Pressure 160/106 04/21/2025 9:29 AM CDT Pulse 102 04/21/2025 9:26 AM CDT Temperature 36.4 C (97.5 F) 04/21/2025 9:26 AM CDT Respiratory Rate 15 04/21/2025 9:26 AM CDT Oxygen Saturation 95% 04/21/2025 9:26 AM CDT Inhaled Oxygen Concentration - - Weight 95.9 kg (211 lb 6.4 oz) 04/21/2025 9:26 A M CDT Height 177.8 cm (5' 10) 03/24/2025 4:16 PM CDT Body Mass Index 30.33 03/24/2025 4:16 PM CDT Plan of Treatment Upcoming Encounters Date Type Department Care Team (Late st Contact Info) Description 2025 12:00 PM CDT Office Visit [facility] Oncology and Hematology - [facility] [address] [place] [address] Chalino Kraus MD [address] [facility] [employer] [address] [place] [address] Health Maintenance Due Date Last [...] 5 years 2017 Lung Cancer Screening 2022 Preventative Visit- Commercial 10/02/2024 INFLUENZA VACCINE (#1) 2025 Medical Devices Implanted Type Area Welfare Supervisor Device Identifier Shelf Expiration Date Model / Serial / Lot Clip [place] [id number] - Csc - [id number] Implanted:Qty: 1 on 12/10/2024 by Migdalia Solorzano [place] [facility] [place] Left: Breast [employer] 04/28/2029 [id number] / / [id number] Port-06/24/2024 Implanted:06/03 (Quantity not on file) Port Chest [employer] / [id number] / [id number] Description:implanted at [facility] Procedures Procedure Name Priority Date/Time Associated Diagnosis Comments BASIC METABOLIC PANEL Routine 04/21/2025 1:40 PM CDT COMPREHENSIVE METABOLIC PANEL Routine 04/21/2025 1:39 PM CDT DIFFERENTIAL, MANUAL Routine 03/20/2025 5:40 AM CDT [...] METABOLIC PANEL Routine 02/07/2025 9:26 AM CDT from Last 3 Months Results * BASIC METABOLIC PANEL (04/21/2025 1:40 PM CDT) Only the most recent of8 resultswithin the time period is included. Blood us Chalino Kraus MD CHEMISTRY ORDERABLES Final Resu lt * COMPREHENSIVE METABOLIC PANEL (04/21/2025 1:39 PM CDT) Only the most recent of5 resultswithin the time period is included. Blood us Chalino Kraus MD CHEMISTRY ORDERABLES Final Resu lt * MANUAL DIFFERENTIAL (03/20/2025 5:40 AM CDT) Only the most recent of2 resultswithin the time period is included. [facility] PLATELET EST. Consistent w Count 03/20/2025 7:11 AM CDT [facility] ANISOCYTOSIS 2+ /hpf 03/20/2025 7:11 AM CDT [facility] POIKILOCYTES 2+ /hpf 03/20/2025 7:11 AM CDT [facility] MICROCYTES 1+ /hpf 03/20/2025 7:11 AM CDT [facility] TARGET CELLS 1+ /hpf 03/20/2025 7:11 AM CDT [facility] OVALOCYTES 1+ /hpf 03/20/2025 7:11 AM CDT [facility] Blood Venipuncture / Unknown 03/20/2025 5:40 AM CDT 03/20/2025 6:12 AM CDT us Rita Arrieta MD HEMATOLOGY ORDERABLES COM Final Result [facility]# [id number] [address] [place] [address] * (ABNORMAL) CBC WITH DIFFERENTIAL (03/20/2025 5:40 AM CDT) Only the most recent of3 resultswithin the time period is included. [facility] WBC 5.5 4.0 - 9.8 K/uL 03/20/2025 6:34 AM CDT [facility] - . [facility] RBC 4.97(H) 3.90 - 4.90 M/uL 03/20/2025 6:34 AM CDT [facility] - . [facility] HEMOGLOBIN 10.7(L) 11.8 - 14.8 g/dL 03/20/2025 6:34 AM CDT [facility] - . [facility] HEMATOCRIT 35.5 35.5 - 44.0 % 03/20/2025 6:34 AM CDT [facility] MCV 71.4(L) 82.0 - 99.0 fL 03/20/2025 6:34 AM CDT [facility] MCH 21.5(L) 27.2 - 32.6 pg 03/20/2025 6:34 AM CDT [facility] MCHC 30.1(L) 31.5 - 35.5 g/dL 03/20/2025 6:34 AM CDT [facility] RDW 22.4(H) 11.5 - 14.5 % 03/20/2025 6:34 AM CDT [facility] RDW-STDEV 55.3(H) 37.1 - 48.7 fL 03/20/2025 6:34 AM CDT [facility] PLATELETS 326 140 - 350 K/uL 03/20/2025 6:34 AM CDT [facility] MPV 9.9 9.3 - 12.4 fL 03/20/2025 6:34 AM CDT [facility] NEUTROPHILS 65 % 03/20/2025 6:34 AM CDT [facility] LYMPHOCYTES 12 % 03/20/2025 6:34 AM CDT [facility] MONOCYTES 18 % 03/20/2025 6:34 AM CDT [facility] EOSINOPHILS 3 % 03/20/2025 6:34 AM CDT [facility] BASOPHILS 1 % 03/20/2025 6:34 AM CDT [facility] IMMATURE GRANULOCYTES 1 % 03/20/2025 6:34 AM CDT [facility] Comment:IG (Immature Granulo cyte) count includes Metamyelocytes, Myelocytes, and Promyelocytes NEUTROPHIL ABSOLUTE 3.59 1.90 - 7.00 K/uL 03/20/2025 6:34 AM CDT [facility] LYMPHOCYTE ABSOLUTE 0.68(L) 0.70 - 4.50 K/uL 03/20/2025 6:34 AM CDT [facility] MONOCYTE ABSOLUTE 0.98 0.10 - 1.30 K/uL 03/20/2025 6:34 AM CDT [facility] EOSINOPHIL ABSOLUTE 0.14 0.00 - 0.70 K/uL 03/20/2025 6:34 AM CDT [facility] BASOPHILS ABSOLUTE 0.07 0.00 - 0.20 K/uL 03/20/2025 6:34 AM CDT [facility] - . [facility] IMMATURE GRANULOCYTES ABSOLUTE 0.03 0.00 - 0.03 K/uL 03/20/2025 6:34 AM CDT [facility] Blood Venipuncture / Unknown 03/20/2025 5:40 AM CDT 03/20/2025 6:12 AM CDT Rita Arrieta MD HEMATOLOGY ORDERABLES Silvana l Result [facility] CLIA# [id number] [address] [place] [address] * (ABNORMAL) C-REACTIVE PROTEIN (03/20/2025 5:40 AM CDT) [facility] CRP 20.6(H) <5.0 mg/L 03/20/2025 6:58 AM CDT [facility] Blood Venipuncture / Unknown 03/20/2025 5:40 AM CDT 03/20/2025 6:12 AM CDT Pina Giraldo NP CHEMISTRY ORDERABLES Fin al Result [facility] CLIA# [id number] [address] [place] [address] * CT GUIDE PERCUT DRAIN W CATH (03/19/2025 12:00 PM CDT) Anatomical Region Laterality Modality Computed Tomogra phy 03/19/2025 11:1 5 AM CDT Impressions 03/19/2025 2:04 PM CDT IMPRESSION: Successful percutaneous drainage catheter placement in the left chest wall fluid collection. 60 mL sanguinous fluid was aspirated with sample sent for laboratory evaluation. DICTATION LOCATION: Location 1 - [facility] The examination was performed with the adjustment [...] dilated over a guidewire and a 10 Bahraini drainage catheter was placed. CT imaging was [...] dilated over a guidewire and a 10 Bahraini drainage catheter was placed. CT imaging was [...] laboratory evaluation. DICTATION LOCATION: Location 1 - [facility] The examination was performed with the adjustment of mA according to the patient size and/or the use of Iterative Reconstruction Technique. Abundio Love MD CT ORDERABLES Final R esult * ANAEROBIC/AEROBIC CULTURE W GRAM STAIN (03/19/2025 11:36 AM CDT) CULTURE No aerobic or anaerobic growth 03/24/2025 7:08 AM CDT [facility] GRAM STAIN No organisms observed 03/24/2025 7:08 AM CDT [facility] GRAM STAIN 3+ (Moderate) Polymorphonuclear WBC 03/24/2025 7:08 AM CDT [facility] Body fluid THORACIC STRUCTURE / Unknown Collection / Unknown 03/19/2025 11:36 AM CDT 03/19/2025 12:23 PM CDT Abundio Love MD MICROBIOLOGY - GENERAL ORDERABLES Final Result [facility] CLIA# [id number] [address] [place] [address] * (ABNORMAL) WOUND (AEROBIC) CULTURE WITH GRAM STAIN (03/19/2025 12:54 AM CDT) CULTURE STAPHYLOCOCCUS AUREUS(A) JAYSON MCG/ML 03/21/2025 9:43 AM CDT [facility] GRAM STAIN No organisms observed 03/21/2025 9:43 AM CDT [facility] GRAM STAIN 3+ (Moderate) Polymorphonuclear WBC 03/21/2025 9:43 AM CDT [facility] Wound THORACIC STRUCTURE / Unknown Collection [...] MICROBIOLOGY - GENERAL ORD ERABLES Final Result [facility] CLIA# [id number] [address] [place] [address] * CBC WITH AUTODIFFERENTIAL (02/07/2025 1:25 PM CDT) Blood Chalino Kraus MD HEMATOLOGY ORDERABLES Final Res ult from Last 3 Months Insurance RX [employer] RX Member Subscriber Plan / Payer (Ef fective 2024-Present) Name:Janae Solis Relation to Subscriber:Self Name:Will Janaetres Lubin Payer ID:Not on file Group ID:[id number] Type:RX Commercial Address: [address] Advance Directives For more information, please contact: [phone] * Full Code (Latest Code Status on File) Date Activated Date Inactivated Comments 03/19/2025 12:38 AM 03/20/2025 6:35 PM * Full Code Date Activated Date Inactivated Comments 11/27/2024 6:24 PM 11/28/2024 4:27 PM Care Teams Batter Out Relationship Specialty Start Date End Date Paul Delarosa MD [address] [facility] [address] [place] [address] PCP - General Family Practice 10/16/24
[2025-05-06 17:38] VITALS: BP 163/90; PULSE 113; RESP 26; O2SAT 97
--- NOTE | 2025-05-06 17:49 | ECG_ITS ---
Test Date: 2025-05-06 18:02:01 Measurements Intervals [place] Rate: 112 P: 148 MI: 124 QRS: 202 QRSD: 77 T: 173 QT: 332 QTc: 455 Interpretive Statements SINUS TACHYCARDIA ARM LEADS REVERSED CONSIDER ANTERIOR INFARCT, AGE INDETERMINATE BORDERLINE T WAVE ABNORMALITY- ANT/INF LEADS BASELINE ARTIFACT- I, II, III, AVR, AVL, AVF, V4 ABNORMAL ECG Compared to ECG 03/16/2025 23:49:33 HEART RATE HAS INCREASED Electronically Signed On 05-06-2025 19:36:14 CDT by Remi Boone D.O.
[2025-05-06 18:34] LABS: Hematocrit 36.8 % (37.0-47.0); Hemoglobin 11.4 g/dL (12.0-15.0); Immature Granulocyte Percent A 1.6 % (0-0.5); Immature Platelet Fraction Pct 4.9 % (0.9-11.2); Lymphocytes Absolute Auto 0.49 K/mm3 (0.9-3.2); Mean Corpuscular HGB Conc 31.0 g/dl (32-36); Mean Corpuscular Hemoglobin 21.0 pg (26-34); Mean Corpuscular Volume 67.9 fl (80-100); Nucleated Red Blood Cells Absolute Auto 0.000 K/mm3 (0.0-0.012); Nucleated Red Blood Cells Perc 0.0 % (0.0-0.2); Platelet Count Result 227 k/mm3 (150-375); Red Blood Count 5.42 M/mm3 (4.2-5.4); White Blood Count 9.3 K/mm3 (4.5-10.0)
[2025-05-06 18:46] LABS: Anisocytosis 1+; Microcytosis 1+ (NORMAL)
[2025-05-06 18:47] LABS: Ovalocytes 1+; Schistocytes None Seen; Target Cells 1+
--- NOTE | 2025-05-06 19:06 | ED_ITS ---
HPI - SOB/Dyspnea General Chief Complaint: Shortness of Breath/Dyspnea Stated Complaint: SOB Time Seen by Provider: 05/06/25 19:02 Source: patient and family Mode of arrival: ambulatory Limitations: no limitations History of Present Illness HPI Narrative: Patient presents with shortness of breath that has been worsening. In particular she notes dyspnea on exertion. The symptoms started on Monday that have been progressing. 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 She underwent chemotherapy from July to October and then again from December to March. She is also undergoing radiation with her last session on 04/20/2025. Denies any underlying respiratory or cardiac issues. Does not follow with a manager ems. Patient becomes winded when taking a few steps. She reports that she has developed chest tightness. Has an open wound in the area of her left mastectomy. Not on anticoagulation. She had declined prophylactic anticoagulation which she had last been admitted. Patient had surgical procedure November at [facility] and then had complication with drainage from left chest wound. This was complicated by a staph infection but she denies having MRSA. She was hospitalized for a while and then had 2 weeks of antibiotics. Patient had been using still lacks followed by a different silver ointment/cream and another Gel along with aloe vera. No cough. Denies fevers or chills. She notes that she did have some left lower extremity edema resolved after she elevated this extremity. 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 status post neoadjuvant chemotherapy and bilateral mastectomy; has scan 01/20/2025 showed metastatic disease to lymph nodes and bone 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) segmental mastectomy with axillary lymph node dissection and chemoradiation Generalized anxiety disorder Vitamin D deficiency Vitamin B12 deficiency Psychophysiological insomnia Cervical polyp History of vaginal delivery Endometrial polyp Anemia on ferrous sulfate and cyanocobalamin daily Surgical History Surgical History History of lumpectomy of right breast (05/26/10) poorly differentiated invasive ductal carcinoma History of segmental mastectomy (06/09/10) segmental mastectomy of the right upper outer quadrant History of wisdom tooth extraction History of bilateral mastectomy (11/27/24) multifocal invasive ductal carcinoma with lymphovascular invasion and skeletal muscle involvement with positive margins status post re-excision History of laser assisted in situ keratomileusis History of lymph node dissection of axilla Family History Family History Other Adopted Social History Social History (Updated 05/07/25 @ 14:30 by Soo Benson PA-C) Social History: Lives at home with and has 2 dogs. Surrogate medical decision maker: Paul Solis, spouse. Code status: Full code. Smoking packs per day: 1 Smoking cigarettes per day: 20.0 Years smoked: 20 Smoking pack-years: 20.00 Smoking status: Former smoker Second hand tobacco smoke exposure: No Alcohol intake: current Alcohol use details: 4 drinks per week Substance use: never Substance use type: does not use Do You Feel Safe in your Home?: Yes Lack of Transportation: No Lack of Food: Never True Current Housing: I Have Housing Concerned About Future Housing: No Difficulty Paying Gas/Electric Bills: No Difficulty Paying for Meds: No Currently Unemployed: No Education: Master's Degree or Higher Difficulty w/ Childcare or Family Care: No Living arrangements: with family Additional living arrangements comments: Lives with Paul and their 2 mathias hounds in [place]. They have a grown child. Occupation/Education: occupation Spiritual care concerns: No Agree to blood products: Yes Exam 2 Narrative: GENERAL: well-nourished, in acute distress especially with movement or manipulation body particular palpation of left chest. Patient is jaundiced throughout HEAD: Normocephalic, atraumatic. EYES: Non injected, icteric ENT: Nares clear, no rhinorrhea or epistaxis. Gross auditory acuity intact. NECK: Supple. No meningismus. CHEST: Speaking in full sentences. No respiratory distress when seated/at rest. Lung sounds profoundly diminished/absent on the left lower. HEART: Tachycardia rate and rhythm. ABDOMEN: Soft, nondistended. No rigidity or guarding. Not peritoneal EXTREMITIES: Normal range of motion. No lower extremity edema. SKIN: Warm, dry. Scar tissue in the area of right mastectomy. Port in right anterior superior chest. Left mastectomy with draining and erythema, slight purulent/yellow discharge. Area appears significantly inflamed. There is also erythema across the entire left chest and left lateral chest. NEURO: No focal deficits. Alert and oriented. Answering questions. Following commands. Normal speech without aphasia or dysarthria. PSYCH: Normal mood and affect. Course Vital Signs Vital signs: Vital Signs Temperature 98.1 F 05/06/25 16:27 Pulse Rate 119 H 05/06/25 16:27 Respiratory Rate 20 05/06/25 16:27 Blood Pressure 147/95 H 05/06/25 16:27 Pulse Oximetry 98 05/06/25 16:27 Temperature 99.1 F 05/07/25 14:00 Pulse Rate 110 H 05/07/25 14:00 Respiratory Rate 16 05/07/25 14:00 Blood Pressure 155/69 H 05/07/25 14:00 Pulse Oximetry 96 05/07/25 14:00 Oxygen Delivery Room Air 05/07/25 10:03 MDM - SOB/Dyspnea MDM Narrative Medical decision making narrative: Patient with breast cancer status post chemo and most recent radiation 04/20/2025 presents with worsening shortness of breath. In the emergency department she is afebrile with vital signs notable for hypertension and tachycardia. Microcytic anemia, stable from previous. Dimer greater than 15. Will proceed with CT PE imaging. Patient flags for sepsis given vital signs though no leukocytosis. Lactic, blood culture, CRP, and wound culture pending. Of an abundance of precaution will give 1 time dose of broad spectrum antibiotics. BNP is greater than 900 which for her age would represent concern for acute heart failure given the reference range of the assay. For this reason, will start with 1 L IV fluids but initially defer full 30 cc/kg. Troponin within normal limits. Patient has transaminitis, worsened from previous. Lipase and coags are added and will expand CT to include abdomen and pelvis. She has hyperbilirubinemia, indirect and direct are added for further differentiation. === Given patient's metastatic cancer, recommend continuing conversations of goals of care to establish values and wishes as discuss further treatments and interventions. Of note, Medicare guidelines for hospice eligibility a for patients with cancer are as follows: Patient will considered to be in the terminal stage ( life expectancy of 6 months or less) if they meet ALL of the following criteria: 1. clinical findings of malignancy with widespread, aggressive or progressive disease as evidenced by increasing symptoms, worsening lab values and or evidence of metastatic disease. 2. Palliative performance scale (PPS) </=70% 3. refuses further life-prolonging therapy OR continues to decline in spite of definite therapy. Supporting documentation includes: Hypercalcemia >12 Cachexia or weight loss of 5% past 3 months Signs and symptoms of advanced disease ( nausea, requirement for transfusions, malignant ascites or pleural effusion, etc.) Given this, might not yet meet critieria but a palliative care consult might be appropriate, especially if patient expresses desire in the future. ===== Normal lactic acid. Direct hyperbilirubinemia predominant. DIFFERENTIAL DIRECT HYPERBILIRUBINEMIA biliary atresia, tumors, primary sclerosiing cholangitis, choledochal cysts; gallstones CRP elevated. Normal acetaminophen level, lipase, appropriate coags. Viral swab negative. Discussed findings with patient. We discussed that cancer has metastasized. Patient knew that cancer has metastasized to bone. Notes that she recently had a PET scan. Discussed code status and she confirms full code in the event of cardiopulmonary arrest. Discussed with on-call hospitalist Dr. Lucas who does concur with placing orders for diagnostic and therapeutic thoracentesis to be potentially performed tomorrow. Associated orders are placed for this. Recommends holding at this point from a hemodynamic standpoint, no need for continued fluids nor diuretics at this point. Will continue to monitor. Due to hemodynamic stability, med surg with telemetry is fine. . Differential Diagnosis Differential diagnosis: Likely congestive heart failure, community acquired pneumonia, pulmonary embolism and other (Pleural effusion (considered secondary to pancreatitis versus heart failure/nephrosis, though suspect malignancy), symptomatic anemia, sequelae of cancer/radiation; sepsis; ascending cholangitis) Medical Records Attestation: I reviewed the patient's medical records. Medical records narrative: PET: IMPRESSION: 1. Widespread FDG avid lymphadenopathy in the neck, chest, abdomen and pelvis and numerous FDG avid lytic bone lesions throughout the axial and appendicular skeleton consistent with widespread metastatic disease. 2. Bilateral mastectomies with residual small seromas with small amount of internal gas on the left. Lab Data 05/07/25 08:52 05/07/25 08:52 Labs: Lab Results 05/06/25 05/06/25 05/06/25 Range/Units 18:26 18:27 19:45 WBC 9.3 (4.5-10.0) K/mm3 RBC 5.42 H (4.2-5.4) M/mm3 Hgb 11.4 L (12.0-15.0) g/dL Hct 36.8 L (37.0-47.0) % MCV 67.9 L (80-100) fl MCH 21.0 L (26-34) pg MCHC 31.0 L (32-36) g/dl RDW 21.4 H (11.5-14.5) % Plt Count 227 (150-375) k/mm3 MPV Not Reportable Immature Gran % (Auto) 1.6 H (0-0.5) % Neut % (Auto) 77.9 H (45.5-73.1) % Lymph % (Auto) 5.3 L (18.3-44.2) % Kimball % (Auto) 13.5 H (2.6-8.5) % Eos % (Auto) 1.1 (0-4.4) % Baso % (Auto) 0.6 (0.2-1.2) % Lymph # (Auto) 0.49 L (0.9-3.2) K/mm3 Kimball # (Auto) 1.3 H (0.1-0.6) K/mm3 Eos # (Auto) 0.1 (0-0.3) K/mm3 Baso # (Auto) 0.1 (0.0-0.1) K/mm3 Abs Immat Gran (auto) 0.15 H (0.00-0.031) K/mm3 Absolute Neuts (auto) 7.2 H (1.3-6.7) K/mm3 Absolute Nucleated RBC 0.000 (0.0-0.012) K/mm3 Band Neutrophils % Not Reportable Nucleated RBC % 0.0 (0.0-0.2) % Platelet Estimate Adequate (Adequate) % Immature Plt Fraction 4.9 (0.9-11.2) % Anisocytosis 1+ Microcytosis 1+ (NORMAL) Target Cells 1+ Ovalocytes 1+ Schistocytes None seen PT 15.1 H (11.1-14.7) Seconds INR 1.2 APTT 33.3 (22.3-36.8) Seconds D-Dimer 15.77 H (<0.48) ug/mL Sodium 136 L (137-145) mmol/L Potassium 3.6 (3.4-5.0) mmol/L Chloride 100 (98-107) mmol/L Carbon Dioxide 23 (22-30) mmol/L Anion Gap 13 H (4-12) mmol/L BUN 13 D (7-17) mg/dL Creatinine 0.81 (0.7-1.0) mg/dL Estim Creat Clear Calc 90 ml/min Estimated GFR > 60 (59 - ) Glucose 105 (65-110) mg/dL Lactic Acid 2.0 (0.7-2.0) mmol/L Calcium 9.3 (8.4-10.2) mg/dL Total Bilirubin 5.5 H (0.2-1.3) mg/dL Direct Bilirubin 2.6 H (0-0.3) mg/dL Indirect Bilirubin 0.7 (0-1.1) mg/dL AST 259 H (14-36) U/L ALT 69 H (6-35) U/L Alkaline Phosphatase 1398 H (38-126) U/L Lactate Dehydrogenase 1841 H (120-246) U/L Troponin I 0.017 (0.000-0.034) ng/mL C-Reactive Protein 5.9 H (<1.0) mg/dL NT-Pro-B Natriuret Pep 1620 H (19.9-100) pg/mL Total Protein 6.8 (6.3-8.2) g/dL Albumin 3.3 L (3.5-5.1) g/dL Lipase 101 (23-300) U/L Nasal MRSA (PCR) (NOT DETECTE) Acetaminophen 15 (10-30) ug/mL Influenza A (RT-PCR) (Negative) Influenza B (RT-PCR) (Negative) RSV (RT-PCR) (Negative) SARS-CoV-2 RNA (RT-PCR) (Negative) 08/05/25 08/05/25 Range/Units 20:24 21:51 WBC (4.5-10.0) K/mm3 RBC (4.2-5.4) M/mm3 Hgb (12.0-15.0) g/dL Hct (37.0-47.0) % MCV (80-100) fl MCH (26-34) pg MCHC (32-36) g/dl RDW (11.5-14.5) % Plt Count (150-375) k/mm3 MPV Immature Gran % (Auto) (0-0.5) % Neut % (Auto) (45.5-73.1) % Lymph % (Auto) (18.3-44.2) % Kimball % (Auto) (2.6-8.5) % Eos % (Auto) (0-4.4) % Baso % (Auto) (0.2-1.2) % Lymph # (Auto) (0.9-3.2) K/mm3 Kimball # (Auto) (0.1-0.6) K/mm3 Eos # (Auto) (0-0.3) K/mm3 Baso # (Auto) (0.0-0.1) K/mm3 Abs Immat Gran (auto) (0.00-0.031) K/mm3 Absolute Neuts (auto) (1.3-6.7) K/mm3 Absolute Nucleated RBC (0.0-0.012) K/mm3 Band Neutrophils % Nucleated RBC % (0.0-0.2) % Platelet Estimate (Adequate) % Immature Plt Fraction (0.9-11.2) % Anisocytosis Microcytosis (NORMAL) Target Cells Ovalocytes Schistocytes PT (11.1-14.7) Seconds INR APTT (22.3-36.8) Seconds D-Dimer (<0.48) ug/mL Sodium (137-145) mmol/L Potassium (3.4-5.0) mmol/L Chloride (98-107) mmol/L Carbon Dioxide (22-30) mmol/L Anion Gap (4-12) mmol/L BUN (7-17) mg/dL Creatinine (0.7-1.0) mg/dL Estim Creat Clear Calc ml/min Estimated GFR (59 - ) Glucose (65-110) mg/dL Lactic Acid (0.7-2.0) mmol/L Calcium (8.4-10.2) mg/dL Total Bilirubin (0.2-1.3) mg/dL Direct Bilirubin (0-0.3) mg/dL Indirect Bilirubin (0-1.1) mg/dL AST (14-36) U/L ALT (6-35) U/L Alkaline Phosphatase (38-126) U/L Lactate Dehydrogenase (120-246) U/L Troponin I (0.000-0.034) ng/mL C-Reactive Protein (<1.0) mg/dL NT-Pro-B Natriuret Pep (19.9-100) pg/mL Total Protein (6.3-8.2) g/dL Albumin (3.5-5.1) g/dL Lipase (23-300) U/L Nasal MRSA (PCR) Not detected (NOT DETECTE) Acetaminophen (10-30) ug/mL Influenza A (RT-PCR) Negative (Negative) Influenza B (RT-PCR) Negative (Negative) RSV (RT-PCR) Negative (Negative) SARS-CoV-2 RNA (RT-PCR) Negative (Negative) Imaging Data Attestation: I personally reviewed and interpreted this imaging study as follows: My impression: Patient has a right anterior chest port in place with evidence of a left pleural effusion based on my independent interpretation of chest x-ray Radiologist's impression: Impressions Chest X-Ray 05/06/25 19:20 IMPRESSION: Large left and small right-sided pleural effusion. Chest/Abdomen/Pelvis CTA 05/06/25 21:11 IMPRESSION: Findings consistent with significant progression of patient's known diffuse metastatic disease, now with bilateral hydroureteronephrosis secondary to mass effect from the patient's uterus as well as multiple lesions within the liver. ECG Data EKG #1: Attestation: I personally reviewed and interpreted this ECG as follows: ECG completion date: 05/06/25 ECG completion time: 18:02 Interpretation: She sinus tachycardia at a rate of 112 beats per minute. TX interval 124. QRS 77. QT/QTC 332/455. Good R-wave progression across the precordial leads. Arm leads appear reversed based on the negative QRS complex in 1 and positive in AVR. Discharge Plan Discharge Clinical Impression: Shortness of breath, Breast cancer, CRP elevated, Direct hyperbilirubinemia, Metastatic cancer, Hydroureteronephrosis, Bilateral pleural effusion Patient Disposition: Still a Patient Condition: Stable Time of Disposition: 22:52
--- OUTSIDE RECORDS SUMMARY | 2025-05-06 19:21 | XMS_ITS | Encounter Summary ---
Author Organization 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
--- OUTSIDE RECORDS SUMMARY | 2025-05-06 19:21 | XMS_ITS | Encounter Summary ---
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
--- OUTSIDE RECORDS SUMMARY | 2025-05-06 19:21 | XMS_ITS | Referral Summary ---
Author Organization 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 Gender Identity Not on file Sexual Orientation [...] Plan of Treatment Not on file Insurance [facility] CHO[facility] HMO/PPO Address: [address] [address] [place] [address] [facility] HMO/PPO Address: [address] [address] [place] [address] Care Teams Camp Dishwasher Relationship Specialty Start Date End Date Evi Avila MD [address] [facility] [address] [place] [address] PCP - General Family Medicine 06/15/24 Randall Pierce MD [address] [facility] [address] [place] [address] Consulting Physician Medical Oncology 06/18/24
--- OUTSIDE RECORDS SUMMARY | 2025-05-06 19:21 | XMS_ITS | Encounter Summary ---
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
--- OUTSIDE RECORDS SUMMARY | 2025-05-06 19:21 | XMS_ITS | Encounter Summary ---
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
--- OUTSIDE RECORDS SUMMARY | 2025-05-06 19:21 | XMS_ITS | Encounter Summary ---
Author Organization [facility] [employer] [facility] Address [address] [place] [address] Phone Care Team Providers Care Pickle Sorter Name Role Phone Evi Avila MD Primary [...] on file Legal Sex Female 2:[address] MAGISTRATE Gender Identity Not on file Sexual Orientation [...] on filedocumented in this encounter Care Teams Pickle Sorter Relationship Specialty Start Date End Date Evi Avila MD [address] [place] [address] PCP - General Family Medicine 06/15/24 Randall Pierce MD [address] [facility] [address] DIV [place] [address] Consulting Physician Medical Oncology 06/18/24 documented as of this encounter
--- OUTSIDE RECORDS SUMMARY | 2025-05-06 19:21 | XMS_ITS | Encounter Summary ---
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
--- OUTSIDE RECORDS SUMMARY | 2025-05-06 19:21 | XMS_ITS | Encounter Summary ---
Author Organization [facility] [employer] [facility] Address [address] [place] [address] Care Team Providers Care Youth Associate Name Role Phone Paul Delarosa MD Primary Care Provider [phone] Reason for Visit * Reason Onset Date Comments Medication Refill 05/06/2025 Encounter Details Date Type Department Care Team (Late Contact Info) Description 05/06/2025 Refill [facility] [address] [place] [address] Chalino Kraus MD [address] [place] [phone] Inflammatory carcinoma of left breast (CMS/HCC) [...] Description 2025 12:00 PM CDT Office Visit [facility] [address] [place] [address] Chalino Kraus MD [address] [place] [phone] documented as of this encounter Visit Diagnoses Diagnosis Inflammatory carcinoma of left breast (CMS/HCC) documented in this encounter Care Teams Youth Associate Relationship Specialty Start Date End Date Paul Delarosa MD [address] [facility] [address] [place] [address] PCP - General Family Practice 10/16/24 documented as of this encounter
--- OUTSIDE RECORDS SUMMARY | 2025-05-06 19:21 | XMS_ITS | Encounter Summary ---
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
--- OUTSIDE RECORDS SUMMARY | 2025-05-06 19:21 | XMS_ITS | Encounter Summary ---
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
--- OUTSIDE RECORDS SUMMARY | 2025-05-06 19:21 | XMS_ITS | Encounter Summary ---
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 [address] [place] [address] Consulting Physician Medical Oncology 06/18/24 documented as of this encounter
--- OUTSIDE RECORDS SUMMARY | 2025-05-06 19:21 | XMS_ITS | Clinical Summary ---
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
--- OUTSIDE RECORDS SUMMARY | 2025-05-06 19:21 | XMS_ITS | Encounter Summary ---
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
--- OUTSIDE RECORDS SUMMARY | 2025-05-06 19:21 | XMS_ITS | Encounter Summary ---
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
--- OUTSIDE RECORDS SUMMARY | 2025-05-06 19:21 | XMS_ITS ---
[facility] Address [address] [facility] [place] [address] Care Team Providers Care Truck Chauffeur Name Role Phone Paul Delarosa MD Primary [...]
--- OUTSIDE RECORDS SUMMARY | 2025-05-06 19:21 | XMS_ITS | Clinical Summary ---
Author Organization [facility] Kaylee Vinson Address [address] [place] [address] Care Team Providers Care Tablet Repair Name Role Phone Paul Delarosa MD Primary Care Provider [phone] Allergies No known active allergies Medications multivitamin,tx [...] Type Department Care Team Description 05/06/2025 Refill [facility] Oncology and Hematology - [address] [place] [address] Chalino Kraus MD Inflammatory carcinoma of left breast (CMS/HCC) 05/05/2025 Orders Only [facility] Oncology and Hematology - Edu [address] [place] [address] Chalino Kraus MD Inflammatory carcinoma of left breast (CMS/HCC) 04/29/2025 External Device Data STL ABSTRACTION Provider, Abstract 04/29/2025 External Device Data STL ABSTRACTION Provider, Abstract 04/29/2025 Orders Only [facility] Oncology and Hematology - [address] [place] [address] Chalino Kraus MD 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) 04/28/2025 Orders Only [facility] Oncology and Hematology - [address] [place] [address] Chalino Kraus MD Chronic anemia; Inflammatory carcinoma of left breast (CMS/HCC) 04/24/2025 Orders Only [facility] Oncology and Hematology [facility] [address] [place] [address] Chalino Kraus MD 04/22/2025 External Device Data STL ABSTRACTION Provider, Abstract 04/22/2025 External Device Data STL ABSTRACTION Provider, Abstract 04/22/2025 External Device Data STL ABSTRACTION Provider, Abstract 04/21/2025 9:30 AM CDT Office Visit [facility] H[facility] [address] [place] [address] Chalino Kraus MD Inflammatory carcinoma of left breast (CMS/HCC) 04/16/2025 External Device Data STL ABSTRACTION Provider, Abstract 04/16/2025 External Device Data STL ABSTRACTION Provider, Abstract 04/14/2025 Orders Only [facility] Oncology and Hematology [facility] [address] [place] [address] Chalino Kraus MD Chronic anemia; Inflammatory carcinoma of left breast (CMS/HCC) 04/11/2025 8:45 AM CDT Office Visit [facility] On[facility] Hematology [facility] [address] [place] [address] Chalino Kraus MD 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) 04/07/2025 Orders Only [facility] Oncology and Hematology [facility] [address] [place] [address] Chalino Kraus MD Inflammatory carcinoma of left breast (CMS/HCC) 04/03/2025 8:30 AM CDT Office Visit [facility] Oncology and Hematology [facility] [address] [place] [address] Chalino Kraus MD 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) 04/02/2025 Telephone [facility] Oncology and Hematology [facility] [address] [place] [address] Chalino Kraus MD Pain 03/31/2025 Orders Only [facility] Oncology and Hematology [facility] [address] [place] [address] Chalino Kraus MD Chronic anemia; Inflammatory carcinoma of left breast (CMS/HCC) 03/26/2025 Abstract [facility] Oncology and Hematology [facility] [address] [place] [address] Chalino Kraus MD 03/26/2025 Abstract [facility] Oncology and Hematology [facility] [address] [place] [address] Chalino Kraus MD 03/25/2025 External Device Data STL ABSTRACTION Provider, Abstract 03/25/2025 External Device Data STL ABSTRACTION Provider, Abstract 03/25/2025 External Device Data STL ABSTRACTION Provider, Abstract 03/25/2025 Orders Only [facility] Oncology and Hematology [facility] [address] [place] [address] Chalino Kraus MD 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) 03/24/2025 4:00 PM CDT Office Visit [facility] Breast Surgery [address] [place] [address] Migdalia Solorzano MD Malignant neoplasm of nipple and areola, 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) (Primary Dx) 03/24/2025 Orders Only [facility] Oncology and Hematology [facility] [address] [place] [address] Chalino Kraus MD Inflammatory carcinoma of left breast (CMS/HCC) 03/21/2025 9:00 AM CDT Office Visit [facility] Oncology [facility] Hematology [facility] [address] [place] [address] Chalino Kraus MD 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) 03/18/2025 11:11 PM CDT - 03/20/2025 4:16 PM CDT Hospital Encounter [facility] Oncology [address] [facility] [place] [address] bAa Carter MD Weitzel, MD Christine Easley Tiago, MD Chest wall abscess Discharge Disposition: Home or Self Care 03/18/2025 External Device Data STL ABSTRACTION Provider, Abstract 03/18/2025 Travel 03/17/2025 Orders Only [facility] Oncology and Hematology - Edu [address] [place] [address] Chalino Kraus MD Chronic anemia; Inflammatory carcinoma of left breast (CMS/HCC) 03/14/2025 Orders Only [facility] Oncology and Hematology - Edu [address] [place] [address] Chalino Kraus MD 03/10/2025 Orders Only [facility] Oncology and Hematology - [address] [place] [address] Chalino Kraus MD Inflammatory carcinoma of left breast (CMS/HCC) 03/06/2025 Orders Only [facility] Oncology and Hematology - [address] [place] [address] Chalino Kraus MD 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) 03/04/2025 External Device Data STL ABSTRACTION Provider, Abstract 03/03/2025 Orders Only [facility] Oncology and Hematology - Edu [address] [place] [address] Chalino Kraus MD Chronic anemia; Inflammatory carcinoma of left breast (CMS/HCC) 02/28/2025 Orders Only [facility] Oncology and Hematology - Edu [address] [place] [address] Chalino Kraus MD 02/25/2025 Orders Only [facility] Oncology and Hematology - Edu [address] Chalino Kraus MD 02/24/2025 Orders Only [facility] Oncology and Hematology - Edu [address] [place] [phone] Chalino Kraus MD Inflammatory carcinoma of left breast (CMS/HCC) 02/21/2025 10:30 AM CDT Office Visit [facility] Oncology and Hematology - Edu [address] [place] [address] Chalino Kraus MD Cancer, metastatic to bone (CMS/HCC) (Primary Dx) 02/20/2025 External Device Data STL ABSTRACTION Provider, Abstract 02/19/2025 External Device Data STL ABSTRACTION Provider, Abstract 02/18/2025 External Device Data STL ABSTRACTION Provider, Abstract 02/17/2025 Orders Only [facility] Oncology and Hematology - Edu [address] Chalino Kraus MD Chronic anemia; Inflammatory carcinoma of left breast (CMS/HCC) 02/11/2025 Orders Only [facility] Oncology and Hematology - Edu [address] [place] [phone] Chalino Kraus MD 02/10/2025 Orders Only [facility] Oncology and Hematology - Edu [address] [place] [phone] Chalino Kraus MD Inflammatory carcinoma of left [facility]CC) 02/07/2025 9:00 AM CDT Office Visit [facility] Oncology and Hematology - Edu [address] [place] [address] Chalino Kraus MD Chronic anemia (Primary Dx) 02/07/2025 Orders Only [facility] Oncology and Hematology - Edu [address] [place] [address] Chalino Kraus MD 02/03/2025 Orders Only [facility] Oncology and Hematology - Edu [address] [place] [address] Chalino Kraus MD Chronic anemia; [...] Description 2025 12:00 PM CDT Office Visit [facility] Oncology and Hematology - Edu [address] [place] [address] Chalino Kraus MD [address] [facility] [address] [place] [address] Health Maintenance Due Date Last [...] (#1) 2025 Medical Devices Implanted Type Area Religious Leader Device Identifier Shelf Expiration Date Model / Serial / Lot Clip Ligating Horizon Sm Ti [id number] - Csc - [id number] Implanted:Qty: 1 on 12/10/2024 by Migdalia Solorzano MD at [facility] [place] Clip Left: Breast [employer] 04/28/2029 [id number] / / [id number] Port-06/24/2024 Implanted:06/03 (Quantity not on file) Port Chest [employer] / [id number] / [id number] Description:implanted at [facility] Procedures Procedure Name Priority Date/Time Associated Diagnosis [...] of2 resultswithin the time period is included. [facility] PLATELET EST. Consistent w Count 03/20/2025 7:11 AM CDT [facility] ANISOCYTOSIS 2+ /hpf 03/20/2025 7:11 AM CDT [facility] POIKILOCYTES 2+ /hpf 03/20/2025 7:11 AM CDT [facility] MICROCYTES 1+ /hpf 03/20/2025 7:11 AM CDT [facility] TARGET CELLS 1+ /hpf 03/20/2025 7:11 AM CDT [facility] OVALOCYTES 1+ /hpf 03/20/2025 7:11 AM CDT [facility] Blood Venipuncture / Unknown 03/20/2025 5:40 AM CDT 03/20/2025 6:12 AM CDT us Rita Arrieta MD HEMATOLOGY ORDERABLES COM Final Result [facility]# [id number] [address] [facility] [place] [address] * (ABNORMAL) CBC WITH DIFFERENTIAL (03/20/2025 5:40 AM CDT) Only the most recent of3 resultswithin the time period is included. [facility] WBC 5.5 4.0 - 9.8 K/uL 03/20/2025 6:34 AM CDT [facility] - . [facility] RBC 4.97(H) 3.90 - 4.90 M/uL 03/20/2025 6:34 AM CDT [facility] - . [facility] HEMOGLOBIN 10.7(L) 11.8 - 14.8 g/dL 03/20/2025 6:34 AM CDT [facility] - . [facility] HEMATOCRIT 35.5 35.5 - 44.0 % 03/20/2025 6:34 AM CDT [facility] MCV 71.4(L) 82.0 - 99.0 fL 03/20/2025 6:34 AM CDT [facility] MCH 21.5(L) 27.2 - 32.6 pg 03/20/2025 6:34 AM CDT [facility] MCHC 30.1(L) 31.5 - 35.5 g/dL 03/20/2025 6:34 AM CDT [facility] RDW 22.4(H) 11.5 - 14.5 % 03/20/2025 6:34 AM CDT [facility] RDW-STDEV 55.3(H) 37.1 - 48.7 fL 03/20/2025 6:34 AM CDT [facility] PLATELETS 326 140 - 350 K/uL 03/20/2025 6:34 AM CDT [facility] MPV 9.9 9.3 - 12.4 fL 03/20/2025 6:34 AM CDT [facility] NEUTROPHILS 65 % 03/20/2025 6:34 AM CDT [facility] LYMPHOCYTES 12 % 03/20/2025 6:34 AM CDT [facility] MONOCYTES 18 % 03/20/2025 6:34 AM CDT [facility] EOSINOPHILS 3 % 03/20/2025 6:34 AM CDT [facility] BASOPHILS 1 % 03/20/2025 6:34 AM CDT [facility] IMMATURE GRANULOCYTES 1 % 03/20/2025 6:34 AM CDT [facility] Comment:IG (Immature Granulo cyte) count includes Metamyelocytes, Myelocytes, and Promyelocytes NEUTROPHIL ABSOLUTE 3.59 1.90 - 7.00 K/uL 03/20/2025 6:34 AM CDT [facility] LYMPHOCYTE ABSOLUTE 0.68(L) 0.70 - 4.50 K/uL 03/20/2025 6:34 AM CDT [facility] MONOCYTE ABSOLUTE 0.98 0.10 - 1.30 K/uL 03/20/2025 6:34 AM CDT [facility] EOSINOPHIL ABSOLUTE 0.14 0.00 - 0.70 K/uL 03/20/2025 6:34 AM CDT [facility] BASOPHILS ABSOLUTE 0.07 0.00 - 0.20 K/uL 03/20/2025 6:34 AM CDT [facility] - . [facility] IMMATURE GRANULOCYTES ABSOLUTE 0.03 0.00 - 0.03 K/uL 03/20/2025 6:34 AM CDT [facility] Blood Venipuncture / Unknown 03/20/2025 5:40 AM CDT 03/20/2025 6:12 AM CDT Rita Arrieta MD HEMATOLOGY ORDERABLES Silvana l Result [facility] CLIA# [id number] [address] [place] [address] * (ABNORMAL) C-REACTIVE PROTEIN (03/20/2025 5:40 AM CDT) [facility] CRP 20.6(H) <5.0 mg/L 03/20/2025 6:58 AM CDT [facility] Blood Venipuncture / Unknown 03/20/2025 5:40 AM CDT 03/20/2025 6:12 AM CDT Pina Giraldo NP CHEMISTRY ORDERABLES Fin al Result [facility] CLIA# [id number] [address] [place] [address] * CT GUIDE PERCUT DRAIN W CATH (03/19/2025 12:00 PM CDT) Anatomical Region Laterality Modality Computed Tomogra phy 03/19/2025 11:1 5 AM CDT Impressions 03/19/2025 2:04 PM CDT IMPRESSION: Successful percutaneous drainage catheter placement in the left chest wall fluid collection. 60 mL sanguinous fluid was aspirated with sample sent for laboratory evaluation. DICTATION LOCATION: Location 1 - [facility] The examination was performed with the adjustment [...] dilated over a guidewire and a 10 Micronesian drainage catheter was placed. CT imaging was [...] dilated over a guidewire and a 10 Micronesian drainage catheter was placed. CT imaging was [...] laboratory evaluation. DICTATION LOCATION: Location 1 - [facility] The examination was performed with the adjustment of mA according to the patient size and/or the use of Iterative Reconstruction Technique. Abundio Love MD CT ORDERABLES Final R esult * ANAEROBIC/AEROBIC CULTURE W GRAM STAIN (03/19/2025 11:36 AM CDT) CULTURE No aerobic or anaerobic growth 03/24/2025 7:08 AM CDT [facility] [employer] [facility] GRAM STAIN No organisms observed 03/24/2025 7:08 AM CDT [facility] GRAM STAIN 3+ (Moderate) Polymorphonuclear WBC 03/24/2025 7:08 AM CDT [facility] Body fluid THORACIC STRUCTURE / Unknown Collection / Unknown 03/19/2025 11:36 AM CDT 03/19/2025 12:23 PM CDT Abundio Love MD MICROBIOLOGY - GENERAL ORDERABLES Final Result [facility] [employer] [facility] CLIA# [id number] [address] [place] [address] * (ABNORMAL) WOUND (AEROBIC) CULTURE WITH GRAM STAIN (03/19/2025 12:54 AM CDT) CULTURE STAPHYLOCOCCUS AUREUS(A) JAYSON MCG/ML 03/21/2025 9:43 AM CDT [facility] GRAM STAIN No organisms observed 03/21/2025 9:43 AM CDT [facility] GRAM STAIN 3+ (Moderate) Polymorphonuclear WBC 03/21/2025 9:43 AM CDT [facility] Wound THORACIC STRUCTURE / Unknown Collection / [...] MICROBIOLOGY - GENERAL ORD ERABLES Final Result [facility] CLIA# [id number] [address] [place] [address] * CBC WITH AUTODIFFERENTIAL (02/07/2025 1:25 PM CDT) Blood Chalino Kraus MD HEMATOLOGY ORDERABLES Final Res ult from Last 3 Months Insurance RX [employer] RX Member Subscriber Plan / Payer (Ef fective 2024-Present) Name:Janae Solis Relation to Subscriber:Self Name:Will Janaetres Lubin Payer ID:Not on file Group ID:[id number] Type:RX Commercial Address: [address] Advance Directives For more information, please contact: [phone] * Full Code (Latest Code Status on File) Date Activated Date Inactivated Comments 03/19/2025 12:38 AM 03/20/2025 6:35 PM * Full Code Date Activated Date Inactivated Comments 11/27/2024 6:24 PM 11/28/2024 4:27 PM Care Teams Tablet Repair Relationship Specialty Start Date End Date Paul Delarosa MD [address] [facility] [address] [place] [address] PCP - General Family Practice 10/16/24
--- OUTSIDE RECORDS SUMMARY | 2025-05-06 19:21 | XMS_ITS | Encounter Summary ---
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
--- OUTSIDE RECORDS SUMMARY | 2025-05-06 19:21 | XMS_ITS | Encounter Summary ---
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
--- OUTSIDE RECORDS SUMMARY | 2025-05-06 19:21 | XMS_ITS | Encounter Summary ---
Author Organization [facility] Address [address] [place] [address] Care Team Providers Care Laundry Assistant Name Role Phone Paul Delarosa MD Primary Care Provider [phone] Encounter Details Date Type Department Care Team (Late st Contact Info) Description 05/05/2025 Orders Only [facility] Oncology and Hematology [facility] [address] [place] [address] Chalino Kraus MD [address] [place] [address] Inflammatory carcinoma of left breast [...] Description 2025 12:00 PM CDT Office Visit [facility] Oncology and Hematology - [address] [place] [address] Chalino Kraus MD [address] [place] [address] documented as of this encounter Visit Diagnoses Diagnosis Inflammatory carcinoma of left breast (CMS/HCC) documented in this encounter Care Teams Laundry Assistant Relationship Specialty Start Date End Date Paul Delarosa MD [address] [facility] [address] [facility] [address] [place] [address] PCP - General Family Practice 10/16/24 documented as of this encounter
--- OUTSIDE RECORDS SUMMARY | 2025-05-06 19:21 | XMS_ITS | Encounter Summary ---
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
--- OUTSIDE RECORDS SUMMARY | 2025-05-06 19:21 | XMS_ITS | Encounter Summary ---
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
--- OUTSIDE RECORDS SUMMARY | 2025-05-06 19:22 | XMS_ITS | Continuity of Care Document ---
Author Name [facility] Organization [facility] Care Team Providers Care Records Custodian Name Role Phone [facility] Unavailable Unavailable Problems Combined list of problems from Department of Defense and Veterans Affairs facilities. It does not include entries that were removed or entered in error. Problem Status Onset Date Problem Type Date of Resolution Comments Source Cervical Pap Smear Inactive Condition Do D MEDIASTINAL MASSES LYMPHADENOPATHY Active Condition NO [facility] visit for: screening exam for malignant neoplasm cervix Inactive Condition [facility] Cervix Sample Taken For Pap Smear Active Condition [facility] visit for: screening exam malignant neoplasm breast Inactive Condition [facility] VAGINITIS Active Condition [facility] VAGINITIS NONSPECIFIC Active Condition [facility] visit for: single system exam gynecological Inactive Condition [facility] Allergies, Adverse Reactions, Alerts Combined list of allergies from Department of Defense and Veterans Affairs facilities. It does not include entries that were removed or entered in error. Substance Category Reaction Severity Reaction type Status Date Reported Comments Source No Known Allergies Drug allergy (disorder) active 6 [facility] Encounters Combined list of: 1) Encounters from Department of Veterans Affairs facilities going backup to the last 18 months, not all [place] inpatient encounters are included; 2) Encounters from the Department of Defense facilities going backup to 280 months. Location Location Details Encounter Type Encounter Number Reason For Visit Attending Provider ADM Date DC Date Status Disposition Source [place] OUTPATIENT [id number] FEMALE CONCERN -DID NOT DISCLOS E- RASHEL COLON 04/21 Released w/o Limitations [place] [place]) OUTPATIENT [id number] VAGINAL DISCOMF ORT RASHEL COLON 04/06 Released w/o Limitations [place]) OUTPATIENT [id number] PAP SMEAR RASHEL COLON 04/28 Released w/o Limitations [place] OUTPATIENT [id number] LUMP ON SIDE OF NECK KIMBERLI DAVIDSON 12/28 Released w/o Limitations [place]) OUTPATIENT [id number] PAP SMEAR-B REAST EXAM PETTY DIANE 05/18 Released w/o Limitations [place] Procedures Combined list of: 1) Procedures from Department of Veterans Affairs facilities going back up to thelast 18 months, not all [place] non-surgical procedures are included; 2) All procedures from the Department of Defense facilities. Procedure Procedure Type Code Date Perfomer Comments Sourc e Vaginal HARMAN Prep Vaginal HARMAN Prep [id number] 04/06/2005 RENEE SHAW DoD Vaginal Wet [place] Smear Vaginal [place] Smear [id number] 04/06/2005 RENEE BRIGGS [facility] Cervical Pap Smear Cervical Pap Smear [id number] 04/21/2004 KATE CHENEY [facility] Vaginal HARMAN Prep Vaginal HARMAN Prep [id number] 04/21/2004 OTTO CHENEY [facility] SMEAR, PRIMARY SOURCE WITH INTERPRETATION; WET MOUNT FOR INFECTIOUS AGENTS (EG, SALINE, CATHERINE INK, HARMAN PREPS) 02/13/2001 [facility] INJECTION OF ANESTHETIC INTO SPINAL CANAL FOR ANALGESIA 05/26/1999 [facility] REPAIR OF OTHER CURRENT OBSTETRIC LACERATION 05/26/1999 [facility] EKG (SCALP) 05/26/1999 [facility] SMEAR, PRIMARY SOURCE WITH INTERPRETATION; WET MOUNT FOR INFECTIOUS AGENTS (EG, SALINE, CATHERINE INK, HARMAN PREPS) 04/06/2005 [facility] CYTOPATHOLOGY, SMEARS, CERVICAL OR VAGINAL, UP TO THREE SMEARS; SCREENING BY ISSUE CLERK UNDER PHYSICIAN SUPERVISION 04/21/2004 [facility] CYTOPATHOLOGY, SMEARS, CERVICAL OR VAGINAL, UP TO THREE SMEARS; SCREENING BY ISSUE CLERK UNDER PHYSICIAN SUPERVISION 08/27/2003 [facility] CYTOPATHOLOGY, SMEARS, CERVICAL OR VAGINAL, UP TO THREE SMEARS; SCREENING BY ISSUE CLERK UNDER PHYSICIAN SUPERVISION 08/22/2002 [facility] INTRAVENOUS INFUSION, THERAPY/DIAGNOSIS, ADMINISTERED PHYSICIAN/UNDER DIRECT SUPERVISION, PHYSICIAN; EA ADDITIONAL HOUR, UP TO EIGHT (8) HOURS (LIST SEPARATELY ADDITION TO CODE, PRIMARY PROCEDURE) 05/15/2002 [facility] PHYS/OTH QUALIFIED HEALTH ROOM DESIGNER QUALIFIED,EDUCATION, TRAIN,LICENSURE/REGU LATION (WHEN APPLICABLE) EDUC SER [...]
[2025-05-06 19:38] LABS: Alanine Aminotransferase 69 U/L (6-35); Albumin Level 3.3 g/dL (3.5-5.1); Alkaline Phosphatase 1398 U/L (38-126); Anion Gap 13 mmol/L (4-12); Aspartate Amino Transferase 259 U/L (14-36); Bilirubin,Total 5.5 mg/dL (0.2-1.3); Blood Urea Nitrogen 13 mg/dL (7-17); Calcium 9.3 mg/dL (8.4-10.2); Carbon Dioxide 23 mmol/L (22-30); Chloride 100 mmol/L (98-107); Estimated CRCL calculation 90 ml/min; Estimated Glomerular Filt Rate > 60; Glucose 105 mg/dL (65-110); Potassium 3.6 mmol/L (3.4-5.0); Sodium 136 mmol/L (137-145); Total Protein 6.8 g/dL (6.3-8.2)
[2025-05-06 19:44] LABS: NT Pro B Type Natriuretic Pept 1620 pg/mL (19.9-100); Troponin I 0.017 ng/mL (0.000-0.034)
[2025-05-06 20:10] LABS: INR 1.2; Prothrombin Time 15.1 Seconds (11.1-14.7)
[2025-05-06 20:11] LABS: Partial Thromboplastin Time 33.3 Seconds (22.3-36.8)
[2025-05-06 20:11] LABS: Acetaminophen 15 ug/mL (10-30)
[2025-05-06 20:14] LABS: CRP 5.9 mg/dL (<1.0); Lipase 101 U/L (23-300)
[2025-05-06] MEDS: SODIUM CHLORIDE 0.9% IV 1,000 ML 999 ML IV CONT (20:29)
[2025-05-06] MEDS: MORPHINE SULFATE (*CRX) 4 MG/ML INJ IV PUSH ×2 (20:29→23:29)
[2025-05-06 20:30] VITALS: BP 183/82; PULSE 110; RESP 24; O2SAT 94
[2025-05-06 21:05] LABS: Influenza A QL RT-PCR Negative (Negative); Influenza B QL RT-PCR Negative (Negative); RSV RNA, RT-PCR Negative (Negative); SARS-CoV-2 RNA PCR Negative (Negative)
--- NOTE | 2025-05-06 21:27 | PC.NURSE ---
Pt. alerted this RN that she has been having pitting edema in L. arm since yesterday. She does not think that she told the doc. Dr. Andujar notified.
[2025-05-06 22:37] VITALS: BP 160/98; PULSE 112; RESP 21; O2SAT 93
[2025-05-06] MEDS: ceFAZolin 1 GM in SODIUM CHLORIDE 0.9% IV 50 ML 100 ML IVPB (22:38)
[2025-05-06 23:08] LABS: MRSA (PCR) NOT DETECTED (NOT DETECTE)
[2025-05-06] MEDS: VANCOMYCIN 1,250 MG/NS 250 ML 1,250 MG/250 ML BAG 166.67 MG IVPB (23:36)
[2025-05-06 23:46] LABS: Add Urine Microscopic? YES; Appearance Urine Clear (Clear); Glucose Urine UA Negative (Negative); Leukocyte Esterase Ur Negative LEU/UL (Negative); Nitrate Urine Negative (Negative); Non Pathogenic Casts 0-2; Specific Grav Ur > 1.045 (1.001-1.035)
--- NOTE | 2025-05-06 23:58 | ADMGEN ---
This patient, Janae Solis, was admitted to Medical Room 349-01. Patient/family oriented to hospital policies and general routines including ID bracelet, bed and alarms, visiting hours, pain management, procedures, bathroom and other care routines, personal items, smoking policy, room service/diet, and visiting hours. Information on how to activate the Rapid Response Team has been discussed. Patient/Family are encouraged to report perceived risks to care and to ask questions if they do not understand what they are told or what they should do.
[2025-05-07] VITALS (11 sets, daily range): BP systolic 149–162; BP diastolic 58–83; PULSE 104–120; RESP 16; TEMP 36.4–37.3; O2SAT 93–96; BMI 30.1
[2025-05-07] MEDS: VANCOMYCIN 1,250 MG/NS 250 ML 1,250 MG/250 ML BAG 166.67 MG IVPB (01:20)
[2025-05-07] MEDS: CENTRAL LINE FLUSH 10 ML IV PUSH ×3 (06:06→20:56)
--- NOTE | 2025-05-07 06:57 | PM.IMHP ---
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 Shortness of breath started last monday 04/30 with patient having increased difficulty ambulating long distances. The shortness of breath continued to progress throughout the week to the point patient was having difficulty walking across the room. She denies associated chest pain or palpitations. The shortness of breath was further exacerbated with lying flat requiring the patient to sleep in a recliner. She also notes left upper and lower extremity edema stating that this could also be related to the lymph node removal as well. She denies any associated pain, tingling, numbness, redness or warmth to the extremities. She denies history of DVT or CHF. She denies any cough, fever, or sick contacts. Patient also notes that she has a left chest wound related to her mastectomy that opened in march during her chemotherapy treatments. She has completed two rounds of antibiotics for this wound. Patient denies any dysuria, hematuria, or difficulties with urination but she does note dark urine. Patient has no other complaints denying chest pain, palpitations, nausea/vomiting, abdominal pain. Following the thoracentesis patient states her shortness of breath has much improved. Discussed code status with patient and she wishes to remain full code at this time. ED workup: CBC with WBC 9.3, H/H 11.4//36.8, PLT 227. PT/INR 15.1, 1.2. CMP with Na 136, K 3.6, Cl 100, CO2 23, BUN/Cr 13/0.81 with GFR > 60. Glucose 105. Latic 2.0. Tot bili 5.5, direct bili 2.6, indirect bili 0.7, AST 259, ALT 69, alk phos 1398, lactate dehydrogenase 1841. Troponin WNL. CRP 5.9. BNP 1620. Lipase 101. Viral panel negative. UA with clear appearance protein 1+, ketones 1+, negative nitrates, 2+ bili, negative leukocytes, many squamous cells, 2+ bacteria. Chest XR: Large left and small right sided pleural effusion CTA chest/abdomen/pelvis: Large left and moderate right-sided pleural effusions with adjacent compressive atelectasis.Findings consistent with significant progression of patient's known diffuse metastatic disease, now with bilateral hydroureteronephrosis secondary to mass effect from the patient's uterus as well as multiple lesions within the liver. 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) segmental mastectomy with axillary lymph node dissection and chemoradiation Generalized anxiety disorder Vitamin D deficiency Vitamin B12 deficiency Psychophysiological insomnia Cervical polyp History of vaginal delivery Endometrial polyp Anemia on ferrous sulfate and cyanocobalamin daily Surgical History Surgical History History of lumpectomy of right breast (05/26/10) poorly differentiated invasive ductal carcinoma History of segmental mastectomy (06/09/10) segmental mastectomy of the right upper outer quadrant History of wisdom tooth extraction History of bilateral mastectomy (11/27/24) multifocal invasive ductal carcinoma with lymphovascular invasion and skeletal muscle involvement with positive margins status post re-excision History of laser assisted in situ keratomileusis History of lymph node dissection of axilla Family History Family History Other Adopted Social History Social History (Updated 05/07/25 @ 14:30 by Soo Benson PA-C) Social History: Lives at home with and has 2 dogs. Surrogate medical decision maker: Paul Solis, spouse. Code status: Full code. Smoking packs per day: 1 Smoking cigarettes per day: 20.0 Years smoked: 20 Smoking pack-years: 20.00 Smoking status: Former smoker Second hand tobacco smoke exposure: No Alcohol intake: current Alcohol use details: 4 drinks per week Substance use: never Substance use type: does not use Do You Feel Safe in your Home?: Yes Lack of Transportation: No Lack of Food: Never True Current Housing: I Have Housing Concerned About Future Housing: No Difficulty Paying Gas/Electric Bills: No Difficulty Paying for Meds: No Currently Unemployed: No Education: Master's Degree or Higher Difficulty w/ Childcare or Family Care: No Living arrangements: with family Additional living arrangements comments: Lives with Paul and their 2 mathias hounds in [place]. They have a grown child. Occupation/Education: occupation Spiritual care concerns: No Agree to blood products: Yes Meds Home Medications and Allergies Home Medications ?Medication ?Instructions ?Recorded ?Confirmed ?Type No Home Medications 05/07/25 05/07/25 History Allergies Allergy/AdvReac Type Severity Reaction Status Date / Time No Known Allergies Allergy Verified 05/07/25 00:18 Vital Signs Vital Signs - 24 hr 05/06/25 16:27 05/06/25 17:38 05/06/25 17:45 Temperature 98.1 F Pulse Rate 119 H 113 H Respiratory Rate 20 26 H Blood Pressure 147/95 H 163/90 H Pulse Oximetry 98 97 Oxygen Delivery Room Air Room Air 05/06/25 20:30 05/06/25 22:37 05/07/25 00:30 Temperature Pulse Rate 110 H 112 H 118 H Respiratory Rate 24 H 21 H Blood Pressure 183/82 H 160/98 H Pulse Oximetry 94 93 Oxygen Delivery 05/07/25 01:10 05/07/25 04:00 Temperature 97.6 F Pulse Rate 109 H 104 H Respiratory Rate 16 Blood Pressure 158/81 H Pulse Oximetry 94 Oxygen Delivery Exam Narrative: AF HR 110 RR 16 SpO2 95 BP 162/83 General: female in no acute respiratory distress who is nontoxic appearing, sitting up in bed. HEENT: Normocephalic. Atraumatic. Extraocular movement intact. Sclera clear and anicteric. No facial asymmetry. Chest: Lungs are clear to auscultation bilaterally. No wheezes or crackles. Port right chest. Right mastectomy scar tissue. Left mastectomy with slight drainage and radiation rash noted. CV: Heart was regular rate and rhythm. S1-S2. No murmurs, gallops, or rubs. Abd: Abdomen was soft. Nontender. Nondistended. Positive bowel sounds. Ext: No clubbing, cyanosis. DP pulses bilaterally. Swelling to the left upper extremity extending from the shoulder to the hand and left lower extremity extending from the hip to the foot. Neuro: Patient is alert and oriented x4. Strength is 5/5 in both upper and lower extremities. Speech is clear. H&P: Results Labs Labs: Short CBC 05/06/25 Range/Units 18:26 WBC 9.3 (4.5-10.0) K/mm3 Hgb 11.4 L (12.0-15.0) g/dL Hct 36.8 L (37.0-47.0) % Plt Count 227 (150-375) k/mm3 BMP 05/06/25 18:26 Sodium 136 L Potassium 3.6 Chloride 100 Carbon Dioxide 23 BUN 13 D Creatinine 0.81 Glucose 105 Calcium 9.3 Cardiac Enzymes 05/06/25 Range/Units 18:26 Troponin I 0.017 (0.000-0.034) ng/mL Liver Function 05/06/25 Range/Units 18:26 Total Bilirubin 5.5 H (0.2-1.3) mg/dL Direct Bilirubin 2.6 H (0-0.3) mg/dL AST 259 H (14-36) U/L ALT 69 H (6-35) U/L Alkaline Phosphatase 1398 H (38-126) U/L Albumin 3.3 L (3.5-5.1) g/dL Urine 05/06/25 Range/Units 23:33 Urine Color Dark yellow (Yellow) Urine Appearance Clear (Clear) Urine pH 5.0 (5.0-9.0) Ur Specific [place] > 1.045 H (1.001-1.035) Urine Protein 1+ H (Negative) mg/dL Urine Glucose (UA) Negative (Negative) mg/dL Assessment and Plan Assessment and plan (1) Bilateral pleural effusion: Code(s): J90 - Pleural effusion, not elsewhere classified Status: Acute Assessment and Plan: Chest XR: Large left and small right sided pleural effusion CTA chest/abdomen/pelvis: Large left and moderate right-sided pleural effusions with adjacent compressive atelectasis.Findings consistent with significant progression of patient's known diffuse metastatic disease, now with bilateral hydroureteronephrosis secondary to mass effect from the patient's uterus as well as multiple lesions within the liver. - Complicating Factors: diffuse metastatic disease - Patient flags for sepsis given vital signs though no leukocytosis. Lactic WNL. CRP elevated however known cancer. Given 1 time dose of broad spectrum antibiotics in the ED. Monitor, currently no signs of infection thus antibiotics will be held. - Blood cultures obtained on 05/06: pending - Wound culture obtained on 05/06: pending - Viral PCR: negative for Flu/COVID/RSV - Echo ordered to evaluate heart function - Left upper and lower extremity edema possible lymphadenopathy given lymph node removal however will obtain doppers to rule of DVT. Dopplers ordered. - no supplemental O2 requirement - Monitor vital signs, I&Os, neuro status and patient is a fall risk - Follow WBC, serum electrolytes, temperature curves and cultures - S/p thoracentesis with 1100 ml of cloudy myke colored fluid removed on 05/07 Follow up CXR: small bilateral pleural effusions with likely mild bibasilar atelectasis, decreased in size in the left post thoracentesis. No pneumothorax. IS ordered. - Pulmonology consulted Current studies are not indicative of an empyema. From a purely pulmonary parenchyma and pleural fluid perspective she does not require antibiotics at this time. Repeat a chest x-ray on 05/08/2024 to reassess for a rapidly reaccumulating left pleural effusion. If reaccumulates the left pleural effusion would consider transfer to higher level of care facility for a definitive procedures such as PleurX catheter or VATS procedure with pleurodesis if this would be recommended by her oncology team given her metastatic disease. (2) Hydroureteronephrosis: Code(s): N13.30 - Unspecified hydronephrosis Status: Acute Assessment and Plan: CTA chest/abdomen/pelvis: The bladder is decompressed, and otherwise unremarkable. The uterus is bulky and irregular and demonstrates mass effect upon the bilateral distal ureters, likely the cause of patient's bilateral hydroureteronephrosis. BUN/Cr WNL Monitor I/O Avoid nephrotoxic medications Renally dose medications Urology consulted for possible stent requirement (3) Cancer, metastatic to liver: Code(s): C78.7 - Secondary malignant neoplasm of liver and intrahepatic bile duct Status: Acute Assessment and Plan: Chest/Abdomen/Pelvis CTA: Multiple areas of decreased attenuation are identified within the liver, presumably diffuse metastatic disease. No intrahepatic biliary ductal dilatation is appreciated. - LFTs elevated but slightly downtrending On admission: tot bili 5.5, direct bili 2.6, indirect bili 0.7, AST 259, ALT 69, alk phos 1398 - Oncology consulted (4) Malignant neoplasm of left breast, stage 4: Code(s): C50.912 - Malignant neoplasm of unspecified site of left female breast Status: Acute Assessment and Plan: Follows with oncologist Dr. Kraus Completed Chemotherapy Jul 2024-Oct 2024, mastectomy, chemotherapy Dec-Mar 2025 and radiation (last tx 04/17/25) Quality VTE Prophylaxis VTE prophylaxis: pharmacologic ordered Hospitalist [facility] Advance Care Plan I have confirmed that the patient's Advanced Care Plan is present, code status is documented, or surrogate decision maker is listed in patient medical record.: Yes Medication Reconciliation I have utilized all available resources to obtain, update and review the patients current medications (includes all prescriptions, OTC, herbals, cannabis, and nutritional supplements).: Yes
[2025-05-07 09:06] LABS: Hematocrit 35.0 % (37.0-47.0); Hemoglobin 10.6 g/dL (12.0-15.0); Immature Platelet Fraction Pct 5.1 % (0.9-11.2); Mean Corpuscular HGB Conc 30.3 g/dl (32-36); Mean Corpuscular Hemoglobin 20.7 pg (26-34); Mean Corpuscular Volume 68.2 fl (80-100); Platelet Count Result 221 k/mm3 (150-375); Red Blood Count 5.13 M/mm3 (4.2-5.4); White Blood Count 9.3 K/mm3 (4.5-10.0)
[2025-05-07 09:15] LABS: Alanine Aminotransferase 61 U/L (6-35); Albumin Level 3.2 g/dL (3.5-5.1); Alkaline Phosphatase 1379 U/L (38-126); Anion Gap 11 mmol/L (4-12); Aspartate Amino Transferase 203 U/L (14-36); Bilirubin,Total 4.7 mg/dL (0.2-1.3); Blood Urea Nitrogen 13 mg/dL (7-17); Calcium 9.0 mg/dL (8.4-10.2); Carbon Dioxide 22 mmol/L (22-30); Chloride 101 mmol/L (98-107); Estimated CRCL calculation 93 ml/min; Estimated Glomerular Filt Rate > 60; Glucose 86 mg/dL (65-110); Potassium 3.6 mmol/L (3.4-5.0); Sodium 134 mmol/L (137-145); Total Protein 6.4 g/dL (6.3-8.2)
--- NOTE | 2025-05-07 10:37 | CY_PTH ---
PATIENT: Janae Solis LOC: [id number] U#:[id number] AGE/SX: 54/F ROOM: 349 RE05/06/[address]: Sherly Lucas DO : 1970 BED: 01 DIS: 05/08/2025 SPEC #: [id number] RECD: 05/07/25 12:04 STATUS: JUWANMike REQ #: [id number] ARLINE: 05/07/25 10:[address]: Shey Andujar DEPT: [facility] Cytology RECD BY: Alesha Nichols ENTERED: 05/07/25 12:04 SP TYPE: Cytology OT DR: MD Sherly Fleming DO Izabella L. Perkins, PA-C Michael J. Walter, MD Tissues: A - Pleural Fluid Procedures: Hematoxylin and Eosin Stain Cell Block CK 20 CK 7 Cytopathology Cytospin [id number]
[2025-05-07 12:49] LABS: Appearance Pleural Fluid Cloudy (Clear); Color Pleural Fluid Yellow (Colorless)
[2025-05-07 12:50] LABS: Macrophages Pleural Fluid 5 %; Mesothelial Cells Pleural Flui 68 %; Neutrophils Pleural Fluid 4 % (0-25); Other Cells Pleural Fluid 13 %
[2025-05-07 12:54] LABS: Nucleated Cell Pleural Fluid 3627 /uL (0-1000)
--- NOTE | 2025-05-07 13:27 | PM.CNPUL ---
Assessment and Plan Assessment and plan (1) Bilateral pleural effusion: Code(s): J90 - Pleural effusion, not elsewhere classified Status: Acute Assessment and Plan: Patient with no prior cardiac or pulmonary disease. Patient has metastatic breast cancer with CT angiogram chest abdomen pelvis on 05/06/25 with no PE, large left and moderate right-sided pleural effusion with compressive atelectasis, bilateral mastectomy with small anterior chest wall likely seroma, multiple suspicious and pathologically enlarged lymph nodes within the mediastinum, retropectoral left chest and bilateral axilla. Acute fracture of the lateral margin of the right 4th rib, extensive lytic and blastic lesions with the visualized osseous structures. Multiple areas of decreased liver attenuation probably diffuse metastatic disease. Bilateral hydronephrosis right greater than left, the uterus is bulky and irregular demonstrates mass effect upon the bilateral distal ureter so likely causing the patient's bilateral hydroureteronephrosis. Moderate anasarca. 05/07/25: Patient underwent a left thoracentesis with removal of 1100 cloudy myke, pH 7.304. Nucleated cells 3627, neutrophils 4%, macrophages 5%, mesothelial cells 68%, other cells 13%. Postprocedure chest x-ray shows very small left pleural effusion, small to moderate right-sided pleural effusion, Port-A-Cath in place. Additional studies including cytology, chemistries and microbiology (bacterial, fungal, AFB smears and culture per) are pending. Echo in upper and lower extremity Dopplers have been ordered. Etiology of bilateral pleural effusions include: metastatic, transudative (from cardiac or liver etiology), exudative ( infectious or inflammatory), urinothorax (bilateral hydronephrosis), Plan: Current studies are not indicative of an empyema. await pleural chemistries including pleural creatinine. follow microbiology studies. Await pleural cytology. From a purely pulmonary parenchyma and pleural fluid perspective she does not require antibiotics at this time. I will repeat a chest x-ray on 05/08/2024 to reassess for a rapidly reaccumulating left pleural effusion. The patient reaccumulates the left pleural effusion would consider transfer to higher level of care facility for a definitive procedures such as PleurX catheter or VATS procedure with pleurodesis if this would be recommended by her oncology team given her metastatic disease. Oncology has been consulted. Agree with echocardiogram to assess for cardiac etiology of bilateral pleural effusions. Agree with upper and lower extremity Dopplers. Will follow with you. History of Present Illness History of Present Illness Consult date: 05/07/25 Chief complaint: Metastatic breast cancer;pleural effusions;shortne Narrative: 05/07/2025: This is a new pulmonary consult for bilateral pleural effusions. 54-year-old with a history of metastatic breast cancer status post bilateral mastectomy 11/27/2024, completed neoadjuvant chemotherapy on October 17, 2024, palliative chemotherapy with Abraxane and Keytruda cycle 1 started 01/24/2025 and palliative radiation to the left chest wall. CT scan of the chest abdomen and pelvis on 03/18/2025 with ring enhancing fluid collection on lateral anterior chest wall consistent with recent surgery no metastatic disease in the lungs liver pancreas or spleen, diffuse bony lytic and sclerotic lesions in multiple ribs, the right scapula, the manubrium, sternum, multiple vertebral bodies, long bones of the pelvis, acute -subacute pathologic fractures of the right 4th rib and left posterior 7th rib, mesenteric disease with enlarged lymph nodes, lymphadenopathy left supraclavicular, left axillary and left retro pectoral basins. The uterus is significantly nodular and somewhat enlarged. PET scan on 04/02/2025 with widespread FDG lymphadenopathy in the neck, chest, abdomen, pelvis with numerous FDG avid lytic bone lesions throughout the axial and appendix killer skeletal in consistent with widespread metastatic disease. 04/14/2025, oncology follow-up, patient still has for more radiation therapy treatments left. Denies chest pain or shortness of breath no abdominal pain no bone pain. Skin with more red and lots of scabbing. Open areas with minimal drainage I will not start treatment with K treated today. We will let her finish all remaining 4 radiation treatments. I will reassess in 1 week to evaluate starting Keytruda and then later Abraxane. follow-up in 1 week. 05/06/2025: Patient presented to the emergency room with dyspnea on exertion. Patient states on 04/30 2025 she had dyspnea on exertion at half a mi. she noted left side swelling of her arm and lower leg and had difficulty laying flat in bed. These symptoms progressed and on 05/06 she could only walk 30 ft and had rest shortness of breath. She denied fever, chills, rigors, diaphoresis, cough, phlegm or hemoptysis. Patient states that she has had no change in her chronic nocturia at 1-2 times a night and has no paroxysmal nocturnal dyspnea. She presented to the ED with Blood pressure 147/95, heart rate 119, respirations 20, room air saturation 93%. Decreased breath sounds at the bases. White blood cell count 9.3, creatinine 0.81, D-dimer 15.77, Alk-phos 1398. lactic acid 2.0, BNP 1620, influenza, RSV, COVID RT PCR assay negative. Chest x-ray showed large left and small right-sided pleural effusion. CT angiogram chest abdomen pelvis showed no PE, large left and moderate right-sided pleural effusion with compressive atelectasis bilateral mastectomy with small anterior chest wall likely seroma, multiple suspicious and pathologically enlarged lymph nodes within the mediastinum, retropectoral left chest and bilateral axilla. Acute fracture of the lateral margin of the right 4th rib, extensive lytic and blastic lesions with the visualized osseous structures consistent with patient's history. Multiple areas of decreased liver attenuation probably diffuse metastatic disease. bilateral hydronephrosis right greater than left, the uterus is bulky and irregular demonstrates mass effect upon the bilateral distal ureter so likely causing the patient's bilateral hydro ureteral nephrosis. Moderate anasarca. Multiple lytic and blastic lesions. Patient was treated with IV fluids, vancomycin, Ancef. 05/07/2025: patient on room air with saturations 93%. Patient is afebrile. White blood cell count 9.3, creatinine 0.77, alk-phos 1379, AST 203, ALT 61, LDH 1841. Patient underwent a left thoracentesis with removal of 1100 cloudy myke, pH 7.304. Nucleated cells 3627, neutrophils 4%, macrophages 5%, mesothelial cells 68%, other cells 13%. Postprocedure chest x-ray shows very small left pleural effusion, small to moderate right-sided pleural effusion, Port-A-Cath in place. Patient tells me that during the procedure she noted marked improvement and by the end of the procedure she had improved greatly and could take deeper breaths. 1 hour later she says she is breathing normal. She walked from the stretcher to her bed and said her dyspnea on exertion is improved. current is she denies fever, chills, rigors, diaphoresis, cough, phlegm, hemoptysis. She is on room air with saturations 93%. She was able to lay flat said that she was breathing 90% back to her baseline. Echo in upper and lower extremity Dopplers have been ordered. DATA: EXAMINATION: CTA chest PE abdomen pel DATE: 05/06/2025 21:11 CDT INDICATION: Elevated d-dimer with shortness of breath and jaundice. Personal history of breast cancer, initially diagnosed in 2009 with aggressive recurrence in June 2024 with inflammatory breast cancer post bilateral mastectomy with extensive lymphovascular invasion, and widespread metastatic disease on most recent head CT dated 04/01/2025. TECHNIQUE: Computed tomographic angiography (CTA) of the chest was performed, along with multiple contiguous axial images of the abdomen and pelvis with 100 mL Omnipaque-350 intravenous contrast. The dose-length product was 1678.90 mGy-cm. Maximum intensity projection 3D-reconstructions of the aorta and other arteries were constructed by the technologist on a separate workstation. FINDINGS/OBSERVATIONS: PULMONARY ARTERIES: No filling defect is identified within the main or proximal pulmonary artery. The main pulmonary artery is not enlarged. THORACIC AORTA: No aneurysmal dilatation or dissection is present. The great vessels are intact LUNGS: Large left and moderate right-sided pleural effusions with adjacent compressive atelectasis. Only a small portion of the left upper and the right upper and middle lobes are aerated. Post bilateral mastectomy with small anterior chest wall with (likely) seromas MEDIASTINUM: Multiple morphologically suspicious and pathologically enlarged lymph nodes within the mediastinum, retropectoral left chest and bilateral axilla. BONES OF THE CHEST: Acute fracture of the lateral margin of the right fourth rib. No significant degenerative disease. Extensive lytic and blastic lesions within the visualized osseous structures consistent with patient's history. Multiple prior fracture deformities within the posterior upper ribs with callus formation. No additional acute rib fractures HEART: The heart is of normal size, without pericardial effusion. Right internal jugular central venous catheter identified extending into the proximal right atrium. LIVER: Multiple areas of decreased attenuation are identified within the liver, presumably diffuse metastatic disease No intrahepatic biliary ductal dilatation is appreciated. GALLBLADDER AND BILIARY SYSTEM: The gallbladder is only minimally distended, contains a single calcification and otherwise unremarkable. PANCREAS: The pancreas enhances homogeneously without ductal dilatation. SPLEEN: The spleen enhances homogeneously and is not enlarged measuring 8 cm in longitudinal dimension. KIDNEYS: Global enlargement of the bilateral kidneys with bilateral hydroureteronephrosis, right greater than left. ADRENAL GLANDS: Unremarkable. GASTROINTESTINAL TRACT: Fecal stasis within the cecum and rectum APPENDIX: The air-filled appendix is of normal caliber (axial series, images 89 through 112) VASCULATURE: Unremarkable. No aneurysmal dilatation or significant stenosis. LYMPH NODES: Diffuse pathologically enlarged and morphologically suspicious lymph nodes within the retroperitoneum and at the root of the mesentery. PELVIC STRUCTURES: The bladder is decompressed, and otherwise unremarkable. The uterus is bulky and irregular and demonstrates mass effect upon the bilateral distal ureters, likely the cause of patient's bilateral hydroureteronephrosis. BODY WALL AND MUSCULOSKELETAL: Moderate anasarca. Multiple lytic and blastic lesions within the visualized osseous structures, consistent with patient's known diffuse metastatic disease. IMPRESSION: Findings consistent with significant progression of patient's known diffuse metastatic disease, now with bilateral hydroureteronephrosis secondary to mass effect from the patient's uterus as well as multiple lesions within the liver. Review of Systems Constitutional: Constitutional: Reports no additional constitutional complaints Eyes: Eyes: Reports no additional eye complaints ENT: Reports system reviewed and no additional complaints, except as documented Cardiovascular: Cardiovascular: Reports no additional cardiovascular complaints Respiratory: Respiratory: Reports no additional respiratory complaints Gastrointestinal: Gastrointestinal: Reports no additional gastrointestinal complaints Musculoskeletal: Musculoskeletal: Reports no additional musculoskeletal complaints Neurologic: Reports system reviewed and no additional complaints, except as documented Psychiatric: Psychiatric: Reports no additional psychiatric complaints Endocrine: Endocrine: Reports no additional endocrine complaints Hematologic/Lymphatic: Hematologic/Lymphatic: Reports no additional hematologic/lymphatic complaints Allergic/Immunologic: Allergic/Immunologic: Reports no additional allergic/immunologic complaints [facility] Past Medical History Medical History Malignant neoplasm of left breast, stage 4 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) 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 status post neoadjuvant chemotherapy and bilateral mastectomy; has scan 01/20/2025 showed metastatic disease to lymph nodes and bone 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) segmental mastectomy with axillary lymph node dissection and chemoradiation Generalized anxiety disorder Vitamin D deficiency Vitamin B12 deficiency Psychophysiological insomnia Cervical polyp History of vaginal delivery Endometrial polyp Anemia on ferrous sulfate and cyanocobalamin daily Surgical History Surgical History History of lumpectomy of right breast (05/26/10) poorly differentiated invasive ductal carcinoma History of segmental mastectomy (06/09/10) segmental mastectomy of the right upper outer quadrant History of wisdom tooth extraction History of bilateral mastectomy (11/27/24) multifocal invasive ductal carcinoma with lymphovascular invasion and skeletal muscle involvement with positive margins status post re-excision History of laser assisted in situ keratomileusis History of lymph node dissection of axilla Family History Family History Other Adopted Social History Social History (Updated 05/07/25 @ 14:30 by Soo Benson PA-C) Social History: Lives at home with and has 2 dogs. Surrogate medical decision maker: Paul Solis, spouse. Code status: Full code. Smoking packs per day: 1 Smoking cigarettes per day: 20.0 Years smoked: 20 Smoking pack-years: 20.00 Smoking status: Former smoker Second hand tobacco smoke exposure: No Alcohol intake: current Alcohol use details: 4 drinks per week Substance use: never Substance use type: does not use Do You Feel Safe in your Home?: Yes Lack of Transportation: No Lack of Food: Never True Current Housing: I Have Housing Concerned About Future Housing: No Difficulty Paying Gas/Electric Bills: No Difficulty Paying for Meds: No Currently Unemployed: No Education: Master's Degree or Higher Difficulty w/ Childcare or Family Care: No Living arrangements: with family Additional living arrangements comments: Lives with Paul and their 2 mathias hounds in [place]. They have a grown child. Occupation/Education: occupation Spiritual care concerns: No Agree to blood products: Yes Meds Home Medications and Allergies Home Medications ?Medication ?Instructions ?Recorded ?Confirmed ?Type No Home Medications 05/07/25 05/07/25 History Allergies Allergy/AdvReac Type Severity Reaction Status Date / Time No Known Allergies Allergy Verified 05/07/25 00:18 Vital Signs Vital Signs - 24 hr 05/06/25 16:27 05/06/25 17:38 05/06/25 17:45 Temperature 36.7 C Pulse Rate 119 H 113 H Respiratory Rate 20 26 H Blood Pressure 147/95 H 163/90 H Pulse Oximetry 98 97 Oxygen Delivery Room Air Room Air 05/06/25 20:30 05/06/25 22:37 05/07/25 00:30 Temperature Pulse Rate 110 H 112 H 118 H Respiratory Rate 24 H 21 H Blood Pressure 183/82 H 160/98 H Pulse Oximetry 94 93 Oxygen Delivery 05/07/25 01:10 05/07/25 04:00 05/07/25 06:00 Temperature 36.4 C 36.5 C Pulse Rate 109 H 104 H 110 H Respiratory Rate 16 16 Blood Pressure 158/81 H 162/83 H Pulse Oximetry 94 95 Oxygen Delivery 05/07/25 08:05 05/07/25 09:00 05/07/25 10:03 Temperature Pulse Rate 114 H Respiratory Rate Blood Pressure Pulse Oximetry 93 Oxygen Delivery Room Air Room Air Exam Const: General: cooperative, healthy appearing and comfortable Orientation/consciousness: oriented to person, oriented to place and oriented to time HENMT: Head: normal to inspection Ears: hearing grossly normal bilaterally Eyes: General: appearance normal, both eyes and all related structures Neck: Neck: normal visual inspection Chest: Chest palpation & inspection: normal inspection of the chest Other: Chest wall erythema an open wound. Resp: Effort & Inspection: normal respiratory effort and able to speak in complete sentences Auscultation: no crackles, no rales, no rhonchi, no wheezes and diminished lung sounds Other: decreased breath sounds at the bases. Cardio: Jugular venous distension: no JVD GI: Inspection: normal to inspection GI Palp: No abdominal tenderness Skin: General skin exam: normal color Neuro: General: oriented to person, oriented to place and oriented to time Extrem: General: normal to inspection Other: Edema left upper extremity in left lower extremity. Psych: Appearance: grossly normal Results Laboratory Findings 05/07/25 08:52 05/07/25 08:52 ABG, PT/INR, D-dimer: PT/INR, D-dimer PT 15.1 Seconds (11.1-14.7) H 05/06/25 18:27 INR 1.2 05/06/25 18:27 D-Dimer 15.77 ug/mL (<0.48) H 05/06/25 18:27 Abnormal lab findings: Abnormal Labs 05/06/25 05/06/25 05/06/25 18:26 18:27 23:33 RBC 5.42 H Hgb 11.4 L Hct 36.8 L MCV 67.9 L MCH 21.0 L MCHC 31.0 L RDW 21.4 H Immature Gran % (Auto) 1.6 H Neut % (Auto) 77.9 H Lymph % (Auto) 5.3 L [place] % (Auto) 13.5 H Lymph # (Auto) 0.49 L [place] # (Auto) 1.3 H Abs Immat Gran (auto) 0.15 H Absolute Neuts (auto) 7.2 H PT 15.1 H D-Dimer 15.77 H Sodium 136 L Anion Gap 13 H Total Bilirubin 5.5 H Direct Bilirubin 2.6 H AST 259 H ALT 69 H Alkaline Phosphatase 1398 H Lactate Dehydrogenase 1841 H C-Reactive Protein 5.9 H NT-Pro-B Natriuret Pep 1620 H Albumin 3.3 L Ur Specific [place] > 1.045 H Urine Protein 1+ H Urine Ketones 1+ H Urine Bilirubin 2+ H Urine WBC 6-10 H Ur Squamous Epith Cells Many H Urine Bacteria 2+ H Pleural Nuc Cells 05/07/25 05/07/25 08:52 10:39 RBC Hgb 10.6 L Hct 35.0 L MCV 68.2 L MCH 20.7 L MCHC 30.3 L RDW 21.1 H Immature Gran % (Auto) Neut % (Auto) Lymph % (Auto) [place] % (Auto) Lymph # (Auto) [place] # (Auto) Abs Immat Gran (auto) Absolute Neuts (auto) PT D-Dimer Sodium 134 L Anion Gap Total Bilirubin 4.7 H Direct Bilirubin AST 203 H ALT 61 H Alkaline Phosphatase 1379 H Lactate Dehydrogenase C-Reactive Protein NT-Pro-B Natriuret Pep Albumin 3.2 L Ur Specific [place] Urine Protein Urine Ketones Urine Bilirubin Urine WBC Ur Squamous Epith Cells Urine Bacteria Pleural Nuc Cells 3627 H
--- NOTE | 2025-05-07 16:41 | P.CONUR_ITS ---
Assessment and Plan Assessment and plan (1) Malignant neoplasm of left breast, stage 4: Code(s): C50.912 - Malignant neoplasm of unspecified site of left female breast Status: Acute (2) Hydroureteronephrosis: Code(s): N13.30 - Unspecified hydronephrosis Status: Acute Assessment and Plan: * Metastatic breast cancer with retroperitoneal adenopathy causing mild bilateral hydronephrosis without significant renal dysfunction current. * At this point I will not commit to ureteral stent placement but will follow her closely and reconsider if renal function regresses. Urology Consult Note HPI Date Seen: 05/07/25 Requesting Physician: Sherly Lucas DO Primary Care Provider: Paul Delarosa MD Consult Narrative Narrative: Janae Solis is a 54 year old female with advanced metastatic breast cancer who is unfamiliar to me and to our practice. She is admitted with shortness of breath and found him bilateral pleural effusions. She is currently undergoing thoracentesis and not available for consultation although her is in her room and we did have a nice conversation. She is not known to have kidney dysfunction but CT imaging demonstrates mild bilateral hydronephrosis with retroperitoneal adenopathy. Serum creatinine is 0.7. 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 status post neoadjuvant chemotherapy and bilateral mastectomy; has scan 01/20/2025 showed metastatic disease to lymph nodes and bone 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) segmental mastectomy with axillary lymph node dissection and chemoradiation Generalized anxiety disorder Vitamin D deficiency Vitamin B12 deficiency Psychophysiological insomnia Cervical polyp History of vaginal delivery Endometrial polyp Anemia on ferrous sulfate and cyanocobalamin daily Surgical History Surgical History History of lumpectomy of right breast (05/26/10) poorly differentiated invasive ductal carcinoma History of segmental mastectomy (06/09/10) segmental mastectomy of the right upper outer quadrant History of wisdom tooth extraction History of bilateral mastectomy (11/27/24) multifocal invasive ductal carcinoma with lymphovascular invasion and skeletal muscle involvement with positive margins status post re-excision History of laser assisted in situ keratomileusis History of lymph node dissection of axilla Family History Family History Other Adopted Social History Social History (Updated 05/07/25 @ 14:30 by Soo Benson PA-C) Social History: Lives at home with and has 2 dogs. Surrogate medical decision maker: Paul Solis, spouse. Code status: Full code. Smoking packs per day: 1 Smoking cigarettes per day: 20.0 Years smoked: 20 Smoking pack-years: 20.00 Smoking status: Former smoker Second hand tobacco smoke exposure: No Alcohol intake: current Alcohol use details: 4 drinks per week Substance use: never Substance use type: does not use Do You Feel Safe in your Home?: Yes Lack of Transportation: No Lack of Food: Never True Current Housing: I Have Housing Concerned About Future Housing: No Difficulty Paying Gas/Electric Bills: No Difficulty Paying for Meds: No Currently Unemployed: No Education: Master's Degree or Higher Difficulty w/ Childcare or Family Care: No Living arrangements: with family Additional living arrangements comments: Lives with Paul and their 2 mathias hounds in [place]. They have a grown child. Occupation/Education: occupation Spiritual care concerns: No Agree to blood products: Yes Meds Home Medications and Allergies Home Medications ?Medication ?Instructions ?Recorded ?Confirmed ?Type No Home Medications 05/07/25 05/07/25 History Allergies Allergy/AdvReac Type Severity Reaction Status Date / Time No Known Allergies Allergy Verified 05/07/25 00:18 Vital Signs Vital Signs - 24 hr 05/06/25 17:38 05/06/25 17:45 05/06/25 20:30 Temperature Pulse Rate 113 H 110 H Respiratory Rate 26 H 24 H Blood Pressure 163/90 H 183/82 H Pulse Oximetry 97 94 Oxygen Delivery Room Air Room Air 05/06/25 22:37 05/07/25 00:30 05/07/25 01:10 Temperature 97.6 F Pulse Rate 112 H 118 H 109 H Respiratory Rate 21 H 16 Blood Pressure 160/98 H 158/81 H Pulse Oximetry 93 94 Oxygen Delivery 05/07/25 04:00 05/07/25 06:00 05/07/25 08:05 Temperature 97.7 F Pulse Rate 104 H 110 H 114 H Respiratory Rate 16 Blood Pressure 162/83 H Pulse Oximetry 95 Oxygen Delivery 05/07/25 09:00 05/07/25 10:03 05/07/25 12:00 Temperature Pulse Rate 112 H Respiratory Rate Blood Pressure Pulse Oximetry 93 Oxygen Delivery Room Air Room Air 05/07/25 14:00 Temperature 99.1 F Pulse Rate 110 H Respiratory Rate 16 Blood Pressure 155/69 H Pulse Oximetry 96 Oxygen Delivery Results Labs 05/07/25 08:52 05/07/25 08:52 Labs: Short CBC 05/06/25 05/07/25 Range/Units 18:26 08:52 WBC 9.3 9.3 (4.5-10.0) K/mm3 Hgb 11.4 L 10.6 L (12.0-15.0) g/dL Hct 36.8 L 35.0 L (37.0-47.0) % Plt Count 227 221 (150-375) k/mm3 BMP 05/06/25 05/07/25 18:26 08:52 Sodium 136 L 134 L Potassium 3.6 3.6 Chloride 100 101 Carbon Dioxide 23 22 BUN 13 D 13 Creatinine 0.81 0.77 Glucose 105 86 Calcium 9.3 9.0 Cardiac Enzymes 05/06/25 Range/Units 18:26 Troponin I 0.017 (0.000-0.034) ng/mL Liver Function 05/06/25 05/07/25 Range/Units 18:26 08:52 Total Bilirubin 5.5 H 4.7 H (0.2-1.3) mg/dL Direct Bilirubin 2.6 H (0-0.3) mg/dL AST 259 H 203 H (14-36) U/L ALT 69 H 61 H (6-35) U/L Alkaline Phosphatase 1398 H 1379 H (38-126) U/L Albumin 3.3 L 3.2 L (3.5-5.1) g/dL Urine 05/06/25 Range/Units 23:33 Urine Color Dark yellow (Yellow) Urine Appearance Clear (Clear) Urine pH 5.0 (5.0-9.0) Ur Specific [place] > 1.045 H (1.001-1.035) Urine Protein 1+ H (Negative) mg/dL Urine Glucose (UA) Negative (Negative) mg/dL
--- NOTE | 2025-05-07 19:00 | WPDONCCN ---
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 Patient developed metastatic disease in December of 2024 with bone involvement. Patient started palliative chemotherapy with Abraxane and Keytruda on January 24, 2025. She also received palliative radiation therapy to the left chest wall due to local recurrence and completed radiation on April 18, 2025. Due to open wound in the left chest wall further chemotherapy was placed on hold. Unfortunately the recent CT scan showed significant progression of metastatic disease with bilateral pleural effusion and liver metastasis. I have discussed this finding with patient in detail today in the presence of patient father. It will be very difficult to resume chemotherapy with the open wound and most likely she will end up in the hospital again with infection. We discussed the prognosis in detail as well. We also discussed comfort care and hospice. Patient would like to follow-up in the office and give 1 more chance of chemotherapy. I recommended if she starts feeling better then she can come to the office and will try resuming chemotherapy. She may also need PleurX catheter placement for recurrent pleural effusion that can be arranged as an outpatient and [facility]. (2) DVT (deep venous thrombosis): Code(s): I82.409 - Acute embolism and thrombosis of unspecified deep veins of unspecified lower extremity Status: Acute Assessment and Plan: Doppler studies showed upper extremity DVT involving the left axillary brachial and basilic vein. Patient is on Lovenox. She should continue Eliquis 5 mg twice a day on discharge. [facility] Data of Consult Date/Time: 05/07/25 19:00 Requesting Physician: Sherly Lucas DO Primary Care Provider: Paul Delarosa MD Consult Narrative Narrative: Janae Solis is a 54 year old female with history of metastatic triple negative breast cancer initially diagnosed with stage IIIC disease. She received neoadjuvant chemotherapy with Adriamycin Cytoxan and Taxol in October 2024 and had bilateral mastectomy on November 27, 2024. Unfortunately PET scan done on December 2024 showed new extensive FDG avid lymphadenopathy in the retroperitoneum mesentery and pelvic lymph nodes along with bone metastasis. Patient was started of palliative chemotherapy with Keytruda and Abraxane and received cycle 1 on January 24, 2025. Due to worsening of left chest wall metastasis she was started on radiation therapy treatment that she completed on April 18, 2025. Chemotherapy was placed on hold due to open wound on the left chest wall area with radiation therapy was given. She was last seen in the office on April 21. She has been going into the care of Wound Service. Now she came into the hospital with worsening of shortness of breath. CT chest abdomen pelvis showed significant progression of diffuse metastatic disease with bilateral hydroureteronephrosis secondary to the mass effect the patient uterus as well as multiple lesions in the liver. There was also large left and moderate right-sided pleural effusion. Patient had thoracentesis done with removal of 1100 cc of fluid from the left pleural effusion. Upper extremity Doppler study showed DVT within the left axillary brachial and basilic vein. Review of Systems Review of Systems: Twelve point review of system was reviewed. 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) segmental mastectomy with axillary lymph node dissection and chemoradiation Generalized anxiety disorder Vitamin D deficiency Vitamin B12 deficiency Psychophysiological insomnia Cervical polyp History of vaginal delivery Endometrial polyp Anemia on ferrous sulfate and cyanocobalamin daily Surgical History Surgical History History of lumpectomy of right breast (05/26/10) poorly differentiated invasive ductal carcinoma History of segmental mastectomy (06/09/10) segmental mastectomy of the right upper outer quadrant History of wisdom tooth extraction History of bilateral mastectomy (11/27/24) multifocal invasive ductal carcinoma with lymphovascular invasion and skeletal muscle involvement with positive margins status post re-excision History of laser assisted in situ keratomileusis History of lymph node dissection of axilla Family History Family History Other Adopted Social History Social History (Updated 05/07/25 @ 14:30 by Soo Benson PA-C) Social History: Lives at home with and has 2 dogs. Surrogate medical decision maker: Paul Solis, spouse. Code status: Full code. Smoking packs per day: 1 Smoking cigarettes per day: 20.0 Years smoked: 20 Smoking pack-years: 20.00 Smoking status: Former smoker Second hand tobacco smoke exposure: No Alcohol intake: current Alcohol use details: 4 drinks per week Substance use: never Substance use type: does not use Do You Feel Safe in your Home?: Yes Lack of Transportation: No Lack of Food: Never True Current Housing: I Have Housing Concerned About Future Housing: No Difficulty Paying Gas/Electric Bills: No Difficulty Paying for Meds: No Currently Unemployed: No Education: Master's Degree or Higher Difficulty w/ Childcare or Family Care: No Living arrangements: with family Additional living arrangements comments: Lives with Paul and their 2 mathias hounds in [place]. They have a grown child. Occupation/Education: occupation Spiritual care concerns: No Agree to blood products: Yes Meds Home Medications and Allergies Home Medications ?Medication ?Instructions ?Recorded ?Confirmed ?Type No Home Medications 05/07/25 05/07/25 History Allergies Allergy/AdvReac Type Severity Reaction Status Date / Time No Known Allergies Allergy Verified 05/07/25 00:18 Vital Signs Vital Signs - 24 hr 05/06/25 20:30 05/06/25 22:37 05/07/25 00:30 Temperature Pulse Rate 110 H 112 H 118 H Respiratory Rate 24 H 21 H Blood Pressure 183/82 H 160/98 H Pulse Oximetry 94 93 Oxygen Delivery 05/07/25 01:10 05/07/25 04:00 05/07/25 06:00 Temperature 36.4 C 36.5 C Pulse Rate 109 H 104 H 110 H Respiratory Rate 16 16 Blood Pressure 158/81 H 162/83 H Pulse Oximetry 94 95 Oxygen Delivery 05/07/25 08:05 05/07/25 09:00 05/07/25 10:03 Temperature Pulse Rate 114 H Respiratory Rate Blood Pressure Pulse Oximetry 93 Oxygen Delivery Room Air Room Air 05/07/25 12:00 05/07/25 14:00 05/07/25 16:00 Temperature 37.3 C Pulse Rate 112 H 110 H 120 H Respiratory Rate 16 Blood Pressure 155/69 H Pulse Oximetry 96 Oxygen Delivery Exam Narrative: Lungs decreased breath sound bilateral basis Cardiovascular tachycardic without murmur Abdomen soft nontender nondistended Extremities swelling in the left upper extremity noted Results Labs 05/07/25 08:52 05/07/25 08:52 Labs: Short CBC 05/07/25 Range/Units 08:52 WBC 9.3 (4.5-10.0) K/mm3 Hgb 10.6 L (12.0-15.0) g/dL Hct 35.0 L (37.0-47.0) % Plt Count 221 (150-375) k/mm3 BMP 05/06/25 05/07/25 18:26 08:52 Sodium 136 L 134 L Potassium 3.6 3.6 Chloride 100 101 Carbon Dioxide 23 22 BUN 13 D 13 Creatinine 0.81 0.77 Glucose 105 86 Calcium 9.3 9.0 Cardiac Enzymes 05/06/25 Range/Units 18:26 Troponin I 0.017 (0.000-0.034) ng/mL Liver Function 05/06/25 05/07/25 Range/Units 18:26 08:52 Total Bilirubin 5.5 H 4.7 H (0.2-1.3) mg/dL Direct Bilirubin 2.6 H (0-0.3) mg/dL AST 259 H 203 H (14-36) U/L ALT 69 H 61 H (6-35) U/L Alkaline Phosphatase 1398 H 1379 H (38-126) U/L Albumin 3.3 L 3.2 L (3.5-5.1) g/dL Urine 05/06/25 Range/Units 23:33 Urine Color Dark yellow (Yellow) Urine Appearance Clear (Clear) Urine pH 5.0 (5.0-9.0) Ur Specific [place] > 1.045 H (1.001-1.035) Urine Protein 1+ H (Negative) mg/dL Urine Glucose (UA) Negative (Negative) mg/dL
[2025-05-07] MEDS: HEPARIN SOD/D5W 100 UNITS/ML 25,000 UNITS/250 ML BAG 14 UNITS IV CONT (19:32)
[2025-05-07 19:42] LABS: Hematocrit 34.0 % (37.0-47.0); Hemoglobin 10.6 g/dL (12.0-15.0); Immature Granulocyte Percent A 2.2 % (0-0.5); Immature Platelet Fraction Pct 5.2 % (0.9-11.2); Lymphocytes Absolute Auto 0.50 K/mm3 (0.9-3.2); Mean Corpuscular HGB Conc 31.2 g/dl (32-36); Mean Corpuscular Hemoglobin 20.9 pg (26-34); Mean Corpuscular Volume 67.1 fl (80-100); Nucleated Red Blood Cells Absolute Auto 0.020 K/mm3 (0.0-0.012); Nucleated Red Blood Cells Perc 0.3 % (0.0-0.2); Platelet Count Result 213 k/mm3 (150-375); Red Blood Count 5.07 M/mm3 (4.2-5.4); White Blood Count 7.6 K/mm3 (4.5-10.0)
[2025-05-07 19:57] LABS: INR 1.6; Partial Thromboplastin Time 35.2 Seconds (22.3-36.8); Prothrombin Time 19.1 Seconds (11.1-14.7)
[2025-05-07 20:17] LABS: Band Neutrophils Percent 0 % (0-6)
[2025-05-07 20:19] LABS: Hypochromasia 1+; Schistocytes None Seen
[2025-05-07 20:20] LABS: Anisocytosis 3+; Microcytosis 2+ (NORMAL)
[2025-05-07] MEDS: MORPHINE SULFATE (*CRX) 4 MG/ML INJ IV PUSH (20:55)
[2025-05-08] VITALS (7 sets, daily range): BP systolic 120–128; BP diastolic 76–82; PULSE 106–118; RESP 16–18; TEMP 36.6–36.8; O2SAT 95–96
--- NOTE | 2025-05-08 | ECHO_ITS ---
Patient Info Name: Janae Solis Age: 54 years : 1970 Gender: Female Ht: 70 in Wt: 200 lbs BSA: 2.14 m2 HR: 110 bpm BP: 128 / 82 mmHg Technical Quality: Poor Exam Date: 05/08/2025 12:42 PM Patient Status: I Admit Date: 05/08/2025 Exam Type: CA echo limited Limited two-dimensional transthoracic echocardiogram is performed. Staff Referring Physician: Monty Lobo Lab Support Tech: Keila Berg Attending Provider: Sherly Lucas DO Reason for Poor Study: poor echocardiographic windows Summary 1. Limited echocardiogram. No apical images obtained. 2. Technically suboptimal study due to poor sonographic images. 3. Left ventricular chamber dimension is normal. 4. Left ventricular systolic function is normal, estimated at 60-65. 5. The left ventricular diastolic function is indeterminate as it was not assessed. Left Ventricle Technically suboptimal study due to poor sonographic images. Left ventricular chamber dimension is normal. Left ventricular systolic function is normal, estimated at 60-65. The left ventricular diastolic function is indeterminate as it was not assessed. Limited echocardiogram. No apical images obtained. Right Ventricle Right ventricular chamber dimension is not well visualized. Left Atria Left atrial chamber dimension is normal. Right Atria Right atrial chamber dimension is not well visualized. Aortic Valve The aortic valve is trileaflet. There is no aortic valve stenosis. There is no aortic valve regurgitation. Pulmonic Valve The pulmonic valve is not well visualized. Mitral Valve There is no mitral valve stenosis. There is no mitral valve regurgitation. Tricuspid Valve The tricuspid valve leaflets are not well visualized. Pericardium/Pleural There is no pericardial effusion. Inferior Vena Cava Inferior vena cava is not well visualized. Aorta The aortic root size at the sinus of Valsalva is normal. Pulmonic Valve Name Value Normal RVOT Doppler RVOT Peak Velocity 82 cm/s RVOT Peak Gradient 3 mmHg PV Doppler PV Peak Velocity 97 cm/s PV Peak Gradient 4 mmHg Ventricles Name Value Normal LV Dimensions 2D/MM IVS Diastolic Thickness (2D) 0.8 cm 0.6-1.0 LVID Diastole (2D) 3.9 cm 3.8-5.2 LVIW Diastolic Thickness (2D) 1.0 cm 0.6-0.9 LVID Systole (2D) 2.3 cm 2.2-3.5 LV Mass (2D Cubed) 102.51 g 67.00-162.00 LV Mass Index (2D Cubed) 48 g/m2 43-95 Relative Wall Thickness (2D) 0.49 <=0.42 LV Fractional Shortening/Ejection Fraction 2D/MM LV Fractional Shortening (2D) 41 % 27-45 LV EF (2D Te[place]ars[place]) 72 % RV Dimensions 2D/MM RVID Diastole (2D) 0.8 cm 2.1-3.5 Report Signatures
[2025-05-08 03:58] LABS: Partial Thromboplastin Time 199.3 Seconds (22.3-36.8)
--- NOTE | 2025-05-08 04:27 | PC.NURSE ---
Furniture Upholsterer Apprentice contacted hospitalist Azam Cuadra with a critical APTT. Instructions were given to hold heparin drip, flush port with 50 ml of saline and re-draw APTT from port in 15 mins. Furniture Upholsterer Apprentice and second nurse did second blood draw and reported lab value to Hospitalist. Instructions were given to follow heparin protocol - see mar
[2025-05-08] MEDS: CENTRAL LINE FLUSH 10 ML IV PUSH ×2 (05:46→14:23)
--- NOTE | 2025-05-08 06:49 | PM.IMPN ---
Progress Note: A&P Assessment and Plan (1) Bilateral pleural effusion: Code(s): J90 - Pleural effusion, not elsewhere classified Status: Acute Assessment and Plan: Chest XR: Large left and small right sided pleural effusion CTA chest/abdomen/pelvis: Large left and moderate right-sided pleural effusions with adjacent compressive atelectasis.Findings consistent with significant progression of patient's known diffuse metastatic disease, now with bilateral hydroureteronephrosis secondary to mass effect from the patient's uterus as well as multiple lesions within the liver. - Complicating Factors: diffuse metastatic disease - Patient flags for sepsis given vital signs though no leukocytosis. Lactic WNL. CRP elevated however known cancer. Given 1 time dose of broad spectrum antibiotics in the ED. Monitor, currently no signs of infection thus antibiotics will be held. - Blood cultures obtained on 05/06: pending - Wound culture obtained on 05/06: pending - Viral PCR: negative for Flu/COVID/RSV - Echo ordered to evaluate heart function - no supplemental O2 requirement - Monitor vital signs, I&Os, neuro status and patient is a fall risk - Follow WBC, serum electrolytes, temperature curves and cultures - S/p thoracentesis with 1100 ml of cloudy myke colored fluid removed on 05/07 Follow up CXR: small bilateral pleural effusions with likely mild bibasilar atelectasis, decreased in size in the left post thoracentesis. No pneumothorax. IS ordered. Repeat CXR 05/08: Possible minimal haziness right lung base, nonspecific. Left lung clear. - Pulmonology consulted Current studies are not indicative of an empyema. From a purely pulmonary parenchyma and pleural fluid perspective she does not require antibiotics at this time. Repeat a chest x-ray on 05/08/2024 to reassess for a rapidly reaccumulating left pleural effusion. If reaccumulates the left pleural effusion would consider transfer to higher level of care facility for a definitive procedures such as PleurX catheter or VATS procedure with pleurodesis if this would be recommended by her oncology team given her metastatic disease. (2) Left upper extremity deep vein thrombosis: Code(s): I82.622 - Acute embolism and thrombosis of deep veins of left upper extremity Status: Acute Assessment and Plan: - Left upper and lower extremity edema possible lymphadenopathy given lymph node removal however will obtain doppers to rule of DVT. Dopplers showed upper extremity deep venous thrombosis within the left axillary, brachial and basilic veins. Started on eliquis 5 mg BID. (3) Hydroureteronephrosis: Code(s): N13.30 - Unspecified hydronephrosis Status: Acute Assessment and Plan: CTA chest/abdomen/pelvis: The bladder is decompressed, and otherwise unremarkable. The uterus is bulky and irregular and demonstrates mass effect upon the bilateral distal ureters, likely the cause of patient's bilateral hydroureteronephrosis. BUN/Cr WNL Monitor I/O Avoid nephrotoxic medications Renally dose medications Urology consulted for possible stent requirement No plan for ureteral stent placement but will follow closely and reconsider if renal function regresses. (4) Cancer, metastatic to liver: Code(s): C78.7 - Secondary malignant neoplasm of liver and intrahepatic bile duct Status: Acute Assessment and Plan: Chest/Abdomen/Pelvis CTA: Multiple areas of decreased attenuation are identified within the liver, presumably diffuse metastatic disease. No intrahepatic biliary ductal dilatation is appreciated. - LFTs elevated. On admission: tot bili 5.5, direct bili 2.6, indirect bili 0.7, AST 259, ALT 69, alk phos 1398 - Oncology consulted It will be very difficult to resume chemotherapy with the open wound and most likely she will end up in the hospital again with infection. Discussed the prognosis. Discussed comfort care and hospice. Patient would like to follow-up in the office and give 1 more chance of chemotherapy. I recommended if she starts feeling better then she can come to the office and will try resuming chemotherapy. She may also need PleurX catheter placement for recurrent pleural effusion that can be arranged as an outpatient and [facility]. (5) Sinus tachycardia: Code(s): R00.0 - Tachycardia, unspecified Status: Acute Assessment and Plan: Consistently sinus tachycardic on telemetry. No PE seen on CTA. No signs of sepsis or infection. Possibly related to patients metastatic cancer. Started on metoprolol 12.5 mg BID. (6) Malignant neoplasm of left breast, stage 4: Code(s): C50.912 - Malignant neoplasm of unspecified site of left female breast Status: Acute Assessment and Plan: Follows with oncologist Dr. Kraus Completed Chemotherapy Jul 2024-Oct 2024, mastectomy, chemotherapy Dec-Mar 2025 and radiation (last tx 04/17/25) Oncology consulted It will be very difficult to resume chemotherapy with the open wound and most likely she will end up in the hospital again with infection. Discussed the prognosis. Discussed comfort care and hospice. Patient would like to follow-up in the office and give 1 more chance of chemotherapy. I recommended if she starts feeling better then she can come to the office and will try resuming chemotherapy. She may also need PleurX catheter placement for recurrent pleural effusion that can be arranged as an outpatient and [facility]. Subjective Date/time seen: 05/08/25 06:49 Interval history: 54 year old female with past medical history of ductal carcinoma right breast in 2009 and 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 Review of Systems Review of Systems: All systems reviewed & are unremarkable except as noted in HPI and below Exam Narrative: AF HR General: female in no acute respiratory distress who is nontoxic appearing, sitting up in bed. HEENT: Normocephalic. Atraumatic. Extraocular movement intact. Sclera clear and anicteric. No facial asymmetry. Chest: Lungs are clear to auscultation bilaterally. No wheezes or crackles. Port right chest. Right mastectomy scar tissue. Left mastectomy with slight drainage and radiation rash noted. CV: Heart was regular rate and rhythm. S1-S2. No murmurs, gallops, or rubs. Abd: Abdomen was soft. Nontender. Nondistended. Positive bowel sounds. Ext: No clubbing, cyanosis. DP pulses bilaterally. Swelling to the left upper extremity extending from the shoulder to the hand and left lower extremity extending from the hip to the foot. Neuro: Patient is alert and oriented x4. Strength is 5/5 in both upper and lower extremities. Speech is clear. Objective Data Vital Signs Vital Signs: Vital Signs - 24 hr 05/07/25 08:05 05/07/25 09:00 05/07/25 10:03 Temperature Pulse Rate 114 H Respiratory Rate Blood Pressure Pulse Oximetry 93 Oxygen Delivery Room Air Room Air 05/07/25 12:00 05/07/25 14:00 05/07/25 16:00 Temperature 99.1 F Pulse Rate 112 H 110 H 120 H Respiratory Rate 16 Blood Pressure 155/69 H Pulse Oximetry 96 Oxygen Delivery 05/07/25 20:00 05/07/25 21:11 05/08/25 00:00 Temperature 98 F Pulse Rate 111 H 111 H 114 H Respiratory Rate 16 Blood Pressure 149/58 H Pulse Oximetry 94 Oxygen Delivery 05/08/25 04:00 05/08/25 05:21 Temperature 97.9 F Pulse Rate 109 H 116 H Respiratory Rate 18 Blood Pressure 128/82 Pulse Oximetry 96 Oxygen Delivery Intake/Output Intake/Output: Intake & Output 05/05/25 05/06/25 05/07/25 05/08/25 23:59 23:59 23:59 23:59 Intake Total 1050 1040 692.9 Output Total 1100 Balance 1050 -60 692.9 Meds/Results Medications: Active Medications Generic Name Dose Route Start Last Admin Trade Name Freq PRN Reason Stop Dose Admin Acetaminophen 650 mg 05/06/25 22:49 Acetaminophen 325 Mg Tablet PO Q4H PRN Mild Pain (1-3) or Fever Hydrocodone Bitart/Acetaminophen 1 tab 05/07/25 14:41 Hydrocodone/Acetaminophen (*Crx) 5-325 Mg Tablet PO Q6H PRN Pain Rated 4-6 Enoxaparin Sodium 40 mg 05/08/25 09:00 Enoxaparin 40 Mg/0.4 Ml Syringe SUB-Q DAILY THU Heparin Sodium (Beef Lung) 50 units 05/07/25 09:00 05/07/25 15:08 Heparin Flush 50 Units/5 Ml Syringe IV PUSH 50 units QAM THU Administration Heparin Sodium (Beef Lung) 50 units 05/06/25 22:38 Heparin Flush 50 Units/5 Ml Syringe IV PUSH PRN PRN after intermittent infusion Heparin Sodium (Beef Lung) 50 units 05/06/25 22:38 Heparin Flush 50 Units/5 Ml Syringe IV PUSH PRN PRN after blood draws Heparin Sodium (Porcine) 500 units 05/06/25 22:38 Heparin Sodium Lock Flush 500 Units/5 Ml Syringe IV PUSH PRN PRN see comments below Heparin Sodium (Porcine) 6,500 units 05/07/25 18:24 Heparin Sodium 5,000 Units/Ml Vial IV PUSH PRN PRN aPTT less than 55 seconds Heparin Sodium (Porcine) 3,000 units 05/07/25 18:24 Heparin Sodium 5,000 Units/Ml Vial IV PUSH PRN PRN aPTT 55 - 70 seconds Heparin Sodium/Dextrose 25,000 units in 250 mls @ 12 mls/hr 05/07/25 18:35 05/08/25 06:00 Heparin Sodium/D5w 100 Units/Ml IV CONT 1,200 units/hr .[id number] THU 12 mls/hr Titration Protocol 1,200 UNITS/HR Morphine Sulfate 4 mg 05/06/25 22:49 05/07/25 20:55 Morphine Sulfate (*Crx) 4 Mg/Ml Inj IV PUSH 4 mg Q2H PRN Administration Pain Rated 7-10 Ondansetron HCl 4 mg 05/06/25 22:49 Ondansetron Inj 4 Mg/2 Ml Vial IV PUSH Q4H PRN Nausea Perflutren Lipid Microsphere 0 ml 05/07/25 12:59 Perflutren Lipid Microspheres 1.5 Ml Vial Diluted To 10 Ml Total Volume IV PUSH 05/10/25 12:59 ONCE PRN adequate visualization Protocol Sodium Chloride 10 ml 05/07/25 06:00 05/08/25 05:46 Central Line Flush IV PUSH 10 ml Q8HR THU Administration Radiology Results: ITS Impressions Chest/Abdomen/Pelvis CTA 05/06/25 21:11 IMPRESSION: Findings consistent with significant progression of patient's known diffuse metastatic disease, now with bilateral hydroureteronephrosis secondary to mass effect from the patient's uterus as well as multiple lesions within the liver. Thoracentesis Ultrasound 05/07/25 11:27 IMPRESSION: 1. Successful ultrasound-guided thoracentesis yielding 1100 mL of cloudy myke-colored fluid. Venous Doppler Study 05/07/25 18:58 IMPRESSION: 1. No deep venous thrombosis. Chest X-Ray 05/08/25 05:50 Impression: Possible minimal haziness right lung base, nonspecific. Right-sided Mediport. Labs Labs: Laboratory Results - last 24 hr 05/07/25 05/07/25 05/07/25 08:52 10:37 10:39 WBC 9.3 RBC 5.13 Hgb 10.6 L Hct 35.0 L MCV 68.2 L MCH 20.7 L MCHC 30.3 L RDW 21.1 H Plt Count 221 MPV TNP Immature Gran % (Auto) Neut % (Auto) Lymph % (Auto) [place] % (Auto) Eos % (Auto) Baso % (Auto) Lymph # (Auto) [place] # (Auto) Eos # (Auto) Baso # (Auto) Abs Immat Gran (auto) Absolute Neuts (auto) Absolute Nucleated RBC Band Neutrophils % Nucleated RBC % Platelet Estimate % Immature Plt Fraction 5.1 Hypochromasia Anisocytosis Microcytosis Schistocytes PT INR APTT Sodium 134 L Potassium 3.6 Chloride 101 Carbon Dioxide 22 Anion Gap 11 BUN 13 Creatinine 0.77 Estim Creat Clear Calc 93 Estimated GFR > 60 Glucose 86 Calcium 9.0 Total Bilirubin 4.7 H AST 203 H ALT 61 H Alkaline Phosphatase 1379 H Total Protein 6.4 Albumin 3.2 L Pleural Fluid Source Pleural fluid Pleural Color Yellow Pleural Appearance Cloudy Pleural pH 7.304 Pleural RBC < 2000 Pleural Nuc Cells 3627 H Pleural Neutrophils 4 Pleural Macrophages 5 Pleural Mesothelial 68 Pleural Other Cells 13 05/07/25 05/08/25 19:25 02:56 WBC 7.6 RBC 5.07 Hgb 10.6 L Hct 34.0 L MCV 67.1 L MCH 20.9 L MCHC 31.2 L RDW 21.1 H Plt Count 213 MPV TNP Immature Gran % (Auto) 2.2 H Neut % (Auto) 76.6 H Lymph % (Auto) 6.6 L [place] % (Auto) 13.2 H Eos % (Auto) 0.7 Baso % (Auto) 0.7 Lymph # (Auto) 0.50 L [place] # (Auto) 1.0 H Eos # (Auto) 0.1 Baso # (Auto) 0.1 Abs Immat Gran (auto) 0.17 H Absolute Neuts (auto) 5.8 Absolute Nucleated RBC 0.020 H Band Neutrophils % 0 Nucleated RBC % 0.3 H Platelet Estimate Adequate % Immature Plt Fraction 5.2 Hypochromasia 1+ Anisocytosis 3+ Microcytosis 2+ Schistocytes None seen PT 19.1 H D INR 1.6 APTT 35.2 199.3 H* Sodium Potassium Chloride Carbon Dioxide Anion Gap BUN Creatinine Estim Creat Clear Calc Estimated GFR Glucose Calcium Total Bilirubin AST ALT Alkaline Phosphatase Total Protein Albumin Pleural Fluid Source Pleural Color Pleural Appearance Pleural pH Pleural RBC Pleural Nuc Cells Pleural Neutrophils Pleural Macrophages Pleural Mesothelial Pleural Other Cells Quality VTE Prophylaxis VTE prophylaxis: pharmacologic ordered
[2025-05-08 06:55] LABS: Hematocrit 32.9 % (37.0-47.0); Hemoglobin 10.2 g/dL (12.0-15.0); Immature Granulocyte Percent A 2.3 % (0-0.5); Immature Platelet Fraction Pct 5.8 % (0.9-11.2); Lymphocytes Absolute Auto 0.46 K/mm3 (0.9-3.2); Mean Corpuscular HGB Conc 31.0 g/dl (32-36); Mean Corpuscular Hemoglobin 20.6 pg (26-34); Mean Corpuscular Volume 66.6 fl (80-100); Nucleated Red Blood Cells Absolute Auto 0.030 K/mm3 (0.0-0.012); Nucleated Red Blood Cells Perc 0.4 % (0.0-0.2); Platelet Count Result 207 k/mm3 (150-375); Red Blood Count 4.94 M/mm3 (4.2-5.4); White Blood Count 7.8 K/mm3 (4.5-10.0)
--- NOTE | 2025-05-08 06:56 | WPDUROPN2 ---
Progress Note: A&P Assessment and Plan (1) Malignant neoplasm of left breast, stage 4: Code(s): C50.912 - Malignant neoplasm of unspecified site of left female breast Status: Acute Assessment and Plan: Plans for additional chemo. noted Scant bilat. hydro. d/t retroperitoneal adenopathy. Will only place ureteral stents if renal function regresses Subjective Subjective Date/Time Seen: 05/08/25 06:56 Interval history: Resting - I did not wake her. Review of Systems Review of Systems: ROS unobtainable: Yes other Exam Const: General: no acute distress Resp: Effort & Inspection: normal respiratory effort GI: Inspection: non-distended GI Palp: No abdominal tenderness and No Guarding due to palpation present (GI) Auscultation: normal bowel sounds Objective Data Vital Signs Vital Signs: Vital Signs - 24 hr 05/07/25 08:05 05/07/25 09:00 05/07/25 10:03 Temperature Pulse Rate 114 H Respiratory Rate Blood Pressure Pulse Oximetry 93 Oxygen Delivery Room Air Room Air 05/07/25 12:00 05/07/25 14:00 05/07/25 16:00 Temperature 99.1 F Pulse Rate 112 H 110 H 120 H Respiratory Rate 16 Blood Pressure 155/69 H Pulse Oximetry 96 Oxygen Delivery 05/07/25 20:00 05/07/25 21:11 05/08/25 00:00 Temperature 98 F Pulse Rate 111 H 111 H 114 H Respiratory Rate 16 Blood Pressure 149/58 H Pulse Oximetry 94 Oxygen Delivery 05/08/25 04:00 05/08/25 05:21 Temperature 97.9 F Pulse Rate 109 H 116 H Respiratory Rate 18 Blood Pressure 128/82 Pulse Oximetry 96 Oxygen Delivery Intake/Output Intake/Output: Intake & Output 05/05/25 05/06/25 05/07/25 05/08/25 23:59 23:59 23:59 23:59 Intake Total 1050 1040 692.9 Output Total 1100 Balance 1050 -60 692.9 Meds/Results Medications: Active Medications Generic Name Dose Route Start Last Admin Trade Name Freq PRN Reason Stop Dose Admin Acetaminophen 650 mg 05/06/25 22:49 Acetaminophen 325 Mg Tablet PO Q4H PRN Mild Pain (1-3) or Fever Hydrocodone Bitart/Acetaminophen 1 tab 05/07/25 14:41 Hydrocodone/Acetaminophen (*Crx) 5-325 Mg Tablet PO Q6H PRN Pain Rated 4-6 Enoxaparin Sodium 40 mg 05/08/25 09:00 Enoxaparin 40 Mg/0.4 Ml Syringe SUB-Q DAILY THU Heparin Sodium (Beef Lung) 50 units 05/07/25 09:00 05/07/25 15:08 Heparin Flush 50 Units/5 Ml Syringe IV PUSH 50 units QAM THU Administration Heparin Sodium (Beef Lung) 50 units 05/06/25 22:38 Heparin Flush 50 Units/5 Ml Syringe IV PUSH PRN PRN after intermittent infusion Heparin Sodium (Beef Lung) 50 units 05/06/25 22:38 Heparin Flush 50 Units/5 Ml Syringe IV PUSH PRN PRN after blood draws Heparin Sodium (Porcine) 500 units 05/06/25 22:38 Heparin Sodium Lock Flush 500 Units/5 Ml Syringe IV PUSH PRN PRN see comments below Heparin Sodium (Porcine) 6,500 units 05/07/25 18:24 Heparin Sodium 5,000 Units/Ml Vial IV PUSH PRN PRN aPTT less than 55 seconds Heparin Sodium (Porcine) 3,000 units 05/07/25 18:24 Heparin Sodium 5,000 Units/Ml Vial IV PUSH PRN PRN aPTT 55 - 70 seconds Heparin Sodium/Dextrose 25,000 units in 250 mls @ 12 mls/hr 05/07/25 18:35 05/08/25 06:00 Heparin Sodium/D5w 100 Units/Ml IV CONT 1,200 units/hr .[id number] THU 12 mls/hr Titration Protocol 1,200 UNITS/HR Morphine Sulfate 4 mg 05/06/25 22:49 05/07/25 20:55 Morphine Sulfate (*Crx) 4 Mg/Ml Inj IV PUSH 4 mg Q2H PRN Administration Pain Rated 7-10 Ondansetron HCl 4 mg 05/06/25 22:49 Ondansetron Inj 4 Mg/2 Ml Vial IV PUSH Q4H PRN Nausea Perflutren Lipid Microsphere 0 ml 05/07/25 12:59 Perflutren Lipid Microspheres 1.5 Ml Vial Diluted To 10 Ml Total Volume IV PUSH 05/10/25 12:59 ONCE PRN adequate visualization Protocol Sodium Chloride 10 ml 05/07/25 06:00 05/08/25 05:46 Central Line Flush IV PUSH 10 ml Q8HR THU Administration Radiology Results: ITS Impressions Chest/Abdomen/Pelvis CTA 05/06/25 21:11 IMPRESSION: Findings consistent with significant progression of patient's known diffuse metastatic disease, now with bilateral hydroureteronephrosis secondary to mass effect from the patient's uterus as well as multiple lesions within the liver. Thoracentesis Ultrasound 05/07/25 11:27 IMPRESSION: 1. Successful ultrasound-guided thoracentesis yielding 1100 mL of cloudy myke-colored fluid. Venous Doppler Study 05/07/25 18:58 IMPRESSION: 1. No deep venous thrombosis. Chest X-Ray 05/08/25 05:50 Impression: Possible minimal haziness right lung base, nonspecific. Right-sided Mediport. Labs Labs: Laboratory Results - last 24 hr 05/07/25 05/07/25 05/07/25 08:52 10:37 10:39 WBC 9.3 RBC 5.13 Hgb 10.6 L Hct 35.0 L MCV 68.2 L MCH 20.7 L MCHC 30.3 L RDW 21.1 H Plt Count 221 MPV TNP Immature Gran % (Auto) Neut % (Auto) Lymph % (Auto) [place] % (Auto) Eos % (Auto) Baso % (Auto) Lymph # (Auto) [place] # (Auto) Eos # (Auto) Baso # (Auto) Abs Immat Gran (auto) Absolute Neuts (auto) Absolute Nucleated RBC Band Neutrophils % Nucleated RBC % Platelet Estimate % Immature Plt Fraction 5.1 Hypochromasia Anisocytosis Microcytosis Schistocytes PT INR APTT Sodium 134 L Potassium 3.6 Chloride 101 Carbon Dioxide 22 Anion Gap 11 BUN 13 Creatinine 0.77 Estim Creat Clear Calc 93 Estimated GFR > 60 Glucose 86 Calcium 9.0 Total Bilirubin 4.7 H AST 203 H ALT 61 H Alkaline Phosphatase 1379 H Total Protein 6.4 Albumin 3.2 L Pleural Fluid Source Pleural fluid Pleural Color Yellow Pleural Appearance Cloudy Pleural pH 7.304 Pleural RBC < 2000 Pleural Nuc Cells 3627 H Pleural Neutrophils 4 Pleural Macrophages 5 Pleural Mesothelial 68 Pleural Other Cells 13 05/07/25 05/08/25 19:25 02:56 WBC 7.6 RBC 5.07 Hgb 10.6 L Hct 34.0 L MCV 67.1 L MCH 20.9 L MCHC 31.2 L RDW 21.1 H Plt Count 213 MPV TNP Immature Gran % (Auto) 2.2 H Neut % (Auto) 76.6 H Lymph % (Auto) 6.6 L [place] % (Auto) 13.2 H Eos % (Auto) 0.7 Baso % (Auto) 0.7 Lymph # (Auto) 0.50 L [place] # (Auto) 1.0 H Eos # (Auto) 0.1 Baso # (Auto) 0.1 Abs Immat Gran (auto) 0.17 H Absolute Neuts (auto) 5.8 Absolute Nucleated RBC 0.020 H Band Neutrophils % 0 Nucleated RBC % 0.3 H Platelet Estimate Adequate % Immature Plt Fraction 5.2 Hypochromasia 1+ Anisocytosis 3+ Microcytosis 2+ Schistocytes None seen PT 19.1 H D INR 1.6 APTT 35.2 199.3 H* Sodium Potassium Chloride Carbon Dioxide Anion Gap BUN Creatinine Estim Creat Clear Calc Estimated GFR Glucose Calcium Total Bilirubin AST ALT Alkaline Phosphatase Total Protein Albumin Pleural Fluid Source Pleural Color Pleural Appearance Pleural pH Pleural RBC Pleural Nuc Cells Pleural Neutrophils Pleural Macrophages Pleural Mesothelial Pleural Other Cells
[2025-05-08 07:01] LABS: Alanine Aminotransferase 64 U/L (6-35); Albumin Level 3.1 g/dL (3.5-5.1); Alkaline Phosphatase 1344 U/L (38-126); Anion Gap 11 mmol/L (4-12); Aspartate Amino Transferase 277 U/L (14-36); Bilirubin,Total 5.1 mg/dL (0.2-1.3); Blood Urea Nitrogen 15 mg/dL (7-17); Calcium 8.4 mg/dL (8.4-10.2); Carbon Dioxide 24 mmol/L (22-30); Chloride 98 mmol/L (98-107); Estimated CRCL calculation 95 ml/min; Estimated Glomerular Filt Rate > 60; Glucose 104 mg/dL (65-110); Potassium 3.4 mmol/L (3.4-5.0); Sodium 133 mmol/L (137-145); Total Protein 6.4 g/dL (6.3-8.2)
[2025-05-08 07:16] LABS: Anisocytosis 2+; Hypochromasia 1+; Ovalocytes 1+; Polychromasia 1+; Target Cells 1+
[2025-05-08] MEDS: APIXABAN 5 MG TABLET PO (08:48)
[2025-05-08] MEDS: METOPROLOL TARTRATE 12.5 MG TABLET PO (08:48)
--- NOTE | 2025-05-08 09:54 | P.PNPL_ITS ---
Progress Note: A&P Assessment and Plan (1) Bilateral pleural effusion: Code(s): J90 - Pleural effusion, not elsewhere classified Status: Acute Assessment and Plan: Patient with no prior cardiac or pulmonary disease. Patient has metastatic breast cancer with CT angiogram chest abdomen pelvis on 05/06/25 with no PE, large left and moderate right-sided pleural effusion with compressive atelectasis, bilateral mastectomy with small anterior chest wall likely seroma, multiple suspicious and pathologically enlarged lymph nodes within the mediastinum, retropectoral left chest and bilateral axilla. Acute fracture of the lateral margin of the right 4th rib, extensive lytic and blastic lesions with the visualized osseous structures. Multiple areas of decreased liver attenuation probably diffuse metastatic disease. Bilateral hydronephrosis right greater than left, the uterus is bulky and irregular demonstrates mass effect upon the bilateral distal ureter so likely causing the patient's bilateral hydrouret eronephrosis. Moderate anasarca. 05/07/25: Patient underwent a left thoracentesis with removal of 1100 cloudy myke, pH 7.304. Nucleated cells 3627, neutrophils 4%, macrophages 5%, me sothelial cells 68%, other cells 13%. Postprocedure chest x-ray shows very small left pleural effusion, small to moderate right-sided pleural effusion, Port-A-Cath in place. Additional studies including cytology, chemistries and microbiology (bacterial, fungal, AFB smears and culture per) are pending. Echo in upper and lower extremity Dopplers have been ordered. Etiology of bilateral pleural effusions include: metastatic, transudative (from cardiac or liver etiology), exudative ( infectious or inflammatory), urinothorax (bilateral hydronephrosis), Plan: Current studies are not indicative of an empyema. await pleural chemistries including pleural creatinine. follow microbiology studies. Await pleural cytology. From a purely pulmonary parenchyma and pleural fluid perspective she does not require antibiotics at this time. I will repeat a chest x-ray on 05/08/2024 to reassess for a rapidly reaccumulating left pleural effusion. The patient reaccumulates the left pleural effusion would consider transfer to higher level of care facility for a definitive procedures such as PleurX catheter or VATS procedure with pleurodesis if this would be recommended by her oncology team given her metastatic disease. Oncology has been consulted. Agree with echocardiogram to assess for cardiac etiology of bilateral pleural effusions. Agree with upper and lower extremity Dopplers. Later in the day patient had upper and lower extremities with a left axillary, brachial and basilic DVT and started on IV heparin. 05/08/25: Patient tells me she is breathing normal. She is walking without any shortness of breath. She denies fever, chills, rigors, cough, phlegm or hemoptysis. Her room air saturations are 98% white blood cell count 7.8, creatinine 0.75. chest x-ray this morning with essentially no left pleural effusion, very small right pleural effusion and right-sided port. 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 Patient developed metastatic disease in December of 2024 with bone involvement. Patient started palliative chemotherapy with Abraxane and Keytruda on January 24, 2025. She also received palliative radiation therapy to the left chest wall due to local recurrence and completed radiation on April 18, 2025. Due to open wound in the left chest wall further chemotherapy was placed on hold. Unfortunately the recent CT scan showed significant progression of metastatic disease with bilateral pleural effusion and liver metastasis. I have discussed this finding with patient in detail today in the presence of patient father. It will be very difficult to resume chemotherapy with the open wound and most likely she will end up in the hospital again with infection. We discussed the prognosis in detail as well. We also discussed comfort care and hospice. Patient would like to follow-up in the office and give 1 more chance of chemotherapy. I recommended if she starts feeling better then she can come to the office and will try resuming chemotherapy. She may also need PleurX catheter placement for recurrent pleural effusion that can be arranged as an outpatient and [facility]. Plan: No additional studies returned. Current left effusion represents a noninfected pleural effusion that has not rapidly accumulated overnight. Additional studies are pending. Oncology is aware that she may require PleurX catheter in the future and she will follow-up with them. Discussed with Soo Benson, will sign off, call with questions Subjective Date/time seen: 05/08/25 09:54 Interval history: 05/07/2025: This is a new pulmonary consult for bilateral pleural effusions. 54-year-old with a history of metastatic breast cancer status post bilateral mastectomy 11/27/2024, completed neoadjuvant chemotherapy on October 17, 2024, palliative chemotherapy with Abraxane and Keytruda cycle 1 started 01/24/2025 and palliative radiation to the left chest wall. CT scan of the chest abdomen and pelvis on 03/18/2025 with ring enhancing fluid collection on lateral anterior chest wall consistent with recent surgery no metastatic disease in the lungs liver pancreas or spleen, diffuse bony lytic and sclerotic lesions in multiple ribs, the right scapula, the manubrium, sternum, multiple vertebral bodies, long bones of the pelvis, acute -subacute pathologic fractures of the right 4th rib and left posterior 7th rib, mesenteric disease with enlarged lymph nodes, lymphadenopathy left supraclavicular, left axillary and left retro pectoral basins. The uterus is significantly nodular and somewhat enlarged. PET scan on 04/02/2025 with widespread FDG lymphadenopathy in the neck, chest, abdomen, pelvis with numerous FDG avid lytic bone lesions throughout the axial and appendix killer skeletal in consistent with widespread metastatic disease. 04/14/2025, oncology follow-up, patient still has for more radiation therapy treatments left. Denies chest pain or shortness of breath no abdominal pain no bone pain. Skin with more red and lots of scabbing. Open areas with minimal drainage I will not start treatment with K treated today. We will let her finish all remaining 4 radiation treatments. I will reassess in 1 week to eval uate starting Keytruda and then later Abraxane. follow-up in 1 week. 05/06/2025: Patient presented to the emergency room with dyspnea on exertion. Patient states on 04/30 2025 she had dyspnea on exertion at half a mi. she noted left side swelling of her arm and lower leg and had difficulty laying flat in bed. These symptoms progressed and on 05/06 she could only walk 30 ft and had rest shortness of breath. She denied fever, chills, rigors, diaphoresis, cough, phlegm or hemoptysis. Patient states that she has had no change in her chronic nocturia at 1-2 times a night and has no paroxysmal nocturnal dyspnea. She presented to the ED with Blood pressure 147/95, heart rate 119, respirations 20, room air saturation 93%. Decreased breath sounds at the bases. White blood cell count 9.3, creatinine 0.81, D-dimer 15.77, Alk-phos 1398. lactic acid 2.0, BNP 1620, influenza, RSV, COVID RT PCR assay negative. Chest x-ray showed large left and small right-sided pleural effusion. CT angiogram chest abdomen pelvis showed no PE, large left and moderate right-sided pleural effusion with compressive atelectasis bilateral mastectomy with small anterior chest wall likely seroma, multiple suspicious and pathologically enlarged lymph nodes within the mediastinum, retropectoral left chest and bilateral axilla. Acute fracture of the lateral margin of the right 4th rib, extensive lytic and blastic lesions with the visualized osseous structures consistent with patient's history. Multiple areas of decreased liver attenuation probably diffuse metastatic disease. bilateral hydronephrosis right greater than left, the uterus is bulky and irregular demonstrates mass effect upon the bilateral distal ureter so likely causing the patient's bilateral hydro ureteral nephrosis. Moderate anasarca. Multiple lytic and blastic lesions. Patient was treated with IV fluids, vancomycin, Ancef. 05/07/2025: patient on room air with saturations 93%. Patient is afebrile. White blood cell count 9.3, creatinine 0.77, alk-phos 1379, AST 203, ALT 61, LDH 1841. Patient underwent a left thoracentesis with removal of 1100 cloudy myke, pH 7.304. Nucleated cells 3627, neutrophils 4%, macrophages 5%, mesothelial cells 68%, other cells 13%. Postprocedure chest x-ray shows very small left pleural effusion, small to moderate right-sided pleural effusion, Port-A-Cath in place. Patient tells me that during the procedure she noted marked improvement and by the end of the procedure she had improved greatly and could take deeper breaths. 1 hour later she says she is breathing normal. She walked from the stretcher to her bed and said her dyspnea on exertion is improved. current is she denies fever, chills, rigors, diaphoresis, cough, phlegm, hemoptysis. She is on room air with saturations 93%. She was able to lay flat said that she was breathing 90% back to her baseline. Echo in upper and lower extremity Dopplers have been ordered. Later in the day patient had upper and lower extremities with a left axillary, brachial and basilic DVT and started on IV heparin. 05/08/25: Patient tells me she is breathing normal. She is walking without any shortness of breath. She denies fever, chills, rigors, cough, phlegm or hemoptysis. Her room air saturations are 98% white blood cell count 7.8, creatinine 0.75. chest x-ray this morning with essentially no left pleural effusion, very small right pleural effusion and right-sided port. DATA: EXAMINATION: CTA chest PE abdomen pel DATE: 05/06/2025 21:11 CDT INDICATION: Elevated d-dimer with shortness of breath and jaundice. Personal history of breast cancer, initially diagnosed in 2009 with aggressive recurrence in June 2024 with inflammatory breast cancer post bilateral mastectomy with extensive lymphovascular invasion, and widespread metastatic disease on most recent head CT dated 04/01/2025. TECHNIQUE: Computed tomographic angiography (CTA) of the chest was performed, along with multiple contiguous axial images of the abdomen and pelvis with 100 mL Omnipaque-350 intravenous contrast. The dose-length product was 1678.90 mGy- cm. Maximum intensity projection 3D-reconstructions of the aorta and other arteries were constructed by the technologist on a separate workstation. FINDINGS/OBSERVATIONS: PULMONARY ARTERIES: No filling defect is identified within the main or proximal pulmonary artery. The main pulmonary artery is not enlarged. THORACIC AORTA: No aneurysmal dilatation or dissection is present. The great vessels are intact LUNGS: Large left and moderate right-sided pleural effusions with adjacent compressive atelectasis. Only a small portion of the left upper and the right upper and middle lobes are aerated. Post bilateral mastectomy with small anterior chest wall with (likely) seromas MEDIASTINUM: Multiple morphologically suspicious and pathologically enlarged lymph nodes within the mediastinum, retropectoral left chest and bilateral axilla. BONES OF THE CHEST: Acute fracture of the lateral margin of the right fourth rib. No significant degenerative disease. Extensive lytic and blastic lesions within the visualized osseous structures consistent with patient's history. Multiple prior fracture deformities within the posterior upper ribs with callus formation. No additional acute rib fractures HEART: The heart is of normal size, without pericardial effusion. Right internal jugular central venous catheter identified extending into the proximal right atrium. LIVER: Multiple areas of decreased attenuation are identified within the liver, presumably diffuse metastatic disease No intrahepatic biliary ductal dilatation is appreciated. GALLBLADDER AND BILIARY SYSTEM: The gallbladder is only minimally distended, contains a single calcification and otherwise unremarkable. PANCREAS: The pancreas enhances homogeneously without ductal dilatation. SPLEEN: The spleen enhances homogeneously and is not enlarged measuring 8 cm in longitudinal dimension. KIDNEYS: Global enlargement of the bilateral kidneys with bilateral hydroureteronephrosis, right greater than left. ADRENAL GLANDS: Unremarkable. GASTROINTESTINAL TRACT: Fecal stasis within the cecum and rectum APPENDIX: The air-filled appendix is of normal caliber (axial series, images 89 through 112) VASCULATURE: Unremarkable. No aneurysmal dilatation or significant stenosis. LYMPH NODES: Diffuse pathologically enlarged and morphologically suspicious lymph nodes within the retroperitoneum and at the root of the mesentery. PELVIC STRUCTURES: The bladder is decompressed, and otherwise unremarkable. The uterus is bulky and irregular and demonstrates mass effect upon the bilateral distal ureters, likely the cause of patient's bilateral hydroureteronephrosis. BODY WALL AND MUSCULOSKELETAL: Moderate anasarca. Multiple lytic and blastic lesions within the visualized osseous structures, consistent with patient's known diffuse metastatic disease. IMPRESSION: Findings consistent with significant progression of patient's known diffuse metastatic disease, now with bilateral hydroureteronephrosis secondary to mass effect from the patient's uterus as well as multiple lesions within the liver. Review of Systems Constitutional: Constitutional: Reports no additional constitutional complaints Eyes: Eyes: Reports no additional eye complaints ENT: Reports system reviewed and no additional complaints, except as documented Cardiovascular: Cardiovascular: Reports no additional cardiovascular complaints Respiratory: Respiratory: Reports no additional respiratory complaints Gastrointestinal: Gastrointestinal: Reports no additional gastrointestinal complaints Musculoskeletal: Musculoskeletal: Reports no additional musculoskeletal complaints Neurologic: Reports system reviewed and no additional complaints, except as documented Psychiatric: Psychiatric: Reports no additional psychiatric complaints Endocrine: Endocrine: Reports no additional endocrine complaints Hematologic/Lymphatic: Hematologic/Lymphatic: Reports no additional hematologic/lymphatic complaints Allergic/Immunologic: Allergic/Immunologic: Reports no additional allergic/immunologic complaints Exam Const: General: cooperative, healthy appearing and comfortable Orientation/consciousness: oriented to person, oriented to place and oriented to time HENMT: Head: normal to inspection Ears: hearing grossly normal bilaterally Eyes: General: appearance normal, both eyes and all related structures Neck: Neck: normal visual inspection Chest: Chest palpation & inspection: normal inspection of the chest Other: Chest wall erythema an open wound. Resp: Effort & Inspection: normal respiratory effort and able to speak in complete sentences Auscultation: no crackles, no rales, no rhonchi, no wheezes and lung sounds not diminished Other: Normal Cardio: Jugular venous distension: no JVD GI: Inspection: normal to inspection Skin: General skin exam: normal color Neuro: General: oriented to person, oriented to place and oriented to time Extrem: General: normal to inspection Other: Edema left upper extremity in left lower extremity. Psych: Appearance: grossly normal Objective Data Vital Signs Vital Signs: Vital Signs - 24 hr 05/07/25 10:03 05/07/25 12:00 05/07/25 14:00 Temperature 37.3 C Pulse Rate 112 H 110 H Respiratory Rate 16 Blood Pressure 155/69 H Pulse Oximetry 93 96 Oxygen Delivery Room Air 05/07/25 16:00 05/07/25 20:00 05/07/25 21:11 Temperature 36.6 C Pulse Rate 120 H 111 H 111 H Respiratory Rate 16 Blood Pressure 149/58 H Pulse Oximetry 94 Oxygen Delivery 05/08/25 00:00 05/08/25 04:00 05/08/25 05:21 Temperature 36.6 C Pulse Rate 114 H 109 H 116 H Respiratory Rate 18 Blood Pressure 128/82 Pulse Oximetry 96 Oxygen Delivery 05/08/25 08:48 Temperature Pulse Rate 118 H Respiratory Rate Blood Pressure Pulse Oximetry Oxygen Delivery Intake/Output Intake/Output: Intake & Output 05/05/25 05/06/25 05/07/25 05/08/25 23:59 23:59 23:59 23:59 Intake Total 1050 1040 928.9 Output Total 1100 Balance 1050 -60 928.9 Meds/Results Medications: Active Medications Generic Name Dose Route Start Last Admin Trade Name Freq PRN Reason Stop Dose Admin Acetaminophen 650 mg 05/06/25 22:49 Acetaminophen 325 Mg Tablet PO Q4H PRN Mild Pain (1-3) or Fever Hydrocodone Bitart/Acetaminophen 1 tab 05/07/25 14:41 Hydrocodone/Acetaminophen (*Crx) 5-325 Mg Tablet PO Q6H PRN Pain Rated 4-6 Apixaban 5 mg 05/08/25 09:00 05/08/25 08:48 Apixaban 5 Mg Tablet PO 5 mg Q12HR THU Administration Heparin Sodium (Beef Lung) 50 units 05/07/25 09:00 05/08/25 08:49 Heparin Flush 50 Units/5 Ml Syringe IV PUSH 50 units QAM THU Administration Heparin Sodium (Beef Lung) 50 units 05/06/25 22:38 Heparin Flush 50 Units/5 Ml Syringe IV PUSH PRN PRN after intermittent infusion Heparin Sodium (Beef Lung) 50 units 05/06/25 22:38 Heparin Flush 50 Units/5 Ml Syringe IV PUSH PRN PRN after blood draws Heparin Sodium (Porcine) 500 units 05/06/25 22:38 Heparin Sodium Lock Flush 500 Units/5 Ml Syringe IV PUSH PRN PRN see comments below Metoprolol Tartrate 12.5 mg 05/08/25 09:00 05/08/25 08:48 Metoprolol Tartrate 12.5 Mg Tablet PO 12.5 mg Q12HR THU Administration Morphine Sulfate 4 mg 05/06/25 22:49 05/07/25 20:55 Morphine Sulfate (*Crx) 4 Mg/Ml Inj IV PUSH 4 mg Q2H PRN Administration Pain Rated 7-10 Ondansetron HCl 4 mg 05/06/25 22:49 Ondansetron Inj 4 Mg/2 Ml Vial IV PUSH Q4H PRN Nausea Perflutren Lipid Microsphere 0 ml 05/07/25 12:59 Perflutren Lipid Microspheres 1.5 Ml Vial Diluted To 10 Ml Total Volume IV PUSH 05/10/25 12:59 ONCE PRN adequate visualization Protocol Sodium Chloride 10 ml 05/07/25 06:00 05/08/25 05:46 Central Line Flush IV PUSH 10 ml Q8HR THU Administration Radiology Results: ITS Impressions Chest/Abdomen/Pelvis CTA 05/06/25 21:11 IMPRESSION: Findings consistent with significant progression of patient's known diffuse metastatic disease, now with bilateral hydroureteronephrosis secondary to mass effect from the patient's uterus as well as multiple lesions within the liver. Thoracentesis Ultrasound 05/07/25 11:27 IMPRESSION: 1. Successful ultrasound-guided thoracentesis yielding 1100 mL of cloudy myke- colored fluid. Venous Doppler Study 05/07/25 18:58 IMPRESSION: 1. No deep venous thrombosis. Chest X-Ray 05/08/25 05:50 Impression: Possible minimal haziness right lung base, nonspecific. Right-sided Mediport. Labs Labs: Laboratory Results - last 24 hr 08/03/2605/07/25 05/07/25 10:37 10:39 19:25 WBC 7.6 RBC 5.07 Hgb 10.6 L Hct 34.0 L MCV 67.1 L MCH 20.9 L MCHC 31.2 L RDW 21.1 H Plt Count 213 MPV TNP Immature Gran % (Auto) 2.2 H Neut % (Auto) 76.6 H Lymph % (Auto) 6.6 L [place] % (Auto) 13.2 H Eos % (Auto) 0.7 Baso % (Auto) 0.7 Lymph # (Auto) 0.50 L [place] # (Auto) 1.0 H Eos # (Auto) 0.1 Baso # (Auto) 0.1 Abs Immat Gran (auto) 0.17 H Absolute Neuts (auto) 5.8 Absolute Nucleated RBC 0.020 H Band Neutrophils % 0 Nucleated RBC % 0.3 H Platelet Estimate Adequate % Immature Plt Fraction 5.2 Polychromasia Hypochromasia 1+ Anisocytosis 3+ Microcytosis 2+ Target Cells Ovalocytes Schistocytes None seen PT 19.1 H D INR 1.6 APTT 35.2 Sodium Potassium Chloride Carbon Dioxide Anion Gap BUN Creatinine Estim Creat Clear Calc Estimated GFR Glucose Calcium Total Bilirubin AST ALT Alkaline Phosphatase Total Protein Albumin Pleural Fluid Source Pleural fluid Pleural Color Yellow Pleural Appearance Cloudy Pleural pH 7.304 Pleural RBC < 2000 Pleural Nuc Cells 3627 H Pleural Neutrophils 4 Pleural Macrophages 5 Pleural Mesothelial 68 Pleural Other Cells 13 05/08/25 05/08/25 02:56 06:14 WBC 7.8 RBC 4.94 Hgb 10.2 L Hct 32.9 L MCV 66.6 L MCH 20.6 L MCHC 31.0 L RDW 21.2 H Plt Count 207 MPV TNP Immature Gran % (Auto) 2.3 H Neut % (Auto) 74.2 H Lymph % (Auto) 5.9 L [place] % (Auto) 16.3 H Eos % (Auto) 0.5 Baso % (Auto) 0.8 Lymph # (Auto) 0.46 L [place] # (Auto) 1.3 H Eos # (Auto) 0.0 Baso # (Auto) 0.1 Abs Immat Gran (auto) 0.18 H Absolute Neuts (auto) 5.8 Absolute Nucleated RBC 0.030 H Band Neutrophils % Not Reportable Nucleated RBC % 0.4 H Platelet Estimate Adequate % Immature Plt Fraction 5.8 Polychromasia 1+ Hypochromasia 1+ Anisocytosis 2+ Microcytosis Target Cells 1+ Ovalocytes 1+ Schistocytes Not Reportable PT INR APTT 199.3 H* Sodium 133 L Potassium 3.4 Chloride 98 Carbon Dioxide 24 Anion Gap 11 BUN 15 Creatinine 0.75 Estim Creat Clear Calc 95 Estimated GFR > 60 Glucose 104 Calcium 8.4 Total Bilirubin 5.1 H AST 277 H ALT 64 H Alkaline Phosphatase 1344 H Total Protein 6.4 Albumin 3.1 L Pleural Fluid Source Pleural Color Pleural Appearance Pleural pH Pleural RBC Pleural Nuc Cells Pleural Neutrophils Pleural Macrophages Pleural Mesothelial Pleural Other Cells
--- NOTE | 2025-05-08 14:41 | P.DS_ITS ---
DS: Admitting Diagnosis Discharge Date 05/08/2025 Admitting Diagnosis Bilateral pleural effusion Left upper extremity DVT Hydroureteronephrosis Cancer, metastatic to liver Sinus tachycardia Malignant neoplasm of left breast, stage IV DS: Discharge Diagnosis Discharge Diagnosis (1) Bilateral pleural effusion: Code(s): J90 - Pleural effusion, not elsewhere classified Status: Acute (2) Left upper extremity deep vein thrombosis: Code(s): I82.622 - Acute embolism and thrombosis of deep veins of left upper extremity Status: Acute (3) Hydroureteronephrosis: Code(s): N13.30 - Unspecified hydronephrosis Status: Acute (4) Cancer, metastatic to liver: Code(s): C78.7 - Secondary malignant neoplasm of liver and intrahepatic bile duct Status: Acute (5) Sinus tachycardia: Code(s): R00.0 - Tachycardia, unspecified Status: Acute (6) Malignant neoplasm of left breast, stage 4: Code(s): C50.912 - Malignant neoplasm of unspecified site of left female breast Status: Acute DS: Summary Hospital Course Reason for hospitalization: Bilateral pleural effusion Left upper extremity DVT Hydroureteronephrosis Cancer, metastatic to liver Sinus tachycardia Malignant neoplasm of left breast, stage IV Hospital Course: 54 year old female with past medical history of ductal carcinoma right breast in 2009 and 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 Not meeting sepsis criteria on admission. Chest XR showed large left and small right sided pleural effusion. CTA chest/abdomen/pelvis: Large left and moderate right-sided pleural effusions. Echo unremarkable. Patient underwent thoracentesis with 1100 ml of cloudy myke colored fluid removed on 05/07. Pleural fluid positive for metastatic adenocarcinoma of the breast. Follow up CXR showed small bilateral pleural effusions with likely mild bibasilar atelectasis, decreased in size in the left post thoracentesis. No pneumothorax. Repeat CXR 05/08 to assess for recurrence showed possible minimal haziness right lung base, nonspecific. Left lung clear. Pulmonology was consulted and stated that current left effusion represents a noninfected pleural effusion that has not rapidly accumulated overnight. Oncology is aware that she may require PleurX catheter in the future and she will follow-up with them. The CTA chest/abdomen/pelvis also showed that the bladder is decompressed, and otherwise unremarkable. The uterus is bulky and irregular and demonstrates mass effect upon the bilateral distal ureters, likely the cause of patient's bilateral hydroureteronephrosis. Urology consulted and since patients renal function remains wnl no acute intervention required at this time. Prior to discharge discussed patient with urology who states that no acute follow-up required at this time as patient's renal function remains normal. Patient's renal function will be monitored per Oncology and if future stent or other urological intervention required Oncology will refer. Discussed this with Oncology and he is in agreement. The Chest/Abdomen/Pelvis CTA also showed multiple areas of decreased attenuation are identified within the liver, presumably diffuse metastatic disease. No intrahepatic biliary ductal dilatation is appreciated. LFTs were notable elevated throughout admission secondary to new liver metastasis. Oncology consulted and plan to try to resume chemotherapy once patients chronic wound on her chest related to radiation heals. Patient to continue Daily cleanse left chest wound. apply silver gel, cover with adaptic/vaseline gauze and dry cover dressing. Prior to discharge discussed patient who is agreeable to discharge at this time. He states that patient is to have close follow-up in his office within the week. Patient noted to have left upper and left lower extremity edema on admission. Obtained dopplers which showed upper extremity deep venous thrombosis within the left axillary, brachial and basilic veins. Started on heparin drip and transitioned to eliquis at discharge. Patient also noted to remain in sinus tach throughout admission. No PE seen on CTA. No signs of sepsis or infection. Possibly related to patients metastatic cancer. Started on metoprolol 12.5 mg BID. Patient to monitor pulse and bp at home, stated understanding. Patient had no complaints at time discharge denying chest pain, shortness a breath, palpitations, nausea/vomiting, abdominal pain. Patient discharged home with family in a stable condition. She is to follow up with her primary care provider in 1 week and Oncology as scheduled. Status at Discharge Functional status at discharge: independent ambulation Time Spent with Patient Time attestation: Total time spent providing and/or coordinating discharge services: Time spent: Greater than 30 minutes Exam Narrative: AF HR 106 RR 16 SpO2 95 BP 120/76 General: female in no acute respiratory distress who is nontoxic appearing, sitting up in bed and ambulating throughout room. HEENT: Normocephalic. Atraumatic. Extraocular movement intact. Sclera clear and anicteric. No facial asymmetry. Chest: Lungs are clear to auscultation bilaterally. No wheezes or crackles. Port right chest. Right mastectomy scar tissue. Left mastectomy with slight drainage. Radiation rash to the upper chest wrapping around to the left side of the upper back. CV: Heart was regular rate and rhythm. Abd: Abdomen was soft. Nontender. Nondistended. Positive bowel sounds. Ext: No clubbing, cyanosis. DP pulses bilaterally. Swelling to the left upper extremity extending from the shoulder to the hand and left lower extremity extending from the hip to the foot. No redness or warmth. Neuro: Patient is alert and oriented x4. Speech is clear. DS: Data Data Completed and Pending Completed studies during hospitalization: Pending at discharge 05/07/25 10:37 Cytology [PTH] Routine Labs on day of discharge: Labs from last 24 hours 05/08/25 05/08/25 05/07/25 06:14 02:56 19:25 WBC 7.8 7.6 RBC 4.94 5.07 Hgb 10.2 L 10.6 L Hct 32.9 L 34.0 L MCV 66.6 L 67.1 L MCH 20.6 L 20.9 L MCHC 31.0 L 31.2 L RDW 21.2 H 21.1 H Plt Count 207 213 MPV TNP TNP Immature Gran % (Auto) 2.3 H 2.2 H Neut % (Auto) 74.2 H 76.6 H Lymph % (Auto) 5.9 L 6.6 L Reagan % (Auto) 16.3 H 13.2 H Eos % (Auto) 0.5 0.7 Baso % (Auto) 0.8 0.7 Lymph # (Auto) 0.46 L 0.50 L Reagan # (Auto) 1.3 H 1.0 H Eos # (Auto) 0.0 0.1 Baso # (Auto) 0.1 0.1 Abs Immat Gran (auto) 0.18 H 0.17 H Absolute Neuts (auto) 5.8 5.8 Absolute Nucleated RBC 0.030 H 0.020 H Band Neutrophils % Not Reportable 0 Nucleated RBC % 0.4 H 0.3 H Platelet Estimate Adequate Adequate % Immature Plt Fraction 5.8 5.2 Polychromasia 1+ Hypochromasia 1+ 1+ Anisocytosis 2+ 3+ Microcytosis 2+ Target Cells 1+ Ovalocytes 1+ Schistocytes Not Reportable None seen PT 19.1 H D INR 1.6 APTT 199.3 H* 35.2 Sodium 133 L Potassium 3.4 Chloride 98 Carbon Dioxide 24 Anion Gap 11 BUN 15 Creatinine 0.75 Estim Creat Clear Calc 95 Estimated GFR > 60 Glucose 104 Calcium 8.4 Total Bilirubin 5.1 H AST 277 H ALT 64 H Alkaline Phosphatase 1344 H Total Protein 6.4 Albumin 3.1 L Miscellaneous Test 05/07/25 10:37 WBC RBC Hgb Hct MCV MCH MCHC RDW Plt Count MPV Immature Gran % (Auto) Neut % (Auto) Lymph % (Auto) Reagan % (Auto) Eos % (Auto) Baso % (Auto) Lymph # (Auto) Reagan # (Auto) Eos # (Auto) Baso # (Auto) Abs Immat Gran (auto) Absolute Neuts (auto) Absolute Nucleated RBC Band Neutrophils % Nucleated RBC % Platelet Estimate % Immature Plt Fraction Polychromasia Hypochromasia Anisocytosis Microcytosis Target Cells Ovalocytes Schistocytes PT INR APTT Sodium Potassium Chloride Carbon Dioxide Anion Gap BUN Creatinine Estim Creat Clear Calc Estimated GFR Glucose Calcium Total Bilirubin AST ALT Alkaline Phosphatase Total Protein Albumin Miscellaneous Test Pending Preliminary micro results at discharge 05/07/25 10:37 Acid Fast Bacilli Culture - Preliminary Pleural Fluid 05/06/25 19:45 Aerobic Culture - Preliminary Chest Discharge Plan Discharge Attending physician on discharge: Teresa Watson Consulting providers: Soo Benson; Monty Lobo; Chalino Kraus Etai Discharging Clinician: Soo Benson Anticipated Discharge Date/Time: 05/08/25 14:16 Patient Disposition: Home Activity: as tolerated Diet: as tolerated Discharge Instructions: Discharge disposition: Patient admitted to the hospital for shortness of breath secondary to a pleural effusion likely related to known cancer Echo normal Underwent a thoracentesis on 05/07. Repeat imaging showed improvement Evaluated by pulmonology and no procedure needed at this time for Pleurx or Vats Pleural effusion recurrence will be monitored by oncology moving forward who will refer to pulmonology if necessary If shortness of breath recurs return to the emergency department Patient diagnosed with a left upper extremity blood clot Started on eliquis 10 mg twice a day for 7 days then start eliquis 5 mg twice a day for 3 months, attached is information on this medication Strict bleeding precautions since you are being started on eliquis including shaving with an electric razor, holding pressure for greater than 20 minutes for injury, protection of had with any falls, etc. Patient consistently having elevated heart rates throughout admission Started on metoprolol 12.5 mg twice a day, attached is information on this medication Monitor blood pressures Take caution while standing, rising, or moving Change positions slowly taking a break between each position change If you standing feel dizzy sit back down and take a break Imaging showed hydroureteronephrosis (back flow of urine to kidney) secondary to uterus mass Evaluated by urology and no acute intervention required since kidney function is stable Oncology to continue to monitor kidney function and refer to urology if stent placement necessary Wound to the left chest was evaluated by wound therapy Daily cleanse left chest wound. apply silver gel, cover with adaptic/vaseline gauze and dry cover dressing. Imaging showing metastatic cancer now to the liver and uterus Evaluated by oncology Plan for close follow up in the office, call for an appointment within the week Encouraged to continue with yearly vaccinations Return to the emergency department if he developed sudden shortness of breath, chest pain, nausea, vomiting, upset stomach or intractable diarrhea Return to the emergency department if you develop fever greater than 100.5 Follow-up with the primary care physician within 1-2 weeks Thank you for [facility] for your healthcare needs Patient Instructions: Metoprolol (By mouth), Apixaban (By mouth), Pleural Effusion (DC), Hydronephrosis (DC) Patient Language: Tamazight Stand Alone Forms: General Discharge Information Follow-up/Referrals: Chalino Kraus MD [Physician] - 1 Week Paul Delarosa MD [Primary Care Provider] - 1 Week Discharge Medications: New Eliquis 5 mg tablet 10 mg PO BID 7 Days Qty: 28 0RF Eliquis 5 mg Tablet 5 mg PO Q12HR 30 Days Qty: 60 2RF Rx Instructions: Start after completed the full course of eliquis 10 mg twice a day on 05/16. metoprolol tartrate 25 mg tablet 12.5 mg PO BID Qty: 30 0RF metoprolol tartrate 25 mg tablet 12.5 mg PO BID Qty: 30 0RF Date of admission: 05/08/25 10:31 Primary Care Provider: Paul Delarosa Admitting Provider: Sherly Lucas Attending physician on admission: Sherly Lucas Condition: Stable
[2025-05-08] MEDS: HEPARIN SODIUM LOCK FLUSH 500 UNITS/5 ML SYRINGE IV PUSH (15:09)
[2025-05-08 16:08] LABS: Triglycerides, Body Fluid 51 mg/dL (Not Estab.)
[2025-05-08 16:08] LABS: LD, Body Fluid 1394 IU/L (.)
== END 2025-05-08 15:45 | disposition home or self-care (01) ==
LOC: ANHED 22:52 → ANH3MED 23:45
PROVIDERS: Emergency Medicine; Internal Medicine; Student in an Organized Health Care Education/Training Program; Admitting Provider Internal Medicine; Emergency Provider Student in an Organized Health Care Education/Training Program; PCP Family Medicine; Visit Provider Internal Medicine
DX: J90 Pleural effusion, not elsewhere classified (principal); R06.02 Shortness of breath; C50.912 Malignant neoplasm of unspecified site of left female breast; C78.7 Secondary malignant neoplasm of liver and intrahepatic bile duct; I82.622 Acute embolism and thrombosis of deep veins of left upper extremity; R00.0 Tachycardia, unspecified; R79.82 Elevated C-reactive protein (CRP); E80.6 Other disorders of bilirubin metabolism; N13.30 Unspecified hydronephrosis; Z90.13 Acquired absence of bilateral breasts and nipples; Z87.891 Personal history of nicotine dependence; Z79.899 Other long term (current) drug therapy; Z20.822 Contact with and (suspected) exposure to COVID-19
CPT/HCPCS: 32555; 36415; 71045; 71046; 71275; 74177; 80053; 80143; 81001; 82248; 83605; 83615; 83690; 83880; 83986; 84478; 84484; 85025; 85027; 85055; 85380; 85610; 85730; 86140; 87070; 87205; 87637; 87641; 88108; 88305; 88342; 89051; 93005; 93306; 93308; 93970; 96361; 96365; 96366; 96367; 96372; 96375; 96376; 99212; 99285; A9270; G0378; G0463; J0690; J1642; J1644; J2270; J3373; J7030; Q9967

== ENCOUNTER 2025-05-16 07:22 | Inpatient (IN) | payer OTHER, SELFPAY ==
[2025-05-16] VITALS (16 sets, daily range): BP systolic 112–140; BP diastolic 42–72; PULSE 96–109; RESP 15–36; TEMP 36.5–37.1; O2SAT 85–98; BMI 32.7
--- NOTE | ~2025-05-16 | XR_ITS ---
EXAMINATION: [id number] DATE: 05/21/2025 11:54 INDICATION: Status post right thoracentesis TECHNIQUE: frontal view of the chest was obtained. COMPARISON: Chest radiograph dated 05/20/2025 FINDINGS: Interval resolution of the previously seen right pleural effusion. There is residual linear band of discoid atelectasis/scarring across the right lower lung zone. Persistent opacities in the left mid to lower lung zone consistent with small to moderate-sized left pleural effusion with associated basilar atelectasis and/or pneumonia. No pneumothorax. Heart size within normal limits for AP technique. Right internal jugular central venous port catheter with distal tip at the right atrium. IMPRESSION: 1. Interval resolution of prior right pleural effusion with residual linear band of discoid atelectasis in right lower lung. 2. No significant change in a small to moderate-sized left pleural effusion with associated left basilar atelectasis and/or pneumonia. Reviewed, dictated and finalized at location A. IMPRESSION: 1. Interval resolution of prior right pleural effusion with residual linear ban d of discoid atelectasis in right lower lung. 2. No significant change in a small to moderate-sized left pleural effusion wit h associated left basilar atelectasis and/or pneumonia.
--- NOTE | ~2025-05-16 | XR_ITS ---
EXAM/PROCEDURE: XR chest 1V portable - 05/20/2025 12:56 CDT HISTORY: 55 years old Female with Resp failure TECHNIQUE: Two view(s) of the chest. COMPARISON: None available. FINDINGS: LUNGS/ PLEURA: Small bilateral pleural effusions causing bibasilar atelectasis. Superimposed infection cannot be excluded. No pneumothorax. HEART/ MEDIASTINUM: Heart appears normal in size. BONES: No acute osseous abnormality. OTHER: Visualized upper abdomen is unremarkable. Tip of the Mediport catheter is in the midright atrium. IMPRESSION: 1. Bibasilar opacities may represent atelectasis versus pneumonia. Clinical correlation si recommended. Short-term follow-up chest radiograph is recommended after appropriate clinical therapy to document stability and/or resolution. 2. Small bilateral pleural effusions. Reviewed, dictated and finalized at location A. IMPRESSION: 1. Bibasilar opacities may represent atelectasis versus pneumonia. Clinical co rrelation si recommended. Short-term follow-up chest radiograph is recommended after appropriate clinical therapy to document stability and/or resolution. 2. Small bilateral pleural effusions.
--- NOTE | ~2025-05-16 | CT_ITS ---
EXAMINATION: CT chest abdomen pelvis w con DATE: 05/16/2025 09:18 INDICATION: Shortness of breath. Metastatic lung cancer. TECHNIQUE: Computed tomography (CT) of the chest, abdomen, and pelvis was performed with 100 mL Omnip aque-350 intravenous contrast. Automated exposure control and iterative reconstruction technique were employed. The dose-length product was 1516.04 mGy-cm. COMPARISON: CT dated 05/06/2025 FINDINGS: CHEST CT: Moderate to large right and moderate-sized left posterior layering pleural effusions with dependent c ompressive atelectasis in the bilateral upper and lower lobes. There are some additional discoid atel ectasis in the right middle lobe and lingula. Aerated portions the lungs are clear with no pulmonary edema, pneumonia or suspicious pulmonary nodules. Heart size is normal. Small amount of atherosclerot ic coronary artery calcific location. No pericardial effusion. Right internal jugular central venous port catheter tip at the high right atrium. Thoracic aorta is normal in caliber with no dissection. P ostoperative changes of bilateral mastectomies with residual bilateral pectoral loculated fluid colle ctions, low density consistent with a seroma on the left with higher attenuation on the right which c ould represent some internal hemorrhage or abscess in the appropriate clinical setting. There are emely gical clips at the left axilla where there is also some stranding in the fat and a few mildly enlarge d left axillary lymph nodes suspicious for prior axillary lymph node dissection and recurrent metasta tic disease. No significant interval change in a few mildly prominent but still normal-sized AP windo w lymph nodes which demonstrated increased FDG uptake on prior PET/CT consistent with distal metastat ic disease. There are multiple lytic lesions in the spine, sternum and multiple ribs consistent with osseous metastatic disease. Again seen are a few subacute appearing likely pathologic rib fractures. ABDOMEN/PELVIS CT: Small amount of high attenuation material in the dependent aspect of the decompressed gallbladder whi ch is new since the prior studies which would argue against cholelithiasis but could represent sludge or some vicariously excreted contrast. Hepatomegaly. There are streak artifact likely related to the patient's arms with decreased attenuation extending across portions of the posterior right hepatic l obe. There is however a few additional ill-defined indeterminate regions of decreased attenuation the lateral segment left hepatic lobe at the caudal aspect right hepatic lobe which appear unrelated to streak artifact which are without correlate on the prior imaging. Spleen, pancreas and bilateral adre nal glands are normal. There is mild bilateral hydronephrosis without evident hydroureter or obstruct ing mass or nephrolithiasis. Partially decompressed bladder is unremarkable no bowel obstruction. Fib roid uterus. Small amount of ascites scattered throughout the abdomen and pelvis. There are multiple normal-sized and mildly enlarged lymph nodes in the abdomen and pelvis including at the tita hepatis , renal mesentery, left perinephric chain, bilateral external iliac chains and left inguinal region m any of which demonstrate increased FDG uptake on prior PET/CT consistent with metastatic disease. Lef t ovary appears enlarged suspicious for metastatic disease either directly of the ovary or of the imm ediately adjacent lymph node. There is extensive body wall edema. Multiple lytic lesions in the lumba r spine, pelvis and proximal femurs consistent with metastatic disease. IMPRESSION: 1. Persistent moderate to large right and moderate-sized left posterior layering pleural effusions wi th secondary compressive atelectasis in both lungs. 2. Status post bilateral mastectomies with bilateral pectoral loculated subcutaneous fluid collection s, simple appearing on the left consistent with a seroma but with increased density on the right whic h could represent hemorrhage or potentially abscess in the appropriate clinical setting. 3. Numerous scattered lytic bone lesions along with multiple enlarged lymphadenopathy in the chest, a bdomen, pelvis and left groin which demonstrated increased FDG uptake on prior PET/CT consistent with metastatic disease. 4. Couple ill-defined hypoenhancing regions in the liver suspicious for additional metastatic disease although differential would include infection without evident organized abscess. 5. Mild bilateral hydronephrosis without evident obstructing stone or mass. 6. Fibroid uterus. 7. Diffuse body wall edema and small amount of ascites in the abdomen and pelvis. Reviewed, dictated and finalized at location A. IMPRESSION: 1. Persistent moderate to large right and moderate-sized left posterior layerin g pleural effusions with secondary compressive atelectasis in both lungs. 2. Status post bilateral mastectomies with bilateral pectoral loculated subcuta neous fluid collections, simple appearing on the left consistent with a seroma but with increased density on the right which could represent hemorrhage or pot entially abscess in the appropriate clinical setting. 3. Numerous scattered lytic bone lesions along with multiple enlarged lymphaden opathy in the chest, abdomen, pelvis and left groin which demonstrated increase d FDG uptake on prior PET/CT consistent with metastatic disease. 4. Couple ill-defined hypoenhancing regions in the liver suspicious for additio nal metastatic disease although differential would include infection without ev ident organized abscess. 5. Mild bilateral hydronephrosis without evident obstructing stone or mass. 6. Fibroid uterus. 7. Diffuse body wall edema and small amount of ascites in the abdomen and pelvi s.
--- NOTE | ~2025-05-16 | XR_ITS ---
XR chest 2V 05/16/2025 09:05 Indication: Shortness of breath Procedure: 2 view chest Comparison: Comparison to multiple prior studies sequentially, with oldest reviewed study dated 01/2025. Findings: Small pleural effusions. Heart size. Portacatheter tip near the cavoatrial junction. No pne umothorax. Bibasilar and perihilar airspace disease may represent edema or less likely pneumonia. Impression: 1: Bibasilar airspace disease which may represent edema or pneumonia. 2: Small pleural effusions. Reviewed, dictated and finalized at location A. Impression: 1: Bibasilar airspace disease which may represent edema or pneumonia. 2: Small pleural effusions.
--- NOTE | ~2025-05-16 | US_ITS ---
EXAMINATION: US thoracentesis DATE: 05/21/2025 12:33 INDICATION: pleural effusion TECHNIQUE: The procedure and its risks and benefits were discussed with the patient's son. Potential risks discussed included bleeding, infection, and pneumothorax. The patient's son provided written consent. The skin was prepped and draped in sterile fashion. 1% lidocaine was used for local anesthesia. Under ultrasound guidance, a 5 Fr catheter with trochar was advanced into the right pleural effusion. Fluid was aspirated. The catheter was removed, and a dressing was applied. There were no immediate complications. FINDINGS: Ultrasound images demonstrate a small to moderate-sized right pleural effusion and the catheter within the fluid. IMPRESSION: 1. Successful ultrasound-guided thoracentesis yielding 1100 mL of clear myke- colored fluid. Reviewed, dictated and finalized at location A.
--- OUTSIDE RECORDS SUMMARY | 2025-05-16 07:31 | XMS_ITS | Encounter Summary ---
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
--- OUTSIDE RECORDS SUMMARY | 2025-05-16 07:31 | XMS_ITS | Clinical Summary ---
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 [address] [place] [address] Consulting Physician Medical Oncology 06/18/24
--- OUTSIDE RECORDS SUMMARY | 2025-05-16 07:31 | XMS_ITS | Encounter Summary ---
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
--- OUTSIDE RECORDS SUMMARY | 2025-05-16 07:31 | XMS_ITS | Encounter Summary ---
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
--- OUTSIDE RECORDS SUMMARY | 2025-05-16 07:31 | XMS_ITS | Continuity of Care Document ---
Author Name [facility] Organization [facility] Care Team Providers Care Print Manager Name Role Phone [facility] Unavailable Unavailable Problems Combined list of problems from Department of Defense and Veterans Affairs facilities. It does not include entries that were removed or entered in error. Problem Status Onset Date Problem Type Date of Resolution Comments Source Cervical Pap Smear Inactive Condition Do D MEDIASTINAL MASSES LYMPHADENOPATHY Active Condition NO [facility] visit for: screening exam for malignant neoplasm cervix Inactive Condition [facility] Cervix Sample Taken For Pap Smear Active Condition [facility] visit for: screening exam malignant neoplasm breast Inactive Condition [facility] VAGINITIS Active Condition [facility] VAGINITIS NONSPECIFIC Active Condition [facility] visit for: single system exam gynecological Inactive Condition [facility] Allergies, Adverse Reactions, Alerts Combined list of allergies from Department of Defense and Veterans Affairs facilities. It does not include entries that were removed or entered in error. Substance Category Reaction Severity Reaction type Status Date Reported Comments Source No Known Allergies Drug allergy (disorder) active 6 [facility] Encounters Combined list of: 1) Encounters from Department of Veterans Affairs facilities going backup to the last 18 months, not all [place] inpatient encounters are included; 2) Encounters from the Department of Defense facilities going backup to 280 months. Location Location Details Encounter Type Encounter Number Reason For Visit Attending Provider ADM Date DC Date Status Disposition Source [place] OUTPATIENT [id number] FEMALE CONCERN -DID NOT DISCLOS E- RASHEL COLON 04/21 Released w/o Limitations [place]) OUTPATIENT [id number] VAGINAL DISCOMF ORT RASHEL COLON 04/06 Released [place] Limitations [place]) OUTPATIENT [id number] PAP SMEAR RASHEL COLON 04/28 Released [place] Lim[place] OUTPAT[place] [id number] LUMP ON SIDE OF NECK KIMBERLI DAVIDSON 12/28 Released [place] Limitations [place]) OUTPATIENT [id number] PAP SMEAR-B REAST EXAM PETTY DIANE 05/18 Released w/o Limitations [place] Procedures Combined list of: 1) Procedures from Department of Veterans Affairs facilities going back up to thelast 18 months, not all [place] non-surgical procedures are included; 2) All procedures from the Department of Defense facilities. Procedure Procedure Type Code Date Perfomer Comments Sourc e SMEAR, PRIMARY SOURCE WITH INTERPRETATION; WET MOUNT FOR INFECTIOUS AGENTS (EG, SALINE, CATHERINE INK, HARMAN PREPS) 02/13/2001 [facility] INJECTION OF ANESTHETIC INTO SPINAL CANAL FOR ANALGESIA 05/26/1999 [facility] REPAIR OF OTHER CURRENT OBSTETRIC LACERATION 05/26/1999 [facility] EKG (SCALP) 05/26/1999 [facility] SMEAR, PRIMARY SOURCE WITH INTERPRETATION; WET MOUNT FOR INFECTIOUS AGENTS (EG, SALINE, CATHERINE INK, HARMAN PREPS) 04/06/2005 [facility] CYTOPATHOLOGY, SMEARS, CERVICAL OR VAGINAL, UP TO THREE SMEARS; SCREENING BY OUTBOUND SALES REPRESENTATIVE UNDER PHYSICIAN SUPERVISION 04/21/2004 [facility] CYTOPATHOLOGY, SMEARS, CERVICAL OR VAGINAL, UP TO THREE SMEARS; SCREENING BY OUTBOUND SALES REPRESENTATIVE UNDER PHYSICIAN SUPERVISION 08/27/2003 [facility] CYTOPATHOLOGY, SMEARS, CERVICAL OR VAGINAL, UP TO THREE SMEARS; SCREENING BY OUTBOUND SALES REPRESENTATIVE UNDER PHYSICIAN SUPERVISION 08/22/2002 [facility] INTRAVENOUS INFUSION, THERAPY/DIAGNOSIS, ADMINISTERED PHYSICIAN/UNDER DIRECT SUPERVISION, PHYSICIAN; EA ADDITIONAL HOUR, UP TO EIGHT (8) HOURS (LIST SEPARATELY ADDITION TO CODE, PRIMARY PROCEDURE) 05/15/2002 [facility] PHYS/OTH QUALIFIED HEALTH MANAGER SQL QUALIFIED,EDUCATION, TRAIN,LICENSURE/REGU LATION (WHEN APPLICABLE) EDUC SER RENDERED TO PATS IN A GRP SETTING (EG,,OBESITY ,OR DIABETIC INSTRUCT) 03/28/2002 [facility] Vaginal HARMAN Prep Vaginal HARMAN Prep [id number] 04/06/2005 RENEE SHAW [facility] Vaginal Wet [place] Vaginal [place] [id number] 04/06/2005 RENEE BRIGGS [facility] Cervical Pap Smear Cervical Pap Smear [id number] 04/21/2004 KATE CHENEY [facility] Vaginal HARMAN Prep Vaginal HARMAN Prep [id number] 04/21/2004 OTTO CHENEY [facility] Social History Combined list of available smoking, tobacco, and other social history from Department of Defense and Veterans Affairs facilities. Social History Type Response Date Comment Sour e This section is an empty social history section. DoD
--- OUTSIDE RECORDS SUMMARY | 2025-05-16 07:31 | XMS_ITS | Encounter Summary ---
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
--- OUTSIDE RECORDS SUMMARY | 2025-05-16 07:32 | XMS_ITS | Encounter Summary ---
Author Organization [facility] [employer] [facility] Address [address] [place] [address] Phone Care Team Providers Care Library Services Coordinator Name Role Phone Evi Avila MD Primary Care Provider Randall Pierce MD Unavailable Encounter Details Date Type Department Care Team (Latest Contact Info) Description 12/02/2010 Orders Only [facility] Scanning, Provider Social History Tobacco Use Types Packs/Day Years Used Date Smoking Tobacco: Never Assessed Comments Unknown Sex and Gender Information Value Date Recorded Sex Assigned at Not on file Legal Sex Female 2:38 PM THIRD HELPER Gender Identity Not on file Sexual [...] on filedocumented in this encounter Care Teams Library Services Coordinator Relationship Specialty Start Date End Date Evi Avila MD [address] [place] [address] PCP - General Family Medicine 06/15/24 Randall Pierce MD [address] [facility] [address] [place] [address] Consulting Physician Medical Oncology 06/18/24 documented as of this encounter
--- OUTSIDE RECORDS SUMMARY | 2025-05-16 07:32 | XMS_ITS | Encounter Summary ---
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
--- OUTSIDE RECORDS SUMMARY | 2025-05-16 07:32 | XMS_ITS | Encounter Summary ---
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
--- OUTSIDE RECORDS SUMMARY | 2025-05-16 07:32 | XMS_ITS | Encounter Summary ---
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
--- OUTSIDE RECORDS SUMMARY | 2025-05-16 07:32 | XMS_ITS | Encounter Summary ---
Author Organization [facility] [employer] [facility] Address [address] [place] [address] Phone Care Team Providers Care Slurry Plant Operator Name Role Phone Evi Avila [...] on file Legal Sex Female 2:38 PM PATIENT TRANSITION SPECIALIST Gender Identity Not on file Sexual [...] on filedocumented in this encounter Care Teams Slurry Plant Operator Relationship Specialty Start Date End Date Evi Avila MD [address] [place] [address] PCP - General Family Medicine 06/15/24 Randall Pierce MD [address] [facility] [address] [place] [address] Consulting Physician Medical Oncology 06/18/24 documented as of this encounter
--- OUTSIDE RECORDS SUMMARY | 2025-05-16 07:32 | XMS_ITS | Encounter Summary ---
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 [address] [place] [address] Consulting Physician Medical Oncology 06/18/24 documented as of this encounter
--- OUTSIDE RECORDS SUMMARY | 2025-05-16 07:32 | XMS_ITS | Encounter Summary ---
Author Organization 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
--- OUTSIDE RECORDS SUMMARY | 2025-05-16 07:32 | XMS_ITS | Encounter Summary ---
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
--- OUTSIDE RECORDS SUMMARY | 2025-05-16 07:32 | XMS_ITS | Encounter Summary ---
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 [address] [place] [address] Consulting Physician Medical Oncology 06/18/24 documented as of this encounter
--- OUTSIDE RECORDS SUMMARY | 2025-05-16 07:32 | XMS_ITS | Encounter Summary ---
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
--- OUTSIDE RECORDS SUMMARY | 2025-05-16 07:32 | XMS_ITS | Encounter Summary ---
Author Organization [facility] of 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
--- NOTE | 2025-05-16 07:50 | ECG_ITS ---
Test Date: 2025-05-16 08:08:35 Measurements Intervals [place] Rate: 94 P: 51 OR: 129 QRS: 11 QRSD: 92 T: 53 QT: 375 QTc: 470 Interpretive Statements SINUS RHYTHM NORMAL ECG Compared to ECG 05/06/2025 18:02:01 HEART RATE HAS DECREASED Electronically Signed On 05-16-2025 08:10:43 CDT by Remi Boone D.O.
[2025-05-16 07:57] LABS: Hematocrit 27.8 % (37.0-47.0); Hemoglobin 8.5 g/dL (12.0-15.0); Immature Granulocyte Percent A 6.6 % (0-0.5); Immature Platelet Fraction Pct 7.3 % (0.9-11.2); Lymphocytes Absolute Auto 0.39 K/mm3 (0.9-3.2); Mean Corpuscular HGB Conc 30.6 g/dl (32-36); Mean Corpuscular Hemoglobin 20.9 pg (26-34); Mean Corpuscular Volume 68.3 fl (80-100); Nucleated Red Blood Cells Absolute Auto 0.620 K/mm3 (0.0-0.012); Nucleated Red Blood Cells Perc 3.3 % (0.0-0.2); Platelet Count Result 294 k/mm3 (150-375); Red Blood Count 4.07 M/mm3 (4.2-5.4); White Blood Count 18.6 K/mm3 (4.5-10.0)
--- NOTE | 2025-05-16 08:05 | PC.NURSE ---
Patient has swelling to left arm and leg due to blood clots in her lymph nodes that is currently being treated with eliquis. Patient has weakness on that side as well. Patient is jaundice due to liver cancer. Patient states her last chemo treatment was yesterday, 05/15. Patient has been having SOB that has been increasing over the last 7 days. Patient was 85% on room air upon arrival to the ED. Patient currently on 3L NC and is feeling better and O2 sat is 98%.
[2025-05-16 08:10] LABS: Alanine Aminotransferase 55 U/L (6-35); Albumin Level 3.0 g/dL (3.5-5.1); Anion Gap 13 mmol/L (4-12); Aspartate Amino Transferase 393 U/L (14-36); Bilirubin,Total 12.5 mg/dL (0.2-1.3); Blood Urea Nitrogen 54 mg/dL (7-17); Calcium 7.4 mg/dL (8.4-10.2); Carbon Dioxide 23 mmol/L (22-30); Chloride 84 mmol/L (98-107); Estimated CRCL calculation 65 ml/min; Estimated Glomerular Filt Rate 49; Glucose 123 mg/dL (65-110); Potassium 3.8 mmol/L (3.4-5.0); Sodium 120 mmol/L (137-145); Total Protein 6.4 g/dL (6.3-8.2)
--- OUTSIDE RECORDS SUMMARY | 2025-05-16 08:26 | XMS_ITS ---
[facility] Address [address] [facility] [address] Care Team Providers Care Auctioneer Art Name Role Phone Paul Delarosa MD Primary Care Provider [phone] Active Problems Problem Noted Date Diagnosed Date [...]
--- OUTSIDE RECORDS SUMMARY | 2025-05-16 08:26 | XMS_ITS | Encounter Summary ---
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
--- OUTSIDE RECORDS SUMMARY | 2025-05-16 08:26 | XMS_ITS | Encounter Summary ---
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
--- OUTSIDE RECORDS SUMMARY | 2025-05-16 08:26 | XMS_ITS | Encounter Summary ---
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
--- OUTSIDE RECORDS SUMMARY | 2025-05-16 08:26 | XMS_ITS | Clinical Summary ---
Author Organization [facility] Kaylee Vinson Address [address] [place] [address] Care Team Providers Care Content Writer Name Role Phone Paul Delarosa MD Primary Care Provider [phone] Allergies No known active allergies Medications multivitamin,tx [...] Amount: 6 Tablets 60 Tablet 5 Active Eliquis 5 mg tablet Take 1 Tablet (5 mg) by mouth 2 times daily. 60 Tablet 2 5 Active ondansetron (ZOFRAN) 8 mg Tablet Take 1 Tablet (8 mg) by mouth every 8 hours as needed for Nausea/Emesi s. 30 Tablet 2 5 Active HYDROcodone-siena taminophen (NORCO) 5-325 mg tabletIndicatio ns:Inflammatory carcinoma of left breast (CMS/HCC) Take 1 Tablet by mouth every 4 hours as needed for Pain, Moderate. Max Daily Amount: 6 Tablets 60 Tablet 5 05/06/20 25 Discontinue d(Reorder) cephALEXin (KEFLEX) 500 mg capsule Take 1 Capsule (500 mg) by mouth 4 times daily for 10 days. 40 Capsule 5 05/01/20 25 Eliquis 5 mg tablet Take 10 mg by mouth 2 times daily. 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 Malignant neoplasm of nipple and areola, right female breast 02/12/2025 Encounters Date Type Department Care Team Description 05/15/2025 Orders Only [facility] Oncology and Hematology - [address] [place] [address] Chalino Kraus MD 05/12/2025 Orders Only [facility] Oncology and Hematology - [address] [place] [address] Chalino Kraus MD Chronic anemia; Inflammatory carcinoma of left breast (CMS/HCC) 2025 12:00 PM CDT Office Visit [facility] Oncology and Hematology [facility] [address] [place] [id number] Chalino Kraus MD 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) 05/07/2025 External Device Data STL ABSTRACTION Provider, Abstract 05/06/2025 Refill [facility] Oncology and Hematology [facility] [address] [place] [address] Chalino Kraus MD Inflammatory carcinoma of left breast (CMS/HCC) 05/05/2025 Orders Only [facility] Oncology and Hematology - [address] [place] [address] Chalino Kraus MD Inflammatory carcinoma of left breast ([facility]/HCC) 04/29/2025 External Device Data STL ABSTRACTION Provider, Abstract 04/29/2025 External Device Data STL ABSTRACTION Provider, Abstract 04/29/2025 Orders Only [facility] Oncology and Hematology [address] [place] [phone] Chalino Kraus MD Inflammatory carcinoma of left breast ([facility]/HCC) (Primary Dx) 04/28/2025 Orders Only [facility] Oncology and Hematology [facility] [address] [place] [address] Chalino Kraus MD Chronic anemia; Inflammatory carcinoma of left breast (CMS/HCC) 04/24/2025 Orders Only [facility] Oncology and Hematology - Edu [address] [place] [address] Chalino Kraus MD 04/22/2025 External Device Data STL ABSTRACTION Provider, Abstract 04/22/2025 External Device Data STL ABSTRACTION Provider, Abstract 04/22/2025 External Device Data STL ABSTRACTION Provider, Abstract 04/21/2025 9:30 AM CDT Office Visit [facility] Oncology and Hematology [facility] [address] [place] [address] Chalino Kraus MD Inflammatory carcinoma of left breast (CMS/HCC) 04/16/2025 External Device Data STL ABSTRACTION Provider, Abstract 04/16/2025 External Device Data STL ABSTRACTION Provider, Abstract 04/14/2025 Orders Only [facility] Oncology and Hematology [facility] [address] [place] [address] Chalino Kraus MD Chronic anemia; Inflammatory carcinoma of left breast (CMS/HCC) 04/11/2025 8:45 AM CDT Office Visit [facility] Oncology [facility] Hematology [facility] [address] [place] [address] Chalino Kraus MD 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) 04/07/2025 Orders Only [facility] Oncology and Hematology [facility] [address] [place] [address] Chalino Kraus MD Inflammatory carcinoma of left breast (CMS/HCC) 04/03/2025 8:30 AM CDT Office Visit [facility] Oncology [facility] Hematology [facility] [address] [place] [address] Chalino Kraus MD 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) 04/02/2025 Telephone [facility] Oncology [facility] Hematology [facility] [address] [place] [address] Chalino Kraus MD Pain 03/31/2025 Orders Only [facility] Oncology and Hematology [address] [place] [address] Chalino Kraus MD Chronic anemia; Inflammatory carcinoma of left breast (CMS/HCC) 03/26/2025 Abstract [facility] Oncology [facility] Hematology [facility] [address] [place] [address] Chalino Kraus MD 03/26/2025 Abstract [facility] Oncology [facility] Hematology [facility] [address] [place] [address] Chalino Kraus MD 03/25/2025 External Device Data STL ABSTRACTION Provider, Abstract 03/25/2025 External Device Data STL ABSTRACTION Provider, Abstract 03/25/2025 External Device Data STL ABSTRACTION Provider, Abstract 03/25/2025 Orders Only [facility] Oncology and Hematology [facility] [address] [place] [address] Chalino Kraus MD 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) 03/24/2025 4:00 PM CDT Office [facility] [address] [place] [phone] Migdalia Solorzano MD Malignant neoplasm of nipple and areola, 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) (Primary Dx) 03/24/2025 Orders Only [facility] Oncology [facility] Hematology [facility] [address] [place] [address] Chalino Kraus MD Inflammatory carcinoma of left breast (CMS/HCC) 03/21/2025 9:00 AM CDT Office Visit [facility] Oncology [facility] Hematology [facility] [address] [place] [address] Chalino Kraus MD 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) 03/18/2025 11:11 PM CDT - 03/20/2025 4:16 PM CDT Hospital Encounter [facility] Oncology [address] [place] [address] Aba Carter MD Weitzel, Laura Jean, MD Araujo, Tiago, MD Chest wall abscess Discharge Disposition: Home or Self Care 03/18/2025 External Device Data STL ABSTRACTION Provider, Abstract 03/18/2025 Travel 03/17/2025 Orders Only [facility] Oncology [facility] Hematology [facility] [address] [place] [address] Chalino Kraus MD Chronic anemia; Inflammatory carcinoma of left breast (CMS/HCC) 03/14/2025 Orders Only [facility] Oncology and Hematology - Edu [address] [place] [address] Chalino Kraus MD 03/10/2025 Orders Only [facility] Oncology and Hematology - Edu [address] [place] [address] Chalino Kraus MD Inflammatory carcinoma of left breast (CMS/HCC) 03/06/2025 Orders Only [facility] Oncology and Hematology - Edu [address] [place] [address] Chalino Kraus MD 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) 03/04/2025 External Device Data STL ABSTRACTION Provider, Abstract 03/03/2025 Orders Only [facility] Oncology and Hematology - Edu [address] [place] [address] Chalino Kraus MD Chronic anemia; Inflammatory carcinoma of left breast (CMS/HCC) 02/28/2025 Orders Only [facility] Oncology and Hematology - [facility] [address] [place] [address] Chalino Kraus MD 02/25/2025 Orders Only [facility] Oncology and Hematology - Edu [address] [place] [address] Chalino Kraus MD 02/24/2025 Orders Only [facility] Oncology and Hematology - Edu [address] [place] [address] Chlaino Kraus MD Inflammatory carcinoma of left breast (CMS/HCC) 02/21/2025 10:30 AM CDT Office Visit [facility] Oncology and Hematology - Edu [address] [place] [address] Chalino Kraus MD Cancer, metastatic to bone (CMS/HCC) (Primary Dx) 02/20/2025 External Device Data STL ABSTRACTION Provider, Abstract 02/19/2025 External Device Data STL ABSTRACTION Provider, Abstract 02/18/2025 External Device Data STL ABSTRACTION Provider, Abstract 02/17/2025 Orders Only [facility] Oncology and Hematology - Edu [address] [place] [address] Chalino Kraus MD Chronic anemia; [...] Sign Reading Time Taken Comments Blood Pressure 125/77 2025 11:50 AM CDT Pulse 116 2025 11:50 AM CDT Temperature 36.3 C (97.4 F) 2025 11:50 AM CDT Respiratory Rate 16 2025 11:50 AM CDT Oxygen Saturation 89% 2025 11:50 AM CDT Inhaled Oxygen Concentration - - Weight 97.2 kg (214 lb 3.2 oz) 2025 11:50 AM CDT Height 177.8 cm (5' 10) 03/24/2025 4:16 PM CDT Body Mass Index 30.73 03/24/2025 4:16 PM CDT Plan of Treatment Upcoming Encounters Date Type Department Care Team (Late st Contact Info) Description 05/29/2025 8:45 AM CDT Office Visit [facility] Oncology and Hematology - [address] [place] [address] Chalino Kraus MD [facility] [address] [place] [address] Health Maintenance Due Date Last [...] Lung Cancer Screening 2022 INFLUENZA VACCINE (#1) 2025 Medical Devices Implanted Type Area Bite Block Maker Device Identifier Shelf Expiration Date Model / Serial / Lot Clip Ligating [place] [id number] - Csc - [id number] Implanted:Qty: 1 on 12/10/2024 by Migdalia Solorzano MD at [facility] Clip Left: Breast [employer] 04/28/2029 [id number] / / [id number] Port-06/24/2024 Implanted:06/03 (Quantity not on file) Port Chest [employer] / [id number] / [id number] Description:implanted at [facility] Procedures Procedure Name Priority Date/Time Associated Diagnosis Comments BASIC METABOLIC PANEL Routine 05/15/2025 12:50 PM CDT COMPREHENSIVE METABOLIC PANEL Routine 05/15/2025 12:47 PM CDT BASIC METABOLIC PANEL Routine 04/21/2025 1:40 PM [...] METABOLIC PANEL Routine 02/14/2025 2:25 PM CDT from Last 3 Months Results * BASIC METABOLIC PANEL (05/15/2025 12:50 PM CDT) Only the most recent of8 resultswithin the time period is included. Blood us Chalino Kraus MD CHEMISTRY ORDERABLES Final Resu lt * COMPREHENSIVE METABOLIC PANEL (05/15/2025 12:47 PM CDT) Only the most recent of5 resultswithin the time period is included. Blood us Chalino Kraus MD CHEMISTRY ORDERABLES Final Resu lt * MANUAL DIFFERENTIAL (03/20/2025 5:40 AM CDT) Only the most recent of2 resultswithin the time period is included. Pathologist [facility] PLATELET EST. Consistent w Count 03/20/2025 7:11 AM CDT [facility] LAB[facility]ATORY [facility] ANISOCYTOSIS 2+ /hpf 03/20/2025 7:11 AM CDT [facility] LAB[facility]ATORY SERVICES [facility] POIKILOCYTES 2+ /hpf 03/20/2025 7:11 AM CDT [facility] LABORATORY SERVICES [facility] MICROCYTES 1+ /hpf 03/20/2025 7:11 AM CDT [facility] LAB[facility]ATORY SERVICES [facility] TARGET CELLS 1+ /hpf 03/20/2025 7:11 AM CDT [facility] LABORATORY SERVICES [facility] OVALOCYTES 1+ /hpf 03/20/2025 7:11 AM CDT [facility] Blood Venipuncture / Unknown 03/20/2025 5:40 AM CDT 03/20/2025 6:12 AM CDT us Rita Arrieta MD HEMATOLOGY ORDERABLES COM Final Result [facility] Mytonomy [facility]# [id number] 5 [facility] [address] * (ABNORMAL) CBC WITH DIFFERENTIAL (03/20/2025 5:40 AM CDT) Only the most recent of3 resultswithin the time period is included. [facility] WBC 5.5 4.0 - 9.8 K/uL 03/20/2025 6:34 AM CDT [facility] LABORATORY SERVICES - . [facility] RBC 4.97(H) 3.90 - 4.90 M/uL 03/20/2025 6:34 AM CDT [facility] LABORATORY [facility]. [facility] HEMOGLOBIN 10.7(L) 11.8 - 14.8 g/dL 03/20/2025 6:34 AM CDT [facility] LABORATORY [facility]. [facility] HEMATOCRIT 35.5 35.5 - 44.0 % 03/20/2025 6:34 AM CDT [facility] LABORATORY SERVICES - [facility] MCV 71.4(L) 82.0 - 99.0 fL 03/20/2025 6:34 AM CDT [facility] MCH 21.5(L) 27.2 - 32.6 pg 03/20/2025 6:34 AM CDT [facility] LABORATORY SERVICES - . [facility] MCHC 30.1(L) 31.5 - 35.5 g/dL 03/20/2025 6:34 AM CDT [facility] RDW 22.4(H) 11.5 - 14.5 % 03/20/2025 6:34 AM CDT [facility] LABORATORY SERVICES - . [facility] RDW-STDEV 55.3(H) 37.1 - 48.7 fL 03/20/2025 6:34 AM CDT [facility] - [facility] PLATELETS 326 140 - 350 K/uL 03/20/2025 6:34 AM CDT [facility] - [facility] MPV 9.9 9.3 - 12.4 fL 03/20/2025 6:34 AM CDT [facility] - [facility] NEUTROPHILS 65 % 03/20/2025 6:34 AM CDT [facility] - [facility] LYMPHOCYTES 12 % 03/20/2025 6:34 AM CDT [facility] MONOCYTES 18 % 03/20/2025 6:34 AM CDT [facility] EOSINOPHILS 3 % 03/20/2025 6:34 AM CDT [facility] - [facility] BASOPHILS 1 % 03/20/2025 6:34 AM CDT [facility] - [facility] IMMATURE GRANULOCYTES 1 % 03/20/2025 6:34 AM CDT [facility] Comment:IG (Immature Granulo cyte) count includes Metamyelocytes, Myelocytes, and Promyelocytes NEUTROPHIL ABSOLUTE 3.59 1.90 - 7.00 K/uL 03/20/2025 6:34 AM CDT [facility] LYMPHOCYTE ABSOLUTE 0.68(L) 0.70 - 4.50 K/uL 03/20/2025 6:34 AM CDT [facility] - [facility] MONOCYTE ABSOLUTE 0.98 0.10 - 1.30 K/uL 03/20/2025 6:34 AM CDT [facility] LABORATORY SERVICES - [facility] EOSINOPHIL ABSOLUTE 0.14 0.00 - 0.70 K/uL 03/20/2025 6:34 AM CDT [facility] LABORATORY SERVICES - [facility] BASOPHILS ABSOLUTE 0.07 0.00 - 0.20 K/uL 03/20/2025 6:34 AM CDT [facility] LABORATORY [facility] IMMATURE GRANULOCYTES ABSOLUTE 0.03 0.00 - 0.03 K/uL 03/20/2025 6:34 AM CDT [facility] LABORATORY [facility] Blood Venipuncture / Unknown 03/20/2025 5:40 AM CDT 03/20/2025 6:12 AM CDT Rita Arrieta MD HEMATOLOGY ORDERABLES Silvana l Result [facility] CLIA# [id number] [address] [place] [address] * (ABNORMAL) C-REACTIVE PROTEIN (03/20/2025 5:40 AM CDT) [facility] Signature CRP 20.6(H) <5.0 mg/L 03/20/2025 6:58 AM CDT [facility] LABORATORY [facility] Blood Venipuncture / Unknown 03/20/2025 5:40 AM CDT 03/20/2025 6:12 AM CDT Pina Giraldo NP CHEMISTRY ORDERABLES Fin al Result [facility] CLIA# [id number] [address] [place] [address] * CT GUIDE PERCUT DRAIN W CATH (03/19/2025 12:00 PM CDT) Anatomical Region Laterality Modality Computed Tomogra phy 03/19/2025 11:1 5 AM CDT Impressions 03/19/2025 2:04 PM CDT IMPRESSION: Successful percutaneous drainage catheter placement in the left chest wall fluid collection. 60 mL sanguinous fluid was aspirated with sample sent for laboratory evaluation. DICTATION LOCATION: Location 1 - [facility] The examination was performed with the adjustment [...] dilated over a guidewire and a 10 Tanzanian drainage catheter was placed. CT imaging was [...] dilated over a guidewire and a 10 Tanzanian drainage catheter was placed. CT imaging was [...] laboratory evaluation. DICTATION LOCATION: Location 1 - [facility] The examination was performed with the adjustment of mA according to the patient size and/or the use of Iterative Reconstruction Technique. Abundio Love MD CT ORDERABLES Final R esult * ANAEROBIC/AEROBIC CULTURE W GRAM STAIN (03/19/2025 11:36 AM CDT) CULTURE No aerobic or anaerobic growth 03/24/2025 7:08 AM CDT [facility] LABORATORY [facility] GRAM STAIN No organisms observed 03/24/2025 7:08 AM CDT [facility] LABORATORY [facility] GRAM STAIN 3+ (Moderate) Polymorphonuclear WBC 03/24/2025 7:08 AM CDT [facility] LABORATORY [facility] Body fluid THORACIC STRUCTURE / Unknown Collection / Unknown 03/19/2025 11:36 AM CDT 03/19/2025 12:23 PM CDT us Abundio Love MD MICROBIOLOGY - GENERAL ORDERABLES Final Result [facility]# [id number] [address] [place] [address] * (ABNORMAL) WOUND (AEROBIC) CULTURE WITH GRAM STAIN (03/19/2025 12:54 AM CDT) CULTURE STAPHYLOCOCCUS AUREUS(A) JAYSON MCG/ML 03/21/2025 9:43 AM CDT [facility] GRAM STAIN No organisms observed 03/21/2025 9:43 AM CDT [facility] GRAM STAIN 3+ (Moderate) Polymorphonuclear WBC 03/21/2025 9:43 AM CDT [facility] Wound THORACIC STRUCTURE / Unknown Collection / [...] MICROBIOLOGY - GENERAL ORD ERABLES Final Result [facility] CLIA# [id number] [address] [place] [address] from Last 3 Months Insurance [facility] [id number] [facility] Here@ Networks [id number] RX [employer] RX Member Subscriber Plan / Payer (Ef fective 2024-Present) Name:Janae Solis Relation to Subscriber:Self Name:Janae Solis Payer ID:Not on file Group ID:[id number] Type:RX Commercial Address: [address] Advance Directives For more information, please contact: [phone] * Full Code (Latest Code Status on File) Date Activated Date Inactivated Comments 03/19/2025 12:38 AM 03/20/2025 6:35 PM * Full Code Date Activated Date Inactivated Comments 11/27/2024 6:24 PM 11/28/2024 4:27 PM Care Teams Content Writer Relationship Specialty Start Date End Date Paul Delarosa MD [address] [facility] [address] [place] [address] PCP - General Family Practice 10/16/24
--- OUTSIDE RECORDS SUMMARY | 2025-05-16 08:26 | XMS_ITS | Encounter Summary ---
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 [address] [place] [address] Consulting Physician Medical Oncology 06/18/24 documented as of this encounter
--- OUTSIDE RECORDS SUMMARY | 2025-05-16 08:26 | XMS_ITS | Encounter Summary ---
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
--- OUTSIDE RECORDS SUMMARY | 2025-05-16 08:26 | XMS_ITS | Encounter Summary ---
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
--- OUTSIDE RECORDS SUMMARY | 2025-05-16 08:26 | XMS_ITS | Encounter Summary ---
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
--- OUTSIDE RECORDS SUMMARY | 2025-05-16 08:26 | XMS_ITS | Encounter Summary ---
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
--- OUTSIDE RECORDS SUMMARY | 2025-05-16 08:26 | XMS_ITS | Encounter Summary ---
Author Organization [facility] [employer] [facility] Address [address] [place] [address] Care Team Providers Care Jointer Machine Operator Name Role Phone Paul Delarosa MD Primary Care Provider [phone] Encounter Details Date Type Department Care Team (Late Contact Info) Description 05/15/2025 Orders Only [facility] Oncology and Hematology [facility] Karel Carver [address] [place] [address] Chalino Kraus MD [facility] [address] [place] [phone] Social History Tobacco Use Types Packs/Day [...] Description 05/29/2025 8:45 AM CDT Office Visit [facility] Oncology and Hematology - Edu Ammy Carver [address] [place] [address] Chalino Kraus MD [address] [place] [phone] documented as of this encounter Procedures Procedure Name Priority Date/Time Associated Diagnosis Comments BASIC METABOLIC PANEL Routine 05/15/2025 12:50 PM CDT COMPREHENSIVE METABOLIC PANEL Routine 05/15/2025 12:47 PM CDT documented in this encounter Results * BASIC METABOLIC PANEL (05/15/2025 12:50 PM CDT) Blood us Chalino Kraus MD CHEMISTRY ORDERABLES Final Resu lt * COMPREHENSIVE METABOLIC PANEL (05/15/2025 12:47 PM CDT) Blood us Chalino Kraus MD CHEMISTRY ORDERABLES Final Resu lt documented in this encounter Visit Diagnoses Not on filedocumented in this encounter Care Teams Jointer Machine Operator Relationship Specialty Start Date End Date Paul Delarosa MD [address] [facility] [address] [place] [address] PCP - General Family Practice 10/16/24 documented as of this encounter
--- OUTSIDE RECORDS SUMMARY | 2025-05-16 08:26 | XMS_ITS | Encounter Summary ---
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
--- OUTSIDE RECORDS SUMMARY | 2025-05-16 08:26 | XMS_ITS | Encounter Summary ---
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
--- OUTSIDE RECORDS SUMMARY | 2025-05-16 08:26 | XMS_ITS | Encounter Summary ---
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
--- OUTSIDE RECORDS SUMMARY | 2025-05-16 08:26 | XMS_ITS | Encounter Summary ---
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
--- OUTSIDE RECORDS SUMMARY | 2025-05-16 08:26 | XMS_ITS | Encounter Summary ---
Author Organization [facility] [employer] Address [address] [place] [address] Care Team Providers Care Livestock Buyer Name Role Phone Paul Delarosa MD Primary Care Provider [phone] Encounter Details Date Type Department Care Team (Late Contact Info) Description 05/12/2025 Orders Only [facility] Oncology and Hematology [facility] Ammy Carver [address] [place] [address] Chalino Kraus MD [facility] [employer] [address] [place] [phone] Chronic anemia; Inflammatory carcinoma of left [...] Description 05/29/2025 8:45 AM CDT Office Visit [facility] Oncology and Hematology - Edu Dereck Carver [address] [place] [address] Chalino Kraus MD [address] [place] [phone] documented as of this encounter Visit Diagnoses Diagnosis Chronic anemia Anemia, unspecified Inflammatory carcinoma of left breast (CMS/HCC) documented in this encounter Care Teams Livestock Buyer Relationship Specialty Start Date End Date Paul Delarosa MD [address] [facility] 120 [place] [address] PCP - General Family Practice 10/16/24 documented as of this encounter
--- OUTSIDE RECORDS SUMMARY | 2025-05-16 08:26 | XMS_ITS | Encounter Summary ---
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
--- OUTSIDE RECORDS SUMMARY | 2025-05-16 08:26 | XMS_ITS | Encounter Summary ---
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
--- OUTSIDE RECORDS SUMMARY | 2025-05-16 08:27 | XMS_ITS | Continuity of Care Document ---
Author Name [facility] Organization [facility] Care Team Providers Care Practice Managers Name Role Phone [facility] Unavailable Unavailable Problems Combined list of problems from Department of Defense and Veterans Affairs facilities. It does not include entries that were removed or entered in error. Problem Status Onset Date Problem Type Date of Resolution Comments Source Cervical Pap Smear Inactive Condition Do D MEDIASTINAL MASSES LYMPHADENOPATHY Active Condition NO [facility] visit for: screening exam for malignant neoplasm cervix Inactive Condition [facility] Cervix Sample Taken For Pap Smear Active Condition [facility] visit for: screening exam malignant neoplasm breast Inactive Condition [facility] VAGINITIS Active Condition [facility] VAGINITIS NONSPECIFIC Active Condition [facility] visit for: single system exam gynecological Inactive Condition [facility] Allergies, Adverse Reactions, Alerts Combined list of allergies from Department of Defense and Veterans Affairs facilities. It does not include entries that were removed or entered in error. Substance Category Reaction Severity Reaction type Status Date Reported Comments Source No Known Allergies Drug allergy (disorder) active 6 [facility] Encounters Combined list of: 1) Encounters from Department of Veterans Affairs facilities going backup to the last 18 months, not all [place] inpatient encounters are included; 2) Encounters from the Department of Defense facilities going backup to 280 months. Location Location Details Encounter Type Encounter Number Reason For Visit Attending Provider ADM Date DC Date Status Disposition Source [place](Customer [place] OUTPATIENT [id number] FEMALE CONCERN -DID NOT DISCLOS E- RASHEL COLON 04/21 Released w/o Limitations [place]) OUTPATIENT [id number] VAGINAL DISCOMF ORT RASHEL COLON 04/06 [place]ased w/[place] Limitations [place]) OUTPATIENT [id number] PAP SMEAR RASHEL COLON 04/28 Released [place] Limitations [place]) OUTPAT[place] [id number] LUMP ON SIDE OF NECK KIMBERLI DAVIDSON 12/28 Released w/o Limitations [place]) OUTPATIENT [id number] PAP SMEAR-B REAST EXAM PETTY DIANE 05/18 Released w/o Limitations [place] Procedures Combined list of: 1) Procedures from Department of Veterans Affairs facilities going back up to thelast 18 months, not all [place] non-surgical procedures are included; 2) All procedures from the Department of Defense facilities. Procedure Procedure Type Code Date Perfomer Comments Sourc e SMEAR, PRIMARY SOURCE WITH INTERPRETATION; WET MOUNT FOR INFECTIOUS AGENTS (EG, SALINE, CATHERINE INK, HARMAN PREPS) 02/13/2001 [facility] INJECTION OF ANESTHETIC INTO SPINAL CANAL FOR ANALGESIA 05/26/1999 [facility] REPAIR OF OTHER CURRENT OBSTETRIC LACERATION 05/26/1999 [facility] EKG (SCALP) 05/26/1999 [facility] SMEAR, PRIMARY SOURCE WITH INTERPRETATION; WET MOUNT FOR INFECTIOUS AGENTS (EG, SALINE, CATHERINE INK, HARMAN PREPS) 04/06/2005 [facility] CYTOPATHOLOGY, SMEARS, CERVICAL OR VAGINAL, UP TO THREE SMEARS; SCREENING BY METALLURGICAL ANALYST UNDER PHYSICIAN SUPERVISION 04/21/2004 [facility] CYTOPATHOLOGY, SMEARS, CERVICAL OR VAGINAL, UP TO THREE SMEARS; SCREENING BY METALLURGICAL ANALYST UNDER PHYSICIAN SUPERVISION 08/27/2003 [facility] CYTOPATHOLOGY, SMEARS, CERVICAL OR VAGINAL, UP TO THREE SMEARS; SCREENING BY METALLURGICAL ANALYST UNDER PHYSICIAN SUPERVISION 08/22/2002 [facility] INTRAVENOUS INFUSION, THERAPY/DIAGNOSIS, ADMINISTERED PHYSICIAN/UNDER DIRECT SUPERVISION, PHYSICIAN; EA ADDITIONAL HOUR, UP TO EIGHT (8) HOURS (LIST SEPARATELY ADDITION TO CODE, PRIMARY PROCEDURE) 05/15/2002 [facility] PHYS/OTH QUALIFIED HEALTH REPAIRER MAINTENANCE BUILDING QUALIFIED,EDUCATION, TRAIN,LICENSURE/REGU LATION (WHEN APPLICABLE) EDUC SER RENDERED TO PATS IN A GRP SETTING (EG,,OBESITY ,OR DIABETIC INSTRUCT) 03/28/2002 [facility] Vaginal HARMAN Prep Vaginal HARMAN Prep [id number] 04/06/2005 RENEE SHAW [facility] Vaginal Wet [place] Smear Vaginal [place] Smear [id number] 04/06/2005 RENEE BRIGGS [facility] Cervical Pap Smear Cervical Pap Smear [id number] 04/21/2004 KATE CHENEY [facility] Vaginal HARMAN Prep Vaginal HARMAN Prep [id number] 04/21/2004 OTTO CHENEY [facility] Social History Combined list of available smoking, tobacco, and other social history from Department of Defense and Veterans Affairs facilities. Social History Type Response Date Comment Sour e This section is an empty social history section. DoD
--- OUTSIDE RECORDS SUMMARY | 2025-05-16 08:27 | XMS_ITS | Clinical Summary ---
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 CHO[facility] [employer] [place] [id number] Care Teams Kst Operator Relationship Specialty Start Date End Date Evi Avila MD [address] [facility] [address] [place] [address] PCP - General Family Medicine 06/15/24 Fa'Randall walters MD [address] [facility] [address] [place] [address] Consulting Physician Medical Oncology 06/18/24
--- OUTSIDE RECORDS SUMMARY | 2025-05-16 08:27 | XMS_ITS | Encounter Summary ---
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
[2025-05-16 08:44] LABS: Anisocytosis 1+; Hypochromasia 2+; Polychromasia 1+; Schistocytes None Seen; Target Cells 2+
[2025-05-16 08:55] LABS: Alkaline Phosphatase 1840 U/L (38-126)
[2025-05-16] MEDS: SODIUM CHLORIDE 0.9% IV 1,000 ML 999 ML IV CONT (09:22)
[2025-05-16 09:50] LABS: Ammonia 39 umol/L (9-30)
--- NOTE | 2025-05-16 10:19 | ED_ITS ---
HPI - General Adult General Chief complaint: Shortness of Breath/Dyspnea Stated complaint: cant breath Time Seen by Provider: 05/16/25 07:51 History of Present Illness HPI narrative: This is a 55-year-old female history of stage IV metastatic breast cancer presenting for shortness of breath. Patient required a thoracentesis for large pleural effusion 2 weeks ago. Since that her breathing has gotten progressively worse. She can no longer lie flat is winded at all times. She denies fevers chills productive cough nausea vomiting or diarrhea. She is undergoing palliative therapy for cancer. 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) segmental mastectomy with axillary lymph node dissection and chemoradiation Generalized anxiety disorder Vitamin D deficiency Vitamin B12 deficiency Psychophysiological insomnia Cervical polyp History of vaginal delivery Endometrial polyp Anemia on ferrous sulfate and cyanocobalamin daily Surgical History Surgical History History of lumpectomy of right breast (05/26/10) poorly differentiated invasive ductal carcinoma History of segmental mastectomy (06/09/10) segmental mastectomy of the right upper outer quadrant History of wisdom tooth extraction History of bilateral mastectomy (11/27/24) multifocal invasive ductal carcinoma with lymphovascular invasion and skeletal muscle involvement with positive margins status post re-excision History of laser assisted in situ keratomileusis History of lymph node dissection of axilla Family History Family History Other Adopted Social History Social History Social History: Lives at home with and has 2 dogs. Surrogate medical decision maker: Paul Will, spouse. Code status: Full code. Smoking packs per day: 1 Smoking cigarettes per day: 20.0 Years smoked: 20 Smoking pack-years: 20.00 Smoking status: Former smoker Second hand tobacco smoke exposure: No Alcohol intake: current Alcohol use details: 4 drinks per week Substance use: never Substance use type: does not use Do You Feel Safe in your Home?: Yes Lack of Transportation: No Lack of Food: Never True Current Housing: I Have Housing Concerned About Future Housing: No Difficulty Paying Gas/Electric Bills: No Difficulty Paying for Meds: No Currently Unemployed: No Education: Master's Degree or Higher Difficulty w/ Childcare or Family Care: No Living arrangements: with family Additional living arrangements comments: Lives with Paul and their 2 mathias hounds in [place]. They have a grown child. Occupation/Education: occupation Spiritual care concerns: No Agree to blood products: Yes Exam 2 Narrative: APPEARANCE: Jaundice, ill-appearing Head: atraumatic. EYES: EOMI, NOSE: Atraumatic NECK: Trachea midline RESPIRATORY: Tachypneic, hypoxic on room air, decreased lung sounds in the bases CARDIOVASCULAR: RRR, diffuse edema ABDOMINAL: Non-distended nontender MUSCULOSKELETAl: No obvious deformities NEURO: Alert. Moving 4/4 extremities SKIN:: Jaundiced PSYCHIATRIC: Normal affect Course Vital Signs Vital signs: Vital Signs Temperature 97.7 F 05/16/25 07:27 Pulse Rate 98 05/16/25 07:27 Respiratory Rate 25 H 05/16/25 07:27 Blood Pressure 126/42 L 05/16/25 07:27 Pulse Oximetry 85 L 05/16/25 07:27 Oxygen Delivery Room Air 05/16/25 07:27 Temperature 97.7 F 05/16/25 07:27 Pulse Rate 98 05/16/25 07:27 Respiratory Rate 25 H 05/16/25 07:27 Blood Pressure 126/42 L 05/16/25 07:27 Pulse Oximetry 98 05/16/25 07:32 Oxygen Delivery Nasal Cannula 05/16/25 07:32 Oxygen Flow Rate 3 05/16/25 07:32 Medical Decision Making [facility] Narrative Medical decision making narrative: -Course: 55-year-old female with metastatic breast cancer presenting for shortness of breath. Found have a large right pleural effusion and moderate left pleural effusion. Given the progression of her dyspnea this is likely the cause of her hypoxic respiratory failure. She will need a therapeutic tap. This was arranged with Dr. Adler. The rest of her workup showed a white count of 18.6. Patient says that she received steroids yesterday as part of her chemotherapy which may have caused her leukocytosis although obviously she is very high risk for infection. This was discussed with the hospitalist we will err on the side of caution and put her on broad-spectrum antibiotics. Patient given 1 L of normal saline. We will hold off on the 30 cc/kg bolus as she has signs of fluid overload and her blood pressures are stable. Patient will be admitted the hospital for further management. -DDX includes but is not limited to: Sepsis, pneumonia, pleural effusion, PE although lower risk as she'ss on eliquis. Vital Signs Vital Signs: Vital Signs Temperature 97.7 F 05/16/25 07:27 Pulse Rate 98 05/16/25 07:27 Respiratory Rate 25 H 05/16/25 07:27 Blood Pressure 126/42 L 05/16/25 07:27 Pulse Oximetry 85 L 05/16/25 07:27 Oxygen Delivery Room Air 05/16/25 07:27 Temperature 97.7 F 05/16/25 07:27 Pulse Rate 98 05/16/25 07:27 Respiratory Rate 25 H 05/16/25 07:27 Blood Pressure 126/42 L 05/16/25 07:27 Pulse Oximetry 98 05/16/25 07:32 Oxygen Delivery Nasal Cannula 05/16/25 07:32 Oxygen Flow Rate 3 05/16/25 07:32 Lab Data 05/16/25 07:51 05/16/25 07:51 Labs: Lab Results 05/16/25 05/16/25 Range/Units 07:51 09:21 WBC 18.6 H (4.5-10.0) K/mm3 RBC 4.07 L (4.2-5.4) M/mm3 Hgb 8.5 L (12.0-15.0) g/dL Hct 27.8 L (37.0-47.0) % MCV 68.3 L (80-100) fl MCH 20.9 L (26-34) pg MCHC 30.6 L (32-36) g/dl RDW 25.7 H (11.5-14.5) % Plt Count 294 (150-375) k/mm3 MPV TNP Immature Gran % (Auto) 6.6 H (0-0.5) % Neut % (Auto) 82.9 H (45.5-73.1) % Lymph % (Auto) 2.1 L (18.3-44.2) % [place] % (Auto) 7.7 (2.6-8.5) % Eos % (Auto) 0.2 (0-4.4) % Baso % (Auto) 0.5 (0.2-1.2) % Lymph # (Auto) 0.39 L (0.9-3.2) K/mm3 [place] # (Auto) 1.4 H (0.1-0.6) K/mm3 Eos # (Auto) 0.0 (0-0.3) K/mm3 Baso # (Auto) 0.1 (0.0-0.1) K/mm3 Abs Immat Gran (auto) 1.23 H (0.00-0.031) K/mm3 Absolute Neuts (auto) 15.4 H (1.3-6.7) K/mm3 Absolute Nucleated RBC 0.620 H (0.0-0.012) K/mm3 Band Neutrophils % Not Reportable Nucleated RBC % 3.3 H (0.0-0.2) % Platelet Estimate Adequate (Adequate) % Immature Plt Fraction 7.3 (0.9-11.2) % Polychromasia 1+ Hypochromasia 2+ Anisocytosis 1+ Target Cells 2+ Schistocytes None seen Sodium 120 L (137-145) mmol/L Potassium 3.8 (3.4-5.0) mmol/L Chloride 84 L (98-107) mmol/L Carbon Dioxide 23 (22-30) mmol/L Anion Gap 13 H (4-12) mmol/L BUN 54 H (7-17) mg/dL Creatinine 1.15 H (0.7-1.0) mg/dL Estim Creat Clear Calc 65 ml/min Estimated GFR 49 L (59 - ) Glucose 123 H (65-110) mg/dL Calcium 7.4 L (8.4-10.2) mg/dL Total Bilirubin 12.5 H (0.2-1.3) mg/dL AST 393 H (14-36) U/L ALT 55 H (6-35) U/L Alkaline Phosphatase 1840 H (38-126) U/L Ammonia 39 H (9-30) umol/L Total Protein 6.4 (6.3-8.2) g/dL Albumin 3.0 L (3.5-5.1) g/dL Discharge Plan Discharge Clinical Impression: Hypoxic respiratory failure, Breast cancer Patient Disposition: Still a Patient Condition: Guarded Prognosis Patient Language: Lithuanian Prescriptions: No Action Eliquis 5 mg tablet 10 mg PO BID 7 Days Qty: 28 0RF Patient Comments: . metoprolol tartrate 25 mg tablet 12.5 mg PO BID Qty: 30 0RF Eliquis 5 mg Tablet 5 mg PO Q12HR 30 Days Qty: 60 2RF Rx Instructions: Start after completed the full course of eliquis 10 mg twice a day on 05/16. Follow-up/Referrals: Paul Delarosa MD [Primary Care Provider] -
--- NOTE | 2025-05-16 11:01 | PC.NURSE ---
Cultures obtained. Will start antibiotic.
[2025-05-16] MEDS: CEFEPIME 2 GM in SODIUM CHLORIDE 0.9% IV 50 ML 100 ML IVPB (11:14)
[2025-05-16 11:25] LABS: Influenza A QL RT-PCR Negative (Negative); Influenza B QL RT-PCR Negative (Negative); RSV RNA, RT-PCR Negative (Negative); SARS-CoV-2 RNA PCR Negative (Negative)
--- NOTE | 2025-05-16 11:31 | ADMGEN ---
This patient, Janae Solis, was admitted to IMU Room 202-01 @ 1131. Patient/family oriented to hospital policies and general routines including ID bracelet, bed and alarms, visiting hours, pain management, procedures, bathroom and other care routines, personal items, smoking policy, room service/diet, and visiting hours. Information on how to activate the Rapid Response Team has been discussed. Patient/Family are encouraged to report perceived risks to care and to ask questions if they do not understand what they are told or what they should do.
[2025-05-16 11:41] LABS: Partial Thromboplastin Time 60.0 Seconds (22.3-36.8); Prothrombin Time 68.4 Seconds (11.1-14.7)
[2025-05-16 12:00] LABS: Add Urine Microscopic? YES; Appearance Urine Cloudy (Clear); Glucose Urine UA Negative (Negative); Leukocyte Esterase Ur 1+ LEU/UL (Negative); Need Manual Microscopic Reviewed; Nitrate Urine Negative (Negative); Non Pathogenic Casts >20; Specific Grav Ur 1.037 (1.001-1.035)
[2025-05-16 12:10] LABS: INR 8.9
[2025-05-16] MEDS: DOXYCYCLINE IV 100 MG in SODIUM CHLORIDE 0.9% IV 100 ML IVPB (12:20)
[2025-05-16 12:21] LABS: MRSA (PCR) NOT DETECTED (NOT DETECTE)
--- NOTE | 2025-05-16 12:23 | P.HP_ITS ---
H&P: HPI History of Present Illness Date/Time: 05/16/25 12:23 Chief Complaint: Shortness of Breath Narrative: 55-year-old female past medical history of breast cancer stage IV status post double mastectomy with metastases to bone and liver, with reoccurring bilateral pleural effusions presents the hospital with shortness of breath. Patient's last hospitalization was earlier this month she was seen by Oncology were palliative chemotherapy was placed on hold due to infection. Oncology stated that chemotherapy would likely end up another hospitalization with infection. However the patient was feeling well and wanted to give chemotherapy 1 last chance. At the current time recommendations or if the pleural effusions came back to have a pleural X catheter placed with arrangements made at outpatient [facility]. Last chemo treatment was on Monday. Lab work in the ED shows leukocytosis 18.6, hemoglobin 8.5, INR of 8.9, sodium of 120, chloride of 84, anion gap of 13, BUN of 54, creatinine of 1.15, lactic acid of 2.2, calcium of 7.4, AST of 393, ALT of 55, alkaline phos of 1840 which around baseline. UA shows negative for nitrates +3 bilirubin +1 leukocyte esterase, 21-50 rbc's and 11-20 wbc's with many epithelial cells. CT chest abdomen pelvis show large right pleural effusion with moderate size left pleural effusion, bilateral mastectomy sites with loculated fluid, bone and lymph nodes with increased FDG uptake since prior PET scan, possible L defining hypo attenuations in the liver that are suspicious for additional metastatic disease, bilateral hydronephrosis, fibroid uterus, a small amount of ascites. EKG shows sinus rhythm rate of 94, QTC 470. Patient started on cefepime, doxy, and vancomycin in the emergency room. In the ED Patient's and family's are for CPR if her heart were to stop. Long discussion with family patient about the patient is progressing liver failure and INR of 8.9 and not being able to do a thoracentesis at the current time. Patient states that her main concern is getting sleep and relief of her respiratory distress. Patient is A&O x2. Private conversation with states that due to her liver failure he would like to focus on comfort only unchanged code status at this time. Review of Systems Review of Systems: 12 systems were reviewed and are negativ e except for as per HPI. 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) segmental mastectomy with axillary lymph node dissection and chemoradiation Generalized anxiety disorder Vitamin D deficiency Vitamin B12 deficiency Psychophysiological insomnia Cervical polyp History of vaginal delivery Endometrial polyp Anemia on ferrous sulfate and cyanocobalamin daily Surgical History Surgical History History of lumpectomy of right breast (05/26/10) poorly differentiated invasive ductal carcinoma History of segmental mastectomy (06/09/10) segmental mastectomy of the right upper outer quadrant History of wisdom tooth extraction History of bilateral mastectomy (11/27/24) multifocal invasive ductal carcinoma with lymphovascular invasion and skeletal muscle involvement with positive margins status post re-excision History of laser assisted in situ keratomileusis History of lymph node dissection of axilla Family History Family History Other Adopted Social History Social History Social History: Lives at home with and has 2 dogs. Surrogate medical decision maker: Paul Solis, spouse. Code status: Full code. Smoking packs per day: 1 Smoking cigarettes per day: 20.0 Years smoked: 20 Smoking pack-years: 20.00 Smoking status: Never smoker Second hand tobacco smoke exposure: No Alcohol intake: former Alcohol use details: 4 drinks per week Substance use: never Substance use type: does not use Do You Feel Safe in your Home?: Yes Lack of Transportation: No Lack of Food: Never True Current Housing: I Have Housing Concerned About Future Housing: No Difficulty Paying Gas/Electric Bills: No Difficulty Paying for Meds: No Currently Unemployed: No Education: Decline to Answer Difficulty w/ Childcare or Family Care: No Living arrangements: with family Additional living arrangements comments: Lives with Paul and their 2 mathias hounds in [place]. They have a grown child. Occupation/Education: occupation Spiritual care concerns: No Agree to blood products: Yes Meds Home Medications and Allergies Home Medications ?Medication ?Instructions ?Recorded ?Confirmed ?Type apixaban 5 mg tablet (Eliquis) 5 mg PO Q12HR 30 days #60 tabs 05/08/25 05/16/25 Rx metoprolol tartrate 25 mg tablet 12.5 mg (1/2 x 25 mg) PO BID #30 05/08/25 05/16/25 Rx tabs Allergies Allergy/AdvReac Type Severity Reaction Status Date / Time No Known Allergies Allergy Verified 05/16/25 07:33 Vital Signs Vital Signs - 24 hr 05/16/25 07:27 05/16/25 07:32 05/16/25 11:56 Temperature 97.7 F 98.8 F Pulse Rate 98 98 Respiratory Rate 25 H 36 H Blood Pressure 126/42 L 125/45 L Pulse Oximetry 85 L 98 96 Oxygen Delivery Room Air Nasal Cannula Oxygen Flow Rate 3 Exam Narrative: General: Mild distress, ill-appearing HEENT: normocephalic, atraumatic. Mucous membranes dry EOMI, PERRLA, bilateral sclera anicteric, no conjunctival injection. Neck supple without JVD, lymphadenopathy, or bruit. Scleral icterus Respiratory: Diminished to ascultation bilaterally. Tachypneic, unable to speak in full sentences Cardiovascular: Regular rate and rhythm, normal S1-S2 upon ascultation. No murmurs, rubs, or clicks. PMI is nondisplaced, capillary refill less than 3 second. Abdomen: Positive fluid wave Soft, round, no pulsatile masses, nondistended and nontender. No rebound, no guarding. Bowel sounds present to all four quadrants. No high pitch or tinkling sounds, resonant to percussion. Extremities: No cyanosis, clubbing, or edema present. Pulses are palpable 2/2. Active ROM to all four extremities. Neuro: Alert and orientated x 2. PERRLA. Cranial nerves 2-12 intact without focal deficit. Skin: Jaundice. Psych: pleasant, cooperative, normal speech, normal affect, H&P: Results Labs Labs: Short CBC 05/16/25 Range/Units 07:51 WBC 18.6 H (4.5-10.0) K/mm3 Hgb 8.5 L (12.0-15.0) g/dL Hct 27.8 L (37.0-47.0) % Plt Count 294 (150-375) k/mm3 BMP 05/16/25 07:51 Sodium 120 L Potassium 3.8 Chloride 84 L Carbon Dioxide 23 BUN 54 H Creatinine 1.15 H Glucose 123 H Calcium 7.4 L Liver Function 05/16/25 Range/Units 07:51 Total Bilirubin 12.5 H (0.2-1.3) mg/dL AST 393 H (14-36) U/L ALT 55 H (6-35) U/L Alkaline Phosphatase 1840 H (38-126) U/L Albumin 3.0 L (3.5-5.1) g/dL Urine 05/16/25 Range/Units 11:15 Urine Color Dark yellow (Yellow) Urine Appearance Cloudy H (Clear) Urine pH 5.0 (5.0-9.0) Ur Specific [place] 1.037 H (1.001-1.035) Urine Protein Trace (Negative) mg/dL Urine Glucose (UA) Negative (Negative) mg/dL Assessment and Plan Assessment and plan (1) Altered mental status: Code(s): R41.82 - Altered mental status, unspecified Status: Acute Assessment and Plan: Likely due to liver failure A&O x2 After prolonged discussion with family patient has been transition to comfort care only Orders have been placed (2) Supratherapeutic INR: Code(s): R79.1 - Abnormal coagulation profile Status: Acute Assessment and Plan: Likely due to acute liver failure verses Eliquis No signs of acute bleeding at this time Vitamin K ordered Kcentra dose ordered with recommendations from pharmacy After discussion liver failure and supratherapeutic INR not currently able to do thoracentesis at this time has decided to transfer patient to comfort care. Orders for Ativan, morphine, atropine drops, and regular diet have been placed (3) Bilateral pleural effusion: Code(s): J90 - Pleural effusion, not elsewhere classified Status: Acute Assessment and Plan: Causing acute respiratory distress (4) Malignant neoplasm of left breast, stage 4: Code(s): C50.912 - Malignant neoplasm of unspecified site of left female breast Status: Acute (5) Hypocalcemia: Code(s): E83.51 - Hypocalcemia Status: Acute (6) Leukocytosis: Code(s): D72.829 - Elevated white blood cell count, unspecified Status: Acute (7) Fluid collection at surgical site: Code(s): T88.8XXA - Other specified complications of surgical and medical care, not elsewhere classified, initial encounter Status: Acute (8) Hydronephrosis: Code(s): N13.30 - Unspecified hydronephrosis Status: Acute (9) Ascites: Code(s): R18.8 - Other ascites Status: Acute (10) Cancer, metastatic to bone: Code(s): C79.51 - Secondary malignant neoplasm of bone Status: Acute (11) Fibroid uterus: Code(s): D25.9 - Leiomyoma of uterus, unspecified Status: Acute Assessment and Plan: Likely cancerous (12) Shortness of breath: Code(s): R06.02 - Shortness of breath Status: Acute (13) Cancer, metastatic to liver: Code(s): C78.7 - Secondary malignant neoplasm of liver and intrahepatic bile duct Status: Acute Plan In the ED Patient's and family's are for CPR if her heart were to stop. After arrival to the IMU patient's critical INR of 8.9 resulted. Orders written for reversal with plans of a thoracentesis or transfer to another hospital for higher level of care. Long discussion with family patient about the patient is progressing liver failure and INR of 8.9 and not being able to do a thoracentesis at the current time. Patient states that her main concern is getting sleep and relief of her respiratory distress. Patient is A&O x2. Private conversation with states that due to her liver failure he would like to focus on comfort only unchanged code status at this time. states that he knew that she was probably too sick yesterday for chemo with the patient wanted to tried any way. Orders for Ativan, morphine, atropine drops, and regular diet have been placed Hospitalist [facility] Advance Care Plan I have confirmed that the patient's Advanced Care Plan is present, code status is documented, or surrogate decision maker is listed in patient medical record.: Yes Medication Reconciliation I have utilized all available resources to obtain, update and review the patients current medications (includes all prescriptions, OTC, herbals, cannabis, and nutritional supplements).: Yes
[2025-05-16] MEDS: VANCOMYCIN 1,250 MG/NS 250 ML 1,250 MG/250 ML BAG 166.67 MG IVPB ×2 (12:26→14:19)
[2025-05-16] MEDS: PHYTONADIONE ADULT INJ 10 MG in DEXTROSE 5% IN WATER 50 ML 100 MG IVPB (13:24)
[2025-05-16] MEDS: MORPHINE SULFATE (*CRX) 2 MG/ML INJ IV PUSH ×3 (15:27→18:25)
[2025-05-16] MEDS: HUMAN PROTHROMBIN COMPLEX(PCC) 2,500 UNITS in PREMIXIV 0 ML 504 UNITS IV CONT (15:38)
[2025-05-16] MEDS: LORazepam INJ (*CRX) 2 MG/ML VIAL IV PUSH ×2 (15:39→18:37)
--- NOTE | 2025-05-16 16:16 | P.CONONC_ITS ---
Assessment and Plan Assessment and plan (1) Metastatic cancer: Code(s): C79.9 - Secondary malignant neoplasm of unspecified site Status: Acute Assessment and Plan: Metastatic inflammatory breast cancer triple negative with bilateral pleural effusion liver and bone involvement. Unfortunately patient progressed significantly and was only able to receive couple of form of chemotherapy due to left chest wall infection and open wound. I have discussed the CT scan finding and rapid progression with the patient and father in detail today. I have discussed the labs and imaging studies finding. Her best option will be comfort care and hospice. We would discontinue any further treatment. I would like to get thoracentesis done for her breathing comfort once INR is down to less than 3. Patient is already on vitamin K. Will give 2 units of FFP. We will make her DNR and also consult hospice. I had a long discussion with patient and family today and they agree with the plan. 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 She developed metastatic disease in December 2024 with bone involvement. Patient was started on palliative chemotherapy with Abraxane and Keytruda but only able to receive 1 treatment and she had local relapse in the left chest wall. She completed left chest wall radiation therapy in April 18, 2025. Unfortunately she developed open wound at the site of the radiation therapy treatment and started developing progressive malignancy with bilateral pleural effusion and liver metastasis. She received another round of chemotherapy on May 15 and came into the hospital with worsening of shortness of breath that she could not even lie flat. CT scan showed bilateral pleural effusion and worsening of metastatic disease. Labs showed worsening of anemia and elevated PT INR. She is quite weak and tired with short of breath. She is visibly jaundiced. 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 status post neoadjuvant chemotherapy and bilateral mastectomy; has scan 01/20/2025 showed metastatic disease to lymph nodes and bone 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) segmental mastectomy with axillary lymph node dissection and chemoradiation Generalized anxiety disorder Vitamin D deficiency Vitamin B12 deficiency Psychophysiological insomnia Cervical polyp History of vaginal delivery Endometrial polyp Anemia on ferrous sulfate and cyanocobalamin daily Surgical History Surgical History History of lumpectomy of right breast (05/26/10) poorly differentiated invasive ductal carcinoma History of segmental mastectomy (06/09/10) segmental mastectomy of the right upper outer quadrant History of wisdom tooth extraction History of bilateral mastectomy (11/27/24) multifocal invasive ductal carcinoma with lymphovascular invasion and skeletal muscle involvement with positive margins status post re-excision History of laser assisted in situ keratomileusis History of lymph node dissection of axilla Family History Family History Other Adopted Social History Social History Social History: Lives at home with and has 2 dogs. Surrogate medical decision maker: Paul Solis, spouse. Code status: Full code. Smoking packs per day: 1 Smoking cigarettes per day: 20.0 Years smoked: 20 Smoking pack-years: 20.00 Smoking status: Never smoker Second hand tobacco smoke exposure: No Alcohol intake: former Alcohol use details: 4 drinks per week Substance use: never Substance use type: does not use Do You Feel Safe in your Home?: Yes Lack of Transportation: No Lack of Food: Never True Current Housing: I Have Housing Concerned About Future Housing: No Difficulty Paying Gas/Electric Bills: No Difficulty Paying for Meds: No Currently Unemployed: No Education: Decline to Answer Difficulty w/ Childcare or Family Care: No Living arrangements: with family Additional living arrangements comments: Lives with Paul and their 2 mathias hounds in [place]. They have a grown child. Occupation/Education: occupation Spiritual care concerns: No Agree to blood products: Yes Meds Home Medications and Allergies Home Medications ?Medication ?Instructions ?Recorded ?Confirmed ?Type apixaban 5 mg tablet (Eliquis) 5 mg PO Q12HR 30 days #60 tabs 05/08/25 05/16/25 Rx metoprolol tartrate 25 mg tablet 12.5 mg (1/2 x 25 mg) PO BID #30 05/08/25 05/16/25 Rx tabs Allergies Allergy/AdvReac Type Severity Reaction Status Date / Time No Known Allergies Allergy Verified 05/16/25 07:33 Vital Signs Vital Signs - 24 hr 05/16/25 07:27 05/16/25 07:32 05/16/25 11:56 Temperature 36.5 C 37.1 C Pulse Rate 98 98 Respiratory Rate 25 H 36 H Blood Pressure 126/42 L 125/45 L Pulse Oximetry 85 L 98 96 Oxygen Delivery Room Air Nasal Cannula Oxygen Flow Rate 3 05/16/25 12:00 05/16/25 12:00 05/16/25 14:00 Temperature Pulse Rate 101 H 102 H Respiratory Rate Blood Pressure Pulse Oximetry 96 Oxygen Delivery Nasal Cannula Oxygen Flow Rate 2 Exam 2 Narrative: Lungs decreased breath sound in the bilateral bases Cardiovascular slightly tachycardic Abdomen mildly distended Extremities generalized edema Results Labs 05/16/25 07:51 05/16/25 07:51 Labs: Short CBC 05/16/25 Range/Units 07:51 WBC 18.6 H (4.5-10.0) K/mm3 Hgb 8.5 L (12.0-15.0) g/dL Hct 27.8 L (37.0-47.0) % Plt Count 294 (150-375) k/mm3 BMP 05/16/25 07:51 Sodium 120 L Potassium 3.8 Chloride 84 L Carbon Dioxide 23 BUN 54 H Creatinine 1.15 H Glucose 123 H Calcium 7.4 L Liver Function 05/16/25 Range/Units 07:51 Total Bilirubin 12.5 H (0.2-1.3) mg/dL AST 393 H (14-36) U/L ALT 55 H (6-35) U/L Alkaline Phosphatase 1840 H (38-126) U/L Albumin 3.0 L (3.5-5.1) g/dL Urine 05/16/25 Range/Units 11:15 Urine Color Dark yellow (Yellow) Urine Appearance Cloudy H (Clear) Urine pH 5.0 (5.0-9.0) Ur Specific [place] 1.037 H (1.001-1.035) Urine Protein Trace (Negative) mg/dL Urine Glucose (UA) Negative (Negative) mg/dL
[2025-05-16] MEDS: SODIUM CHLORIDE 0.9% IV 250 ML 30 ML IV CONT (18:34)
[2025-05-16] MEDS: TUBING, BLOOD PLUM PUMP TUBING 1 EACH XX (18:37)
[2025-05-16] MEDS: MINERAL OIL/WHITE PETROLATUM OINTMENT 1 APPLIC EACH EYE (23:54)
[2025-05-17] VITALS (15 sets, daily range): BP systolic 121–144; BP diastolic 55–71; PULSE 94–107; RESP 18–22; TEMP 36.2–37.1; O2SAT 95–98
[2025-05-17] MEDS: LORazepam INJ (*CRX) 2 MG/ML VIAL IV PUSH ×5 (00:32→21:43)
[2025-05-17] MEDS: TUBING, BLOOD PLUM PUMP TUBING 1 EACH XX (00:40)
[2025-05-17] MEDS: SODIUM CHLORIDE 0.9% IV 250 ML 30 ML (00:41)
[2025-05-17] MEDS: MORPHINE SULFATE (*CRX) 2 MG/ML INJ IV PUSH ×2 (03:20→20:12)
[2025-05-17 10:35] LABS: INR 2.0; Prothrombin Time 22.5 Seconds (11.1-14.7)
--- NOTE | 2025-05-17 12:31 | P.PNIM_ITS ---
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 have spoken to patient's oncologist in at this time agreed to comfort measures with consult to hospice * Pain management with IV morphine * Atropine eyedrops * Antipyretics * Antiemetics * Zepeda catheter in place * Will attempt to do a therapeutic thoracentesis for comfort if the INR under 3 (2) Malignant neoplasm of left breast, stage 4: Code(s): C50.912 - Malignant neoplasm of unspecified site of left female breast Status: Acute Assessment and Plan: SEE ABOVE (3) Cancer, metastatic to bone: Code(s): C79.51 - Secondary malignant neoplasm of bone Status: Acute Assessment and Plan: SEE ABOVE (4) Cancer, metastatic to liver: Code(s): C78.7 - Secondary malignant neoplasm of liver and intrahepatic bile duct Status: Acute Assessment and Plan: SEE ABOVE Plan Code status: Comfort care Disposition: Transfer to medical with hospice consult Time Spent With Patient Time with patient: 15 - 25 minutes Subjective Date/time seen: 05/17/25 12:31 Interval history: Patient is a 55-year-old female initially admitted due to bilateral pleural effusions with shortness of breath and dyspnea secondary to recurrent pleural effusions her metastatic breast cancer to lungs and liver. Oncology Dr. Kraus was consulted after speaking with family regarding progression patient's cancer patient and family at this time agree with comfort care with a consult to hospice. 05/17/2025: Patient alert and oriented x2 somnolent will open eyes to name did deny current pain denied appear in respiratory distress. Patient extremely jaundiced. Waiting on hospice consult and Oncology would like to do therapeutic thoracentesis for patient's comfort if INR under 3. Review of Systems Review of Systems: ROS unobtainable: Yes unobtainable due to medical condition and unobtainable due to mental status Exam Narrative: General: Somnolent, ill-appearing Respiratory: Diminished to auscultation bilaterally. Tachypneic in supplemental oxygen Cardiovascular: Tachycardic Abdomen: Positive fluid wave Soft, Neuro: Alert and orientated x 2. Skin: Jaundice. Anasarca throughout Psych: pleasant, cooperative, normal speech, normal affect, Objective Data Vital Signs Vital Signs: Vital Signs - 24 hr 05/16/25 14:00 05/16/25 16:00 05/16/25 16:00 Temperature Pulse Rate 102 H 98 Respiratory Rate Blood Pressure Pulse Oximetry 97 Oxygen Delivery Nasal Cannula Oxygen Flow Rate 2 05/16/25 16:35 05/16/25 18:00 05/16/25 18:26 Temperature 97.7 F 98.1 F Pulse Rate 99 97 109 H Respiratory Rate 18 20 Blood Pressure 118/57 L 119/53 L Pulse Oximetry 97 95 Oxygen Delivery Oxygen Flow Rate 05/16/25 18:41 05/16/25 20:00 05/16/25 20:00 Temperature 98.0 F Pulse Rate 97 97 Respiratory Rate 18 Blood Pressure 120/52 L Pulse Oximetry 97 97 Oxygen Delivery Nasal Cannula Oxygen Flow Rate 2 05/16/25 20:29 05/16/25 22:00 05/16/25 23:20 Temperature 98.6 F Pulse Rate 97 96 Respiratory Rate 15 Blood Pressure 112/50 L Pulse Oximetry 96 96 Oxygen Delivery Nasal Cannula Oxygen Flow Rate 2 05/16/25 23:29 05/16/25 23:55 05/17/25 00:00 Temperature 98.3 F 98.1 F Pulse Rate 101 H 102 H 100 Respiratory Rate 20 20 Blood Pressure 122/52 L 140/72 Pulse Oximetry 96 96 Oxygen Delivery Oxygen Flow Rate 05/17/25 00:00 05/17/25 00:55 05/17/25 01:16 Temperature 98.0 F 98.1 F Pulse Rate 101 H 101 H Respiratory Rate 18 18 Blood Pressure 133/58 L 133/58 L Pulse Oximetry 96 98 96 Oxygen Delivery Nasal Cannula Oxygen Flow Rate 2 05/17/25 01:55 05/17/25 02:00 05/17/25 02:31 Temperature 97.3 F L 98.1 F Pulse Rate 94 98 104 H Respiratory Rate 18 20 Blood Pressure 139/55 L 136/64 Pulse Oximetry 97 95 Oxygen Delivery Oxygen Flow Rate 05/17/25 04:00 05/17/25 04:00 05/17/25 05:45 Temperature 98.1 F Pulse Rate 102 H 106 H Respiratory Rate 22 H Blood Pressure 139/64 Pulse Oximetry 96 96 Oxygen Delivery Nasal Cannula Oxygen Flow Rate 2 05/17/25 06:00 05/17/25 07:58 05/17/25 08:00 Temperature 98.8 F Pulse Rate 98 104 H Respiratory Rate 22 H Blood Pressure 121/56 L Pulse Oximetry 95 95 Oxygen Delivery Nasal Cannula Oxygen Flow Rate 5 05/17/25 08:00 05/17/25 11:48 Temperature 98 F Pulse Rate 99 104 H Respiratory Rate 22 H Blood Pressure 144/71 H Pulse Oximetry 95 Oxygen Delivery Oxygen Flow Rate Intake/Output Intake/Output: Intake & Output 05/14/25 05/15/25 05/16/25 05/17/25 23:59 23:59 23:59 23:59 Intake Total 1078 482 Output Total 550 Balance 1078 -68 Meds/Results Medications: Active Medications Generic Name Dose Route Start Last Admin Trade Name Freq PRN Reason Stop Dose Admin Acetaminophen 650 mg 05/17/25 09:45 Acetaminophen 325 Mg Tablet PO Q4H PRN Mild Pain (1-3) or Fever Atropine Sulfate 1 - 2 drop 05/16/25 14:39 Atropine Sulfate 1% Ophth Soln 5 Ml Bottle SUBLINGUAL Q4H PRN Secretions Lorazepam 2 mg 05/16/25 14:39 05/17/25 12:16 Lorazepam Inj (*Crx) 2 Mg/Ml Vial IV PUSH 2 mg Q2H PRN Administration Anxiety/Comfort Morphine Sulfate 2 mg 05/16/25 14:39 05/17/25 03:20 Morphine Sulfate (*Crx) 2 Mg/Ml Inj IV PUSH 2 mg Q30M PRN Administration COMFORT Multi-Ingred Cream/Lotion/Oil/Oint 1 applic 05/16/25 21:00 05/16/25 23:54 Mineral Oil/White Petrolatum Ointment EACH EYE 1 applic HS THU Administration Ondansetron HCl 4 mg 05/17/25 09:45 Ondansetron Inj 4 Mg/2 Ml Vial IV PUSH Q6H PRN Nausea And Vomiting Radiology Results: ITS Impressions Chest X-Ray 05/16/25 09:06 Impression: 1: Bibasilar airspace disease which may represent edema or pneumonia. 2: Small pleural effusions. Chest/Abdomen/Pelvis CT 05/16/25 09:40 IMPRESSION: 1. Persistent moderate to large right and moderate-sized left posterior layering pleural effusions with secondary compressive atelectasis in both lungs. 2. Status post bilateral mastectomies with bilateral pectoral loculated subcutaneous fluid collections, simple appearing on the left consistent with a seroma but with increased density on the right which could represent hemorrhage or potentially abscess in the appropriate clinical setting. 3. Numerous scattered lytic bone lesions along with multiple enlarged lymphadenopathy in the chest, abdomen, pelvis and left groin which demonstrated increased FDG uptake on prior PET/CT consistent with metastatic disease. 4. Couple ill-defined hypoenhancing regions in the liver suspicious for additional metastatic disease although differential would include infection w ithout evident organized abscess. 5. Mild bilateral hydronephrosis without evident obstructing stone or mass. 6. Fibroid uterus. 7. Diffuse body wall edema and small amount of ascites in the abdomen and pelvis. Labs Labs: Laboratory Results - last 24 hr 05/16/25 05/16/25 13:05 16:19 Lactic Acid 1.8 Blood Type A Positive Quality If No VTE Prophylaxis Answer both mechanical and pharmacologic: Reason no pharmacologic proph: medical contraindication -Patient's previous records reviewed on admission -ER notes reviewed in detail on admission -discussed all findings and current treatment plan with patient/Family/POA -Consultations reviewed for recommendations -Patient's disposition for safe discharge discussed with major case detective Dictation performed by [email or web address] direct speech recognition software, therefore youth services specialist variants and typographical errors may occur. Hospitalist MIPS Advance Care Plan I have confirmed that the patient's Advanced Care Plan is present, code status is documented, or surrogate decision maker is listed in patient medical record.: Yes Medication Reconciliation I have utilized all available resources to obtain, update and review the patients current medications (includes all prescriptions, OTC, herbals, cannabis, and nutritional supplements).: Yes The patient is not eligible for med reconciliation; the patient is in a emergent medical situation where delaying treatment would jeopardize the patients health.: No
--- NOTE | 2025-05-17 18:22 | PC.NURSE ---
This patient, Janae Solis, was received from [facility] on 05/17/25 at 1822. Patient/family oriented to unit policies and routines. Report received from ALLA Cosme.
[2025-05-17] MEDS: MINERAL OIL/WHITE PETROLATUM OINTMENT 1 APPLIC EACH EYE (21:13)
[2025-05-18] MEDS: MORPHINE SULFATE (*CRX) 2 MG/ML INJ IV PUSH ×5 (01:29→21:19)
[2025-05-18] MEDS: LORazepam INJ (*CRX) 2 MG/ML VIAL IV PUSH ×3 (04:32→23:44)
--- NOTE | 2025-05-18 09:25 | P.PNIM_ITS ---
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 have spoken to patient's oncologist in at this time agreed to comfort measures with consult to hospice family like to wait for hospice care to Monday after speaking with the oncologist again * Pain management with IV morphine * Atropine eyedrops * Antipyretics * Antiemetics * Zepeda catheter in place * INR 2.0 order Therapeutic thoracentesis for tomorrow for comfort if warranted patient currently not in respiratory discomfort examination (2) Malignant neoplasm of left breast, stage 4: Code(s): C50.912 - Malignant neoplasm of unspecified site of left female breast Status: Acute Assessment and Plan: SEE ABOVE (3) Cancer, metastatic to bone: Code(s): C79.51 - Secondary malignant neoplasm of bone Status: Acute Assessment and Plan: SEE ABOVE (4) Cancer, metastatic to liver: Code(s): C78.7 - Secondary malignant neoplasm of liver and intrahepatic bile duct Status: Acute Assessment and Plan: SEE ABOVE Plan Code status: Comfort care Disposition: Transfer to medical with hospice consult Time Spent With Patient Time with patient: 15 - 25 minutes Subjective Date/time seen: 05/18/25 09:25 Interval history: Patient is a 55-year-old female initially admitted due to bilateral pleural effusions with shortness of breath and dyspnea secondary to recurrent pleural effusions her metastatic breast cancer to lungs and liver. Oncology Dr. Kraus was consulted after speaking with family regarding progression patient's cancer patient and family at this time agree with comfort care with a consult to hospice. 05/18/2025: Patient somnolent respond to painful stimuli reported she was in no pain. Family is bedside updated current condition for hospice unsure if you do thoracentesis patient does not appear any respiratory discomfort. Review of Systems Review of Systems: 12 systems were reviewed and are negativ e except for as per HPI. ROS unobtainable: Yes unobtainable due to medical condition and unobtainable due to mental status Exam Narrative: General: Somnolent, ill-appearing Respiratory: Diminished to auscultation bilaterally. Cardiovascular: Tachycardic Abdomen: Positive fluid wave Soft, Neuro: Alert and orientated x 2. Skin: Jaundice. Anasarca throughout Objective Data Vital Signs Vital Signs: Vital Signs - 24 hr 05/17/25 10:00 05/17/25 11:48 05/17/25 20:00 Temperature 98 F 97.2 F L Pulse Rate 107 H 104 H 106 H Respiratory Rate 22 H 18 Blood Pressure 144/71 H 125/60 Pulse Oximetry 95 98 Oxygen Delivery Oxygen Flow Rate 05/17/25 22:04 Temperature Pulse Rate 104 H Respiratory Rate 22 H Blood Pressure Pulse Oximetry 95 Oxygen Delivery Nasal Cannula Oxygen Flow Rate 5 Intake/Output Intake/Output: Intake & Output 05/15/25 05/16/25 05/17/25 05/18/25 23:59 23:59 23:59 23:59 Intake Total 9429 979 360 Output Total 2804 1300 Balance 3677 -688 -624 Meds/Results Medications: Active Medications Generic Name Dose Route Start Last Admin Trade Name Freq PRN Reason Stop Dose Admin Acetaminophen 650 mg 05/17/25 09:45 Acetaminophen 325 Mg Tablet PO Q4H PRN Mild Pain (1-3) or Fever Atropine Sulfate 1 - 2 drop 05/16/25 14:39 Atropine Sulfate 1% Ophth Soln 5 Ml Bottle SUBLINGUAL Q4H PRN Secretions Lorazepam 2 mg 05/16/25 14:39 05/18/25 04:32 Lorazepam Inj (*Crx) 2 Mg/Ml Vial IV PUSH 2 mg Q2H PRN Administration Anxiety/Comfort Morphine Sulfate 2 mg 05/16/25 14:39 05/18/25 06:01 Morphine Sulfate (*Crx) 2 Mg/Ml Inj IV PUSH 2 mg Q30M PRN Administration COMFORT Multi-Ingred Cream/Lotion/Oil/Oint 1 applic 05/16/25 21:00 05/17/25 21:13 Mineral Oil/White Petrolatum Ointment EACH EYE 1 applic HS THU Administration Ondansetron HCl 4 mg 05/17/25 09:45 Ondansetron Inj 4 Mg/2 Ml Vial IV PUSH Q6H PRN Nausea And Vomiting Radiology Results: ITS Impressions Chest X-Ray 05/16/25 09:06 Impression: 1: Bibasilar airspace disease which may represent edema or pneumonia. 2: Small pleural effusions. Chest/Abdomen/Pelvis CT 05/16/25 09:40 IMPRESSION: 1. Persistent moderate to large right and moderate-sized left posterior layering pleural effusions with secondary compressive atelectasis in both lungs. 2. Status post bilateral mastectomies with bilateral pectoral loculated subcutaneous fluid collections, simple appearing on the left consistent with a seroma but with increased density on the right which could represent hemorrhage or potentially abscess in the appropriate clinical setting. 3. Numerous scattered lytic bone lesions along with multiple enlarged lymphadenopathy in the chest, abdomen, pelvis and left groin which demonstrated increased FDG uptake on prior PET/CT consistent with metastatic disease. 4. Couple ill-defined hypoenhancing regions in the liver suspicious for additional metastatic disease although differential would include infection without evident organized abscess. 5. Mild bilateral hydronephrosis without evident obstructing stone or mass. 6. Fibroid uterus. 7. Diffuse body wall edema and small amount of ascites in the abdomen and pelvis. Labs Labs: Laboratory Results - last 24 hr 05/17/25 10:17 PT 22.5 H D INR 2.0 Quality VTE Prophylaxis VTE prophylaxis: mechanical ordered -Patient's previous records reviewed on admission -ER notes reviewed in detail on admission -discussed all findings and current treatment plan with patient/Family/POA -Consultations reviewed for recommendations -Patient's disposition for safe discharge discussed with home health care case manager Dictation performed by [employer] direct speech recognition software, therefore management accounts manager variants and typographical errors may occur. Hospitalist MIPS Advance Care Plan I have confirmed that the patient's Advanced Care Plan is present, code status is documented, or surrogate decision maker is listed in patient medical record.: Yes Medication Reconciliation I have utilized all available resources to obtain, update and review the patients current medications (includes all prescriptions, OTC, herbals, cannabis, and nutritional supplements).: Yes The patient is not eligible for med reconciliation; the patient is in a emergent medical situation where delaying treatment would jeopardize the patients health.: No
[2025-05-18 15:00] VITALS: BP 130/65; PULSE 124; RESP 12; TEMP 36.1; O2SAT 100
[2025-05-18] MEDS: MINERAL OIL/WHITE PETROLATUM OINTMENT 1 APPLIC EACH EYE (21:20)
[2025-05-18 22:06] VITALS: BP 103/61; PULSE 131; RESP 18; TEMP 36.6; O2SAT 98
[2025-05-19] MEDS: MORPHINE SULFATE (*CRX) 2 MG/ML INJ IV PUSH ×7 (01:47→23:51)
[2025-05-19] MEDS: LORazepam INJ (*CRX) 2 MG/ML VIAL IV PUSH ×3 (03:23→22:53)
[2025-05-19 06:09] VITALS: BP 114/67; PULSE 111; RESP 18; TEMP 36.4; O2SAT 99
--- NOTE | 2025-05-19 15:10 | P.PNIM_ITS ---
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 * They want to speak with Dr. Kraus for progression to determine hospice care inpatient (2) Malignant neoplasm of left breast, stage 4: Code(s): C50.912 - Malignant neoplasm of unspecified site of left female breast Status: Acute Assessment and Plan: SEE ABOVE (3) Cancer, metastatic to bone: Code(s): C79.51 - Secondary malignant neoplasm of bone Status: Acute Assessment and Plan: SEE ABOVE (4) Cancer, metastatic to liver: Code(s): C78.7 - Secondary malignant neoplasm of liver and intrahepatic bile duct Status: Acute Assessment and Plan: SEE ABOVE Plan Code status: Comfort care Disposition: Transfer to medical with hospice consult Time Spent With Patient Time with patient: 15 - 25 minutes Subjective Date/time seen: 05/19/25 15:10 Interval history: Patient is a 55-year-old female initially admitted due to bilateral pleural effusions with shortness of breath and dyspnea secondary to recurrent pleural effusions her metastatic breast cancer to lungs and liver. Oncology Dr. Kraus was consulted after speaking with family regarding progression patient's cancer patient and family at this time agree with comfort care with a consult to hospice. 05/19/2025: Patient somnolent respond to painful stimuli. Spoke with at bedside and at there is no indication therapeutic thoracentesis patient in no respiratory discomfort understands risks could outweigh any comfort benefits. Review of Systems Review of Systems: 12 systems were reviewed and are negativ e except for as per HPI. ROS unobtainable: Yes unobtainable due to medical condition and unobtainable due to mental status Exam Narrative: General: Somnolent, ill-appearing Respiratory: Diminished to auscultation bilaterally. Cardiovascular: Tachycardic Abdomen: Positive fluid wave Soft, Neuro: Alert and orientated x 2. Skin: Jaundice. Anasarca throughout Objective Data Vital Signs Vital Signs: Vital Signs - 24 hr 05/18/25 22:06 05/19/25 06:09 05/19/25 08:00 Temperature 97.8 F 97.6 F Pulse Rate 131 H 111 H Respiratory Rate 18 18 Blood Pressure 103/61 114/67 Pulse Oximetry 98 99 Oxygen Delivery Nasal Cannula Oxygen Flow Rate 5 Intake/Output Intake/Output: Intake & Output 05/16/25 05/17/25 05/18/25 05/19/25 23:59 23:59 23:59 23:59 Intake Total 1078 797 600 240 Output Total 1250 2600 380 Balance 1750 -235 -5209 -0303 Meds/Results Medications: Active Medications Generic Name Dose Route Start Last Admin Trade Name Freq PRN Reason Stop Dose Admin Acetaminophen 650 mg 05/17/25 09:45 Acetaminophen 325 Mg Tablet PO Q4H PRN Mild Pain (1-3) or Fever Atropine Sulfate 1 - 2 drop 05/16/25 14:39 Atropine Sulfate 1% Ophth Soln 5 Ml Bottle SUBLINGUAL Q4H PRN Secretions Lorazepam 2 mg 05/16/25 14:39 05/19/25 11:25 Lorazepam Inj (*Crx) 2 Mg/Ml Vial IV PUSH 2 mg Q2H PRN Administration Anxiety/Comfort Morphine Sulfate 2 mg 05/16/25 14:39 05/19/25 13:20 Morphine Sulfate (*Crx) 2 Mg/Ml Inj IV PUSH 2 mg Q30M PRN Administration COMFORT Multi-Ingred Cream/Lotion/Oil/Oint 1 applic 05/16/25 21:00 05/18/25 21:20 Mineral Oil/White Petrolatum Ointment EACH EYE 1 applic HS THU Administration Ondansetron HCl 4 mg 05/17/25 09:45 Ondansetron Inj 4 Mg/2 Ml Vial IV PUSH Q6H PRN Nausea And Vomiting Radiology Results: ITS Impressions Chest X-Ray 05/16/25 09:06 Impression: 1: Bibasilar airspace disease which may represent edema or pneumonia. 2: Small pleural effusions. Chest/Abdomen/Pelvis CT 05/16/25 09:40 IMPRESSION: 1. Persistent moderate to large right and moderate-sized left posterior layering pleural effusions with secondary compressive atelectasis in both lungs. 2. Status post bilateral mastectomies with bilateral pectoral loculated subcutaneous fluid collections, simple appearing on the left consistent with a seroma but with increased density on the right which could represent hemorrhage or potentially abscess in the appropriate clinical setting. 3. Numerous scattered lytic bone lesions along with multiple enlarged lymphadenopathy in the chest, abdomen, pelvis and left groin which demonstrated increased FDG uptake on prior PET/CT consistent with metastatic disease. 4. Couple ill-defined hypoenhancing regions in the liver suspicious for additional metastatic disease although differential would include infection without evident organized abscess. 5. Mild bilateral hydronephrosis without evident obstructing stone or mass. 6. Fibroid uterus. 7. Diffuse body wall edema and small amount of ascites in the abdomen and pelvis. Quality VTE Prophylaxis VTE prophylaxis: mechanical ordered -Patient's previous records reviewed on admission -ER notes reviewed in detail on admission -discussed all findings and current treatment plan with patient/Family/POA -Consultations reviewed for recommendations -Patient's disposition for safe discharge discussed with case worker Dictation performed by [employer] direct speech recognition software, therefore biomedical engineer variants and typographical errors may occur. Hospitalist MIPS Advance Care Plan I have confirmed that the patient's Advanced Care Plan is present, code status is documented, or surrogate decision maker is listed in patient medical record.: Yes Medication Reconciliation I have utilized all available resources to obtain, update and review the patients current medications (includes all prescriptions, OTC, herbals, cannabis, and nutritional supplements).: Yes The patient is not eligible for med reconciliation; the patient is in a emergent medical situation where delaying treatment would jeopardize the patients health.: No
[2025-05-19 21:14] VITALS: BP 104/51; PULSE 109; RESP 16; TEMP 36.3; O2SAT 100
[2025-05-20] VITALS (8 sets, daily range): BP systolic 103–155; BP diastolic 54–63; PULSE 110–118; RESP 17–20; TEMP 36–37.2; O2SAT 94–98
[2025-05-20] MEDS: MORPHINE SULFATE (*CRX) 2 MG/ML INJ IV PUSH ×7 (01:15→22:10)
[2025-05-20] MEDS: LORazepam INJ (*CRX) 2 MG/ML VIAL IV PUSH ×5 (02:15→20:42)
[2025-05-20] MEDS: SODIUM CHLORIDE 0.9% IV 1,000 ML 75 ML IV CONT (13:16)
[2025-05-20 13:32] LABS: Mean Corpuscular HGB Conc 28.4 g/dl (32-36); Mean Corpuscular Hemoglobin 21.1 pg (26-34); Mean Corpuscular Volume 74.3 fl (80-100); Platelet Count Result 32 k/mm3 (150-375); Red Blood Count 2.80 M/mm3 (4.2-5.4); White Blood Count 2.1 K/mm3 (4.5-10.0)
[2025-05-20 13:35] LABS: Hemoglobin 5.9 g/dL (12.0-15.0)
[2025-05-20 13:36] LABS: Hematocrit 20.8 % (37.0-47.0)
[2025-05-20 13:55] LABS: INR 1.1; Prothrombin Time 14.6 Seconds (11.1-14.7)
[2025-05-20 13:58] LABS: Alanine Aminotransferase 32 U/L (6-35); Albumin Level 2.9 g/dL (3.5-5.1); Alkaline Phosphatase 777 U/L (38-126); Anion Gap 0 mmol/L (4-12); Aspartate Amino Transferase 139 U/L (14-36); Bilirubin,Total 5.5 mg/dL (0.2-1.3); Blood Urea Nitrogen 24 mg/dL (7-17); Calcium 7.1 mg/dL (8.4-10.2); Carbon Dioxide 36 mmol/L (22-30); Chloride 97 mmol/L (98-107); Estimated CRCL calculation 144 ml/min; Estimated Glomerular Filt Rate > 60; Glucose 104 mg/dL (65-110); Magnesium 2.2 mg/dL (1.6-2.3); Potassium 4.2 mmol/L (3.4-5.0); Sodium 133 mmol/L (137-145); Total Protein 6.0 g/dL (6.3-8.2)
[2025-05-20 14:02] LABS: Band Neutrophils Percent 5 % (0-6); Eosinophils Absolute Manual 0.08 K/mm3 (0.02-0.50); Eosinophils Percent Manual 4 % (0-4); Lymphocytes Absolute Manual 0.12 K/mm3 (1.1-4.5); Lymphocytes Percent Manual 6 % (18-44); Neutrophils Absolute Manual 1.89 K/mm3 (1.3-6.7); Neutrophils Percent Manual 85 % (46-73); Total Cells Counted 100
[2025-05-20 14:03] LABS: Anisocytosis 1+; Hypochromasia 3+; Schistocytes None Seen; Smudge Cells FEW; Target Cells 2+
[2025-05-20 15:32] LABS: Ammonia 49 umol/L (9-30)
--- NOTE | 2025-05-20 16:41 | P.PNIM_ITS ---
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 have spoken to patient's oncologist in at this time agreed to comfort measures with consult to hospice family like to wait for hospice care to Monday after speaking with the oncologist again * Pain management with IV morphine * Atropine eyedrops * Antipyretics * Antiemetics * Zepeda catheter in place * INR 1.0 today, after a long discussion today at bedside, and brother is considering thoracentesis but has not made up their minds * Dr Kraus informed and will discuss with family later today (2) Malignant neoplasm of left breast, stage 4: Code(s): C50.912 - Malignant neoplasm of unspecified site of left female breast Status: Acute Assessment and Plan: SEE ABOVE (3) Cancer, metastatic to bone: Code(s): C79.51 - Secondary malignant neoplasm of bone Status: Acute Assessment and Plan: SEE ABOVE (4) Cancer, metastatic to liver: Code(s): C78.7 - Secondary malignant neoplasm of liver and intrahepatic bile duct Status: Acute Assessment and Plan: SEE ABOVE Plan Pancytopenia Hb 5.9 , WBC 2.1 and Plts 32 Discussed results with Donovan and he stated he will think about transfusion and communicate us his decision Dehydration Started on IVF for dehydration monitor Liver metastases with acute liver failure patient is jaundiced and Bilirubin is 5.5, Albumin 2.9 Ammonia 49, Alk phos 777, ALT 32 and AST 139 monitor Code status: Comfort care limited by family pending further deliberations by them Disposition: Transfer to medical with hospice consult Subjective Date/time seen: 05/20/25 16:41 Interval history: Comfortable at bedside Discussed with brother and at bedside to an extended period, they wanted labs run to evaluated liver status. His brother noted they are limiting comfort care for now until labs are back. I have also sent message to Dr Kraus to discuss prognosis with the family Review of Systems Review of Systems: 12 systems were reviewed and are negativ e except for as per HPI. ROS unobtainable: Yes unobtainable due to medical condition and unobtainable due to mental status Exam Narrative: General: Somnolent, ill-appearing Respiratory: Diminished to auscultation bilaterally. Cardiovascular: Tachycardic Abdomen: Positive fluid wave Soft, Neuro: Alert and orientated x 2. Skin: Jaundice. Anasarca throughout Objective Data Vital Signs Vital Signs: Vital Signs - 24 hr 05/19/25 21:14 05/20/25 08:00 05/20/25 14:42 Temperature 97.3 F L Pulse Rate 109 H 110 H Respiratory Rate 16 Blood Pressure 104/51 L Pulse Oximetry 100 98 94 Oxygen Delivery Nasal Cannula Nasal Cannula Oxygen Flow Rate 5 2 Intake/Output Intake/Output: Intake & Output 05/17/25 05/18/25 05/19/25 05/20/25 23:59 23:59 23:59 23:59 Intake Total 797 600 240 240 Output Total 1250 2600 4800 800 Balance -586 -2000 -4560 -560 Meds/Results Medications: Active Medications Generic Name Dose Route Start Last Admin Trade Name Freq PRN Reason Stop Dose Admin Acetaminophen 650 mg 05/17/25 09:45 Acetaminophen 325 Mg Tablet PO Q4H PRN Mild Pain (1-3) or Fever Atropine Sulfate 1 - 2 drop 05/16/25 14:39 Atropine Sulfate 1% Ophth Soln 5 Ml Bottle SUBLINGUAL Q4H PRN Secretions Sodium Chloride 1,000 mls @ 75 mls/hr 05/20/25 12:50 05/20/25 13:16 Normal Saline Iv IV CONT 75 mls/hr .[id number] THU Administration Lorazepam 2 mg 05/16/25 14:39 05/20/25 15:29 Lorazepam Inj (*Crx) 2 Mg/Ml Vial IV PUSH 2 mg Q2H PRN Administration Anxiety/Comfort Morphine Sulfate 2 mg 05/16/25 14:39 05/20/25 14:47 Morphine Sulfate (*Crx) 2 Mg/Ml Inj IV PUSH 2 mg Q30M PRN Administration COMFORT Multi-Ingred Cream/Lotion/Oil/Oint 1 applic 05/16/25 21:00 05/19/25 22:45 Mineral Oil/White Petrolatum Ointment EACH EYE Not Given HS THU Ondansetron HCl 4 mg 05/17/25 09:45 Ondansetron Inj 4 Mg/2 Ml Vial IV PUSH Q6H PRN Nausea And Vomiting Radiology Results: ITS Impressions Chest/Abdomen/Pelvis CT 05/16/25 09:40 IMPRESSION: 1. Persistent moderate to large right and moderate-sized left posterior layering pleural effusions with secondary compressive atelectasis in both lungs. 2. Status post bilateral mastectomies with bilateral pectoral loculated subcutaneous fluid collections, simple appearing on the left consistent with a seroma but with increased density on the right which could represent hemorrhage or potentially abscess in the appropriate clinical setting. 3. Numerous scattered lytic bone lesions along with multiple enlarged lymphadenopathy in the chest, abdomen, pelvis and left groin which demonstrated increased FDG uptake on prior PET/CT consistent with metastatic disease. 4. Couple ill-defined hypoenhancing regions in the liver suspicious for additional metastatic disease although differential would include infection without evident organized abscess. 5. Mild bilateral hydronephrosis without evident obstructing stone or mass. 6. Fibroid uterus. 7. Diffuse body wall edema and small amount of ascites in the abdomen and pelvis. Chest X-Ray 05/20/25 13:10 IMPRESSION: 1. Bibasilar opacities may represent atelectasis versus pneumonia. Clinical correlation si recommended. Short-term follow-up chest radiograph is recommended after appropriate clinical therapy to document stability and/or resolution. 2. Small bilateral pleural effusions. Labs Labs: Laboratory Results - last 24 hr 05/20/25 13:21 WBC 2.1 L RBC 2.80 L Hgb 5.9 L* Hct 20.8 L* MCV 74.3 L D MCH 21.1 L MCHC 28.4 L RDW 26.0 H Plt Count 32 L D MPV TNP Immature Gran % (Auto) Not Reportable Neut % (Auto) Not Reportable Lymph % (Auto) Not Reportable [place] % (Auto) Not Reportable Eos % (Auto) Not Reportable Baso % (Auto) Not Reportable Lymph # (Auto) Not Reportable [place] # (Auto) Not Reportable Eos # (Auto) Not Reportable Baso # (Auto) Not Reportable Abs Immat Gran (auto) Not Reportable Absolute Neuts (auto) Not Reportable Absolute Nucleated RBC Not Reportable Total Counted 100 Neutrophils % (Manual) 85 H Band Neutrophils % 5 Lymphocytes % (Manual) 6 L Eosinophils % (Manual) 4 Nucleated RBC % Not Reportable Abs Neuts (Manual) 1.89 Abs Lymphs (Manual) 0.12 L Absolute Eos (Manual) 0.08 Smudge Cells Few Platelet Estimate Decreased Hypochromasia 3+ Anisocytosis 1+ Target Cells 2+ Schistocytes None seen PT 14.6 D INR 1.1 Sodium 133 L Potassium 4.2 Chloride 97 L Carbon Dioxide 36 H Anion Gap 0 L BUN 24 H D Creatinine 0.48 L Estim Creat Clear Calc 144 Estimated GFR > 60 Glucose 104 Calcium 7.1 L Magnesium 2.2 Total Bilirubin 5.5 H AST 139 H ALT 32 Alkaline Phosphatase 777 H Ammonia 49 H Total Protein 6.0 L Albumin 2.9 L Quality VTE Prophylaxis VTE prophylaxis: mechanical ordered
--- NOTE | 2025-05-20 19:04 | P.PNONC_ITS ---
Progress Note: A&P Assessment and Plan (1) Metastatic cancer: Code(s): C79.9 - Secondary malignant neoplasm of unspecified site Status: Acute Assessment and Plan: Metastatic triple negative breast cancer with liver and bone involvement. I had another long discussion with family today. We will proceed with inpatient hospice. Labs noted. I will give her 1 unit of blood prior to the thoracentesis in the morning. Continue comfort care. Subjective Date/time seen: 05/20/25 19:04 Interval history: Patient is sleeping comfortably Review of Systems Review of Systems Review of system not obtainable Exam Narrative: Lungs are clear to auscultation bilaterally Cardiovascular regular rate rhythm Abdomen nontender nondistended Extremities edema positive Objective Data Vital Signs Vital Signs: Vital Signs - 24 hr 05/19/25 21:14 05/20/25 08:00 05/20/25 14:00 Temperature 36.3 C L 36.0 C L Pulse Rate 109 H 110 H 112 H Respiratory Rate 16 17 Blood Pressure 104/51 L 103/60 Pulse Oximetry 100 98 97 Oxygen Delivery Nasal Cannula Oxygen Flow Rate 5 05/20/25 14:42 Temperature Pulse Rate Respiratory Rate Blood Pressure Pulse Oximetry 94 Oxygen Delivery Nasal Cannula Oxygen Flow Rate 2 Intake/Output Intake/Output: Intake & Output 05/17/25 05/18/25 05/19/25 05/20/25 23:59 23:59 23:59 23:59 Intake Total 797 600 240 440 Output Total 1250 2600 4800 1900 [facility] -453 -2000 -4560 -1460 Meds/Results Medications: Active Medications Generic Name Dose Route Start Last Admin Trade Name Freq PRN Reason Stop Dose Admin Acetaminophen 650 mg 05/17/25 09:45 Acetaminophen 325 Mg Tablet PO Q4H PRN Mild Pain (1-3) or Fever Atropine Sulfate 1 - 2 drop 05/16/25 14:39 Atropine Sulfate 1% Ophth Soln 5 Ml Bottle SUBLINGUAL Q4H PRN Secretions Sodium Chloride 1,000 mls @ 75 mls/hr 05/20/25 12:50 05/20/25 13:16 Normal Saline Iv IV CONT 75 mls/hr .[id number] THU Administration Sodium Chloride 250 mls @ 30 mls/hr 05/20/25 19:03 Normal Saline Iv IV CONT 05/21/25 03:22 .[id number] STA Lorazepam 2 mg 05/16/25 14:39 05/20/25 15:29 Lorazepam Inj (*Crx) 2 Mg/Ml Vial IV PUSH 2 mg Q2H PRN Administration Anxiety/Comfort Morphine Sulfate 2 mg 05/16/25 14:39 05/20/25 18:00 Morphine Sulfate (*Crx) 2 Mg/Ml Inj IV PUSH 2 mg Q30M PRN Administration COMFORT Multi-Ingred Cream/Lotion/Oil/Oint 1 applic 05/16/25 21:00 05/19/25 22:45 Mineral Oil/White Petrolatum Ointment EACH EYE Not Given HS THU Ondansetron HCl 4 mg 05/17/25 09:45 Ondansetron Inj 4 Mg/2 Ml Vial IV PUSH Q6H PRN Nausea And Vomiting Radiology Results: ITS Impressions Chest/Abdomen/Pelvis CT 05/16/25 09:40 IMPRESSION: 1. Persistent moderate to large right and moderate-sized left posterior layering pleural effusions with secondary compressive atelectasis in both lungs. 2. Status post bilateral mastectomies with bilateral pectoral loculated subcutaneous fluid collections, simple appearing on the left consistent with a seroma but with increased density on the right which could represent hemorrhage or potentially abscess in the appropriate clinical setting. 3. Numerous scattered lytic bone lesions along with multiple enlarged ly mphadenopathy in the chest, abdomen, pelvis and left groin which demonstrated increased FDG uptake on prior PET/CT consistent with metastatic disease. 4. Couple ill-defined hypoenhancing regions in the liver suspicious for additional metastatic disease although differential would include infection without evident organized abscess. 5. Mild bilateral hydronephrosis without evident obstructing stone or mass. 6. Fibroid uterus. 7. Diffuse body wall edema and small amount of ascites in the abdomen and pelvis. Chest X-Ray 05/20/25 13:10 IMPRESSION: 1. Bibasilar opacities may represent atelectasis versus pneumonia. Clinical correlation si recommended. Short-term follow-up chest radiograph is recommended after appropriate clinical therapy to document stability and/or resolution. 2. Small bilateral pleural effusions. Labs Labs: Laboratory Results - last 24 hr 05/20/25 13:21 WBC 2.1 L RBC 2.80 L Hgb 5.9 L* Hct 20.8 L* MCV 74.3 L D MCH 21.1 L MCHC 28.4 L RDW 26.0 H Plt Count 32 L D MPV TNP Immature Gran % (Auto) Not Reportable Neut % (Auto) Not Reportable Lymph % (Auto) Not Reportable [place] % (Auto) Not Reportable Eos % (Auto) Not Reportable Baso % (Auto) Not Reportable Lymph # (Auto) Not Reportable [place] # (Auto) Not Reportable Eos # (Auto) Not Reportable Baso # (Auto) Not Reportable Abs Immat Gran (auto) Not Reportable Absolute Neuts (auto) Not Reportable Absolute Nucleated RBC Not Reportable Total Counted 100 Neutrophils % (Manual) 85 H Band Neutrophils % 5 Lymphocytes % (Manual) 6 L Eosinophils % (Manual) 4 Nucleated RBC % Not Reportable Abs Neuts (Manual) 1.89 Abs Lymphs (Manual) 0.12 L Absolute Eos (Manual) 0.08 Smudge Cells Few Platelet Estimate Decreased Hypochromasia 3+ Anisocytosis 1+ Target Cells 2+ Schistocytes None seen PT 14.6 D INR 1.1 Sodium 133 L Potassium 4.2 Chloride 97 L Carbon Dioxide 36 H Anion Gap 0 L BUN 24 H D Creatinine 0.48 L Estim Creat Clear Calc 144 Estimated GFR > 60 Glucose 104 Calcium 7.1 L Magnesium 2.2 Total Bilirubin 5.5 H AST 139 H ALT 32 Alkaline Phosphatase 777 H Ammonia 49 H Total Protein 6.0 L Albumin 2.9 L
[2025-05-20] MEDS: MINERAL OIL/WHITE PETROLATUM OINTMENT 1 APPLIC EACH EYE (20:50)
[2025-05-21 00:35] VITALS: BP 136/80; PULSE 117; RESP 18; TEMP 36.4; O2SAT 96
[2025-05-21] MEDS: LORazepam INJ (*CRX) 2 MG/ML VIAL IV PUSH ×2 (00:41→03:39)
[2025-05-21 01:35] VITALS: BP 136/66; PULSE 113; RESP 16; TEMP 36.6; O2SAT 98
[2025-05-21 01:50] VITALS: BP 145/68; PULSE 117; RESP 16; TEMP 36.9; O2SAT 100
[2025-05-21] MEDS: MORPHINE SULFATE (*CRX) 2 MG/ML INJ IV PUSH ×6 (01:52→17:10)
[2025-05-21] MEDS: SODIUM CHLORIDE 0.9% IV 1,000 ML 75 ML IV CONT (02:48)
[2025-05-21 04:28] LABS: Hematocrit 25.1 % (37.0-47.0); Hemoglobin 7.6 g/dL (12.0-15.0); Immature Granulocyte Percent A 0.7 % (0-0.5); Immature Platelet Fraction Pct 9.6 % (0.9-11.2); Lymphocytes Absolute Auto 0.21 K/mm3 (0.9-3.2); Mean Corpuscular HGB Conc 30.3 g/dl (32-36); Mean Corpuscular Hemoglobin 23.0 pg (26-34); Mean Corpuscular Volume 75.8 fl (80-100); Nucleated Red Blood Cells Absolute Auto 0.030 K/mm3 (0.0-0.012); Nucleated Red Blood Cells Perc 2.2 % (0.0-0.2); Platelet Count Result 41 k/mm3 (150-375); Red Blood Count 3.31 M/mm3 (4.2-5.4)
[2025-05-21 04:40] LABS: Alanine Aminotransferase 31 U/L (6-35); Albumin Level 2.9 g/dL (3.5-5.1); Alkaline Phosphatase 736 U/L (38-126); Anion Gap 3 mmol/L (4-12); Aspartate Amino Transferase 128 U/L (14-36); Bilirubin,Total 5.0 mg/dL (0.2-1.3); Blood Urea Nitrogen 17 mg/dL (7-17); Calcium 7.4 mg/dL (8.4-10.2); Carbon Dioxide 33 mmol/L (22-30); Chloride 98 mmol/L (98-107); Estimated CRCL calculation 174 ml/min; Estimated Glomerular Filt Rate > 60; Glucose 105 mg/dL (65-110); Magnesium 1.9 mg/dL (1.6-2.3); Potassium 3.8 mmol/L (3.4-5.0); Sodium 134 mmol/L (137-145); Total Protein 5.9 g/dL (6.3-8.2)
[2025-05-21 05:36] LABS: White Blood Count 1.4 K/mm3 (4.5-10.0)
[2025-05-21 05:37] LABS: Anisocytosis 1+; Hypochromasia 2+
[2025-05-21 05:38] LABS: Schistocytes None Seen; Stomatocytes 1+; Target Cells 1+
[2025-05-21 09:08] VITALS: O2SAT 94
[2025-05-21 14:00] VITALS: BP 157/65; PULSE 88; RESP 20; TEMP 36.2; O2SAT 96
--- NOTE | 2025-05-21 14:22 | P.PNIM_ITS ---
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 have spoken to patient's oncologist in at this time agreed to comfort measures with consult to hospice family like to wait for hospice care to Monday after speaking with the oncologist again * Pain management with IV morphine * Atropine eyedrops * Antipyretics * Antiemetics * Zepeda catheter in place * Family finally agrees to continue comfort care (2) Malignant neoplasm of left breast, stage 4: Code(s): C50.912 - Malignant neoplasm of unspecified site of left female breast Status: Acute Assessment and Plan: SEE ABOVE (3) Cancer, metastatic to bone: Code(s): C79.51 - Secondary malignant neoplasm of bone Status: Acute Assessment and Plan: SEE ABOVE (4) Cancer, metastatic to liver: Code(s): C78.7 - Secondary malignant neoplasm of liver and intrahepatic bile duct Status: Acute Assessment and Plan: SEE ABOVE Plan Pancytopenia Hb 5.9 , WBC 2.1 and Plts 32 Continue comfort care Dehydration Started on IVF for dehydration monitor Liver metastases with acute liver failure patient is jaundiced and Bilirubin is 5.5, Albumin 2.9 Ammonia 49, Alk phos 777, ALT 32 and AST 139 For thoracentesis today Continue comfort care Continue Comfort care. Disposition: Inpatient hospice Subjective Date/time seen: 05/21/25 14:22 Interval history: Patient is sleeping comfortably Family members were at bedside including brother and and and everyone were in agreement that comfort care will continue, and for thoracentesis today Review of Systems Review of Systems: 12 systems were reviewed and are negativ e except for as per HPI. ROS unobtainable: Yes unobtainable due to medical condition and unobtainable due to mental status Exam Narrative: General: Somnolent, ill-appearing Respiratory: Diminished to auscultation bilaterally. Cardiovascular: Tachycardic Abdomen: Positive fluid wave Soft, Neuro: Alert and orientated x 2. Skin: Jaundice. Anasarca throughout Objective Data Vital Signs Vital Signs: Vital Signs - 24 hr 05/20/25 14:42 05/20/25 20:00 05/20/25 20:00 Temperature 98.3 F Pulse Rate 116 H Respiratory Rate 20 Blood Pressure 112/59 L Pulse Oximetry 94 97 Oxygen Delivery Nasal Cannula Nasal Cannula Oxygen Flow Rate 2 2 Fraction of Inspired Oxygen 05/20/25 21:58 05/20/25 22:35 05/20/25 22:38 Temperature 98.2 F 99 F Pulse Rate 116 H 116 H Respiratory Rate 20 18 Blood Pressure 137/57 L 155/54 H Pulse Oximetry 96 98 96 Oxygen Delivery Nasal Cannula Oxygen Flow Rate 2 Fraction of Inspired Oxygen 28 05/20/25 23:35 05/21/25 00:35 05/21/25 01:35 Temperature 98.6 F 97.6 F 97.8 F Pulse Rate 118 H 117 H 113 H Respiratory Rate 18 18 16 Blood Pressure 143/63 H 136/80 136/66 Pulse Oximetry 97 96 98 Oxygen Delivery Oxygen Flow Rate Fraction of Inspired Oxygen 05/21/25 01:50 05/21/25 08:00 05/21/25 09:08 Temperature 98.4 F Pulse Rate 117 H Respiratory Rate 16 Blood Pressure 145/68 H Pulse Oximetry 100 94 Oxygen Delivery Nasal Cannula Nasal Cannula Oxygen Flow Rate 2 2 Fraction of Inspired Oxygen Intake/Output Intake/Output: Intake & Output 05/18/25 05/19/25 05/20/25 05/21/25 23:59 23:59 23:59 23:59 Intake Total 600 694 387 7671 Output Total 2600 4800 [address] [facility] -2000 -[phone] -1460 -1150 Meds/Results Medications: Active Medications Generic Name Dose Route Start Last Admin Trade Name Freq PRN Reason Stop Dose Admin Acetaminophen 650 mg 05/17/25 09:45 Acetaminophen 325 Mg Tablet PO Q4H PRN Mild Pain (1-3) or Fever Atropine Sulfate 1 - 2 drop 05/16/25 14:39 05/20/25 20:47 Atropine Sulfate 1% Ophth Soln 5 Ml Bottle SUBLINGUAL 1 drop Q4H PRN Administration Secretions Sodium Chloride 1,000 mls @ 75 mls/hr 05/20/25 12:50 05/21/25 02:48 Normal Saline Iv IV CONT 75 mls/hr .[id number] THU Administration Lorazepam 2 mg 05/16/25 14:39 05/21/25 03:39 Lorazepam Inj (*Crx) 2 Mg/Ml Vial IV PUSH 2 mg Q2H PRN Administration Anxiety/Comfort Morphine Sulfate 2 mg 05/16/25 14:39 05/21/25 12:31 Morphine Sulfate (*Crx) 2 Mg/Ml Inj IV PUSH 2 mg Q30M PRN Administration COMFORT Multi-Ingred Cream/Lotion/Oil/Oint 1 applic 05/16/25 21:00 05/20/25 20:50 Mineral Oil/White Petrolatum Ointment EACH EYE 1 applic HS THU Administration Ondansetron HCl 4 mg 05/17/25 09:45 Ondansetron Inj 4 Mg/2 Ml Vial IV PUSH Q6H PRN Nausea And Vomiting Radiology Results: ITS Impressions Chest/Abdomen/Pelvis CT 05/16/25 09:40 IMPRESSION: 1. Persistent moderate to large right and moderate-sized left posterior layering pleural effusions with secondary compressive atelectasis in both lungs. 2. Status post bilateral mastectomies with bilateral pectoral loculated subcutaneous fluid collections, simple appearing on the left consistent with a seroma but with increased density on the right which could represent hemorrhage or potentially abscess in the appropriate clinical setting. 3. Numerous scattered lytic bone lesions along with multiple enlarged lymphadenopathy in the chest, abdomen, pelvis and left groin which demonstrated increased FDG uptake on prior PET/CT consistent with metastatic disease. 4. Couple ill-defined hypoenhancing regions in the liver suspicious for additional metastatic disease although differential would include infection without evident organized abscess. 5. Mild bilateral hydronephrosis without evident obstructing stone or mass. 6. Fibroid uterus. 7. Diffuse body wall edema and small amount of ascites in the abdomen and pelvis. Chest X-Ray 05/21/25 12:11 IMPRESSION: 1. Interval resolution of prior right pleural effusion with residual linear band of discoid atelectasis in right lower lung. 2. No significant change in a small to moderate-sized left pleural effusion with associated left basilar atelectasis and/or pneumonia. Thoracentesis Ultrasound 05/21/25 12:41 IMPRESSION: 1. Successful ultrasound-guided thoracentesis yielding 1100 mL of clear myke- colored fluid. Labs Labs: Laboratory Results - last 24 hr 05/20/25 05/20/25 05/21/25 13:21 19:35 04:21 WBC 1.4 L* RBC 3.31 L Hgb 7.6 L Hct 25.1 L MCV 75.8 L MCH 23.0 L D MCHC 30.3 L RDW 24.1 H Plt Count 41 L MPV TNP Immature Gran % (Auto) 0.7 H Neut % (Auto) 67.7 Lymph % (Auto) 15.1 L Bradford % (Auto) 7.2 Eos % (Auto) 7.9 H Baso % (Auto) 1.4 H Lymph # (Auto) 0.21 L Bradford # (Auto) 0.1 Eos # (Auto) 0.1 Baso # (Auto) 0.0 Abs Immat Gran (auto) 0.01 Absolute Neuts (auto) 0.9 L Absolute Nucleated RBC 0.030 H Band Neutrophils % Not Reportable Nucleated RBC % 2.2 H Platelet Estimate Decreased % Immature Plt Fraction 9.6 Hypochromasia 2+ Anisocytosis 1+ Target Cells 1+ Stomatocytes 1+ Schistocytes None seen Sodium 134 L Potassium 3.8 Chloride 98 Carbon Dioxide 33 H Anion Gap 3 L BUN 17 Creatinine 0.39 L Estim Creat Clear Calc 174 Estimated GFR > 60 Glucose 105 Lactic Acid 0.9 Calcium 7.4 L Magnesium 1.9 Total Bilirubin 5.0 H AST 128 H ALT 31 Alkaline Phosphatase 736 H Ammonia 49 H Total Protein 5.9 L Albumin 2.9 L Blood Type A Positive Antibody Screen Negative Crossmatch See Detail Quality VTE Prophylaxis VTE prophylaxis: mechanical ordered
--- NOTE | 2025-05-23 08:54 | P.DN_ITS ---
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 Hospital Course * Oncologic History: * Diagnosed with stage IIIC triple negative inflammatory breast cancer in 2023. * Completed neoadjuvant chemotherapy (Adriamycin, Cytoxan, Taxol) in October 2024, bilateral mastectomy in November 2024. * Developed metastatic disease (bone, liver) in December 2024. * Palliative chemotherapy (Abraxane, Keytruda) limited by infection and poor tolerance. * Local relapse in left chest wall, completed radiation April 2025, complicated by open wound and infection. * Last chemotherapy May 15, 2025. * Recent Hospitalization: * Presented with severe shortness of breath, unable to lie flat, and progressive weakness. * Imaging: Large right and moderate left pleural effusions, new and progressive liver and bone metastases, bilateral hydronephrosis, ascites, and increased FDG uptake in bone and lymph nodes. * Laboratory findings: * Leukocytosis (WBC 18.6), anemia (Hb 8.5, later 5.9), thrombocytopenia (Plts 32), INR 8.9, sodium 120, creatinine 1.15, BUN 54, lactic acid 2.2, calcium 7.4, AST 393, ALT 55, Alk phos 1840, bilirubin 5.5, albumin 2.9, ammonia 49. * UA: +3 bilirubin, +1 leukocyte esterase, 21-50 RBCs, 11-20 WBCs, many epithelial cells. * Developed altered mental status (A&O x2), likely due to hepatic encephalopathy and metabolic derangements. * INR supratherapeutic, likely due to acute liver failure and possible Eliquis use; reversal attempted with vitamin K and Kcentra, but not a candidate for thoracentesis due to coagulopathy. * Treated empirically with cefepime, doxycycline, and vancomycin for possible infection. * Family and patient initially requested full code, but after further decline and discussion, transitioned to comfort measures only. * Palliative/End-of-Life Care: * Focus shifted to comfort care and symptom management per patient and family wishes. * Orders for morphine, Ativan, atropine drops, antipyretics, antiemetics, and regular diet as tolerated. * Zepeda catheter placed for comfort. * Inpatient hospice consulted and involved in care. * Family present at bedside; ongoing support provided. Assessment and Plan at End of Life End-stage metastatic triple negative breast cancer (C50.912, C79.51, C78.7, C79.9) * Extensive progression with liver and bone involvement, bilateral pleural effusions, and acute liver failure. * No further disease-directed therapy; transitioned to comfort care.Acute liver failure * Jaundice, coagulopathy, hepatic encephalopathy, and progressive multi-organ dysfunction. * Supportive care only.Bilateral pleural effusions (J90) * Symptomatic, not amenable to drainage due to coagulopathy. * Managed with comfort measures.Altered mental status (R41.82) * Likely multifactorial: hepatic encephalopathy, metabolic derangements, and advanced malignancy.Pancytopenia * Hb 5.9, WBC 2.1, Plts 32. * Transfusion considered for comfort, but focus remained on symptom management.Dehydration * IV fluids for comfort as tolerated.Other active issues * Hypocalcemia, leukocytosis, fluid collection at surgical site, hydronephrosis, ascites, fibroid uterus, shortness of breath. Cause of End-stage metastatic triple negative breast cancer with multi-organ failure (liver, bone, pleura), acute liver failure, and respiratory compromise. Disposition * Patient on [Insert Date] in the presence of family. * Inpatient hospice and palliative care services provided. * Family notified and bereavement support offered.
--- NOTE | 2025-05-23 08:54 | PM.DDS ---
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 Hospital Course Oncologic History: Diagnosed with stage IIIC triple negative inflammatory breast cancer in 2023. Completed neoadjuvant chemotherapy (Adriamycin, Cytoxan, Taxol) in October 2024, bilateral mastectomy in November 2024. Developed metastatic disease (bone, liver) in December 2024. Palliative chemotherapy (Abraxane, Keytruda) limited by infection and poor tolerance. Local relapse in left chest wall, completed radiation April 2025, complicated by open wound and infection. Last chemotherapy May 15, 2025. Recent Hospitalization: Presented with severe shortness of breath, unable to lie flat, and progressive weakness. Imaging: Large right and moderate left pleural effusions, new and progressive liver and bone metastases, bilateral hydronephrosis, ascites, and increased FDG uptake in bone and lymph nodes. Laboratory findings: Leukocytosis (WBC 18.6), anemia (Hb 8.5, later 5.9), thrombocytopenia (Plts 32), INR 8.9, sodium 120, creatinine 1.15, BUN 54, lactic acid 2.2, calcium 7.4, AST 393, ALT 55, Alk phos 1840, bilirubin 5.5, albumin 2.9, ammonia 49. UA: +3 bilirubin, +1 leukocyte esterase, 21-50 RBCs, 11-20 WBCs, many epithelial cells. Developed altered mental status (A&O x2), likely due to hepatic encephalopathy and metabolic derangements. INR supratherapeutic, likely due to acute liver failure and possible Eliquis use; reversal attempted with vitamin K and Kcentra, but not a candidate for thoracentesis due to coagulopathy. Treated empirically with cefepime, doxycycline, and vancomycin for possible infection. Family and patient initially requested full code, but after further decline and discussion, transitioned to comfort measures only. Palliative/End-of-Life Care: Focus shifted to comfort care and symptom management per patient and family wishes. Orders for morphine, Ativan, atropine drops, antipyretics, antiemetics, and regular diet as tolerated. Zepeda catheter placed for comfort. Inpatient hospice consulted and involved in care. Family present at bedside; ongoing support provided. Assessment and Plan at End of Life End-stage metastatic triple negative breast cancer (C50.912, C79.51, C78.7, C79.9) Extensive progression with liver and bone involvement, bilateral pleural effusions, and acute liver failure. No further disease-directed therapy; transitioned to comfort care.Acute liver failure Jaundice, coagulopathy, hepatic encephalopathy, and progressive multi-organ dysfunction. Supportive care only.Bilateral pleural effusions (J90) Symptomatic, not amenable to drainage due to coagulopathy. Managed with comfort measures.Altered mental status (R41.82) Likely multifactorial: hepatic encephalopathy, metabolic derangements, and advanced malignancy.Pancytopenia Hb 5.9, WBC 2.1, Plts 32. Transfusion considered for comfort, but focus remained on symptom management.Dehydration IV fluids for comfort as tolerated.Other active issues Hypocalcemia, leukocytosis, fluid collection at surgical site, hydronephrosis, ascites, fibroid uterus, shortness of breath. Cause of End-stage metastatic triple negative breast cancer with multi-organ failure (liver, bone, pleura), acute liver failure, and respiratory compromise. Disposition Patient on [Insert Date] in the presence of family. Inpatient hospice and palliative care services provided. Family notified and bereavement support offered.
--- NOTE | 2025-05-23 11:52 | P.DS_ITS ---
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 L Hospital Course * Oncologic History: * Diagnosed with stage IIIC triple negative inflammatory breast cancer in 2023. * Completed neoadjuvant chemotherapy (Adriamycin, Cytoxan, Taxol) in October 2024, bilateral mastectomy in November 2024. * Developed metastatic disease (bone, liver) in December 2024. * Palliative chemotherapy (Abraxane, Keytruda) limited by infection and poor tolerance. * Local relapse in left chest wall, completed radiation April 2025, complicated by open wound and infection. * Last chemotherapy May 15, 2025. * Recent Hospitalization: * Presented with severe shortness of breath, unable to lie flat, and progressive weakness. * Imaging: Large right and moderate left pleural effusions, new and progressive liver and bone metastases, bilateral hydronephrosis, ascites, and increased FDG uptake in bone and lymph nodes. * Laboratory findings: * Leukocytosis (WBC 18.6), anemia (Hb 8.5, later 5.9), thrombocytopenia (Plts 32), INR 8.9, sodium 120, creatinine 1.15, BUN 54, lactic acid 2.2, calcium 7.4, AST 393, ALT 55, Alk phos 1840, bilirubin 5.5, albumin 2.9, ammonia 49. * UA: +3 bilirubin, +1 leukocyte esterase, 21-50 RBCs, 11-20 WBCs, many epithelial cells. * Developed altered mental status (A&O x2), likely due to hepatic encephalopathy and metabolic derangements. * INR supratherapeutic, likely due to acute liver failure and possible Eliquis use; reversal attempted with vitamin K and Kcentra, but not a candidate for thoracentesis due to coagulopathy. * Treated empirically with cefepime, doxycycline, and vancomycin for possible infection. * Family and patient initially requested full code, but after further decline and discussion, transitioned to comfort measures only. * Palliative/End-of-Life Care: * Focus shifted to comfort care and symptom management per patient and family wishes. * Orders for morphine, Ativan, atropine drops, antipyretics, antiemetics, and regular diet as tolerated. * Zepeda catheter placed for comfort. * Inpatient hospice consulted and involved in care. * Family present at bedside; ongoing support provided. Assessment and Plan at End of Life End-stage metastatic triple negative breast cancer (C50.912, C79.51, C78.7, C79.9) * Extensive progression with liver and bone involvement, bilateral pleural effusions, and acute liver failure. * No further disease-directed therapy; transitioned to comfort care.Acute liver failure * Jaundice, coagulopathy, hepatic encephalopathy, and progressive multi-organ dysfunction. * Supportive care only.Bilateral pleural effusions (J90) * Symptomatic, not amenable to drainage due to coagulopathy. * Managed with comfort measures.Altered mental status (R41.82) * Likely multifactorial: hepatic encephalopathy, metabolic derangements, and advanced malignancy.Pancytopenia * Hb 5.9, WBC 2.1, Plts 32. * Transfusion considered for comfort, but focus remained on symptom management.Dehydration * IV fluids for comfort as tolerated.Other active issues * Hypocalcemia, leukocytosis, fluid collection at surgical site, hydronephrosis, ascites, fibroid uterus, shortness of breath. Patient discharged to inpatient hospice. Time Spent with Patient Time attestation: Total time spent providing and/or coordinating discharge services: Discharge Plan Discharge Consulting providers: Rosa Ko; Chalino Kraus; Remi Boone; Tawanna Anderson; Jonathan Sánchez; Russell Adler Discharging Clinician: Teresa Watson Patient Disposition: Hospice - Medical Facility Patient Instructions: Apixaban (By mouth) Patient Language: Tamazight Discharge Medications: Continued metoprolol tartrate 25 mg tablet 12.5 mg PO BID Qty: 30 0RF Eliquis 5 mg Tablet 5 mg PO Q12HR 30 Days Qty: 60 2RF Rx Instructions: Start after completed the full course of eliquis 10 mg twice a day on 05/16. Date of admission: 05/16/25 10:34 Primary Care Provider: Paul Delarosa Admitting Provider: Tyson Dimas Attending physician on admission: Teresa Watson Condition: Guarded Prognosis
--- NOTE | 2025-05-23 11:52 | PM.DS ---
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 Hospital Course Oncologic History: Diagnosed with stage IIIC triple negative inflammatory breast cancer in 2023. Completed neoadjuvant chemotherapy (Adriamycin, Cytoxan, Taxol) in October 2024, bilateral mastectomy in November 2024. Developed metastatic disease (bone, liver) in December 2024. Palliative chemotherapy (Abraxane, Keytruda) limited by infection and poor tolerance. Local relapse in left chest wall, completed radiation April 2025, complicated by open wound and infection. Last chemotherapy May 15, 2025. Recent Hospitalization: Presented with severe shortness of breath, unable to lie flat, and progressive weakness. Imaging: Large right and moderate left pleural effusions, new and progressive liver and bone metastases, bilateral hydronephrosis, ascites, and increased FDG uptake in bone and lymph nodes. Laboratory findings: Leukocytosis (WBC 18.6), anemia (Hb 8.5, later 5.9), thrombocytopenia (Plts 32), INR 8.9, sodium 120, creatinine 1.15, BUN 54, lactic acid 2.2, calcium 7.4, AST 393, ALT 55, Alk phos 1840, bilirubin 5.5, albumin 2.9, ammonia 49. UA: +3 bilirubin, +1 leukocyte esterase, 21-50 RBCs, 11-20 WBCs, many epithelial cells. Developed altered mental status (A&O x2), likely due to hepatic encephalopathy and metabolic derangements. INR supratherapeutic, likely due to acute liver failure and possible Eliquis use; reversal attempted with vitamin K and Kcentra, but not a candidate for thoracentesis due to coagulopathy. Treated empirically with cefepime, doxycycline, and vancomycin for possible infection. Family and patient initially requested full code, but after further decline and discussion, transitioned to comfort measures only. Palliative/End-of-Life Care: Focus shifted to comfort care and symptom management per patient and family wishes. Orders for morphine, Ativan, atropine drops, antipyretics, antiemetics, and regular diet as tolerated. Zepeda catheter placed for comfort. Inpatient hospice consulted and involved in care. Family present at bedside; ongoing support provided. Assessment and Plan at End of Life End-stage metastatic triple negative breast cancer (C50.912, C79.51, C78.7, C79.9) Extensive progression with liver and bone involvement, bilateral pleural effusions, and acute liver failure. No further disease-directed therapy; transitioned to comfort care.Acute liver failure Jaundice, coagulopathy, hepatic encephalopathy, and progressive multi-organ dysfunction. Supportive care only.Bilateral pleural effusions (J90) Symptomatic, not amenable to drainage due to coagulopathy. Managed with comfort measures.Altered mental status (R41.82) Likely multifactorial: hepatic encephalopathy, metabolic derangements, and advanced malignancy.Pancytopenia Hb 5.9, WBC 2.1, Plts 32. Transfusion considered for comfort, but focus remained on symptom management.Dehydration IV fluids for comfort as tolerated.Other active issues Hypocalcemia, leukocytosis, fluid collection at surgical site, hydronephrosis, ascites, fibroid uterus, shortness of breath. Patient discharged to inpatient hospice. Time Spent with Patient Time attestation: Total time spent providing and/or coordinating discharge services: Discharge Plan Discharge Consulting providers: Rosa Ko; Chalino Kraus; Remi Boone; Tawanna Anderson; Ismael Sánchez Paul Discharging Clinician: Teresa Watson Patient Disposition: Hospice - Medical Facility Patient Instructions: Apixaban (By mouth) Patient Language: Icelandic Discharge Medications: Continued metoprolol tartrate 25 mg tablet 12.5 mg PO BID Qty: 30 0RF Eliquis 5 mg Tablet 5 mg PO Q12HR 30 Days Qty: 60 2RF Rx Instructions: Start after completed the full course of eliquis 10 mg twice a day on 05/16. Date of admission: 05/16/25 10:34 Primary Care Provider: Paul Delarosa Admitting Provider: Tyson Dimas Attending physician on admission: Teresa Watson Condition: Guarded Prognosis
== END 2025-05-21 17:28 | disposition hospice, inpatient (51) | DRG 186 ==
LOC: ANHED 10:32 → ANHIMU 11:09 → ANH3MEDSUR 05-17 18:25
PROVIDERS: Nurse Practitioner Family; Admitting Provider General Practice; Emergency Provider Emergency Medicine; PCP Family Medicine; Visit Provider Internal Medicine
DX: J90 Pleural effusion, not elsewhere classified (principal); J96.01 Acute respiratory failure with hypoxia; C79.51 Secondary malignant neoplasm of bone; C77.9 Secondary and unspecified malignant neoplasm of lymph node, unspecified; C78.7 Secondary malignant neoplasm of liver and intrahepatic bile duct; N13.30 Unspecified hydronephrosis; R18.8 Other ascites; C50.912 Malignant neoplasm of unspecified site of left female breast; C50.911 Malignant neoplasm of unspecified site of right female breast; D64.9 Anemia, unspecified; D25.9 Leiomyoma of uterus, unspecified; E55.9 Vitamin D deficiency, unspecified; E53.8 Deficiency of other specified B group vitamins; R79.1 Abnormal coagulation profile; F51.04 Psychophysiologic insomnia; F41.1 Generalized anxiety disorder; Z20.822 Contact with and (suspected) exposure to COVID-19; Z17.421 Hormone receptor negative with human epidermal growth factor receptor 2 negative status; Z90.13 Acquired absence of bilateral breasts and nipples; Z87.891 Personal history of nicotine dependence; Z51.5 Encounter for palliative care
CPT/HCPCS: 32555; 36415; 36430; 71045; 71046; 71260; 74177; 80047; 80053; 81001; 82140; 83605; 83735; 85025; 85055; 85610; 85730; 86850; 86900; 86901; 86923; 87040; 87637; 87641; 93005; 96361; 96367; 96374; 96375; 96413; 96417; 99285; A9270; J0692; J1100; J2060; J2270; J2405; J3373; J3430; J7030; J7050; J7168; J9264; J9271; P9016; P9017; Q9967

== ENCOUNTER 2025-05-21 20:06 | HOS | payer OTHER, SELFPAY ==
--- OUTSIDE RECORDS SUMMARY | 2025-05-21 17:39 | XMS_ITS | Continuity of Care Document ---
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 It does not include entries that were removed or entered in error. Problem Status Onset Date Problem Type Date of Resolution Comments Source Cervical Pap Smear Inactive Condition Do D MEDIASTINAL MASSES LYMPHADENOPATHY Active Condition NO [facility] visit for: screening exam for malignant neoplasm cervix Inactive Condition [facility] Cervix Sample Taken For Pap Smear Active Condition [facility] visit for: screening exam malignant neoplasm breast Inactive Condition [facility] VAGINITIS Active Condition [facility] VAGINITIS NONSPECIFIC Active Condition [facility] visit for: single system exam gynecological Inactive Condition [facility] Allergies, Adverse Reactions, Alerts Combined list of allergies from Department of Defense and Veterans Affairs facilities. It does not include entries that were removed or entered in error. Substance Category Reaction Severity Reaction type Status Date Reported Comments Source No Known Allergies Drug allergy (disorder) active 6 [facility] Encounters Combined list of: 1) Encounters from Department of Veterans Affairs facilities going backup to the last 18 months, not all [place] inpatient encounters are included; 2) Encounters from the Department of Defense facilities going backup to 280 months. Location Location Details Encounter Type Encounter Number Reason For Visit Attending Provider ADM Date DC Date Status Disposition Source [place] [place] [facility] OUTPATIENT [id number] FEMALE CONCERN -DID NOT DISCLOS E- RASHEL COLON 04/21 Released w/o Limitations [place]) OUTPATIENT [id number] VAGINAL DISCOMF ORT RASHEL COLON 04/06 Released w/o Limitations [place]) OUTPATIENT [id number] PAP SMEAR RASHEL COLON 04/28 Released w/o Limitations [place]) OUTPATIENT [id number] LUMP ON SIDE OF NECK KIMBERLI DAVIDSON 12/28 Released w/o Limitations [place]) OUTPATIENT [id number] PAP SMEAR-B REAST EXAM PETTY DIANE 05/18 Released w/o Limitations [place] Procedures Combined list of: 1) Procedures from Department of Veterans Affairs facilities going back up to thelast 18 months, not all [place] non-surgical procedures are included; 2) All procedures from the Department of Defense facilities. Procedure Procedure Type Code Date Perfomer Comments Sourc e SMEAR, PRIMARY SOURCE WITH INTERPRETATION; WET MOUNT FOR INFECTIOUS AGENTS (EG, SALINE, CATHERINE INK, HARMAN PREPS) 02/13/2001 [facility]D SMEAR, PRIMARY SOURCE WITH INTERPRETATION; WET MOUNT FOR INFECTIOUS AGENTS (EG, SALINE, CATHERINE INK, HARMAN PREPS) 04/06/2005 [facility] CYTOPATHOLOGY, SMEARS, CERVICAL OR VAGINAL, UP TO THREE SMEARS; SCREENING BY ACID TANK CLEANER UNDER PHYSICIAN SUPERVISION 04/21/2004 [facility] CYTOPATHOLOGY, SMEARS, CERVICAL OR VAGINAL, UP TO THREE SMEARS; SCREENING BY ACID TANK CLEANER UNDER PHYSICIAN SUPERVISION 08/27/2003 [facility] CYTOPATHOLOGY, SMEARS, CERVICAL OR VAGINAL, UP TO THREE SMEARS; SCREENING BY ACID TANK CLEANER UNDER PHYSICIAN SUPERVISION 08/22/2002 [facility] INTRAVENOUS INFUSION, THERAPY/DIAGNOSIS, ADMINISTERED PHYSICIAN/UNDER DIRECT SUPERVISION, PHYSICIAN; EA ADDITIONAL HOUR, UP TO EIGHT (8) HOURS (LIST SEPARATELY ADDITION TO CODE, PRIMARY PROCEDURE) 05/15/2002 [facility] PHYS/OTH QUALIFIED HEALTH AUTOMATION SALES MANAGER QUALIFIED,EDUCATION, TRAIN,LICENSURE/REGU LATION (WHEN APPLICABLE) EDUC SER RENDERED TO PATS IN A GRP SETTING (EG,,OBESITY ,OR DIABETIC INSTRUCT) 03/28/2002 [facility] INJECTION OF ANESTHETIC INTO SPINAL CANAL FOR ANALGESIA 05/26/1999 [facility] REPAIR OF OTHER CURRENT OBSTETRIC LACERATION 05/26/1999 [facility] EKG (SCALP) 05/26/1999 [facility] Vaginal HARMAN Prep Vaginal HARMAN Prep [id number] 04/06/2005 RENEE SHAW [facility] Vaginal Wet [place] Smear Vaginal [place] Smear [id number] 04/06/2005 RENEE BRIGGS [facility] Cervical Pap Smear Cervical Pap Smear [id number] 04/21/2004 KATE CHENEY [facility] Vaginal HARMAN Prep Vaginal HARMAN Prep [id number] 04/21/2004 OTTO CHENEY [facility] Social History Combined list of available smoking, tobacco, and other social history from Department of Defense and Veterans Affairs facilities. Social History Type Response Date Comment Sour e This section is an empty social history section. DoD
--- OUTSIDE RECORDS SUMMARY | 2025-05-21 17:40 | XMS_ITS | Encounter Summary ---
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
--- OUTSIDE RECORDS SUMMARY | 2025-05-21 17:40 | XMS_ITS | Encounter Summary ---
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 [address] [place] [address] PCP - General Family Medicine 06/15/24 Randall Pierce MD [address] [facility] [address] [place] [address] Consulting Physician Medical Oncology 06/18/24 documented as of this encounter
--- OUTSIDE RECORDS SUMMARY | 2025-05-21 17:40 | XMS_ITS | Clinical Summary ---
Author Organization [facility] Kaylee Vinson Address [address] [place] [address] Care Team Providers Care Garment Tag Stringer Name Role Phone Paul Delarosa MD Primary Care Provider [phone] Allergies No known active allergies Medications multivitamin,tx [...] Encounters Date Type Department Care Team Description 05/21/2025 Orders Only [facility] Oncology and Hematology - Edu [address] [place] [address] Chalino Kraus MD 05/19/2025 Orders Only [facility] Oncology and Hematology - Edu [address] [place] [address] Chalino Kraus MD Inflammatory carcinoma of left breast (CMS/HCC) 05/15/2025 Orders Only [facility] Oncology and Hematology - Edu [address] [place] [phone] Chalino Kraus MD 05/12/2025 Orders Only [facility] Oncology and Hematology - Edu [address] [place] [address] Chalino Kraus MD Chronic anemia; Inflammatory carcinoma of left breast (CMS/HCC) 2025 12:00 PM CDT Office Visit [facility] Oncology and Hematology - [place] [address] [place] [address] Chalino Kraus MD 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) 05/07/2025 External Device Data STL ABSTRACTION Provider, Abstract 05/06/2025 Refill [facility] Oncology and Hematology [facility] [address] [place] [address] Chalino Kraus MD Inflammatory carcinoma of left breast (CMS/HCC) 05/05/2025 Orders Only [facility] Oncology and Hematology - Edu [address] [place] [address] Chalino Kraus MD Inflammatory carcinoma of left breast (CMS/HCC) 04/29/2025 External Device Data STL ABSTRACTION Provider, Abstract 04/29/2025 External Device Data STL ABSTRACTION Provider, Abstract 04/29/2025 Orders Only [facility] Oncology and Hematology - Edu [address] [place] [address] Chalino Kraus MD 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) 04/28/2025 Orders Only [facility] Oncology and Hematology - [place] [address] [place] [address] Chalino Kraus MD Chronic anemia; Inflammatory carcinoma of left breast (CMS/HCC) 04/24/2025 Orders Only [facility] Oncology and Hematology - Edu [address] [place] [address] Chalino Kraus MD 04/22/2025 External Device Data STL ABSTRACTION Provider, Abstract 04/22/2025 External Device Data STL ABSTRACTION Provider, Abstract 04/22/2025 External Device Data [place] ABSTRACTION Provider, Abstract 04/21/2025 9:30 AM CDT Office Visit [facility] Oncology and Hematology [facility] [address] [place] [phone] Chalino Kraus MD Inflammatory carcinoma of left breast (CMS/HCC) 04/16/2025 External Device Data STL ABSTRACTION Provider, Abstract 04/16/2025 External Device Data STL ABSTRACTION Provider, Abstract 04/14/2025 Orders Only [facility] Oncology and Hematology [facility] [address] [place] [phone] Chalino Kraus MD Chronic anemia; Inflammatory carcinoma of left breast (CMS/HCC) 04/11/2025 8:45 AM CDT Office Visit [facility] Oncology and Hematology [facility] [address] [place] [address] Chalino Kraus MD 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) 04/07/2025 Orders Only [facility] Oncology and Hematology [facility] [address] [place] [address] Chalino Kraus MD Inflammatory carcinoma of left breast (CMS/HCC) 04/03/2025 8:30 AM CDT Office Visit [facility] Oncology and Hematology [facility] [address] [place] [address] Chalino Kraus MD 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) 04/02/2025 Telephone [facility] Oncology and Hematology [facility] [address] [place] [address] Chalino Kraus MD Pain 03/31/2025 Orders Only [facility] Oncology and Hematology [place] [address] [place] [address] Chalino Kraus MD Chronic anemia; Inflammatory carcinoma of left breast (CMS/HCC) 03/26/2025 Abstract [facility] Oncology and Hematology [facility] [address] [place] [address] Chalino Kraus MD 03/26/2025 Abstract [facility] Oncology and Hematology [facility] [address] [place] [address] Chalino Kraus MD 03/25/2025 External Device Data STL ABSTRACTION Provider, Abstract 03/25/2025 External Device Data STL ABSTRACTION Provider, Abstract 03/25/2025 External Device Data STL ABSTRACTION Provider, Abstract 03/25/2025 Orders Only [facility] Oncology and Hematology [facility] [address] [place] [address] Chalino Kraus MD 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) 03/24/2025 4:00 PM CDT Office Visit [facility] Breast Surgery Yeison Ashlie [address] [place] [phone] Migdalia Solorzano MD Malignant neoplasm of nipple and areola, 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) (Primary Dx) 03/24/2025 Orders Only [facility] Oncology and Hematology [facility] [address] [place] [address] Chalino Kraus MD Inflammatory carcinoma of left breast (CMS/HCC) 03/21/2025 9:00 AM CDT Office Visit [facility] Oncology and Hematology [facility] [address] [place] [address] Chalino Kraus MD 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) 03/18/2025 11:11 PM CDT - 03/20/2025 4:16 PM CDT Hospital Encounter [facility] Oncology [address] [place] [address] Aba Carter MD Weitzel, MD Christine Easley Tiago, MD Chest wall abscess Discharge Disposition: Home or Self Care 03/18/2025 External Device Data STL ABSTRACTION Provider, Abstract 03/18/2025 Travel 03/17/2025 Orders Only [facility] Oncology and Hematology - Edu [address] [place] [phone] Chalino Kraus MD Chronic anemia; Inflammatory carcinoma of left breast (CMS/HCC) 03/14/2025 Orders Only [facility] Oncology and Hematology - Edu [address] [place] [phone] Chalino Kraus MD 03/10/2025 Orders Only [facility] Oncology and Hematology - Edu [address] [place] [phone] Chalino Krasu MD Inflammatory carcinoma of left breast (CMS/HCC) 03/06/2025 Orders Only [facility] Oncology and Hematology - Edu [address] [place] [phone] Chalino Kraus MD 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) 03/04/2025 External Device Data STL ABSTRACTION Provider, Abstract 03/03/2025 Orders Only [facility] Oncology and Hematology - Edu [address] [place] [address] Chalino Kraus MD Chronic anemia; Inflammatory carcinoma of left breast (CMS/HCC) 02/28/2025 Orders Only [facility] Oncology and Hematology - Edu [address] [place] [address] Chalino Kraus MD 02/25/2025 Orders Only [facility] Oncology and Hematology - Edu [address] [place] [address] Chalino Kraus MD 02/24/2025 Orders Only [facility] Oncology and Hematology - [place] [address] [place] [address] Chalino Kraus MD Inflammatory carcinoma of left breast (CMS/HCC) 02/21/2025 10:30 AM CDT Office Visit [facility] Oncology and Hematology [facility] [address] [place] [address] Chalino Kraus MD Cancer, metastatic to bone (CMS/HCC) (Primary Dx) 02/20/2025 External Device Data STL ABSTRACTION Provider, Abstract 02/19/2025 External Device Data STL ABSTRACTION Provider, Abstract 02/18/2025 External Device Data STL ABSTRACTION Provider, Abstract from Last 3 Months Family History * [...] Description 05/29/2025 8:45 AM CDT Office Visit [facility] Oncology and Hematology [address] [place] [address] Chalino Kraus MD [address] [facility] [employer] [address] [place] [address] Health Maintenance Due Date Last Done [...] (#1) 2025 Medical Devices Implanted Type Area Meter Tester Primary Device Identifier Shelf Expiration Date Model / Serial / Lot Clip Ligating Horizon [place] [id number] - Csc - [id number] Implanted:Qty: 1 on 12/10/2024 by Migdalia Solorz[place] [facility] Left: Breast [employer] 04/28/2029 [id number] / / [id number] Port-06/24/2024 Implanted:06/03 (Quantity not on file) Port Chest [employer] / [id number] / [id number] Description:implanted at [facility] Procedures Procedure Name Priority Date/Time Associated Diagnosis Comments XR CHEST PA AND LATERAL 2 VW Routine 05/16/2025 2:19 PM CDT BASIC METABOLIC PANEL Routine 05/15/2025 12:50 PM CDT COMPREHENSIVE METABOLIC PANEL Routine 05/15/2025 12:47 PM CDT COMPREHENSIVE METABOLIC PANEL Routine 05/15/2025 11:13 AM CDT BASIC METABOLIC PANEL Routine 04/21/2025 1:40 [...] METABOLIC PANEL Routine 02/21/2025 10:34 AM CDT from Last 3 Months Results * XR CHEST PA AND LATERAL 2 VW (05/16/2025 2:19 PM CDT) Anatomical Region Laterality Modality Chest Other Chalino Kraus MD DIAGNOSTIC IMAGING ORDERABLES F inal Result * BASIC METABOLIC PANEL (05/15/2025 12:50 PM CDT) Only the most recent of6 resultswithin the time period is included. Blood Chalino Kraus MD CHEMISTRY ORDERABLES Final Resu lt * COMPREHENSIVE METABOLIC PANEL (05/15/2025 12:47 PM CDT) Only the most recent of5 resultswithin the time period is included. Blood Chalino Kraus MD CHEMISTRY ORDERABLES Final Resu lt * MANUAL DIFFERENTIAL (03/20/2025 5:40 AM CDT) Only the most recent of2 resultswithin the time period is included. Pathologist [facility] PLATELET EST. Consistent w Count 03/20/2025 7:11 AM CDT [facility] LABORATORY SERVICES - [facility] ANISOCYTOSIS 2+ /hpf 03/20/2025 7:11 AM CDT [facility] LABORATORY SERVICES - . [facility] POIKILOCYTES 2+ /hpf 03/20/2025 7:11 AM CDT [employer] LABORATORY SERVICES - . [facility] MICROCYTES 1+ /hpf 03/20/2025 7:11 AM CDT [employer] LABORATORY SERVICES - . [facility] TARGET CELLS 1+ /hpf 03/20/2025 7:11 AM CDT [employer] LABORATORY SERVICES - . [facility] OVALOCYTES 1+ /hpf 03/20/2025 7:11 AM CDT [facility] - . [facility] Blood Venipuncture / Unknown 03/20/2025 5:40 AM CDT 03/20/2025 6:12 AM CDT Rita Arrieta MD HEMATOLOGY ORDERABLES COM Final Result [facility] LABORATORY SERVICES - [facility] CLIA# [id number] [address] [facility] [address] [place] [id number] * (ABNORMAL) CBC WITH DIFFERENTIAL (03/20/2025 5:40 AM CDT) Only the most recent of3 resultswithin the time period is included. Pathologist [facility] WBC 5.5 4.0 - 9.8 K/uL 03/20/2025 6:34 AM CDT [employer] LAB[facility]ATORY SERVICES - [facility] RBC 4.97(H) 3.90 - 4.90 M/uL 03/20/2025 6:34 AM CDT [facility] HEMOGLOBIN 10.7(L) 11.8 - 14.8 g/dL 03/20/2025 6:34 AM CDT [facility] HEMATOCRIT 35.5 35.5 - 44.0 % 03/20/2025 6:34 AM CDT [facility] MCV 71.4(L) 82.0 - 99.0 fL 03/20/2025 6:34 AM CDT [facility] MCH 21.5(L) 27.2 - 32.6 pg 03/20/2025 6:34 AM CDT [facility] MCHC 30.1(L) 31.5 - 35.5 g/dL 03/20/2025 6:34 AM CDT [facility] [facility] RDW 22.4(H) 11.5 - 14.5 % 03/20/2025 6:34 AM CDT [facility] RDW-STDEV 55.3(H) 37.1 - 48.7 fL 03/20/2025 6:34 AM CDT [employer] [facility] PLATELETS 326 140 - 350 K/uL 03/20/2025 6:34 AM CDT [employer] [facility] MPV 9.9 9.3 - 12.4 fL 03/20/2025 6:34 AM CDT [facility] [facility] NEUTROPHILS 65 % 03/20/2025 6:34 AM CDT [facility] LYMPHOCYTES 12 % 03/20/2025 6:34 AM CDT [facility] MONOCYTES 18 % 03/20/2025 6:34 AM CDT [facility] EOSINOPHILS 3 % 03/20/2025 6:34 AM CDT [facility] BASOPHILS 1 % 03/20/2025 6:34 AM CDT [facility] IMMATURE GRANULOCYTES 1 % 03/20/2025 6:34 AM CDT [facility] Comment:IG (Immature Granulo cyte) count includes Metamyelocytes, Myelocytes, and Promyelocytes NEUTROPHIL ABSOLUTE 3.59 1.90 - 7.00 K/uL 03/20/2025 6:[address] [facility] LYMPHOCYTE ABSOLUTE 0.68(L) 0.70 - 4.50 K/uL 03/20/2025 6:[address] [facility] MONOCYTE ABSOLUTE 0.98 0.10 - 1.30 K/uL 03/20/2025 6:[address] [facility] EOSINOPHIL ABSOLUTE 0.14 0.00 - 0.70 K/uL 03/20/2025 6:34 AM CDT [facility] LABORATORY [facility] - . [facility] BASOPHILS ABSOLUTE 0.07 0.00 - 0.20 K/uL 03/20/2025 6:[address] [facility] IMMATURE GRANULOCYTES ABSOLUTE 0.03 0.00 - 0.03 K/uL 03/20/2025 6:[address] [facility] Blood Venipuncture / Unknown 03/20/2025 5:40 AM CDT 03/20/2025 6:12 AM CDT Rita Arrieta MD HEMATOLOGY ORDERABLES Silvana l Result Performing Organization Address City/[facility] Co de Phone Number [facility]# [id number] [address] [place] [address] * (ABNORMAL) C-REACTIVE PROTEIN (03/20/2025 5:40 AM CDT) [facility] CRP 20.6(H) <5.0 mg/L 03/20/2025 6:[address] [facility] Blood Venipuncture / Unknown 03/20/2025 5:40 AM CDT 03/20/2025 6:12 AM CDT Pina Giraldo NP CHEMISTRY ORDERABLES Fin al Result [facility] LABORATORY SERVICES [facility]# [id number] [address] [place] [address] * CT GUIDE PERCUT DRAIN W CATH (03/19/2025 12:00 PM CDT) Anatomical Region Laterality Modality Computed Tomogra phy 03/19/2025 11:1 5 AM CDT Impressions 03/19/2025 2:04 PM CDT IMPRESSION: Successful percutaneous drainage catheter placement in the left chest wall fluid collection. 60 mL sanguinous fluid was aspirated with sample sent for laboratory evaluation. DICTATION LOCATION: Location 1 - [facility] The examination was performed with the adjustment [...] dilated over a guidewire and a 10 Maori drainage catheter was placed. CT imaging was [...] dilated over a guidewire and a 10 Maori drainage catheter was placed. CT imaging was [...] evaluation. DICTATION LOCATION: Location 1 - [facility] The examination was performed with the adjustment of mA according to the patient size and/or the use of Iterative Reconstruction Technique. us Abundio Love MD CT ORDERABLES Final R esult * ANAEROBIC/AEROBIC CULTURE W GRAM STAIN (03/19/2025 11:36 AM CDT) CULTURE No aerobic or anaerobic growth 03/24/2025 7:[address] [facility] GRAM STAIN No organisms observed 03/24/2025 7:08 AM [facility] GRAM STAIN 3+ (Moderate) Polymorphonuclear WBC 03/24/2025 7:08 AM CDT [facility] [employer] [facility] Body fluid THORACIC STRUCTURE / Unknown Collection / Unknown 03/19/2025 11:36 AM CDT 03/19/2025 12:23 PM CDT us Abundio Love MD MICROBIOLOGY - GENERAL ORDERABLES Final Result [facility] CLIA# [id number] [address] [place] [address] * (ABNORMAL) WOUND (AEROBIC) CULTURE WITH GRAM STAIN (03/19/2025 12:54 AM CDT) CULTURE STAPHYLOCOCCUS AUREUS(A) JAYSON MCG/ML 03/21/2025 9:[address] [facility] GRAM STAIN No organisms observed 03/21/2025 9:[address] [facility] GRAM STAIN 3+ (Moderate) Polymorphonuclear WBC 03/21/2025 9:[address] [facility] Wound THORACIC STRUCTURE / Unknown [...] NOT be used alone for antimicrobial therapy. us Rita Arrieta MD MICROBIOLOGY - GENERAL ORD ERABLES Final Result [facility]# [id number] [address] [place] [id number] from Last 3 Months Insurance Member Subscriber Plan / Payer (Ef fective 2024-Present) Name:Janae Solis Relation to Subscriber:Self Name:Janae Solis Payer ID:Not on file Group ID:[id number] Type:RX Commercial Address: [address] Advance Directives For more information, please contact: [phone] * Full Code (Latest Code Status on File) Date Activated Date Inactivated Comments 03/19/2025 12:38 AM 03/20/2025 6:35 PM * Full Code Date Activated Date Inactivated Comments 11/27/2024 6:24 PM 11/28/2024 4:27 PM Care Teams Garment Tag Stringer Relationship Specialty Start Date End Date Paul Delarosa MD [address] [facility] [address] [place] [address] PCP - General Family Practice 10/16/24
--- OUTSIDE RECORDS SUMMARY | 2025-05-21 17:40 | XMS_ITS | Encounter Summary ---
Author Organization [facility] Address [address] [place] [address] Care Team Providers Care Emt Dispatcher Name Role Phone Paul Delarosa MD Primary Care Provider [phone] Encounter Details Date Type Department Care Team (Late Contact Info) Description 05/15/2025 Orders Only [facility] Oncology and Hematology [facility] [place] [address] [place] [address] Chalino Kraus MD [facility] [employer] [address] [place] [address] Social History Tobacco Use Types Packs/Day [...] Description 05/29/2025 8:45 AM CDT Office Visit [facility] Oncology and Hematology - Edu [address] [place] [address] Chalino Kraus MD [address] [employer] [address] [place] [address] documented as of this encounter Procedures [...] on filedocumented in this encounter Care Teams Emt Dispatcher Relationship Specialty Start Date End Date Paul Delarosa MD [address] [facility] [address] [place] [address] PCP - General Family Practice 10/16/24 documented as of this encounter
--- OUTSIDE RECORDS SUMMARY | 2025-05-21 17:40 | XMS_ITS | Encounter Summary ---
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 [address] [place] [address] Consulting Physician Medical Oncology 06/18/24 documented as of this encounter
--- OUTSIDE RECORDS SUMMARY | 2025-05-21 17:40 | XMS_ITS | Encounter Summary ---
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
--- OUTSIDE RECORDS SUMMARY | 2025-05-21 17:40 | XMS_ITS | Encounter Summary ---
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
--- OUTSIDE RECORDS SUMMARY | 2025-05-21 17:40 | XMS_ITS | Encounter Summary ---
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
--- OUTSIDE RECORDS SUMMARY | 2025-05-21 17:40 | XMS_ITS | Encounter Summary ---
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
--- OUTSIDE RECORDS SUMMARY | 2025-05-21 17:40 | XMS_ITS | Encounter Summary ---
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
--- OUTSIDE RECORDS SUMMARY | 2025-05-21 17:40 | XMS_ITS | Encounter Summary ---
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 [address] [place] [address] Consulting Physician Medical Oncology 06/18/24 documented as of this encounter
--- OUTSIDE RECORDS SUMMARY | 2025-05-21 17:40 | XMS_ITS | Encounter Summary ---
Author Organization [facility] [employer] 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
--- OUTSIDE RECORDS SUMMARY | 2025-05-21 17:40 | XMS_ITS | Encounter Summary ---
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
--- OUTSIDE RECORDS SUMMARY | 2025-05-21 17:40 | XMS_ITS | Encounter Summary ---
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
--- OUTSIDE RECORDS SUMMARY | 2025-05-21 17:40 | XMS_ITS | Encounter Summary ---
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
--- OUTSIDE RECORDS SUMMARY | 2025-05-21 17:40 | XMS_ITS | Encounter Summary ---
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
--- OUTSIDE RECORDS SUMMARY | 2025-05-21 17:40 | XMS_ITS ---
Author [facility] Address [address] [facility] [address] Care Team Providers Care Duck Bill Operator Name Role Phone Paul Delarosa MD Primary Care Provider [phone] Active Problems Problem Noted Date Diagnosed Date [...]
--- OUTSIDE RECORDS SUMMARY | 2025-05-21 17:41 | XMS_ITS | Encounter Summary ---
Author Organization [facility] Address [address] [place] [address] Care Team Providers Care Roll Forger Name Role Phone Paul Delarosa MD Primary Care Provider [phone] Encounter Details Date Type Department Care Team (Late Contact Info) Description 05/21/2025 Orders Only [facility] Oncology and Hematology [facility] [address] [place] [address] Chalino Kraus MD [facility] [address] [place] [phone] Social History Tobacco Use Types Packs/Day [...] Description 05/29/2025 8:45 AM CDT Office Visit [facility] Oncology and Hematology - [address] [place] [address] Chalino Kraus MD [address] [facility] [address] [place] [phone] documented as of this encounter Procedures Procedure Name Priority Date/Time Associated Diagnosis Comments XR CHEST PA AND LATERAL 2 VW Routine 05/16/2025 2:19 PM CDT documented in this encounter Results * XR CHEST PA AND LATERAL 2 VW (05/16/2025 2:19 PM CDT) Anatomical Region Laterality Modality Chest Other Chalino Kraus MD DIAGNOSTIC IMAGING ORDERABLES F inal Result documented in this encounter Visit Diagnoses Not on filedocumented in this encounter Care Teams Roll Forger Relationship Specialty Start Date End Date Paul Delarosa MD [address] [facility] [address] [place] [address] PCP - General Family Practice 10/16/24 documented as of this encounter
--- OUTSIDE RECORDS SUMMARY | 2025-05-21 17:41 | XMS_ITS | Encounter Summary ---
Author Organization [facility] Address [address] [place] [address] Care Team Providers Care Auxiliary Power Equipment Operator Name Role Phone Paul Delarosa MD Primary Care Provider [phone] Encounter Details Date Type Department Care Team (Late st Contact Info) Description 05/19/2025 Orders Only [facility] Oncology and Hematology [facility] [address] [place] [address] Chalino Kraus MD [address] [place] [address] Inflammatory carcinoma of left breast [...] [facility] [address] [place] [address] Chalino Kraus MD [address] [place] [address] documented as of this encounter Procedures Procedure Name Priority Date/Time Associated Diagnosis Comments COMPREHENSIVE METABOLIC PANEL Routine 05/15/2025 11:13 AM CDT documented in this encounter Results * COMPREHENSIVE METABOLIC PANEL (05/15/2025 11:13 AM CDT) Blood Chalino Kraus MD CHEMISTRY ORDERABLES Final Resu lt documented in this encounter Visit Diagnoses Diagnosis Inflammatory carcinoma of left breast (CMS/HCC) documented in this encounter Care Teams Auxiliary Power Equipment Operator Relationship Specialty Start Date End Date Paul Delarosa MD [address] [facility] [address] [place] [address] PCP - General Family Practice 10/16/24 documented as of this encounter
--- OUTSIDE RECORDS SUMMARY | 2025-05-21 17:41 | XMS_ITS | Clinical Summary ---
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 [address] [place] [address] Consulting Physician Medical Oncology 06/18/24
--- OUTSIDE RECORDS SUMMARY | 2025-05-21 17:41 | XMS_ITS | Encounter Summary ---
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
--- NOTE | 2025-05-21 20:34 | P.HP_ITS ---
H&P: HPI History of Present Illness Date/Time: 05/21/25 20:34 Chief Complaint: uncontrolled pain and restlessness Narrative: 55 year old female with metastatic inflammatory, triple negative breast cancer initially diagnosed with stage IIIC disease completed neoadjuvant chemotherapy with Adriamycin, Cytoxan and Taxol in October 2024 and underwent bilateral mastectomy in November 2024. She developed metastatic disease in December 2024 with bone involvement. Palliative chemotherapy was initiated with Abraxane and Keytruda but she was only able to receive 1 treatment due to local relapse and infection in the left chest wall. She completed left chest wall radiation therapy in April,. She then developed open wound at the site of the radiation therapy treatment accompanied by progressive metastatic disease with bilateral pleural effusion and liver metastasis. She received additional palliative chemotherapy on May 15 and came into the hospital with worsening of shortness of breath and severe orthopnea. CT scan showed bilateral pleural effusion and progression of metastatic disease. Labs showed pancytopenia and elevated PT INR. She was extremely weak and jaundiced. On 05/21/2025 she underwent a therapeutic right thoracentesis with removal of 1100 ml and, with family's consent was admitted to the inpatient hospice service for control of pain and agitation. Hx was obtained from review of chart as Mrs. Solis was unable to provide a history. 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) segmental mastectomy with axillary lymph node dissection and chemoradiation Generalized anxiety disorder Vitamin D deficiency Vitamin B12 deficiency Psychophysiological insomnia Cervical polyp History of vaginal delivery Endometrial polyp Anemia on ferrous sulfate and cyanocobalamin daily Surgical History Surgical History History of lumpectomy of right breast (05/26/10) poorly differentiated invasive ductal carcinoma History of segmental mastectomy (06/09/10) segmental mastectomy of the right upper outer quadrant History of wisdom tooth extraction History of bilateral mastectomy (11/27/24) multifocal invasive ductal carcinoma with lymphovascular invasion and skeletal muscle involvement with positive margins status post re-excision History of laser assisted in situ keratomileusis History of lymph node dissection of axilla Family History Family History Other Adopted Social History Social History (Updated 05/21/25 @ 20:41 by Tommie Mora MD) Social History: Lives at home with and has 2 dogs. Surrogate medical decision maker: Paul Solis, spouse. Code status: DNR. Smoking packs per day: 1 Smoking cigarettes per day: 20.0 Years smoked: 20 Smoking pack-years: 20.00 Smoking status: Never smoker Second hand tobacco smoke exposure: No Alcohol intake: former Alcohol use details: 4 drinks per week Substance use: never Substance use type: does not use Do You Feel Safe in your Home?: Yes Lack of Transportation: No Lack of Food: Never True Current Housing: I Have Housing Concerned About Future Housing: No Difficulty Paying Gas/Electric Bills: No Difficulty Paying for Meds: No Currently Unemployed: No Education: Decline to Answer Difficulty w/ Childcare or Family Care: No Living arrangements: with family Additional living arrangements comments: Lives with Paul and their 2 mathias hounds in [place]. They have a grown child. Occupation/Education: occupation Spiritual care concerns: No Agree to blood products: Yes Meds Home Medications and Allergies Home Medications ?Medication ?Instructions ?Recorded ?Confirmed ?Type apixaban 5 mg tablet (Eliquis) 5 mg PO Q12HR 30 days # 60 tabs 05/08/25 05/16/25 Rx metoprolol tartrate 25 mg tablet 12.5 mg (1/2 x 25 mg) PO BID #30 05/08/25 05/16/25 Rx tabs Allergies Allergy/AdvReac Type Severity Reaction Status Date / Time No Known Allergies Allergy Verified 05/16/25 07:33 Exam Narrative: HEENT: Pharyngeal mucosa pink and intact NECK: No JVD, adenopathy, or thyromegaly CHEST: Normal effort, decreased breath sounds at bases HEART: NL S1/S2, regular, no murmur ABDOMEN: BS hypoactive, protuberant but soft, palpable hepatomegaly EXTREMITIES: 2+ pitting edema bilateral ankles and distal legs NEUROLOGIC: CN intact and symmetric to inspection. MUSCULOSKELETAL: No gross deformity to visual inspection PSYCH: Drowsy but responds to tactile stimuli and response to verbal stimuli is monosyllabic Assessment and Plan Assessment and plan (1) Hospice care: Code(s): Z51.5 - Encounter for palliative care Status: Acute Assessment and Plan: * Meet inpatient hospice criteria due to requiring continuous IV morphine at 2 milligrams/hour and schedule IV Ativan 1 mg every 8 hours for control of pain and agitation * P.r.n. 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
--- NOTE | 2025-05-21 20:34 | ADMGEN ---
This patient, Janae Solis, was admitted to [facility] Surg Room 318-01. Patient/family oriented to hospital policies and general routines including ID bracelet, bed and alarms, visiting hours, pain management, procedures, bathroom and other care routines, personal items, smoking policy, room service/diet, and visiting hours. Information on how to activate the Rapid Response Team has been discussed. Patient/Family are encouraged to report perceived risks to care and to ask questions if they do not understand what they are told or what they should do.
[2025-05-21 20:41] VITALS: BP 116/56; PULSE 109; RESP 18; TEMP 36.7; O2SAT 93
[2025-05-21 22:55] VITALS: RESP 18
[2025-05-21] MEDS: LORazepam INJ (*CRX) 2 MG/ML VIAL 1 MG IV PUSH (22:55)
[2025-05-21] MEDS: MORPHINE 50 MG/NS 100ML (*CRX) 50 MG/100 ML BAG IV CONT (22:55)
[2025-05-21] MEDS: SILVER SULFADIAZINE 1% CR 50 GM JAR (*BKC) 1 APPLIC TOPICAL (23:31)
[2025-05-22] MEDS: MORPHINE SULFATE (*CRX) 2 MG/ML INJ 4 MG IV PUSH ×3 (01:35→18:19)
[2025-05-22 05:26] VITALS: O2SAT 85
[2025-05-22] MEDS: LORazepam INJ (*CRX) 2 MG/ML VIAL 1 MG IV PUSH (05:43)
[2025-05-22] MEDS: diazePAM INJ (*CRX) 10 MG/2 ML SYRINGE 5 MG IV PUSH ×2 (15:08→21:10)
--- NOTE | 2025-05-22 17:21 | P.PNIM_ITS ---
Progress Note: A&P Assessment and Plan (1) Hospice care: Code(s): Z51.5 - Encounter for palliative care Status: Acute Assessment and Plan: * Meet inpatient hospice criteria due to requiring continuous IV morphine at 2 milligrams/hour and schedule IV Ativan 1 mg every 8 hours for control of pain and agitation * P.r.n. 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 Review of Systems Review of Systems: ROS unobtainable: Yes unobtainable due to medical condition Exam Narrative: HEENT: Pharyngeal mucosa pink and intact, jaundiced NECK: No JVD, adenopathy, or thyromegaly CHEST: Normal effort, no audible crackles HEART: Regular ABDOMEN: Protuberant but soft EXTREMITIES: 2+ pitting edema bilateral ankles and distal legs and LUE NEUROLOGIC: CN intact and symmetric to inspection. MUSCULOSKELETAL: No gross deformity to visual inspection PSYCH: Awakens intermittently and says hi or hey but does not follow commands Objective Data Vital Signs Vital Signs: Vital Signs - 24 hr 05/21/25 20:41 05/21/25 22:55 05/22/25 05:26 Temperature 98.1 F Pulse Rate 109 H Respiratory Rate 18 18 Blood Pressure 116/56 L Pulse Oximetry 93 85 L Oxygen Delivery Nasal Cannula Oxygen Flow Rate 2 Intake/Output Intake/Output: Intake & Output 05/19/25 05/20/25 05/21/25 05/22/25 23:59 23:59 23:59 23:59 Intake Total 0 Output Total 650 Balance -650 Meds/Results Medications: Active Medications Generic Name Dose Route Start Last Admin Trade Name Freq PRN Reason Stop Dose Admin Acetaminophen 650 mg 05/21/25 20:51 Acetaminophen 650 Mg Suppository RECTAL Q6H PRN Mild Pain (1-3) or Fever Artificial Tears 1 drop 05/21/25 20:51 Artificial Tears Ophth Soln 15 Ml Bottle EACH EYE Q4H PRN Dry Eye(s) Bisacodyl 10 mg 05/21/25 20:51 Bisacodyl 10 Mg Suppository RECTAL QAM PRN Constipation Diazepam 5 mg 05/22/25 14:00 05/22/25 15:08 Diazepam Inj (*Crx) 10 Mg/2 Ml Syringe IV PUSH 5 mg Q8H THU Administration Diazepam 5 mg 05/22/25 09:59 Diazepam Inj (*Crx) 10 Mg/2 Ml Syringe IV PUSH Q4H PRN Anxiety Glycopyrrolate 0.1 mg 05/21/25 20:51 Glycopyrrolate Inj (*Sp) 0.2 Mg/Ml Vial IV PUSH Q4H PRN secretions Morphine Sulfate 50 mg in 100 mls @ 4 mls/hr 05/21/25 20:50 05/21/25 22:55 IV CONT 2 mg/hr .Q24H THU 4 mls/hr 2 MG/HR Administration Morphine Sulfate 4 mg 05/21/25 20:41 05/22/25 05:44 Morphine Sulfate (*Crx) 2 Mg/Ml Inj IV PUSH 4 mg Q2H PRN Administration Pain Prochlorperazine Edisylate 10 mg 05/21/25 21:00 Prochlorperazine Edisylate 10 Mg/2 Ml Vial IV PUSH Q6H PRN Nausea And Vomiting Silver Sulfadiazine 1 applic 05/21/25 21:20 05/21/25 23:31 Silver Sulfadiazine 1% Cr 50 Gm Jar (*Bkc) TOPICAL 1 applic Q12HR THU Administration
[2025-05-22] MEDS: MORPHINE 50 MG/NS 100ML (*CRX) 50 MG/100 ML BAG IV CONT (19:29)
[2025-05-22 20:03] VITALS: BP 104/52; PULSE 113; RESP 16; TEMP 36.4; O2SAT 97
[2025-05-22] MEDS: SILVER SULFADIAZINE 1% CR 50 GM JAR (*BKC) 1 APPLIC TOPICAL (21:11)
[2025-05-23] MEDS: diazePAM INJ (*CRX) 10 MG/2 ML SYRINGE 5 MG IV PUSH ×3 (02:40→16:38)
[2025-05-23] MEDS: MORPHINE SULFATE (*CRX) 2 MG/ML INJ 4 MG IV PUSH ×2 (03:39→06:49)
[2025-05-23] MEDS: SILVER SULFADIAZINE 1% CR 50 GM JAR (*BKC) 1 APPLIC TOPICAL (08:00)
[2025-05-23] MEDS: MORPHINE SULFATE (*CRX) 2 MG/ML INJ 6 MG IV PUSH (13:19)
[2025-05-23] MEDS: PROCHLORPERAZINE EDISYLATE 10 MG/2 ML VIAL IV PUSH (16:05)
[2025-05-23 16:34] VITALS: BP 82/31; PULSE 123; RESP 5; TEMP 36; O2SAT 73
[2025-05-23] MEDS: MORPHINE 50 MG/NS 100ML (*CRX) 50 MG/100 ML BAG 8 MG IV CONT (16:38)
--- NOTE | 2025-05-23 16:44 | P.PNIM_ITS ---
Progress Note: A&P Assessment and Plan (1) Hospice care: Code(s): Z51.5 - Encounter for palliative care Status: Acute Assessment and Plan: * Meet inpatient hospice criteria due to requiring continuous IV morphine at 2 milligrams/hour and schedule IV Ativan 1 mg every 8 hours for control of pain and agitation * P.r.n. palliative regimen ordered * 05/21/2025: Discussed care and prognosis with spouse at bedside * 05/22/2025: Lower oxygen saturation, LLE cool, less alert, required 2 prn doses overnight, continues to decline, d/w spouse at bedside and completed forms for time off work for him * 05/23/2025: Required incrased morphine to 4 mg/hr, less alert, hypoxic, hypotensive, imminent, d/w spouse at bedside (2) Inflammatory breast cancer: Onset Date: 06/2024 Code(s): C50.919 - Malignant neoplasm of unspecified site of unspecified female breast Status: Acute (3) Cancer, metastatic to bone: Code(s): C79.51 - Secondary malignant neoplasm of bone Status: Acute (4) Cancer, 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 Review of Systems Review of Systems: ROS unobtainable: Yes unobtainable due to medical condition Exam Narrative: HEENT: Pharyngeal mucosa pink and intact, jaundiced NECK: No JVD, adenopathy, or thyromegaly CHEST: Normal effort, no audible crackles HEART: Regular ABDOMEN: Protuberant but soft EXTREMITIES: 2+ pitting edema bilateral ankles and distal legs and LUE NEUROLOGIC: CN intact and symmetric to inspection. MUSCULOSKELETAL: No gross deformity to visual inspection PSYCH: Unresponsive to verbal or tactile stimuli Objective Data Vital Signs Vital Signs: Vital Signs - 24 hr 05/22/25 20:03 05/23/25 16:34 Temperature 97.6 F 96.8 F L Pulse Rate 113 H 123 H Respiratory Rate 16 5 L Blood Pressure 104/52 L 82/31 L Pulse Oximetry 97 73 L Intake/Output Intake/Output: Intake & Output 05/20/25 05/21/25 05/22/25 05/23/25 23:59 23:59 23:59 23:59 Intake Total 97.3 96.5 Output Total 1350 500 Balance -1252.7 -403.5 Meds/Results Medications: Active Medications Generic Name Dose Route Start Last Admin Trade Name Freq PRN Reason Stop Dose Admin Acetaminophen 650 mg 05/21/25 20:51 Acetaminophen 650 Mg Suppository RECTAL Q6H PRN Mild Pain (1-3) or Fever Artificial Tears 1 drop 05/21/25 20:51 Artificial Tears Ophth Soln 15 Ml Bottle EACH EYE Q4H PRN Dry Eye(s) Bisacodyl 10 mg 05/21/25 20:51 Bisacodyl 10 Mg Suppository RECTAL QAM PRN Constipation Diazepam 5 mg 05/22/25 14:00 05/23/25 16:38 Diazepam Inj (*Crx) 10 Mg/2 Ml Syringe IV PUSH 5 mg Q8H THU Administration Diazepam 5 mg 05/22/25 09:59 05/23/25 02:40 Diazepam Inj (*Crx) 10 Mg/2 Ml Syringe IV PUSH 5 mg Q4H PRN Administration Anxiety Glycopyrrolate 0.1 mg 05/21/25 20:51 Glycopyrrolate Inj (*Sp) 0.2 Mg/Ml Vial IV PUSH Q4H PRN secretions Morphine Sulfate 50 mg in 100 mls @ 8 mls/hr 05/21/25 20:50 05/23/25 16:38 IV CONT 4 mg/hr .[id number] THU 8 mls/hr 4 MG/HR Administration Morphine Sulfate 6 mg 05/23/25 12:16 05/23/25 13:19 Morphine Sulfate (*Crx) 2 Mg/Ml Inj IV PUSH 6 mg Q2H PRN Administration Pain Prochlorperazine Edisylate 10 mg 05/21/25 21:00 05/23/25 16:05 Prochlorperazine Edisylate 10 Mg/2 Ml Vial IV PUSH 10 mg Q6H PRN Administration Nausea And Vomiting Silver Sulfadiazine 1 applic 05/21/25 21:20 05/23/25 08:00 Silver Sulfadiazine 1% Cr 50 Gm Jar (*Bkc) TOPICAL 1 applic Q12HR THU Administration
--- NOTE | 2025-05-25 11:43 | P.DN_ITS ---
Discharge Summary Date and Time Date of : 05/23/25 Time of : 17:25 Provider Pronounced By: 2 RNs Name of First RN That Pronounced: Jessie Granado RN Name of Second RN That Pronounced: Estrella Boucher RN Probable Cause of Probable Cause of : Metastatic breast cancer Summary Hospital Course: Admitted inpatient hospice service for symptom management. Medications were titrated to comfort. Mrs. Solis peacefully. Additional Data Confirmation of as documented by pronouncing clinician: Pupillary Reflex, Palpable Pulses, Response to Stimuli, Heart Tones and Breath Sounds Name of Provider Notified: Dr Mora Time Provider Notified: 18:00 Provider Requests Autopsy: No Family Requests Autopsy: No Berry Planter Notified: Yes Date [facility] Notified of : 05/23/25 Time [facility] Notified of : 17:57
== END 2025-05-23 17:25 | disposition expired | DRG 951 ==
PROVIDERS: Admitting Provider Internal Medicine; PCP Family Medicine; Visit Provider Internal Medicine
DX: Z51.5 Encounter for palliative care (principal); C78.7 Secondary malignant neoplasm of liver and intrahepatic bile duct; C79.51 Secondary malignant neoplasm of bone; C79.52 Secondary malignant neoplasm of bone marrow; J91.0 Malignant pleural effusion; C50.512 Malignant neoplasm of lower-outer quadrant of left female breast; C50.511 Malignant neoplasm of lower-outer quadrant of right female breast; Z17.421 Hormone receptor negative with human epidermal growth factor receptor 2 negative status
CPT/HCPCS: A9270; J0780; J2060; J2270; J3360